=== PATIENT | male | born 1945 | race Caucasian/White ===

== ENCOUNTER 2021-11-30 07:27 | Outpatient (REF) | payer MEDICARE, SELFPAY ==
[2021-11-30 07:55] LABS: MANUAL DIFF FLAG NO
[2021-11-30 08:49] LABS: Basophils Absolute Auto 0.1 X10*3/uL (0.0-0.2); Basophils Percent Auto 0.5 % (0-2); Eosinophils Absolute Auto 0.5 X10*3/uL (0.0-0.4); Eosinophils Percent Auto 4.7 % (0-4); Hematocrit 30.2 % (42.0-52.0); Hemoglobin 9.7 g/dl (14.0-18.0); Imm Gran Abs Auto 0.04 X10*3/uL (0.00-0.03); Imm Gran Pct Auto 0.4 % (0.0-0.4); Lymphocytes Absolute Auto 2.5 X10*3/uL (1.2-4.9); Lymphocytes Percent Auto 25.2 % (20-40); Mean Corpuscular HGB Conc 32.1 g/dl (31.0-36.0); Mean Corpuscular Hemoglobin 25.3 pg (27.0-33.0); Mean Corpuscular Volume 78.9 fL (80.0-98.0); Mean Platelet Volume 8.6 fL (9.4-12.4); Monocytes Percent Auto 10.6 % (2-11); Neutrophils Absolute Auto 5.8 x10*3/uL (2.0-8.3); Neutrophils Percent Auto 58.6 % (45-73); Platelet Count 280 X10*3/uL (160-400); Red Blood Count 3.83 X10*6/uL (4.60-5.80); Red Cell Distribution Width 18.1 % (11.0-16.0); White Blood Count 9.8 X10*3/uL (4.8-10.8)
[2021-11-30 09:24] LABS: Creatinine Urine 132.56 mg/dL; Microalbum/Creatinine Ratio Ur 18.1 ug/mg cr
[2021-11-30 09:35] LABS: Alanine Aminotransferase 25 U/L (0-40); Albumin Level 3.8 g/dL (3.5-5.0); Alkaline Phosphatase 98 U/L (39-117); Anion Gap 14 (12-20); Aspartate Amino Transferase 34 U/L (5-37); Bilirubin Total 0.5 mg/dL (0.0-1.0); Blood Urea Nitrogen 24 mg/dL (9-16); Calcium 9.1 mg/dL (8.4-10.2); Carbon Dioxide 23 mmol/L (22-29); Chloride 104 mmol/L (96-108); Cholesterol 123 mg/dL; Estimated Glomerular Filt Rate 30; Glucose Random 131 mg/dL (60-115); HDL Cholesterol 49 mg/dL; LDL Cholesterol Calculated 57 mg/dl; Potassium 4.2 mmol/L (3.3-5.1); Sodium 137 mmol/L (135-145); Total Protein 7.1 g/dL (6.5-8.0); Triglycerides 89 mg/dL
[2021-11-30 09:47] LABS: TSH reflex Free T4 2.61 uIU/mL (0.32-4.0)
[2021-11-30 10:14] LABS: Vitamin D 25-OH Total 43.8 ng/mL (>30)
[2021-12-02 09:01] LABS: Folate 16.6 ng/mL (> or = 4.0); Vitamin B12 > 2000 pg/mL (200-900)
== END 2021-11-30 07:28 | disposition home or self-care (01) ==
LOC: HO.LAB 07:27
PROVIDERS: PCP Nurse Practitioner Family; Visit Provider Nurse Practitioner Family
DX: Z13.29 Encounter for screening for other suspected endocrine disorder (principal); I10 Essential (primary) hypertension; E78.5 Hyperlipidemia, unspecified; E11.9 Type 2 diabetes mellitus without complications; Z79.4 Long term (current) use of insulin
CPT/HCPCS: 36415; 80053; 80061; 82043; 82306; 82607; 82746; 84443; 85025

== ENCOUNTER 2021-12-18 07:56 | Outpatient (REF) | payer MEDICARE, SELFPAY ==
[2021-12-18 09:35] LABS: Hematocrit 29.9 % (42.0-52.0); Hemoglobin 9.4 g/dl (14.0-18.0); Immature Retic Fraction 29.2 % (2.3-13.4); Mean Corpuscular HGB Conc 31.4 g/dl (31.0-36.0); Mean Corpuscular Hemoglobin 25.1 pg (27.0-33.0); Mean Corpuscular Volume 79.9 fL (80.0-98.0); Mean Platelet Volume 9.1 fL (9.4-12.4); Platelet Count 289 X10*3/uL (160-400); Red Blood Count 3.74 X10*6/uL (4.60-5.80); Red Cell Distribution Width 17.9 % (11.0-16.0); Retic HGB Equivalent 29.1 pg (30.0-35.0); Reticulocyte Percent 1.5 % (0.5-1.8); Reticulocytes Absolute 0.056 X10*6/uL (0.026-0.095); White Blood Count 9.9 X10*3/uL (4.8-10.8)
[2021-12-18 10:11] LABS: Anion Gap 13 (12-20); Blood Urea Nitrogen 26 mg/dL (9-16); Calcium 9.2 mg/dL (8.4-10.2); Carbon Dioxide 25 mmol/L (22-29); Chloride 101 mmol/L (96-108); Estimated Glomerular Filt Rate 29; Glucose Random 155 mg/dL (60-115); Iron 29 mcg/dL (45-160); Percent Iron Saturation 7 % (15-50); Potassium 4.4 mmol/L (3.3-5.1); Sodium 135 mmol/L (135-145); Total Iron Binding Capacity 391 mcg/dL (228-428); Unsaturated Iron Binding 362 ug/dL
[2021-12-18 10:35] LABS: Ferritin 33 ng/mL (20-250)
== END 2021-12-18 07:57 | disposition home or self-care (01) ==
LOC: HO.LAB 07:56
PROVIDERS: PCP Nurse Practitioner Family; Visit Provider Nurse Practitioner Family
DX: N18.30 Chronic kidney disease, stage 3 unspecified (principal); D64.9 Anemia, unspecified
CPT/HCPCS: 36415; 80048; 82728; 83540; 85027; 85045

== ENCOUNTER → 2021-12-30 14:37 | Outpatient (BNVA) | payer MEDICARE, SELFPAY | PROVIDERS: PCP Nurse Practitioner Family; Referring Provider Nurse Practitioner Family; Visit Provider Internal Medicine | DX: I25.10 Atherosclerotic heart disease of native coronary artery without angina pectoris (principal); I48.0 Paroxysmal atrial fibrillation; I10 Essential (primary) hypertension; E11.8 Type 2 diabetes mellitus with unspecified complications; I25.2 Old myocardial infarction; Z79.4 Long term (current) use of insulin; Z79.82 Long term (current) use of aspirin; Z79.899 Other long term (current) drug therapy | CPT/HCPCS: 93005; 99202 ==

== ENCOUNTER 2022-01-05 | Outpatient (REF) | payer MEDICARE, SELFPAY ==
[2022-01-07 12:41] LABS: OBS Int Ctl Valid YES
[2022-01-07 12:42] LABS: OBS1 POSITIVE (NEGATIVE); OBS2 POSITIVE (NEGATIVE); OBS3 POSITIVE (NEGATIVE)
== END 2022-01-05 00:01 | disposition home or self-care (01) ==
LOC: HO.LNP
PROVIDERS: Visit Provider Nurse Practitioner Family
DX: D64.9 Anemia, unspecified (principal); R19.5 Other fecal abnormalities
CPT/HCPCS: 82270

== ENCOUNTER 2022-01-07 13:11 | Outpatient (REF) | payer MEDICARE, SELFPAY ==
[2022-01-07 13:55] LABS: Appearance Urine CLEAR; Color Urine YELLOW; Glucose Urine UA NEG (NEG); Leukocyte Esterase Urine NEG (NEG); Nitrite Urine NEG (NEG); Specific Gravity - Urine 1.025 (1.005-1.025); Urine Blood NEG (NEG); Urine Ketones 5 MG/DL (NEG); Urine Protein TRACE MG/DL (NEG-TRACE)
[2022-01-07 13:56] LABS: Hematocrit 30.4 % (42.0-52.0); Hemoglobin 9.3 g/dl (14.0-18.0); Mean Corpuscular HGB Conc 30.6 g/dl (31.0-36.0); Mean Corpuscular Hemoglobin 25.8 pg (27.0-33.0); Mean Corpuscular Volume 84.2 fL (80.0-98.0); Mean Platelet Volume 8.7 fL (9.4-12.4); Platelet Count 241 X10*3/uL (160-400); Red Blood Count 3.61 X10*6/uL (4.60-5.80); Red Cell Distribution Width 20.4 % (11.0-16.0); White Blood Count 10.8 X10*3/uL (4.8-10.8)
[2022-01-07 15:51] LABS: Anion Gap 12 (12-20); Blood Urea Nitrogen 22 mg/dL (9-16); Calcium 9.1 mg/dL (8.4-10.2); Carbon Dioxide 25 mmol/L (22-29); Chloride 105 mmol/L (96-108); Estimated Glomerular Filt Rate 31; Glucose Random 254 mg/dL (60-115); Potassium 4.3 mmol/L (3.3-5.1); Sodium 138 mmol/L (135-145)
[2022-01-07 16:11] LABS: Creatinine Urine 160.52 mg/dL; Protein/Creatinine Ratio, Ur 0.18 (<0.2); Total Protein Urine Random 29 mg/dL (<12)
== END 2022-01-07 13:12 | disposition home or self-care (01) ==
LOC: HO.LAB 13:11
PROVIDERS: PCP Nurse Practitioner Family; Referring Provider Nurse Practitioner Family; Visit Provider Internal Medicine Hypertension Specialist
DX: D64.9 Anemia, unspecified (principal); R19.5 Other fecal abnormalities; N18.32 Chronic kidney disease, stage 3b; E11.22 Type 2 diabetes mellitus with diabetic chronic kidney disease
CPT/HCPCS: 36415; 80048; 81003; 84156; 85027

== ENCOUNTER → 2022-01-14 09:10 | Outpatient (BNVA) | payer MEDICARE, SELFPAY | PROVIDERS: PCP Nurse Practitioner Family; Visit Provider Internal Medicine Endocrinology, Diabetes & Metabolism | DX: E11.9 Type 2 diabetes mellitus without complications (principal); I10 Essential (primary) hypertension; Z79.4 Long term (current) use of insulin; Z96.41 Presence of insulin pump (external) (internal) | CPT/HCPCS: 82947; 99202 ==

== ENCOUNTER 2022-01-14 10:34 | Outpatient (REF) | payer MEDICARE, SELFPAY ==
[2022-01-16 03:22] LABS: C Peptide 3.18 ng/mL (0.80-3.85)
[2022-01-18 21:37] LABS: Glutamic acid decarboxylase Ab <5 IU/mL (<5)
== END 2022-01-14 10:35 | disposition home or self-care (01) ==
LOC: HO.10HDL 10:34
PROVIDERS: Visit Provider Internal Medicine Endocrinology, Diabetes & Metabolism
DX: E11.9 Type 2 diabetes mellitus without complications (principal); Z79.4 Long term (current) use of insulin
CPT/HCPCS: 36415; 84681; 86341

== ENCOUNTER → 2022-01-21 13:11 | Outpatient (BNVA) | payer MEDICARE, SELFPAY | PROVIDERS: PCP Nurse Practitioner Family; Visit Provider Registered Nurse Diabetes Educator | DX: E11.8 Type 2 diabetes mellitus with unspecified complications (principal); Z96.41 Presence of insulin pump (external) (internal) | CPT/HCPCS: 99211 ==

== ENCOUNTER → 2022-01-23 10:47 | Outpatient (BNVA) | payer MEDICARE, SELFPAY | PROVIDERS: PCP Nurse Practitioner Family; Visit Provider Dietitian, Registered | DX: E11.9 Type 2 diabetes mellitus without complications (principal); Z96.41 Presence of insulin pump (external) (internal); Z71.3 Dietary counseling and surveillance | CPT/HCPCS: 97802 ==

== ENCOUNTER → 2022-01-30 08:50 | Outpatient (BNVA) | payer MEDICARE, SELFPAY | PROVIDERS: PCP Nurse Practitioner Family; Visit Provider Registered Nurse Diabetes Educator | DX: E11.8 Type 2 diabetes mellitus with unspecified complications (principal) | CPT/HCPCS: 99211 ==

== ENCOUNTER → 2022-02-03 13:44 | Outpatient (REF) | payer MEDICARE, SELFPAY ==
--- NOTE | 2022-02-03 | CA_ITS ---
Transthoracic Echocardiogram Patient (Last, First, Middle): Hussain Russell, Gender: Male Date of : 1945 Age: 77 Procedure Date: 02/03/2022 Procedure Type: Transthoracic Echocardiogram Location: OP Height: 182.88 cm Weight: 92.53 kg BSA: 2.15 m2 Heart Rate: 60 bpm BP: 128 / 70 mmHg Finger Buff Sewer: SB Referring MD: Kahlil Jessica MD Manufacturing Engineer Assembly: Miah Snyder MD Symptoms: I25.10 - Atherosclerotic heart disease of [place] coronary artery without... Study Quality: Adequate/Contrast ECG Rhythm: Sinus Conclusions: - 1. Normal LV systolic function with moderate LVH with LVEF of 65-70% with pseudonormal filling pattern. 2. Mildly dilated left atrium 3. Mild mitral regurgitation 4. No gross pericardial effusion Findings Procedure Information Contrast agent, definity, is being given per protocol without apparent complications. Left Ventricle Normal left ventricular size and systolic function. There is moderately increased left ventricular wall thickness. The visually estimated ejection fraction is between 65-70%. Spectral Doppler is indicative of a pseudonormal filling pattern. E/E prime ratio is between 8 and 15 consistent with indeterminate filling pressures. Wall Motion Rest Echo Findings The basal inferior, apical septum, and mid anteroseptal segments are hypokinetic. All other scored wall segments showed normal motion. Right Ventricle Normal right ventricular cavity size and systolic function. Atria The left atrium is mildly dilated. There is lipomatous hypertrophy of the interatrial septum. There is no evidence of interatrial shunt. The right atrium is likely dilated. Aortic Valve There is mild calcification of the aortic valve. There is no aortic valve stenosis. There is no aortic valve regurgitation. Mitral Valve There is mild anterior and posterior mitral leaflet thickening. There is mild mitral valve regurgitation. There is no mitral valve stenosis. Pulmonic Valve The pulmonic valve was not well visualized. Tricuspid Valve Likely normal tricuspid valve structure and function. Tricuspid regurgitation envelope is inadequate for calculation of right ventricular systolic pressure. Normal right atrial pressure. Great Vessels All visible segments of the aorta are normal in size. The pulmonary artery was not well visualized. Venous The inferior vena cava is normal in size and collapses greater than 50% with inspiration. Pericardium/Pleural There is no evidence of pericardial effusion. Prior Study Comparison No prior study available for comparison. Measurements 2D Linear Measurements IVSd: 0.97 0.6-0.9/0.6-1.0 cm LVIDd: 5.16 3.9-5.3/4.2-5.9 cm LVIDd Index: 2.40 2.4-3.2/2.2-3.1 cm/m2 LVIDs: 3.45 2.0-3.6 cm LVPWd: 1.43 0.7-1.1 cm LA Diam: 5.20 2.7-3.8/3.0-4.0 cm LAIDs Index: 2.42 1.5-2.3 cm/m2 LV Mass: 305.59 67-162/88-224 g LV Mass Index: 142.13 43-95/49-115 g/m2 LVOT Diam: 2.60 3.0+(-)1.3 cm 2D Systolic Function EF 4C: 61.50 >55% EF 2C: 75.80 >55% EF BiP: 70.20 >55% Mitral Valve MV Pk E: 0.91 MV PK A: 0.51 MV Decel Time: 163.00 E/A: 1.80 E'Lateral: 11.20 E/E' Lat: 8.10 PHT: 48.00 MVA PHT: 4.58 Decel [place]: 5.58 MR Vol - PW Dopp: 30.72 MR VTI: 1.92 MR ERO: 16.00 MR Alias Jeff: 0.36 MR RAD: 0.60 Aortic Valve AoV Pk Jeff: 1.10 AoV Mn Jeff: 0.77 AoV VTI: 0.23 AoV Pk Grad: 5.00 Aov Mn Grad: 3.00 GABY Cont.VTI: 5.01 LVOT LVOT Pk Jeff: 0.98 LVOT Mn Jeff: 0.72 LVOT VTI: 0.22 LVOT Pk Grad: 4.00 LVOT Mn Grad: 3.00 LVOT Diam: 2.60 LVOT Area: 5.31 Diastolic Function MV Pk E: 0.91 MV Pk A: 0.51 E/A: 1.80 E' Laterial: 11.20 E/E' Lat: 8.10 Right Ventricle TVS' Jeff: 6.40 Tricuspid Valve RA Press: 3.00 Great Vessels Aorta Sinus of Valsalva: 4.00 2.0-3.5 cm Ao Asc: 3.50 2.1-3.4 cm Pulmonary Valve PV Pk Jeff: 0.63 Peak PV Grad: 2.00 Updated in Other Vendor System with Status of Final Miah Snyder MD electronically signed on 02/04/2022 11:38:37 AM with status of Final
== END ==
LOC: HO.CARD 13:44
PROVIDERS: PCP Nurse Practitioner Family; Visit Provider Internal Medicine
DX: I25.10 Atherosclerotic heart disease of native coronary artery without angina pectoris (principal)
CPT/HCPCS: 93306; Q9957

== ENCOUNTER 2022-02-10 09:11 | Emergency (ER) | payer MEDICARE, SELFPAY ==
[2022-02-10] VITALS (9 sets, daily range): BP systolic 93–132; BP diastolic 60–78; PULSE 55–70; RESP 16–18; TEMP 36.8; O2SAT 96–98; BMI 27.8
[2022-02-10 10:44] LABS: MANUAL DIFF FLAG NO
[2022-02-10 10:51] LABS: Basophils Absolute Auto 0.1 X10*3/uL (0.0-0.2); Basophils Percent Auto 0.6 % (0-2); Eosinophils Absolute Auto 0.3 X10*3/uL (0.0-0.4); Eosinophils Percent Auto 3.2 % (0-4); Hematocrit 37.3 % (42.0-52.0); Hemoglobin 11.6 g/dl (14.0-18.0); Imm Gran Abs Auto 0.05 X10*3/uL (0.00-0.03); Imm Gran Pct Auto 0.5 % (0.0-0.4); Lymphocytes Absolute Auto 1.2 X10*3/uL (1.2-4.9); Lymphocytes Percent Auto 12.6 % (20-40); Mean Corpuscular HGB Conc 31.1 g/dl (31.0-36.0); Mean Corpuscular Hemoglobin 27.2 pg (27.0-33.0); Mean Corpuscular Volume 87.6 fL (80.0-98.0); Mean Platelet Volume 8.7 fL (9.4-12.4); Monocytes Absolute Auto 0.8 X10*3/uL (0.1-1.2); Monocytes Percent Auto 8.4 % (2-11); Neutrophils Absolute Auto 7.3 x10*3/uL (2.0-8.3); Neutrophils Percent Auto 74.7 % (45-73); Platelet Count 216 X10*3/uL (160-400); Red Blood Count 4.26 X10*6/uL (4.60-5.80); White Blood Count 9.8 X10*3/uL (4.8-10.8)
[2022-02-10 11:14] LABS: Alanine Aminotransferase 16 U/L (0-40); Alkaline Phosphatase 89 U/L (39-117); Anion Gap 11 (12-20); Aspartate Amino Transferase 21 U/L (5-37); Bilirubin Direct 0.2 mg/dL (0.0-0.5); Bilirubin Total 0.3 mg/dL (0.0-1.0); Blood Urea Nitrogen 23 mg/dL (9-16); Calcium 9.1 mg/dL (8.4-10.2); Carbon Dioxide 25 mmol/L (22-29); Chloride 103 mmol/L (96-108); Creatinine Clr Calc Pharmacy 31.8; Estimated Glomerular Filt Rate 31; Glucose Random 232 mg/dL (60-115); Lipase 73 U/L (8-78); Potassium 4.3 mmol/L (3.3-5.1); Sodium 135 mmol/L (135-145); Total Protein 7.3 g/dL (6.5-8.0)
[2022-02-10 11:18] LABS: Troponin-I High Sensitivity 3.8 ng/L (<3.5-35.0)
--- NOTE | 2022-02-10 11:55 | ED_ITS ---
HPI - General Adult General Chief complaint: General Medical Stated complaint: Low blood pressure/dizziness Time Seen by Provider: 02/10/22 11:53 Source: patient Mode of arrival: ambulatory Limitations: no limitations History of Present Illness HPI narrative: sent by GI clinic because low BP,pt is asyntomatic ,denies chest pain,is scheduled for outpt colonoscopy Onset (ago): hour(s) (3) Location: abdomen Radiation: non-radiation Severity: moderate Pain Consistency: constant Relieving factors: none Exacerbating factors: none Associated symptoms: denies other symptoms Related Data Home Medications Medication Instructions Recorded Confirmed amitriptyline 25 mg tablet 25 mg PO BEDTIME 11/28/21 12/30/21 ascorbic acid (vitamin C) 1,000 mg 1 g PO DAILY 11/28/21 12/30/21 tablet aspirin 81 mg tablet,delayed 162 mg PO DAILY 11/28/21 12/30/21 release blood sugar diagnostic 11/28/21 12/30/21 blood-glucose meter 11/28/21 12/30/21 cholecalciferol (vitamin D3) 25 25 mcg PO DAILY 11/28/21 12/30/21 mcg (1,000 unit) capsule fluticasone propionate 50 2 spray intranasal DAILY 11/28/21 12/30/21 mcg/actuation nasal spray,suspension mecobalamin (vitamin B12) 5,000 2,500 mcg PO DAILY 11/28/21 12/30/21 mcg disintegrating tablet omeprazole 20 mg capsule,delayed 20 mg PO DAILY 11/28/21 12/30/21 release rosuvastatin 40 mg tablet 40 mg PO DAILY 11/28/21 12/30/21 sertraline 100 mg tablet 100 mg PO BID 11/28/21 12/30/21 subcutaneous insulin pump 11/28/21 12/30/21 tamsulosin 0.4 mg capsule 0.4 mg PO DAILY 11/28/21 12/30/21 thiamine HCl (vitamin B1) 100 mg 300 mg PO DAILY 11/28/21 12/30/21 tablet losartan 100 mg tablet 50 mg PO DAILY 01/14/22 Previous Rx's Medication Instructions Recorded zinc oxide 12 % topical cream 1 appl topical QID PRN skin 12/12/21 (Oneyda Protect (zinc oxide)) irritation 10 days #142 grams nystatin 100,000 unit/gram topical 1 appl topical BID PRN rash #15 12/17/21 cream grams glucagon 3 mg/actuation nasal 3 mg intranasal ONCE #2 ea 01/14/22 spray (Baqsimi) donepezil 5 mg tablet 5 mg PO DAILY #30 tabs 01/23/22 ferrous sulfate 325 mg (65 mg 325 mg PO DAILY #60 tabs 01/24/22 iron) tablet,delayed release metoprolol succinate 25 mg 25 mg PO DAILY #90 tabs 01/24/22 tablet,extended release 24 hr insulin lispro 100 unit/mL 23 unit (0.23 mL) subcut TID #10 mL 01/30/22 subcutaneous solution (Humalog U-100 Insulin) Allergies Allergy/AdvReac Type Severity Reaction Status Date / Time codeine Allergy Intermediate upset Verified 02/10/22 08:43 stomach Review of Systems Constitutional: Constitutional: Reports no additional constitutional complaints Eyes: Eyes: Reports no additional eye complaints Respiratory: Respiratory: Reports no additional respiratory complaints Gastrointestinal: Gastrointestinal: Reports no additional gastrointestinal complaints, Denies coffee ground emesis, Denies vomiting and Denies hematemesis [facility] Past Medical History Medical History Essential hypertension Paroxysmal atrial fibrillation Type 2 diabetes mellitus with unspecified complications Surgical History History of cataract surgery History of heart bypass surgery History of hernia surgery History of radiofrequency ablation (RFA) procedure for cardiac arrhythmia Social History [facility] Alcohol intake: current Alcohol intake frequency: a few times a month Alcohol type: wine Patient Tobacco Use Status: Former Tobacco user e-Cigarette/Vaping Use: Never Used Second Hand Smoke Exposure: No Advance Directives: No Advance Directives Information Provided: Yes service: No Current occupational status: retired Cognitive needs: No Hearing needs: No Vision needs: Yes (glasses) Physical Exam ED Vital Signs: Vital Signs - 24 hr 02/10/22 09:20 02/10/22 10:37 02/10/22 12:12 Temperature 98.3 F Pulse Rate 68 57 Respiratory Rate 18 16 Blood Pressure 93/60 104/60 108/64 Pulse Oximetry 96 98 Oxygen Delivery Method Room Air Room Air 02/10/22 13:02 02/10/22 14:15 02/10/22 14:16 Temperature Pulse Rate 59 60 70 Respiratory Rate 18 16 Blood Pressure 118/69 132/78 132/78 Pulse Oximetry 98 98 98 Oxygen Delivery Method Room Air Room Air Room Air 02/10/22 14:26 02/10/22 14:29 02/10/22 14:32 Temperature Pulse Rate 56 55 56 Respiratory Rate Blood Pressure 130/74 131/75 123/64 Pulse Oximetry Oxygen Delivery Method BMI result Body Mass Index 27.8 Const General: cooperative Nutritional Appearance: average body habitus Orientation/consciousness: patient oriented x3 Limitations: no limitations HENMT Head: Yes normal to inspection General nose exam: Normal external nose present Face and sinus: Yes normal facial exam Mouth: Normal oral and palatal mucosa present Neck Neck: Yes normal visual inspection and Yes full ROM Chest Chest palpation & inspection: normal inspection of the chest Resp Effort & Inspection: normal respiratory effort Auscultation: clear to auscultation bilaterally Cardio Jugular venous distension: no JVD Rate: regular rate Rhythm: regular rhythm GI Inspection: Yes normal to inspection Palpation (GI): Soft to palpation Percussion: Yes normal to percussion Auscultation: normal bowel sounds Skin General skin exam: no rashes or lesions noted Lesions: no lesions Rashes: no rashes Neuro General: patient oriented x3 Course Reevaluation(s) Reevaluation #1: Remain asymptomatic and normotensive in the emergency department, his hemoglobin today actually is better, he has a known heme-positive stools, he is scheduled for colonoscopy. At this time I do not think the patient needs inpatient level of care, he feels well, he has been normotensive since his arrival to the ED. Shared decision making with the patient and the sister the very comfortable with the plan we will proceed with discharge Medical Decision Making Lab Data Result diagrams: 02/10/22 12:05 02/10/22 10:37 Labs: Lab Results 02/10/22 02/10/22 02/10/22 Range/Units 10:37 10:37 10:37 WBC 9.8 (4.8-10.8) X10*3/uL RBC 4.26 L (4.60-5.80) X10*6/uL Hgb 11.6 L D (14.0-18.0) g/dl Hct 37.3 L D (42.0-52.0) % MCV 87.6 (80.0-98.0) fL MCH 27.2 (27.0-33.0) pg MCHC 31.1 (31.0-36.0) g/dl RDW 20.0 H (11.0-16.0) % Plt Count 216 (160-400) X10*3/uL MPV 8.7 L (9.4-12.4) fL Immature Gran % (Auto) 0.5 H (0.0-0.4) % Neut % (Auto) 74.7 H (45-73) % Lymph % (Auto) 12.6 L (20-40) % [place] % (Auto) 8.4 (2-11) % Eos % (Auto) 3.2 (0-4) % Baso % (Auto) 0.6 (0-2) % Lymph # (Auto) 1.2 (1.2-4.9) X10*3/uL [place] # (Auto) 0.8 (0.1-1.2) X10*3/uL Eos # (Auto) 0.3 (0.0-0.4) X10*3/uL Baso # (Auto) 0.1 (0.0-0.2) X10*3/uL Abs Immat Gran (auto) 0.05 H (0.00-0.03) X10*3/uL Absolute Neuts (auto) 7.3 (2.0-8.3) x10*3/uL Absolute Nucleated RBC 0.000 (0.0-0.012) X10*3/uL Nucleated RBC % (auto) 0.0 (0.0-0.2) /100WBC Sodium 135 (135-145) mmol/L Potassium 4.3 (3.3-5.1) mmol/L Chloride 103 (96-108) mmol/L Carbon Dioxide 25 (22-29) mmol/L Anion Gap 11 L (12-20) BUN 23 H (9-16) mg/dL Creatinine 2.10 H (0.5-1.4) mg/dL Estim Creat Clear Calc 31.8 Estimated GFR 31 Random Glucose 232 H (60-115) mg/dL Calcium 9.1 (8.4-10.2) mg/dL Total Bilirubin 0.3 (0.0-1.0) mg/dL Direct Bilirubin 0.2 (0.0-0.5) mg/dL AST 21 (5-37) U/L ALT 16 (0-40) U/L Alkaline Phosphatase 89 (39-117) U/L Troponin I High Sens 3.8 (<3.5-35.0) ng/L Total Protein 7.3 (6.5-8.0) g/dL Albumin 4.0 (3.5-5.0) g/dL Lipase 73 (8-78) U/L Stool Occult Blood (NEGATIVE) 02/10/22 02/10/22 02/10/22 Range/Units 12:05 12:05 12:05 WBC 9.7 (4.8-10.8) X10*3/uL RBC 4.20 L (4.60-5.80) X10*6/uL Hgb 11.5 L (14.0-18.0) g/dl Hct 36.8 L (42.0-52.0) % MCV 87.6 (80.0-98.0) fL MCH 27.4 (27.0-33.0) pg MCHC 31.3 (31.0-36.0) g/dl RDW 19.9 H (11.0-16.0) % Plt Count 214 (160-400) X10*3/uL MPV 8.9 L (9.4-12.4) fL Immature Gran % (Auto) 0.4 (0.0-0.4) % Neut % (Auto) 72.5 (45-73) % Lymph % (Auto) 14.3 L (20-40) % [place] % (Auto) 9.5 (2-11) % Eos % (Auto) 2.8 (0-4) % Baso % (Auto) 0.5 (0-2) % Lymph # (Auto) 1.4 (1.2-4.9) X10*3/uL [place] # (Auto) 0.9 (0.1-1.2) X10*3/uL Eos # (Auto) 0.3 (0.0-0.4) X10*3/uL Baso # (Auto) 0.1 (0.0-0.2) X10*3/uL Abs Immat Gran (auto) 0.04 H (0.00-0.03) X10*3/uL Absolute Neuts (auto) 7.0 (2.0-8.3) x10*3/uL Absolute Nucleated RBC 0.000 (0.0-0.012) X10*3/uL Nucleated RBC % (auto) 0.0 (0.0-0.2) /100WBC Sodium (135-145) mmol/L Potassium (3.3-5.1) mmol/L Chloride (96-108) mmol/L Carbon Dioxide (22-29) mmol/L Anion Gap (12-20) BUN (9-16) mg/dL Creatinine (0.5-1.4) mg/dL Estim Creat Clear Calc Estimated GFR Random Glucose (60-115) mg/dL Calcium (8.4-10.2) mg/dL Total Bilirubin (0.0-1.0) mg/dL Direct Bilirubin (0.0-0.5) mg/dL AST (5-37) U/L ALT (0-40) U/L Alkaline Phosphatase (39-117) U/L Troponin I High Sens 3.6 (<3.5-35.0) ng/L Total Protein (6.5-8.0) g/dL Albumin (3.5-5.0) g/dL Lipase (8-78) U/L Stool Occult Blood POSITIVE (NEGATIVE) Discharge Plan Discharge Clinical Impression: Hypotension, Heme positive stool Patient Disposition: Home, Self-Care Instructions: Hypotension (ED) Additional Instructions: You should follow-up with your primary care physician tomorrow, return to the emergency department if you worse. You have been evaluated in the emergency room for low blood pressure your blood pressure was normal several times in the ED, your hemoglobin was better today than before. Follow-up also with your gastroenterology you should have a colonoscopy as scheduled to investigate the blood in the stools Prescriptions: No Action Oneyda Protect (zinc oxide) 12 % cream 1 appl topical QID PRN (Reason: skin irritation) 10 Days Qty: 142 0RF nystatin 100,000 unit/gram cream 1 appl topical BID PRN (Reason: rash) Qty: 15 0RF donepezil 5 mg tablet 5 mg PO DAILY Qty: 30 2RF metoprolol succinate 25 mg tablet extended release 24 hr 25 mg PO DAILY Qty: 90 1RF ferrous sulfate 325 mg (65 mg iron) tablet,delayed release (DR/EC) 325 mg PO DAILY Qty: 60 0RF insulin lispro [Humalog U-100 Insulin] 100 unit/mL solution 23 unit subcut TID Qty: 10 6RF Rx Instructions: pt uses 70 units/day with insulin pump rosuvastatin 40 mg tablet 40 mg PO DAILY tamsulosin 0.4 mg capsule 0.4 mg PO DAILY sertraline 100 mg tablet 100 mg PO BID (DME) subcutaneous insulin pump Misc See Rx Instructions .Route Rx Instructions: 3ml:3ml amitriptyline 25 mg tablet 25 mg PO BEDTIME omeprazole 20 mg capsule,delayed release(DR/EC) 20 mg PO DAILY (DME) blood-glucose meter Kit See Rx Instructions .Route Rx Instructions: test blood sugar 6 times a day as needed aspirin 81 mg tablet,delayed release (DR/EC) 162 mg PO DAILY thiamine HCl (vitamin B1) 100 mg tablet 300 mg PO DAILY fluticasone propionate 50 mcg/actuation spray,suspension 2 spray intranasal DAILY Rx Instructions: administer into each nostril cholecalciferol (vitamin D3) 25 mcg (1,000 unit) capsule 25 mcg PO DAILY mecobalamin (vitamin B12) 5,000 mcg tablet,disintegrating 2,500 mcg PO DAILY ascorbic acid (vitamin C) 1,000 mg tablet 1 g PO DAILY (DME) blood sugar diagnostic Strip See Rx Instructions .Route Rx Instructions: test blood sugar 6 times a day and as needed losartan 100 mg tablet 50 mg PO DAILY Baqsimi 3 mg/actuation spray,non-aerosol 3 mg intranasal ONCE Qty: 2 5RF Referrals: Chen Santamaria FNP [Primary Care Provider] - 1 day Interventions: ED Discharge Assessment Last Done: 02/10/22 14:43 Discharge Date/Time: 02/10/22 14:43
[2022-02-10] MEDS: 0.9 % Sodium Chloride 1,000 ML 999 ML IVCONT (12:10)
[2022-02-10 12:17] LABS: MANUAL DIFF FLAG NO
[2022-02-10 12:21] LABS: Basophils Absolute Auto 0.1 X10*3/uL (0.0-0.2); Basophils Percent Auto 0.5 % (0-2); Eosinophils Absolute Auto 0.3 X10*3/uL (0.0-0.4); Eosinophils Percent Auto 2.8 % (0-4); Hematocrit 36.8 % (42.0-52.0); Hemoglobin 11.5 g/dl (14.0-18.0); Imm Gran Abs Auto 0.04 X10*3/uL (0.00-0.03); Imm Gran Pct Auto 0.4 % (0.0-0.4); Lymphocytes Absolute Auto 1.4 X10*3/uL (1.2-4.9); Lymphocytes Percent Auto 14.3 % (20-40); Mean Corpuscular HGB Conc 31.3 g/dl (31.0-36.0); Mean Corpuscular Hemoglobin 27.4 pg (27.0-33.0); Mean Corpuscular Volume 87.6 fL (80.0-98.0); Mean Platelet Volume 8.9 fL (9.4-12.4); Monocytes Absolute Auto 0.9 X10*3/uL (0.1-1.2); Monocytes Percent Auto 9.5 % (2-11); Neutrophils Percent Auto 72.5 % (45-73); Platelet Count 214 X10*3/uL (160-400); Red Cell Distribution Width 19.9 % (11.0-16.0); White Blood Count 9.7 X10*3/uL (4.8-10.8)
[2022-02-10 12:23] LABS: OBS Int Ctl Valid YES; OBS1 POSITIVE (NEGATIVE)
[2022-02-10 12:43] LABS: Troponin-I High Sensitivity 3.6 ng/L (<3.5-35.0)
== END 2022-02-10 14:43 | disposition home or self-care (01) ==
PROVIDERS: Emergency Provider Emergency Medicine; PCP Nurse Practitioner Family
DX: I95.9 Hypotension, unspecified (principal); K92.1 Melena; R42 Dizziness and giddiness; R07.89 Other chest pain; E11.9 Type 2 diabetes mellitus without complications; Z79.4 Long term (current) use of insulin; Z87.891 Personal history of nicotine dependence; Z79.899 Other long term (current) drug therapy
CPT/HCPCS: 36415; 80048; 80076; 82272; 83690; 84484; 85025; 96360; 99202; 99212; 99284

== ENCOUNTER 2022-02-20 11:52 | Outpatient (REF) | payer MEDICARE, SELFPAY ==
--- NOTE | ~2022-02-20 | US_ITS ---
EXAMINATION: US RETROPERITONEAL LIMITED (RENAL ONLY) CLINICAL INFORMATION: Chronic kidney disease stage III. COMPARISON: None TECHNIQUE: Real-time imaging of the kidneys. FINDINGS: RIGHT KIDNEY: 8.9 x 4.5 x 3.9 cm (SAG x AP x TRV). The kidney is normal in size, contour, and echogenicity. No calculi or mass. There is question of pelvic fullness versus peripelvic cyst. No definite hydronephrosis. LEFT KIDNEY: 11.5 x 5.4 x 5.4 cm (SAG x AP x TRV). The kidney is normal in size, contour, and echogenicity. Renal cortical thickness is normal. No calculi or focal parenchymal lesions. No hydronephrosis. US/US renal BI IMPRESSION: Question right pelvic fullness versus peripelvic cyst. Normal-appearing left kidney.
== END 2022-02-20 11:53 | disposition home or self-care (01) ==
LOC: HO.US 11:52
PROVIDERS: Visit Provider Internal Medicine Hypertension Specialist
DX: N18.30 Chronic kidney disease, stage 3 unspecified (principal)
CPT/HCPCS: 76775

== ENCOUNTER → 2022-02-25 10:35 | Outpatient (BNVA) | payer MEDICARE, SELFPAY | PROVIDERS: PCP Nurse Practitioner Family; Visit Provider Nurse Practitioner Family | DX: K59.01 Slow transit constipation (principal); K21.9 Gastro-esophageal reflux disease without esophagitis; R19.5 Other fecal abnormalities; E11.9 Type 2 diabetes mellitus without complications; Z96.41 Presence of insulin pump (external) (internal) | CPT/HCPCS: 99212 ==

== ENCOUNTER 2022-02-26 13:19 | Outpatient (REF) | payer MEDICARE, SELFPAY ==
--- NOTE | ~2022-02-26 | CT_ITS ---
EXAMINATION: CT HEAD WITHOUT CONTRAST CLINICAL INFORMATION: Unspecified dementia. COMPARISON: None. TECHNIQUE: Contiguous axial imaging was performed from the skull base to vertex without intravenous administration of contrast. This CT examination was performed using dose optimization techniques as appropriate, variously including the following: *Automated exposure control *Adjustment of mA and/or kV according to patient size (this includes techniques or standardized protocols for targeted exams where dose is matched to indication/reason for exam; i.e. extremities or head) *Use of iterative reconstruction technique DLP: 669 mGy-cm. FINDINGS: There is no evidence of acute intracranial hemorrhage or territorial infarction. No abnormal mass effect or midline shift is seen. Barnes to white matter differentiation is well preserved. No extra-axial fluid collections are identified. The lateral ventricles are symmetrical in size but enlarged. The osseous structures and soft tissues are normal. The mastoid air cells and visualized portions of the paranasal sinuses are well aerated. CT/CT head/brain wo con IMPRESSION: No acute intracranial process seen. Age-related cerebral volume loss.
== END 2022-02-26 13:20 | disposition home or self-care (01) ==
LOC: HO.CT 13:19
PROVIDERS: PCP Nurse Practitioner Family; Visit Provider Nurse Practitioner Family
DX: F03.90 Unspecified dementia, unspecified severity, without behavioral disturbance, psychotic disturbance, mood disturbance, and anxiety (principal); R68.89 Other general symptoms and signs
CPT/HCPCS: 70450

== ENCOUNTER → 2022-02-27 10:22 | Outpatient (BNVA) | payer MEDICARE, SELFPAY | PROVIDERS: PCP Nurse Practitioner Family; Visit Provider Registered Nurse Diabetes Educator | DX: E11.8 Type 2 diabetes mellitus with unspecified complications (principal) | CPT/HCPCS: 99211 ==

== ENCOUNTER → 2022-03-04 13:39 | Outpatient (BNVA) | payer MEDICARE, SELFPAY | PROVIDERS: PCP Nurse Practitioner Family; Visit Provider Dietitian, Registered | DX: E11.8 Type 2 diabetes mellitus with unspecified complications (principal) | CPT/HCPCS: 97803 ==

== ENCOUNTER 2022-03-18 10:16 | Outpatient (REF) | payer MEDICARE, SELFPAY ==
[2022-03-18 11:34] LABS: Thyroid Stimulating Hormone 2.38 uIU/mL (0.32-4.0)
[2022-03-18 11:44] LABS: Folate 14.4 ng/mL (> or = 4.0); Vitamin B12 > 2000 pg/mL (200-900)
[2022-03-18 12:04] LABS: T4 Thyroxine 3.9 ug/dL (4.5-12.0)
[2022-03-20 20:41] LABS: Homocysteine 10.6 umol/L (<11.4)
== END 2022-03-18 10:17 | disposition home or self-care (01) ==
LOC: HO.LAB 10:16
PROVIDERS: PCP Nurse Practitioner Family; Visit Provider Psychiatry & Neurology Neurology
DX: G31.84 Mild cognitive impairment of uncertain or unknown etiology (principal)
CPT/HCPCS: 36415; 82607; 82746; 83090; 84436; 84443

== ENCOUNTER → 2022-04-01 08:42 | Outpatient (BNVA) | payer MEDICARE, SELFPAY | PROVIDERS: PCP Nurse Practitioner Family; Visit Provider Registered Nurse Diabetes Educator | DX: Z46.81 Encounter for fitting and adjustment of insulin pump (principal); E11.8 Type 2 diabetes mellitus with unspecified complications | CPT/HCPCS: 99211 ==

== ENCOUNTER 2022-04-12 09:46 | Outpatient (REF) | payer MEDICARE, SELFPAY ==
[2022-04-12 11:04] LABS: Glucose Fasting 126 mg/dL (60-99)
[2022-04-13 19:47] LABS: C Peptide 1.07 ng/mL (0.80-3.85)
== END 2022-04-12 09:47 | disposition home or self-care (01) ==
LOC: HO.LAB 09:46
PROVIDERS: PCP Nurse Practitioner Family; Visit Provider Internal Medicine Endocrinology, Diabetes & Metabolism
DX: E11.9 Type 2 diabetes mellitus without complications (principal); Z79.4 Long term (current) use of insulin
CPT/HCPCS: 36415; 82947; 84681

== ENCOUNTER 2022-04-17 09:00 | Outpatient (RCR) | payer MEDICARE, SELFPAY ==
--- NOTE | 2022-03-12 12:19 | MHC.PT.EP ---
[facility] [place] [facility] [place] [facility] [place] [facility] [address] Kenrick Nelson [address] [phone] F: [phone] F: [phone] F: [phone] F: [phone] Physical Therapy Plan of Care Date of Evaluation: Date of Surgery: n/a Diagnosis: unsteadiness on feet Assessment: Patient is a 77 year old male presenting to PT due to unsteadiness on feet. Pt reports onset of pain began about 7-8 years ago with progressive worsening. He presents today with impairments in balance and hip strength. Pt's current occupation is retired, with baseline physical activities including ADLs, golf, ambulation, stair negotiation. Pt expresses retirement goal of improving balance, and is motivated to work towards this in PT. Clinical presentation today is most consistent with signs and sx associated with unsteadiness on feet and pt will benefit from skilled PT to address the following problems and impairments noted upon evaluation: balance and hip strength. These problems limit the patient with the following functional activities: ADLs, ambulation, stair negotiation, golf. The prescribed treatment plan of care is medically necessary. Co-morbidities of HTN, AFIB, T2DM, neuropathy were identified and taken into considerations of plan of care. Pt was educated on HEP, role of PT, prognosis, POC. 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 Pt will demonstrate improved hip MMT strength by 1/3 grade in 2 weeks for improved lumbopelvic stability. Still Photographer Goals: Pt will demonstrate TUG score <12 seconds in 4 weeks for decreased risk of falls. Pt will demonstrate improved DGI score by 3 points in 4 weeks for decreased risk of falls. Treatment Plan: Modalities to reduce pain, spasms and effusion. Manual therapy to restore motion and function. Therapeutic exercise to improve strength and flexibility. Neuromuscular re-education for posture and balance. Therapeutic activities to return to functional activities of daily living. Electronically signed by: Joseline Concepcion, PT, DPT, ATC Please sign and return to therapist. Thank you for your referral.
--- NOTE | 2022-05-20 09:20 | MHC.PT.DC ---
[facility] [place] Office [place] Office [place] Office [address] Kernick Nelson [address] [phone] F: [phone] F: [phone] F: [phone] F: [phone] Physical Therapy Discharge Report Diagnosis: unsteadiness on feet Date of Surgery: n/a Date of Evaluation: 03/12/22 Date of Discharge: 05/20/22 Treatments to Date: 6 Cancellations to Date: 4 No Shows to Date: 1 Discharge Status: Discharge Summary: Pt no showed his last scheduled appointment and did not call in>30 days to be scheduled. Pt to be d/c at this time. Electronically signed by: Joseline Concepcion PT, DPT, ATC Please sign and return to therapist. Thank you for your referral.
== END 2022-05-20 09:20 | disposition home or self-care (01) ==
LOC: HO.PTCHIC 09:00
PROVIDERS: PCP Nurse Practitioner Family; Visit Provider Nurse Practitioner Family
DX: R26.81 Unsteadiness on feet (principal)
CPT/HCPCS: 97110; 97112; 97162; 97530

== ENCOUNTER → 2022-04-25 12:08 | Outpatient (BNVA) | payer MEDICARE, SELFPAY | PROVIDERS: PCP Nurse Practitioner Family; Visit Provider Internal Medicine Endocrinology, Diabetes & Metabolism | DX: Z46.81 Encounter for fitting and adjustment of insulin pump (principal); E11.9 Type 2 diabetes mellitus without complications; Z79.4 Long term (current) use of insulin | CPT/HCPCS: 82947; 99212 ==

== ENCOUNTER → 2022-05-02 12:08 | Outpatient (BNVA) | payer MEDICARE, SELFPAY | PROVIDERS: PCP Nurse Practitioner Family; Visit Provider Registered Nurse Diabetes Educator | DX: E11.8 Type 2 diabetes mellitus with unspecified complications (principal) | CPT/HCPCS: 99211 ==

== ENCOUNTER → 2022-05-08 13:38 | Outpatient (BNVA) | payer MEDICARE, SELFPAY | PROVIDERS: PCP Nurse Practitioner Family; Visit Provider Registered Nurse Diabetes Educator | DX: E11.8 Type 2 diabetes mellitus with unspecified complications (principal) | CPT/HCPCS: 99211 ==

== ENCOUNTER → 2022-05-28 12:49 | Outpatient (BNVA) | payer MEDICARE, SELFPAY | PROVIDERS: PCP Nurse Practitioner Family; Visit Provider Registered Nurse Diabetes Educator | DX: Z46.81 Encounter for fitting and adjustment of insulin pump (principal); E11.8 Type 2 diabetes mellitus with unspecified complications | CPT/HCPCS: 99211 ==

== ENCOUNTER 2022-05-29 10:19 | Outpatient (REF) | payer MEDICARE, SELFPAY ==
[2022-05-29 10:45] LABS: Hematocrit 42.1 % (42.0-52.0); Hemoglobin 14.6 g/dl (14.0-18.0); Mean Corpuscular HGB Conc 34.7 g/dl (31.0-36.0); Mean Corpuscular Hemoglobin 32.2 pg (27.0-33.0); Mean Corpuscular Volume 92.7 fL (80.0-98.0); Mean Platelet Volume 8.9 fL (9.4-12.4); Platelet Count 199 X10*3/uL (160-400); Red Blood Count 4.54 X10*6/uL (4.60-5.80); Red Cell Distribution Width 13.8 % (11.0-16.0); White Blood Count 9.2 X10*3/uL (4.8-10.8)
[2022-05-29 11:18] LABS: Alanine Aminotransferase 18 U/L (0-40); Alkaline Phosphatase 78 U/L (39-117); Anion Gap 16 (12-20); Aspartate Amino Transferase 21 U/L (5-37); Bilirubin Total 0.6 mg/dL (0.0-1.0); Blood Urea Nitrogen 22 mg/dL (9-16); Calcium 8.7 mg/dL (8.4-10.2); Carbon Dioxide 22 mmol/L (22-29); Chloride 107 mmol/L (96-108); Cholesterol 147 mg/dL; Estimated Glomerular Filt Rate 34; Glucose Random 120 mg/dL (60-115); HDL Cholesterol 47 mg/dL; LDL Cholesterol Calculated 82 mg/dl; Potassium 3.8 mmol/L (3.3-5.1); Sodium 141 mmol/L (135-145); Total Protein 7.2 g/dL (6.5-8.0); Triglycerides 93 mg/dL
[2022-05-29 11:34] LABS: TSH reflex Free T4 2.35 uIU/mL (0.32-4.0)
[2022-05-29 11:44] LABS: Folate 14.9 ng/mL (> or = 4.0); Vitamin B12 1552 pg/mL (200-900)
[2022-05-29 12:51] LABS: Vitamin D 25-OH Total 45.1 ng/mL (>30)
== END 2022-05-29 10:20 | disposition home or self-care (01) ==
LOC: HO.LAB 10:19
PROVIDERS: PCP Nurse Practitioner Family; Visit Provider Nurse Practitioner Family
DX: Z13.29 Encounter for screening for other suspected endocrine disorder (principal); I12.9 Hypertensive chronic kidney disease with stage 1 through stage 4 chronic kidney disease, or unspecified chronic kidney disease; N18.30 Chronic kidney disease, stage 3 unspecified; E78.5 Hyperlipidemia, unspecified; D64.9 Anemia, unspecified
CPT/HCPCS: 36415; 80053; 80061; 82306; 82607; 82746; 84443; 85027

== ENCOUNTER → 2022-06-05 10:45 | Outpatient (BNVA) | payer MEDICARE, SELFPAY | PROVIDERS: PCP Nurse Practitioner Family; Visit Provider Registered Nurse Diabetes Educator | DX: E11.8 Type 2 diabetes mellitus with unspecified complications (principal); Z46.81 Encounter for fitting and adjustment of insulin pump; Z79.4 Long term (current) use of insulin | CPT/HCPCS: 99211 ==

== ENCOUNTER → 2022-06-24 11:16 | Outpatient (BNVA) | payer MEDICARE, SELFPAY | PROVIDERS: PCP Nurse Practitioner Family; Visit Provider Registered Nurse Diabetes Educator | DX: E11.9 Type 2 diabetes mellitus without complications (principal); Z96.41 Presence of insulin pump (external) (internal) | CPT/HCPCS: 99211 ==

== ENCOUNTER → 2022-07-25 12:07 | Outpatient (BNVA) | payer MEDICARE, SELFPAY | PROVIDERS: PCP Nurse Practitioner Family; Visit Provider Internal Medicine Endocrinology, Diabetes & Metabolism | DX: E11.9 Type 2 diabetes mellitus without complications (principal); Z79.4 Long term (current) use of insulin; Z96.41 Presence of insulin pump (external) (internal) | CPT/HCPCS: 82947; 99212 ==

== ENCOUNTER → 2022-08-05 10:48 | Outpatient (BNVA) | payer MEDICARE, SELFPAY | PROVIDERS: PCP Nurse Practitioner Family; Visit Provider Registered Nurse Diabetes Educator | DX: E11.8 Type 2 diabetes mellitus with unspecified complications (principal); I10 Essential (primary) hypertension; I48.0 Paroxysmal atrial fibrillation; Z95.1 Presence of aortocoronary bypass graft; Z98.890 Other specified postprocedural states; Z79.4 Long term (current) use of insulin; Z96.41 Presence of insulin pump (external) (internal) | CPT/HCPCS: 99211 ==

== ENCOUNTER → 2022-08-13 13:38 | Outpatient (BNVA) | payer MEDICARE, SELFPAY | PROVIDERS: PCP Nurse Practitioner Family; Referring Provider Nurse Practitioner Family; Visit Provider Internal Medicine | DX: Z01.810 Encounter for preprocedural cardiovascular examination (principal); I25.10 Atherosclerotic heart disease of native coronary artery without angina pectoris; I48.0 Paroxysmal atrial fibrillation; I10 Essential (primary) hypertension; E11.8 Type 2 diabetes mellitus with unspecified complications | CPT/HCPCS: 93005; 99212 ==

== ENCOUNTER 2022-08-18 09:16 | Emergency (ER) | payer MEDICARE, SELFPAY ==
--- NOTE | ~2022-08-18 | XR_ITS ---
EXAMINATION: XR CHEST CLINICAL INFORMATION: Chest pain. COMPARISON: None TECHNIQUE: Frontal view of the chest was obtained. FINDINGS: The lungs are clear. The heart and mediastinal structures are unremarkable. Multilevel sternotomy wires are intact. An atrial appendage clip is noted in place. XR/XR chest 1V IMPRESSION: No acute cardiopulmonary process.
--- NOTE | 2022-08-18 09:18 | ECG_ITS ---
Test Reason : cp Blood Pressure : / mmHG Vent. Rate : 072 BPM Atrial Rate : 072 BPM P-R Int : 216 ms QRS Dur : 082 ms QT Int : 400 ms P-R-T Axes : 023 -32 017 degrees QTc Int : 438 ms Sinus rhythm with 1st degree A-V block Left axis deviation Minimal voltage criteria for LVH, may be normal variant ( R in aVL ) Anterior infarct , age undetermined Abnormal ECG No previous ECGs available Referred By: Generic ED Physician Electronically Signed By:Suhail Sanz
[2022-08-18 09:24] VITALS: BP 149/91; PULSE 68; RESP 16; TEMP 36.7; O2SAT 96; BMI 31.0
[2022-08-18 10:03] LABS: MANUAL DIFF FLAG NO
[2022-08-18 10:04] LABS: Basophils Absolute Auto 0.1 X10*3/uL (0.0-0.2); Basophils Percent Auto 0.9 % (0-2); Eosinophils Absolute Auto 0.5 X10*3/uL (0.0-0.4); Eosinophils Percent Auto 5.1 % (0-4); Hematocrit 42.8 % (42.0-52.0); Hemoglobin 15.1 g/dl (14.0-18.0); Imm Gran Abs Auto 0.04 X10*3/uL (0.00-0.03); Imm Gran Pct Auto 0.4 % (0.0-0.4); Lymphocytes Absolute Auto 1.2 X10*3/uL (1.2-4.9); Lymphocytes Percent Auto 12.7 % (20-40); Mean Corpuscular HGB Conc 35.3 g/dl (31.0-36.0); Mean Corpuscular Hemoglobin 33.2 pg (27.0-33.0); Mean Corpuscular Volume 94.1 fL (80.0-98.0); Mean Platelet Volume 8.6 fL (9.4-12.4); Monocytes Absolute Auto 0.8 X10*3/uL (0.1-1.2); Monocytes Percent Auto 9.1 % (2-11); Neutrophils Absolute Auto 6.6 x10*3/uL (2.0-8.3); Neutrophils Percent Auto 71.8 % (45-73); Platelet Count 176 X10*3/uL (160-400); Red Blood Count 4.55 X10*6/uL (4.60-5.80); Red Cell Distribution Width 13.1 % (11.0-16.0); White Blood Count 9.2 X10*3/uL (4.8-10.8)
[2022-08-18 10:10] LABS: INTERNATIONAL NORM RATIO 0.9 (0.9-1.1); Prothrombin Time 10.8 SEC (10.0-13.1)
[2022-08-18 10:23] LABS: Alanine Aminotransferase 24 U/L (0-40); Albumin Level 3.9 g/dL (3.5-5.0); Alkaline Phosphatase 82 U/L (39-117); Anion Gap 13 (12-20); Aspartate Amino Transferase 26 U/L (5-37); Bilirubin Total 0.8 mg/dL (0.0-1.0); Blood Urea Nitrogen 19 mg/dL (9-16); Carbon Dioxide 23 mmol/L (22-29); Chloride 107 mmol/L (96-108); Creatinine Clr Calc Pharmacy 38.9; Estimated Glomerular Filt Rate 37; Glucose Random 148 mg/dL (60-115); Potassium 4.4 mmol/L (3.3-5.1); Sodium 139 mmol/L (135-145)
[2022-08-18 10:27] LABS: Troponin-I High Sensitivity 3.8 ng/L (<3.5-35.0)
[2022-08-18 10:50] VITALS: PULSE 68; RESP 16
--- NOTE | 2022-08-18 10:51 | PC.NURSE ---
Alert and oriented, reporting chest pain since this morning. IV established, labs drawn and sent. Covid and flu obtained. at bedside
[2022-08-18] MEDS: Magnesium Hydrox/Alum Hydrox 30 ML ORAL.SUSP PO (10:56)
[2022-08-18] MEDS: Lidocaine HCl Viscous 2 % 15 ML SOLUTION 10 ML MUCOUS MEM (10:56)
[2022-08-18 11:32] LABS: COVID-19 Test Negative (Negative); IDNOW Serial# 9DB6401D; IDNOW Serial# BCCEAD1C; Influenza A Negative (Negative); Influenza B2 Negative (Negative)
[2022-08-18 12:14] LABS: Troponin-I High Sensitivity 3.8 ng/L (<3.5-35.0)
[2022-08-18 12:25] VITALS: BP 126/87; PULSE 68; RESP 18; TEMP 36.6; O2SAT 99
--- NOTE | 2022-08-18 13:36 | ED.CHESTPAIN ---
HPI - Chest Pain General Chief Complaint: Chest Pain Stated Complaint: chest pain Time Seen by Provider: 08/18/22 09:26 Source: patient and family (Sister) Mode of arrival: ambulatory History of Present Illness HPI narrative: 77-year-old male with history of CAD presents with approximately 2 hours of sharp midline chest pain not associated with dizziness/diaphoresis/shortness of breath/nausea and states he does have a history of acid reflux. The sisters at bedside you does voice some concerns regarding intermittent short-term memory difficulties in does help to care for her brother. Related Data Home Medications Medication Instructions Recorded Confirmed amitriptyline 25 mg tablet 25 mg PO BEDTIME 11/28/21 08/13/22 ascorbic acid (vitamin C) 1,000 mg 1 g PO DAILY 11/28/21 08/13/22 tablet blood sugar diagnostic 11/28/21 06/06/22 blood-glucose meter 11/28/21 06/06/22 cholecalciferol (vitamin D3) 25 25 mcg PO DAILY 11/28/21 08/13/22 mcg (1,000 unit) capsule omeprazole 20 mg capsule,delayed 20 mg PO DAILY 11/28/21 08/13/22 release subcutaneous insulin pump 11/28/21 06/06/22 losartan 25 mg tablet 25 mg PO QPM 04/25/22 08/13/22 donepezil 5 mg tablet 10 mg PO DAILY 06/06/22 08/13/22 aspirin 81 mg tablet,delayed 81 mg PO DAILY 07/25/22 08/13/22 release memantine 10 mg tablet 10 mg PO BID 07/25/22 08/13/22 tamsulosin 0.4 mg capsule 0.4 mg PO DAILY 08/13/22 08/13/22 Previous Rx's Medication Instructions Recorded rosuvastatin 40 mg tablet 40 mg PO DAILY #90 tabs 02/19/22 docusate sodium 100 mg capsule 100 mg PO DAILY PRN constipation 03/11/22 (Colace) #30 caps ferrous sulfate 325 mg (65 mg 325 mg PO DAILY #60 tabs 05/06/22 iron) tablet,delayed release insulin aspart U-100 100 unit/mL See Rx Instructions continuous 07/25/22 subcutaneous solution (Novolog subcutaneous infusion USEASDIRECTD U-100 Insulin aspart) 30 days #10 mL metoprolol succinate 25 mg 25 mg PO DAILY #90 tabs 07/28/22 tablet,extended release 24 hr sertraline 100 mg tablet 100 mg PO BID #180 tabs 08/14/22 omeprazole 40 mg capsule,delayed 40 mg PO BID #30 caps 08/18/22 release Allergies Allergy/AdvReac Type Severity Reaction Status Date / Time codeine Allergy Intermediate upset Verified 06/06/22 11:06 stomach Review of Systems Review of Systems: Pertinent positives and negatives as stated in HPI [facility] Past Medical History Source: nursing notes reviewed Medical History Essential hypertension Paroxysmal atrial fibrillation Rash Screening for hypothyroidism Type 2 diabetes mellitus with unspecified complications Surgical History History of cataract surgery History of heart bypass surgery History of hernia surgery History of radiofrequency ablation (RFA) procedure for cardiac arrhythmia Hx of colonoscopy Social History Social History Household Members: None Housing: [facility] Are you a primary morning caregiver to a significant other at home: No Do you presently have visiting nurse or other home services: No Alcohol intake: current Alcohol intake frequency: a few times a week Alcohol type: wine Patient Tobacco Use Status: Former Tobacco user Quit Date: 1975 Tobacco use type: Cigarette e-Cigarette/Vaping Use: Never Used Second Hand Smoke Exposure: No Advance Directives: Yes Advance Directives on File: No service: No Current occupational status: retired Cognitive needs: No Hearing needs: No Vision needs: Yes (glasses) Physical Exam Vital Signs: Vital Signs: Last Vital Signs Temp 97.8 F 08/18/22 12:25 Pulse 68 08/18/22 12:25 Resp 18 08/18/22 12:25 BP 126/87 08/18/22 12:25 Pulse Ox 99 08/18/22 12:25 O2 Del Method 08/18/22 12:25 BMI result Body Mass Index 31.0 VITAL SIGNS: Reviewed. GENERAL: Well developed, well nourished, in no acute distress. HEAD: Normocephalic/atraumatic EYES: PERRLA, EOMI EARS: Ext canals without abnormality OROPHARYNX: no oral lesions noted, posterior pharynx clear LUNGS: Normal breath sounds. No adventitious sounds or accessory muscle use. SpO2<99> CARDIOVASCULAR: Regular rate and rhythm without noted murmurs, no JVD or lower extremity edema. ABDOMEN: Soft, non-tender, non-distended with bowel sounds. MUSCULOSKELETAL: No tenderness, deformities, or effusions noted on gross inspection. EXTREMITIES: No cyanosis, clubbing or edema. SKIN: Inspection of the skin reveals no rashes NEUROLOGIC: Alert and oriented x 3. Strength and sensation to light touch were grossly intact x 4. Medications Administered Discontinued Medications Generic Name Dose Route Start Last Admin Trade Name Freaddie PRN Reason Stop Dose Admin Al Hydroxide/Mg Hydroxide 30 ml 08/18/22 10:42 08/18/22 10:56 Magnesium Hydrox/Alum Hydrox 30 Ml Oral.Susp PO 08/18/22 10:43 30 ml ONCE ONE Administration Lidocaine HCl 10 ml 08/18/22 10:42 08/18/22 10:56 Lidocaine Hcl Viscous 2 % 15 Ml Solution MUCOUS MEM 08/18/22 10:43 10 ml ONCE ONE Administration Medical Decision Making Medical Decision Making MDM Narrative: 77-year-old male with history of CAD although the presentation of chest pain is uncharacteristic of cardiac in nature in serial troponins are undetectable without concerning changes on EKG, no associated symptoms, patient is currently asymptomatic after receiving GI cocktail. I reviewed entire workup and my interpretation is there is no evidence of acute infection or anemia, renal function is chronically stable. Chest x-ray does not show any acute findings and no evidence on clinical exam or history suggestive of congestive heart failure. All results and findings were discussed with the patient and his sister at bedside and he is otherwise discharged home in stable condition with instructions to follow-up with his primary care provider and keep his current appointment with Gastroenterology. Lab Data 08/18/22 09:56 08/18/22 09:56 Labs: Lab Results 08/18/22 08/18/22 08/18/22 Range/Units 09:56 09:56 09:56 WBC 9.2 (4.8-10.8) X10*3/uL RBC 4.55 L (4.60-5.80) X10*6/uL Hgb 15.1 (14.0-18.0) g/dl Hct 42.8 (42.0-52.0) % MCV 94.1 (80.0-98.0) fL MCH 33.2 H (27.0-33.0) pg MCHC 35.3 (31.0-36.0) g/dl RDW 13.1 (11.0-16.0) % Plt Count 176 (160-400) X10*3/uL MPV 8.6 L (9.4-12.4) fL Immature Gran % (Auto) 0.4 (0.0-0.4) % Neut % (Auto) 71.8 (45-73) % Lymph % (Auto) 12.7 L (20-40) % [place] % (Auto) 9.1 (2-11) % Eos % (Auto) 5.1 H (0-4) % Baso % (Auto) 0.9 (0-2) % Lymph # (Auto) 1.2 (1.2-4.9) X10*3/uL [place] # (Auto) 0.8 (0.1-1.2) X10*3/uL Eos # (Auto) 0.5 H (0.0-0.4) X10*3/uL Baso # (Auto) 0.1 (0.0-0.2) X10*3/uL Abs Immat Gran (auto) 0.04 H (0.00-0.03) X10*3/uL Absolute Neuts (auto) 6.6 (2.0-8.3) x10*3/uL Absolute Nucleated RBC 0.000 (0.0-0.012) X10*3/uL Nucleated RBC % (auto) 0.0 (0.0-0.2) /100WBC PT 10.8 (10.0-13.1) SEC INR 0.9 (0.9-1.1) Sodium 139 (135-145) mmol/L Potassium 4.4 (3.3-5.1) mmol/L Chloride 107 (96-108) mmol/L Carbon Dioxide 23 (22-29) mmol/L Anion Gap 13 (12-20) BUN 19 H (9-16) mg/dL Creatinine 1.78 H (0.5-1.4) mg/dL Estim Creat Clear Calc 38.9 Estimated GFR 37 Random Glucose 148 H (60-115) mg/dL Calcium 9.0 (8.4-10.2) mg/dL Total Bilirubin 0.8 (0.0-1.0) mg/dL AST 26 (5-37) U/L ALT 24 (0-40) U/L Alkaline Phosphatase 82 (39-117) U/L Troponin I High Sens (<3.5-35.0) ng/L Total Protein 7.0 (6.5-8.0) g/dL Albumin 3.9 (3.5-5.0) g/dL COVID-19 ([facility]) (Negative) COVID-19 Clin Com Influenza Type A ([facility]) (Negative) Influenza Type B ([facility]) (Negative) Influenza A & B Note 08/18/22 08/18/22 08/18/22 Range/Units 09:56 10:47 10:47 WBC (4.8-10.8) X10*3/uL RBC (4.60-5.80) X10*6/uL Hgb (14.0-18.0) g/dl Hct (42.0-52.0) % MCV (80.0-98.0) fL MCH (27.0-33.0) pg MCHC (31.0-36.0) g/dl RDW (11.0-16.0) % Plt Count (160-400) X10*3/uL MPV (9.4-12.4) fL Immature Gran % (Auto) (0.0-0.4) % Neut % (Auto) (45-73) % Lymph % (Auto) (20-40) % [place] % (Auto) (2-11) % Eos % (Auto) (0-4) % Baso % (Auto) (0-2) % Lymph # (Auto) (1.2-4.9) X10*3/uL [place] # (Auto) (0.1-1.2) X10*3/uL Eos # (Auto) (0.0-0.4) X10*3/uL Baso # (Auto) (0.0-0.2) X10*3/uL Abs Immat Gran (auto) (0.00-0.03) X10*3/uL Absolute Neuts (auto) (2.0-8.3) x10*3/uL Absolute Nucleated RBC (0.0-0.012) X10*3/uL Nucleated RBC % (auto) (0.0-0.2) /100WBC PT (10.0-13.1) SEC INR (0.9-1.1) Sodium (135-145) mmol/L Potassium (3.3-5.1) mmol/L Chloride (96-108) mmol/L Carbon Dioxide (22-29) mmol/L Anion Gap (12-20) BUN (9-16) mg/dL Creatinine (0.5-1.4) mg/dL Estim Creat Clear Calc Estimated GFR Random Glucose (60-115) mg/dL Calcium (8.4-10.2) mg/dL Total Bilirubin (0.0-1.0) mg/dL AST (5-37) U/L ALT (0-40) U/L Alkaline Phosphatase (39-117) U/L Troponin I High Sens 3.8 (<3.5-35.0) ng/L Total Protein (6.5-8.0) g/dL Albumin (3.5-5.0) g/dL COVID-19 ([facility]) Negative (Negative) COVID-19 Clin Com See Note Influenza Type A ([facility]) Negative (Negative) Influenza Type B ([facility]) Negative (Negative) Influenza A & B Note See Note 08/18/22 Range/Units 11:32 WBC (4.8-10.8) X10*3/uL RBC (4.60-5.80) X10*6/uL Hgb (14.0-18.0) g/dl Hct (42.0-52.0) % MCV (80.0-98.0) fL MCH (27.0-33.0) pg MCHC (31.0-36.0) g/dl RDW (11.0-16.0) % Plt Count (160-400) X10*3/uL MPV (9.4-12.4) fL Immature Gran % (Auto) (0.0-0.4) % Neut % (Auto) (45-73) % Lymph % (Auto) (20-40) % [place] % (Auto) (2-11) % Eos % (Auto) (0-4) % Baso % (Auto) (0-2) % Lymph # (Auto) (1.2-4.9) X10*3/uL [place] # (Auto) (0.1-1.2) X10*3/uL Eos # (Auto) (0.0-0.4) X10*3/uL Baso # (Auto) (0.0-0.2) X10*3/uL Abs Immat Gran (auto) (0.00-0.03) X10*3/uL Absolute Neuts (auto) (2.0-8.3) x10*3/uL Absolute Nucleated RBC (0.0-0.012) X10*3/uL Nucleated RBC % (auto) (0.0-0.2) /100WBC PT (10.0-13.1) SEC INR (0.9-1.1) Sodium (135-145) mmol/L Potassium (3.3-5.1) mmol/L Chloride (96-108) mmol/L Carbon Dioxide (22-29) mmol/L Anion Gap (12-20) BUN (9-16) mg/dL Creatinine (0.5-1.4) mg/dL Estim Creat Clear Calc Estimated GFR Random Glucose (60-115) mg/dL Calcium (8.4-10.2) mg/dL Total Bilirubin (0.0-1.0) mg/dL AST (5-37) U/L ALT (0-40) U/L Alkaline Phosphatase (39-117) U/L Troponin I High Sens 3.8 (<3.5-35.0) ng/L Total Protein (6.5-8.0) g/dL Albumin (3.5-5.0) g/dL COVID-19 ([facility]) (Negative) COVID-19 Clin Com Influenza Type A ([facility]) (Negative) Influenza Type B ([facility]) (Negative) Influenza A & B Note Discharge Plan Discharge Clinical Impression: Atypical chest pain, GERD (gastroesophageal reflux disease), CKD (chronic kidney disease) Patient Disposition: Home, Self-Care Instructions: Chest Pain (ED), Chronic Kidney Disease (ED), Diet for Stomach Ulcers and Gastritis (ED), Gastroesophageal Reflux Disease (ED) Additional Instructions: 1. Resume all home medications as prescribed. 2. I recommend that you follow the current recommendations for dietary changes and acid reflux. At this time I will change your omeprazole dose from 20 mg to 40 mg daily. 3. We will be very important for you to follow-up with your primary care provider and engage in further discussions regarding additional help at home. Please keep your gastroenterology appointment for your colonoscopy. Return to the ER for any worsening symptoms. Prescriptions: New omeprazole 40 mg capsule,delayed release(DR/EC) 40 mg PO BID Qty: 30 0RF No Action docusate sodium [Colace] 100 mg capsule 100 mg PO DAILY PRN (Reason: constipation) Qty: 30 0RF ferrous sulfate 325 mg (65 mg iron) tablet,delayed release (DR/EC) 325 mg PO DAILY Qty: 60 0RF metoprolol succinate 25 mg tablet extended release 24 hr 25 mg PO DAILY Qty: 90 1RF sertraline 100 mg tablet 100 mg PO BID Qty: 180 1RF (DME) subcutaneous insulin pump Misc See Rx Instructions .Route Rx Instructions: 3ml:3ml amitriptyline 25 mg tablet 25 mg PO BEDTIME omeprazole 20 mg capsule,delayed release(DR/EC) 20 mg PO DAILY (DME) blood-glucose meter Kit See Rx Instructions .Route Rx Instructions: test blood sugar 6 times a day as needed cholecalciferol (vitamin D3) 25 mcg (1,000 unit) capsule 25 mcg PO DAILY ascorbic acid (vitamin C) 1,000 mg tablet 1 g PO DAILY (DME) blood sugar diagnostic Strip See Rx Instructions .Route Rx Instructions: test blood sugar 6 times a day and as needed aspirin 81 mg tablet,delayed release (DR/EC) 81 mg PO DAILY rosuvastatin 40 mg tablet 40 mg PO DAILY Qty: 90 1RF donepezil 5 mg tablet 10 mg PO DAILY memantine 10 mg tablet 10 mg PO BID insulin aspart U-100 [Novolog U-100 Insulin aspart] 100 unit/mL solution See Rx Instructions continuous subcutaneous infusion USEASDIRECTD 30 Days Qty: 10 6RF Rx Instructions: 70 units via insulin pump daily via continuous subcutaneous infusion use as directed; tamsulosin 0.4 mg capsule 0.4 mg PO DAILY losartan 25 mg tablet 25 mg PO QPM Referrals: Chen Santamaria FNP [Primary Care Provider] -
== END 2022-08-18 14:42 | disposition home or self-care (01) ==
PROVIDERS: Emergency Provider Student in an Organized Health Care Education/Training Program; PCP Nurse Practitioner Family
DX: R07.89 Other chest pain (principal); K21.9 Gastro-esophageal reflux disease without esophagitis; I25.10 Atherosclerotic heart disease of native coronary artery without angina pectoris; Z20.822 Contact with and (suspected) exposure to COVID-19; Z20.828 Contact with and (suspected) exposure to other viral communicable diseases; Z79.899 Other long term (current) drug therapy
CPT/HCPCS: 36415; 71045; 80053; 84484; 85025; 85610; 87502; 87635; 93005; 99283; 99285

== ENCOUNTER 2022-08-27 10:35 | Day surgery (SDC) | payer MEDICARE, SELFPAY ==
[2022-06-23 12:52] VITALS: BMI 27.9
--- NOTE | 2022-08-27 10:09 | HO.ANESPROP2 ---
[facility] Active Problems Active Problems: All Active Problems (Updated 08/19/22 @ 00:00 by Divya Gates) Preoperative cardiovascular examination (Acute) Diabetes mellitus, with long-term current use of insulin (Acute) Hypertension (Acute) Hyperlipidemia (Acute) Neuropathy (Acute) Anxiety (Acute) GERD (gastroesophageal reflux disease) (Acute) Seasonal allergies (Acute) Mild dementia (Acute) CKD (chronic kidney disease) stage 3, GFR 30-59 ml/min (Acute) Anemia (Acute) Atherosclerotic cardiovascular disease (Acute) Occult blood positive stool (Acute) Constipation (Acute) Unsteady gait when walking (Acute) Forgetfulness (Acute) Adult general medical exam (Acute) Benign prostate hyperplasia (Acute) Type 2 diabetes mellitus with unspecified complications (Acute) Essential hypertension (Acute) Paroxysmal atrial fibrillation (Acute) Past Medical History Medical History Essential hypertension Paroxysmal atrial fibrillation Rash Screening for hypothyroidism Type 2 diabetes mellitus with unspecified complications Family History Family history of problems with anesthesia: No Surgical History Surgical History History of cataract surgery History of heart bypass surgery History of hernia surgery History of radiofrequency ablation (RFA) procedure for cardiac arrhythmia Hx of colonoscopy History of Problems with Anesthesia: No Social History Social History Household Members: None [facility]: [facility] Are you a primary child care attendant to a significant other at home: No Do you presently have visiting nurse or other home services: No Alcohol intake: current Alcohol intake frequency: a few times a week Alcohol type: wine Patient Tobacco Use Status: Former Tobacco user Quit Date: 1975 Tobacco use type: Cigarette e-Cigarette/Vaping Use: Never Used Second Hand Smoke Exposure: No Use of substances other than those prescribed or required for medical reasons: No Have you been hit, kicked, punched, or otherwise hurt by someone within the past year? If so, by whom?: No Are you DNR?: No Advance Directives: No Advance Directives Information Provided: Yes Advance Directives on File: No Recently lost weight without trying: No Nutrition Risks: Surgical patient >75years Poor oral hygiene: No (lower permanent bridge, upper 5 caps ) service: No Current occupational status: retired Cognitive needs: No Hearing needs: No Vision needs: Yes (glasses) Meds Allergies Allergy/AdvReac Type Severity Reaction Status Date / Time codeine Allergy Intermediate upset Verified 06/06/22 11:06 stomach Active Medications: Current Medications Lactated Ringer's (Lr) 1,000 mls @ 50 mls/hr IVCONT .Q20H TEO Home Medications Medication Instructions Recorded Confirmed Last Taken Type amitriptyline 25 mg tablet 25 mg PO BEDTIME 11/28/21 08/13/22 Unknown History ascorbic acid (vitamin C) 1,000 mg 1 g PO DAILY 11/28/21 08/13/22 Unknown History tablet blood sugar diagnostic 11/28/21 06/06/22 Unknown History blood-glucose meter 11/28/21 06/06/22 Unknown History cholecalciferol (vitamin D3) 25 25 mcg PO DAILY 11/28/21 08/13/22 Unknown History mcg (1,000 unit) capsule omeprazole 20 mg capsule,delayed 20 mg PO DAILY 11/28/21 08/13/22 Unknown History release subcutaneous insulin pump 11/28/21 06/06/22 Unknown History losartan 25 mg tablet 25 mg PO QPM 04/25/22 08/13/22 Unknown History donepezil 5 mg tablet 10 mg PO DAILY 06/06/22 08/13/22 Unknown History aspirin 81 mg tablet,delayed 81 mg PO DAILY 07/25/22 08/13/22 Unknown History release memantine 10 mg tablet 10 mg PO BID 07/25/22 08/13/22 Unknown History tamsulosin 0.4 mg capsule 0.4 mg PO DAILY 08/13/22 08/13/22 Unknown History Exam Exam Date and Time: August 27, 2022 1009 Height,Weight and Vital Signs: Height 5 ft 11.5 in Weight 92.079 kg Airway Mallampati Class: II (Mutiple cap,implants, perm bridge) TM Dist: >3cm Neck ROM: Full Heart: rrr Lungs: cta Assessment and Plan Assessment Anesthesia Assessment: Anesthesia Plan Discussed and Chart Reviewed Final Anesthetic Review Family History of Problems with Anesthesia: No History of Problems with Anesthesia: No NPO: Yes ASA Class: III Final Preanesthetic Review: No Changes in Pt Med Stat, Meds/Allgs Chart Reviewed and Consent Obtained/Reviewed Patient Risk: Intermediate Procedure Risk: Intermediate Anesthetic Plan Anesthetic Plan: MAC: Disposition: Standard PACU
[2022-08-27 10:55] VITALS: BMI 28.4
[2022-08-27 10:56] VITALS: BP 112/78; PULSE 79; RESP 18; TEMP 36.1; O2SAT 98
[2022-08-27 11:08] LABS: Glucose, Whole Blood 128 mg/dL (60-115)
--- NOTE | 2022-08-27 11:12 | MHC.SHP ---
Pre-Procedural Eval Section A Date of Service: 08/27/22 Section B Chief Complaint: anemia Relevant Family History (Specify if Yes): No Relevant Social History: None Present Medications: see Short Stay Collaborative assessment Medical History: Significant History (Essential hypertension Paroxysmal atrial fibrillation Rash Screening for hypothyroidism Type 2 diabetes mellitus with unspecified complications) History of Previous Operations: Relevant previous surgery/procedure and date(s) (History of cataract surgery History of heart bypass surgery History of hernia surgery History of radiofrequency ablation (RFA) procedure for cardiac arrhythmia) Allergies: Allergies Allergy/AdvReac Type Severity Reaction Status Date / Time codeine Allergy Intermediate upset Verified 06/06/22 11:06 stomach Review of Systems Sugical H&P ROS: Negative: Constitution, Cardiovascular, Respiratory, Neurological, Psychiatric, Hem-Onc, Allergic/Immunologic, Gastrointestinal, Genitourinary, Musculoskeletal, Integumentary, Endocrine and Eyes/Ears/Nose/Throat Exam Surgical H&P Exam: Normal: HEENT, Normal: Heart, Normal: Lungs, Normal: Extremities, Normal: Abdomen, Normal: Skin and Normal: Neurological Plan Diagnosis/Plan: Unchanged I have reviewed the history and physical and performed a pertinent physical examination on my patient. No changes have occurred unless specified. Time Spent With Patient Time: Total time managing care of this patient today ____ minutes.
--- NOTE | 2022-08-27 11:14 | P.OP_ITS ---
Operative Note Operative Note Date of Service: 08/27/22 Narrative: Operative Information Procedure Description: EGD, Colonoscopy Indication: hx of anemia Anesthesia: MAC FLEXIBLE TRANSORAL UPPER GASTROINTESTINAL ENDOSCOPY AND COLONOSCOPY PROCEDURE NOTE UPPER ENDOSCOPY Consent: Indications for the procedure and potential complications of bleeding, perforation, reaction to medications and missed diagnosis were discussed with the patient and informed consent was obtained. Instrument: Olympus GIF H 190 J mid size upper endoscope Monitoring: Vital signs and clinical assessment, continuous EKG monitoring, Pulse oximetry, Carbon Dioxide monitoring and blood pressure monitoring were done throughout the procedure. Procedure: The patient was placed in the left lateral decubitis position and pre-procedure medications were administered and a bite block was placed. The endoscope was inserted into the mouth and advanced under direct vision to the third part of duodenum. A careful inspection was made as the upper endoscope was withdrawn including a retroflexed examination of the proximal stomach; Findings and interventions are described below. Findings: Larynx:normal Esophagus: GE junction at 40 cm, diaphragm hiatus at 40 cm, normal mucosa Stomach: Linear streaks in antrum, watermelon stomach but no bleeding, areas of atrophy noted. Biopsies were obtained. Grade 2 flap valve on retroflexed e xamination of the cardia. Few fundic gland polyps noted, one of these was biopsied. Duodenum: Normal bulb and descending duodenum, bx taken Intervention: Biopsies as noted above COLONOSCOPY Instrument: Olympus variable stiffness pediatric scope 190L Colonoscopy Monitoring: Vital signs and clinical assessment, continuous EKG monitoring, Pulse oximetry, Carbon Dioxide monitoring and blood pressure monitoring were done throughout the procedure. Colon withdrawal time was 20 minutes. Procedure: The patient was placed in the left lateral decubitis position and pre-procedure medications were administered. After a digital rectal examination of the ano-rectum, the video colonoscope was inserted into the rectum and advanced through the colon to the cecum/TI. The colonoscope was slowly withdrawn in a retrograde panoramic fashion and the colon mucosa was carefully examined including a retroflexed view of the rectum. Findings and interventions are described below. Procedure Difficulty:moderate due to redundant colon Findings: Terminal Ileum-not intubated Cecum:normal Ascending Colon: 15-18 mm sessile polyp lifted with eleview and then removed using hot snare and retrieved with net Transverse Colon -normal Descending Colon:normal Sigmoid Colon: severe diverticulosis Rectum: Retroflexion with small internal hemorrhoids, grade I Anorectum - normal Colon preparation: [place] Bowel Preparation Scale Right colon; 1-2 Transverse colon: 2 Left colon; 1-2 (0 = Unprepared colon segment with mucosa not seen due to solid stool that cannot be cleared. 1 = Portion of mucosa of the colon segment seen, but other areas of the colon segment not well seen due to staining, residual stool and/or opaque liquid. 2 = Minor amount of residual staining, small fragments of stool and/or opaque liquid, but mucosa of colon segment seen well. 3 = Entire mucosa of colon segment seen well with no residual staining, small fragments of stool or opaque liquid) Impression and Post Procedure Diagnosis: Endoscopy Findings: gastritis fundic gland polyps Colonoscopy Findings: Plan: Await Pathology results Repeat Colonoscopy in 6-12 months due to large polyp and fair prep in some areas or earlier if clinically indicated High fiber diet leaflet avoid straining at stool, epsom salts and sitz bath, anusol supps or cream Above findings were reviewed with the patient and relevant handouts were provided if indicated.
[2022-08-27] MEDS: Lactated Ringers 1,000 ML 50 ML IVCONT (11:24)
[2022-08-27 12:35] VITALS: BP 123/80; PULSE 78; RESP 16; TEMP 36.5; O2SAT 97
[2022-08-27 12:50] VITALS: BP 135/81; PULSE 64; RESP 16; TEMP 36.6; O2SAT 97
--- NOTE | 2022-08-27 12:53 | PC.NURSE ---
see order for poc as per md. Castaneda see poc 107 and no basal rate on patients pump as per observation of patients insulin pump.
== END 2022-08-27 13:46 | disposition home or self-care (01) ==
PROVIDERS: PCP Nurse Practitioner Family; Visit Provider Internal Medicine Gastroenterology
PROC: (CPT 45385; principal; 2022-08-27 11:40)
DX: D64.9 Anemia, unspecified (principal); D12.2 Benign neoplasm of ascending colon; K57.30 Diverticulosis of large intestine without perforation or abscess without bleeding; K64.0 First degree hemorrhoids; K31.7 Polyp of stomach and duodenum; K29.50 Unspecified chronic gastritis without bleeding; K21.9 Gastro-esophageal reflux disease without esophagitis; K44.9 Diaphragmatic hernia without obstruction or gangrene; I10 Essential (primary) hypertension; I48.0 Paroxysmal atrial fibrillation; E11.9 Type 2 diabetes mellitus without complications; R21 Rash and other nonspecific skin eruption; Z79.4 Long term (current) use of insulin; Z79.899 Other long term (current) drug therapy; Z88.8 Allergy status to other drugs, medicaments and biological substances; Z87.891 Personal history of nicotine dependence
CPT/HCPCS: 45385; 45381; 43239; 82947; 88305; 88342

== ENCOUNTER → 2022-09-10 10:25 | Outpatient (BNVA) | payer MEDICARE, SELFPAY | PROVIDERS: PCP Nurse Practitioner Family; Visit Provider Nurse Practitioner Family | DX: K21.9 Gastro-esophageal reflux disease without esophagitis (principal); D12.6 Benign neoplasm of colon, unspecified | CPT/HCPCS: 99212 ==

== ENCOUNTER → 2022-10-28 12:15 | Outpatient (BNVA) | payer MEDICARE, SELFPAY | PROVIDERS: PCP Nurse Practitioner Family; Visit Provider Internal Medicine Endocrinology, Diabetes & Metabolism | DX: E11.9 Type 2 diabetes mellitus without complications (principal); Z79.4 Long term (current) use of insulin | CPT/HCPCS: 82947; 83036; 99212 ==

== ENCOUNTER → 2022-12-03 10:42 | Outpatient (BNVA) | payer MEDICARE, SELFPAY | PROVIDERS: PCP Nurse Practitioner Family; Visit Provider Registered Nurse Diabetes Educator | DX: Z46.81 Encounter for fitting and adjustment of insulin pump (principal); E11.9 Type 2 diabetes mellitus without complications; Z79.4 Long term (current) use of insulin | CPT/HCPCS: 99211 ==

== ENCOUNTER 2023-01-27 12:57 | Outpatient (AMB) | payer MEDICARE, SELFPAY ==
[2023-01-27 13:03] VITALS: BP 110/68; PULSE 78; O2SAT 96; BMI 31.0
--- NOTE | 2023-01-27 13:03 | MHC.OFFVIS ---
Intake Vital Signs 01/27/23 13:03 Height 5 ft 11 in Weight 222 lb 3.615 oz BMI 31.0 BP 110/68 Blood Pressure Location Lt brachial Position Sitting Pulse 78 Pulse Source Pulse Oximeter Pulse Oximetry (%) 96 Oxygen Delivery Method Room Air Intake Visit Reasons: DM Intake Note: Patient present today to follow up on Type 2 Diabetes Mellitus. Patient receives DME supplies through:[employer] Last Diabetic Eye exam: November 2022 Last Podiatry Visit: January 2023 Random Glucose: 103 mg/dl HgA1C: 7.6 Allergies codeine Allergy (Intermediate, Verified 01/27/23 13:09) upset stomach Medication List - Last Reconciled 01/27/23 by Lino Brown MD amitriptyline 25 mg PO BEDTIME ascorbic acid (vitamin C) 1 g PO DAILY aspirin 81 mg PO DAILY blood sugar diagnostic test blood sugar 6 times a day and as needed blood-glucose meter test blood sugar 6 times a day as needed cholecalciferol (vitamin D3) 25 mcg PO DAILY docusate sodium (Colace) 100 mg PO DAILY PRN donepezil 10 mg PO DAILY insulin aspart U-100 (Novolog U-100 Insulin aspart) 180 - 200 sliding scale doses subcut DAILY insulin aspart U-100 (Novolog U-100 Insulin aspart) use up to 100 units per day via insulin pump subcutaneously use as directed; losartan 25 mg PO QPM memantine 10 mg PO BID metoprolol succinate ER 25 mg PO DAILY omeprazole 20 mg PO DAILY rosuvastatin 40 mg PO DAILY sertraline 100 mg PO BID subcutaneous insulin pump 3ml:3ml tamsulosin 0.4 mg PO DAILY HPI HPI Comments History of Present Illness Details 78 YO M with is seen in consultation for T2DM at the request of PCP. Initially diagnosed with T2DM in when presented with 1998. Was initially started on treatment with metformin. If On Pump/Sensor: Tandem T-Slim X2 with control IQ Basal rate(s) (units/hour) : 12 AM? to 730 AM? 0.7 units / hr 730 AM to 1630 PM}? 1.5 u/hr units / hr 1630/PM}? to 2030/PM}? 1.4 units / hr 2030 P to 12 MN 0.7 Bolus setting Insulin Carbohydrate Ratio (s) 1:10 Correction Factor / Sensitivity Factor 33 Active Insulin Time:? hours Target(s): 100 to 130 ???* total daily dose of insulin is 51.3 . 67% basal and 33% bolus. 5% correction bolus and 15% control IQ bolus ??? Patient is starting to understand the basic concepts of pump therapy, how to give insulin for meals and snacks, how to troubleshoot for hyper and hypoglycemia after meeting with CDE and choral director . Checks sugars times per day. Per the CGM Dexcom CGMS is active 95 % of time . data the patient's predicted A1C is 7.7% Avg glucose is 185 . Variability of 31.7. . Pattern shows post-breakfast and post-dinner rises Reportsno low sugars . Treats lows with glucose tablets . Checks sugar after to ensure it is rising. Checks 45 min after Has eyes checked yearly, last eye exam, no retinopathy. Has neuropathy, last foot exam , sees podiatry in [place] .Needs to see 1 here Has nephropathy, on VERONIKA/ARB. Has HLD, on statin. Has history of CAD. Hx of CABG Had diabetes education. Diet/Carb counting: No Denies prior episodes of DKA. Denies prior severe episodes of hypoglycemia requiring help or hospitalization. Labs: anti -JAYASHREE 65 antibodies are negative and C-peptide is sufficient PFSH Medical History Essential hypertension Hordeolum externum (stye) Paroxysmal atrial fibrillation Rash Screening for hypothyroidism Type 2 diabetes mellitus with unspecified complications Surgical History History of cataract surgery History of esophagogastroduodenoscopy (EGD) History of heart bypass surgery History of hernia surgery History of radiofrequency ablation (RFA) procedure for cardiac arrhythmia Hx of colonoscopy Social History Household Members: None Housing: Condominium Are you a primary home care assistant to a significant other at home: No Do you presently have visiting nurse or other home services: No 75 years or older and lives alone: Yes Alcohol intake: current Alcohol intake frequency: a few times a week Alcohol type: wine Patient Tobacco Use Status: Former Tobacco user Quit Date: 1975 Tobacco use type: Cigarette e-Cigarette/Vaping Use: Never Used Second Hand Smoke Exposure: No service: No Current occupational status: retired Cognitive needs: No Hearing needs: No Vision needs: Yes (glasses) Physical Exam Vital Signs: Last Vital Signs Pulse 78 01/27/23 13:03 BP 110/68 01/27/23 13:03 Pulse Ox 96 01/27/23 13:03 Oxygen Delivery Method Room Air 01/27/23 13:03 BMI result Body Mass Index 31.0 Absence of Cushingoid features. Absence of acromegalic features. Neck exam reveals nl size thyroid about 15 gms. No thyroid nodules palpable. No carotid bruits present. Lungs CTA. Heart S1 S2, Reg R/R. No M/R/ G. Skin exam reveals absence of vitiligo or acanthosis nigricans. Abdominal exam reveals Soft NT/ND with NA BS. No organomegaly present. Neck Other: . Extrem Other: Visual exam of foot performed. No ulcerations or open lesions. No onchomycosis, no callouses.Pulses 2 + distally Sensation decreased to monofilament exam. Vibratory sensation sensed is decreased with 128 Hz tuning fork Results AMB Hemoglobin A1c AMB Hemoglobin A1c 7.6 % Last Edit by Adele Crabtree MA on 01/27/23 13:23 Results Reviewed Results Reviewed: 01/27/23 13:12 Glucose, Whole Blood Routine Laboratory Last Values Glucose (Clinic) 103 mg/dL (60-115) 01/27/23 13:12 Hgb A1c (Clinic) 7.6 % (4.0-6.0) H 01/27/23 13:21 Assessment & Plan Assessment & Plan (1) Diabetes mellitus, with long-term current use of insulin: Code(s): E11.9 - Type 2 diabetes mellitus without complications; Z79.4 - superintendent container terminal (current) use of insulin Plan: This is a 78-year-old white male with a history of ?type 2 diabetes in the setting of CKD stage IIIB being managed with insulin pump with Improving good glycemic control and glycemic variability. Glycemic control may be optimal considering patient's psychosocial issues Plan is have the patient f/u with CDE . Patient is having difficulty bolusing before dinner putting carbohydrates into the pump and may require assistance from outside sources. Will not make any adjustments the insulin pump at this time Orders: Orders AMB Hemoglobin A1c Today Z13.9 - Encounter for screening, unspecified Coding Level of Care Code Est Pt Level 4 (07239) Diagnoses Diabetes mellitus, with long-term current use of insulin E11.9; Z79.4
[2023-01-27 13:15] LABS: Glucose, Whole Blood 103 mg/dL (60-115)
== END 2023-01-27 13:30 | disposition home or self-care (01) ==
PROVIDERS: PCP Nurse Practitioner Family; Visit Provider Internal Medicine Endocrinology, Diabetes & Metabolism
DX: E11.9 Type 2 diabetes mellitus without complications (principal); Z79.4 Long term (current) use of insulin; Z13.9 Encounter for screening, unspecified
CPT/HCPCS: 99214

== ENCOUNTER → 2023-01-27 12:57 | Outpatient (BNVA) | payer MEDICARE, SELFPAY | PROVIDERS: Visit Provider Internal Medicine Endocrinology, Diabetes & Metabolism | DX: E11.22 Type 2 diabetes mellitus with diabetic chronic kidney disease (principal); N18.32 Chronic kidney disease, stage 3b; Z79.4 Long term (current) use of insulin | CPT/HCPCS: 82947; 83036; 99212 ==

== ENCOUNTER 2023-02-13 08:34 | Outpatient (REF) | payer MEDICARE, SELFPAY ==
[2023-02-13 08:44] LABS: MANUAL DIFF FLAG NO
[2023-02-13 09:00] LABS: Basophils Absolute Auto 0.1 X10*3/uL (0.0-0.2); Basophils Percent Auto 0.8 % (0-2); Eosinophils Absolute Auto 0.5 X10*3/uL (0.0-0.4); Eosinophils Percent Auto 5.3 % (0-4); Hematocrit 42.1 % (42.0-52.0); Hemoglobin 14.6 g/dl (14.0-18.0); Imm Gran Abs Auto 0.04 X10*3/uL (0.00-0.03); Imm Gran Pct Auto 0.4 % (0.0-0.4); Lymphocytes Percent Auto 21.6 % (20-40); Mean Corpuscular HGB Conc 34.7 g/dl (31.0-36.0); Mean Corpuscular Hemoglobin 32.8 pg (27.0-33.0); Mean Corpuscular Volume 94.6 fL (80.0-98.0); Mean Platelet Volume 8.6 fL (9.4-12.4); Monocytes Absolute Auto 0.9 X10*3/uL (0.1-1.2); Neutrophils Absolute Auto 5.9 x10*3/uL (2.0-8.3); Neutrophils Percent Auto 62.9 % (45-73); Platelet Count 205 X10*3/uL (160-400); Red Blood Count 4.45 X10*6/uL (4.60-5.80); Red Cell Distribution Width 12.5 % (11.0-16.0); White Blood Count 9.4 X10*3/uL (4.8-10.8)
[2023-02-13 09:36] LABS: Alanine Aminotransferase 22 U/L (0-40); Albumin Level 3.8 g/dL (3.5-5.0); Alkaline Phosphatase 91 U/L (39-117); Anion Gap 16 (12-20); Aspartate Amino Transferase 27 U/L (5-37); Bilirubin Total 0.6 mg/dL (0.0-1.0); Blood Urea Nitrogen 16 mg/dL (9-16); Calcium 9.3 mg/dL (8.4-10.2); Carbon Dioxide 20 mmol/L (22-29); Chloride 106 mmol/L (96-108); Cholesterol 138 mg/dL; Estimated Glomerular Filt Rate 37; Glucose Fasting 142 mg/dL (60-99); HDL Cholesterol 51 mg/dL; LDL Cholesterol Calculated 62 mg/dl; Sodium 138 mmol/L (135-145); Total Protein 7.5 g/dL (6.5-8.0); Triglycerides 128 mg/dL
[2023-02-13 09:57] LABS: TSH reflex Free T4 2.94 uIU/mL (0.32-4.0); Vitamin D 25-OH Total 37.4 ng/mL (>30)
[2023-02-13 10:02] LABS: Folate 9.2 ng/mL (> or = 4.0); Vitamin B12 856 pg/mL (200-900)
[2023-02-13 11:01] LABS: Creatinine Urine 115.51 mg/dL; Microalbum/Creatinine Ratio Ur 17.3 ug/mg cr
== END 2023-02-13 08:35 | disposition home or self-care (01) ==
LOC: HO.LAB 08:34
PROVIDERS: PCP Nurse Practitioner Family; Visit Provider Nurse Practitioner Family
DX: I12.9 Hypertensive chronic kidney disease with stage 1 through stage 4 chronic kidney disease, or unspecified chronic kidney disease (principal); E11.22 Type 2 diabetes mellitus with diabetic chronic kidney disease; N18.9 Chronic kidney disease, unspecified; G62.9 Polyneuropathy, unspecified; R41.82 Altered mental status, unspecified
CPT/HCPCS: 36415; 80053; 80061; 82043; 82306; 82607; 82746; 84443; 85025

== ENCOUNTER 2023-02-24 13:18 | Outpatient (AMB) | payer MEDICARE, SELFPAY ==
[2023-02-24 13:18] VITALS: BP 130/80; PULSE 93; O2SAT 95; BMI 30.1
--- NOTE | 2023-02-24 13:18 | MHC.PC.OV ---
Vital Signs 02/24/23 13:18 Height 5 ft 11.5 in Weight 219 lb BMI 30.1 BP 130/80 Blood Pressure Location Lt brachial Position Sitting Pulse 93 Pulse Source Pulse Oximeter Temp Source Skin Pulse Oximetry (%) 95 Oxygen Delivery Method Room Air Intake Visit Reasons: PE Intake Note: Patient is here today for a physical. Applied Anthropologist Required: No Allergies codeine Allergy (Intermediate, Verified 02/24/23 13:29) upset stomach Medication List - Last Reconciled 02/24/23 by CK Garcia amitriptyline 25 mg PO BEDTIME ascorbic acid (vitamin C) 1 g PO DAILY aspirin 81 mg PO DAILY blood sugar diagnostic test blood sugar 6 times a day and as needed blood-glucose meter test blood sugar 6 times a day as needed cholecalciferol (vitamin D3) 25 mcg PO DAILY docusate sodium (Colace) 100 mg PO DAILY PRN donepezil 10 mg PO DAILY insulin aspart U-100 (Novolog U-100 Insulin aspart) 180 - 200 sliding scale doses subcut DAILY insulin aspart U-100 (Novolog U-100 Insulin aspart) use up to 100 units per day via insulin pump subcutaneously use as directed; losartan 25 mg PO QPM memantine 10 mg PO BID metoprolol succinate ER 25 mg PO DAILY omeprazole 20 mg PO DAILY rosuvastatin 40 mg PO DAILY sertraline 100 mg PO BID subcutaneous insulin pump 3ml:3ml tamsulosin 0.4 mg PO DAILY Tobacco use date assessed: 02/24/23 Fall risk assessment: No Falls in past year Last assessed Fall Risk: 02/24/23 Dental Screening Dental Screen Date: 02/24/23 Did you have a dental visit in the last 12 months?: Yes Did you have a dental problem in the last 6 months where you did not have access to dental care?: No Was dental information given to patient?: Patient has dentist HPI PE HPI Details Patient is a 78-year-old male who presents today for a physical exam.? Medical history significant for history of occult blood positive stool-followed by Gastroenterology - colonoscopy 08/2022 which showed tubular adenoma and was done by Dr. Lane, diabetes type 2 insulin dependent - followed by [facility], hypertension, CKD stage 3 - followed by nephrology Dr. Pearce, mild dementia - followed by [facility], seasonal allergies, GERD, anxiety, neuropathy, hyperlipidemia among others. Patient denies shortness of breath or chest pain. Patient is accompanied by his sister today who reports that patient has difficulty monitoring his insulin pump due to dementia, patient lives by himself and his sister visit him. They wondering about assisted living facility, family will call around in regards to this to different facilities for a possible placement.? They reports normal diabetic eye exam 11/2022.? In addition, patient reports cough for the past 3 days, he was sick for the past 1 week now, reports intermittent yellow sputum, patient did have fever 100.4, COVID test was negative. Patient did use [id number] cold medicine with no much improvement. Reports right abdominal bruise after diabetes sensor placement. Recent blood work results reviewed with the patient and his sister. ? [facility] Medical History (Updated 02/24/23 @ 13:51 by CK Garcia) Essential hypertension Hordeolum externum (stye) Paroxysmal atrial fibrillation Rash Screening for hypothyroidism Type 2 diabetes mellitus with unspecified complications Surgical History (Updated 02/24/23 @ 14:55 by CK Garcia) History of cataract surgery History of esophagogastroduodenoscopy (EGD) History of heart bypass surgery History of hernia surgery History of radiofrequency ablation (RFA) procedure for cardiac arrhythmia Hx of colonoscopy Social History Household Members: None [facility] Are you a primary primary care nurse practitioner to a significant other at home: No Do you presently have visiting nurse or other home services: No 75 years or older and lives alone: Yes Alcohol intake: current Alcohol intake frequency: a few times a week Alcohol type: wine Patient Tobacco Use Status: Former Tobacco user Quit Date: 1975 Tobacco use type: Cigarette e-Cigarette/Vaping Use: Never Used Second Hand Smoke Exposure: No service: No Current occupational status: retired Cognitive needs: No Hearing needs: No Vision needs: Yes (glasses) Questionnaire PHQ-9 Over the last 2 weeks, how often have you been bothered by any of the following problems? 1. Little interest or pleasure in doing things: not at all 2. Feeling down, depressed, or hopeless: not at all 3. Trouble falling or staying asleep, or sleeping too much: not at all 4. Feeling tired or having little energy: not at all 5. Poor appetite or overeating: not at all 6. Feeling bad about yourself - or that you are a failure or have let yourself or your family down: not at all 7. Trouble concentrating on things, such as reading the newspaper or watching television: not at all 8. Moving or speaking so slowly that other people could have noticed. Or the opposite - being so fidgety or restless that you have been moving around a lot more than usual: not at all 9. Thoughts that you would be better off or of hurting yourself in some way: not at all Total score: 0 Depression Screening Interpretation: Negative 20780 - PHQ-9 Billing: Yes Source: Developed by Drs. Lino Keene, Tin Garcia and colleagues, with an educational kalee from [employer]. Thrive Questionnaire Date Thrive assessed: 09/25/22 AUDIT C Alcohol Use Questionnaire (AUDIT-C) 1. How often do you have a drink containing alcohol?: 2-4 times a month 2. How many drinks containing alcohol do you have on a typical day when you are drinking?: 1 or 2 3. How often do you have six or more drinks on one occasion?: Never Total Score: 2 Score Reviewed/Action Taken: No JAYASHREE-7 AMB Questionnaire JAYASHREE-7 Date JAYASHREE - 7 assessed: 02/24/23 Feeling nervous, anxious, or on edge: 3 = Nearly every day Not being able to stop or control worryin = Nearly every day Worrying too much about different things: 0 = Not at all Trouble relaxin = Not at all Being so restless that it is hard to sit still: 0 = Not at all Becoming easily annoyed or irritable: 0 = Not at all Feeling afraid as if something awful might happen: 0 = Not at all Total JAYASHREE-7 score (0-4 normal; 5-9 mild; 10-14 moderate; 15-21 severe): 6 Source: Developed by Drs. Lino Keene, Tin Garcia and colleagues, with an educational kalee from [employer]. JAYASHREE-7 Assessment Billing JAYASHREE-7 Assessment Tool: JAYASHREE-7 Assessment 72938 Review of Systems Const Denies body aches, Denies chills, Denies fever(s) and Denies headache(s) Eyes Denies change in vision ENT Denies dizziness, Denies otalgia, Denies headache(s), Denies nasal discharge, Denies sinus pain and Denies sore throat Card Denies chest pain, Denies edema, Denies lightheadedness and Denies dyspnea Resp Denies chest congestion, Reports cough and Denies dyspnea GI Reports constipation (Intermittent), Denies diarrhea, Denies nausea and Denies vomiting Denies hematuria, Denies difficulty urinating, Denies dysuria and Denies flank pain Musc Details: Neuropathy in feet Denies myalgias and Denies arthralgias Skin/Breast Denies lesions and Denies rash Neuro Denies dizziness and Denies headache(s) Physical exam (Primary Care) Vital Signs: Last Vital Signs Pulse 93 02/24/23 13:18 BP 130/80 02/24/23 13:18 Pulse Ox 95 02/24/23 13:18 Oxygen Delivery Method Room Air 02/24/23 13:18 BMI result Body Mass Index 30.1 Tobacco/Smoking Status: Tobacco use Status Tobacco use date assessed 02/24/23 02/24/23 13:23 Patient Tobacco Use Status Former Tobacco user 02/24/23 13:23 Tobacco use type Cigarette 02/24/23 13:23 e-Cigarette/Vaping Use Never Used 02/24/23 13:23 PHQ-9: PHQ-9 Score PHQ-9: Total score 0 02/24/23 13:35 Depression Screening Interpretation: Negative Thrive Assessment: Date of Thrive Assessment Date Thrive assessed 09/25/22 02/24/23 13:23 Const General: cooperative and no acute distress Orientation/consciousness: patient oriented x3 HENMT Head: Yes normocephalic and Yes atraumatic Ears: TM's normal bilaterally Face and sinus: Yes sinuses nontender Mouth: oropharynx normal and moist mucous membranes Throat: Yes posterior oropharynx normal Eyes General: appearance normal, both eyes and all related structures Pupils: Equal, round and reactive pupils present EOM: EOMs intact bilaterally Neck Neck: Yes normal visual inspection, Yes full ROM and Yes no lymphadenopathy Thyroid: Thyroid normal Resp Effort & Inspection: normal respiratory effort, able to speak in complete sentences and Actively coughing Quality: wet Auscultation: clear to auscultation bilaterally, no crackles, no rales, no rhonchi and no wheezes Cardio Rate: regular rate Rhythm: regular rhythm Heart sounds: S1 normal heart sound present, S2 normal heart sound present and no murmurs GI Palpation (GI): Soft to palpation, not firm, nontender, no guarding, not rigid and no hepatosplenomegaly Auscultation: normal bowel sounds General: Yes no CVA tenderness Back/Spine/Pelvis Back: no CVA tenderness Skin Other: Fading ecchymosis noted to right abdomen, soft to palpation Neuro General: patient oriented x3 Cranial nerves: Yes Equal, round and reactive pupils present Gait exam (Neuro): Normal gait present Extrem General: Yes full ROM Assessment and Plan Assessment & Plan (1) Paroxysmal atrial fibrillation: Code(s): I48.0 - Paroxysmal atrial fibrillation Plan: Per Dr. Jessica History of remote ablation in 2001.? He also had Atriclip device.? It seems he was on amiodarone for postoperative atrial fibrillation but now stop.? Not on any anticoagulation. Continue to follow-up with cardiology (2) Atherosclerotic cardiovascular disease: Code(s): I25.10 - Atherosclerotic heart disease of [place] coronary artery without angina pectoris Plan: Continue to follow-up with cardiology Rosuvastatin 40 mg daily Metoprolol 25 mg daily Aspirin 81 mg daily (3) Anemia: Code(s): D64.9 - Anemia, unspecified Plan: Hemoglobin 14.6 01/2023 Continue to monitor Continue to follow-up with gastroenterology, colonoscopy 08/2022 which showed tubular adenoma which was done by Dr. Lane. (4) CKD (chronic kidney disease) stage 3, GFR 30-59 ml/min: Code(s): N18.30 - Chronic kidney disease, stage 3 unspecified Plan: Creatinine 1.80, GFR 37 01/2023 Avoid nephrotoxic medications Continue to follow-up with nephrology Dr. Pearce (5) Mild dementia: Code(s): F03.90 - Unspecified dementia, unspecified severity, without behavioral disturbance, psychotic disturbance, mood disturbance, and anxiety Plan: Donepezil 10 mg daily and memantine b.i.d. - prescribed by [place] neurology (6) GERD (gastroesophageal reflux disease): Comment: Omeprazole 40 mg b.i.d. prescribed at ED-very good coverage Give trial to omeprazole 40 mg daily Reviewed reflux precautions Code(s): K21.9 - Gastro-esophageal reflux disease without esophagitis Qualifiers: Esophagitis presence: esophagitis presence not specified Qualified Code(s): K21.9 - Gastro-esophageal reflux disease without esophagitis Plan: Continue omeprazole 20 mg daily Encouraged to avoid GERD trigger foods Do not lay down 2-3 hours after evening meal (7) Anxiety: Code(s): F41.9 - Anxiety disorder, unspecified Plan: Sertraline 100 mg b.i.d. (8) Hyperlipidemia: Code(s): E78.5 - Hyperlipidemia, unspecified Plan: Rosuvastatin 40 mg daily Low-cholesterol diet (9) Diabetes mellitus, with long-term current use of insulin: Code(s): E11.9 - Type 2 diabetes mellitus without complications; Z79.4 - termite treater helper (current) use of insulin Plan: A1c 7.6 01/2023 Patient is on insulin pump 4 times a day Continue to follow-up with endocrinology Dr. Brown as scheduled Reinforced low-carbohydrate diet Patient reports normal diabetic eye exam 11/2022 (10) Hypertension: Code(s): I10 - Essential (primary) hypertension Plan: Goal BP equal or less than 140/90 Losartan 25 mg daily Metoprolol 25 mg daily Low-sodium diet (11) Cough: Code(s): R05.9 - Cough, unspecified Plan: Patient reports cough for the past 3 days and he has been sick for the past 1 week, reports negative COVID test. In the office patient does have wet cough. Lungs are clear to auscultation. Will treat with Z-Russell, Mucinex, benzonatate. Increase fluid consumption. Follow-up if no improvement after finishing treatment. Patient agreed with the plan. (12) Adult general medical exam: Comment: Vaccines: PNA about 2007, Moderna x 4 Code(s): Z00.00 - Encounter for general adult medical examination without abnormal findings Plan Follow-up in 3 months or sooner as needed Orders: Orders Comprehensive [place]. Panel Fast 3 Months E11.8 - Type 2 diabetes mellitus with unspecified complications, I10 - Essential (primary) hypertension Lipid Panel 3 Months E11.8 - Type 2 diabetes mellitus with unspecified complications Medications: New azithromycin take 500 mg today (day 1), then 250 mg for 4 days (days 2-5) PO blackwell 6 tabs 0RF R05.9 - Cough, unspecified guaifenesin ER (Mucinex) blackwell 600 mg PO DAILY 10 tabs 0RF R05.9 - Cough, unspecified benzonatate 100 mg PO BID PRN 20 caps 0RF cough R05.9 - Cough, unspecified benzonatate blackwell 100 mg PO BID PRN 20 caps 0RF cough R05.9 - Cough, unspecified Coding Level of Care Code Est Pt Prev Care >65y(95281) Diagnoses Paroxysmal atrial fibrillation I48.0 Atherosclerotic cardiovascular disease I25.10 Anemia D64.9 CKD (chronic kidney disease) stage 3, GFR 30-59 ml/min N18.30 Mild dementia F03.90 GERD (gastroesophageal reflux disease) K21.9 Esophagitis presence: esophagitis presence not specified Anxiety F41.9 Hyperlipidemia E78.5 Diabetes mellitus, with long-term current use of insulin E11.9; Z79.4 Hypertension I10 Cough R05.9 Adult general medical exam Z00.00 Additional Codes JAYASHREE-7 Assessment Billing - JAYASHREE-7 Assessment Tool: JAYASHREE-7 Assessment [id number] ([id number])
== END 2023-02-24 14:03 | disposition home or self-care (01) ==
PROVIDERS: PCP Nurse Practitioner Family; Visit Provider Nurse Practitioner Family
DX: I12.9 Hypertensive chronic kidney disease with stage 1 through stage 4 chronic kidney disease, or unspecified chronic kidney disease (principal); E11.22 Type 2 diabetes mellitus with diabetic chronic kidney disease; N18.30 Chronic kidney disease, stage 3 unspecified; I48.0 Paroxysmal atrial fibrillation; K21.9 Gastro-esophageal reflux disease without esophagitis; F03.90 Unspecified dementia, unspecified severity, without behavioral disturbance, psychotic disturbance, mood disturbance, and anxiety; R05.9 Cough, unspecified; D64.9 Anemia, unspecified; I25.10 Atherosclerotic heart disease of native coronary artery without angina pectoris; F41.9 Anxiety disorder, unspecified; Z79.4 Long term (current) use of insulin
CPT/HCPCS: 99214

== ENCOUNTER 2023-03-03 14:35 | Outpatient (AMB) | payer MEDICARE, SELFPAY ==
[2023-03-03 14:40] VITALS: BP 110/74; PULSE 69; O2SAT 95
--- NOTE | 2023-03-03 14:40 | MHC.PC.OV ---
Vital Signs 03/03/23 14:40 Height 5 ft 11.5 in Weight 218 lb 2 oz BMI 30.0 BP 110/74 Blood Pressure Location Lt brachial Position Sitting Pulse 69 Pulse Source Pulse Oximeter Pulse Oximetry (%) 95 Oxygen Delivery Method Room Air Intake Visit Reasons: [place] eye & Cold Allergies codeine Allergy (Intermediate, Verified 03/03/23 14:44) upset stomach Tobacco use date assessed: 02/24/23 Dental Screening Dental Screen Date: 03/03/23 Did you have a dental visit in the last 12 months?: Yes Did you have a dental problem in the last 6 months where you did not have access to dental care?: No Was dental information given to patient?: Patient has dentist HPI HPI Comments History of Present Illness Details 78-year-old male past medical history significant for paroxysmal AFib, hypertension, type 2 diabetes mellitus, BPH,ASCVD and GERD. Patient reports today for same-day visit for follow-up for upper respiratory infection. Patient reports last Thursday had a fever 100.4, weakness and fatigue. Patient was seen by Chen Santamaria last week and was treated with azithromycin and benzonatate for cough. Patient was swabbed last Thursday for COVID which was negative. Patient presents today continued to be feeling fatigued, states cough is improving. Denies any fevers, chills and shortness of breath. Patient does however report does wake up with yellow crust in his eyes, denies any itching. On exam no conjunctival injection noted. Likely related to viral infection. [facility] Medical History Essential hypertension Hordeolum externum (stye) Paroxysmal atrial fibrillation Rash Screening for hypothyroidism Type 2 diabetes mellitus with unspecified complications Surgical History History of cataract surgery History of esophagogastroduodenoscopy (EGD) History of heart bypass surgery History of hernia surgery History of radiofrequency ablation (RFA) procedure for cardiac arrhythmia Hx of colonoscopy Social History Household Members: None Housing: Condominium Are you a primary patient care assistant to a significant other at home: No Do you presently have visiting nurse or other home services: No Alcohol intake: current Alcohol intake frequency: a few times a week Alcohol type: wine Patient Tobacco Use Status: Former Tobacco user Quit Date: 1975 Tobacco use type: Cigarette e-Cigarette/Vaping Use: Never Used Second Hand Smoke Exposure: No service: No Current occupational status: retired Cognitive needs: No Hearing needs: No Vision needs: Yes (glasses) Questionnaire PHQ-9 Over the last 2 weeks, how often have you been bothered by any of the following problems? 1. Little interest or pleasure in doing things: not at all 2. Feeling down, depressed, or hopeless: not at all 3. Trouble falling or staying asleep, or sleeping too much: not at all 4. Feeling tired or having little energy: not at all 5. Poor appetite or overeating: not at all 6. Feeling bad about yourself - or that you are a failure or have let yourself or your family down: not at all 7. Trouble concentrating on things, such as reading the newspaper or watching television: not at all 8. Moving or speaking so slowly that other people could have noticed. Or the opposite - being so fidgety or restless that you have been moving around a lot more than usual: not at all 9. Thoughts that you would be better off or of hurting yourself in some way: not at all Total score: 0 Depression Screening Interpretation: Negative 92000 - PHQ-9 Billing: Yes Source: Developed by Drs. Lino Keene, Alee Hanley, Tin Marin and colleagues, with an educational kalee from [employer]. Thrive Questionnaire Date Thrive assessed: 03/03/23 I am a: Patient What is your living situation today?: I have a steady place to live Within the past 12 months, did the food you bought not last and you didn't have the money to get more?: Never true Within the past 12 months, did you worry whether your food would run out before you got money to buy more?: Never true Currently or been in a relationship where the following occur: no concerns reported AUDIT C Alcohol Use Questionnaire (AUDIT-C) 1. How often do you have a drink containing alcohol?: 2-4 times a month 2. How many drinks containing alcohol do you have on a typical day when you are drinking?: 1 or 2 3. How often do you have six or more drinks on one occasion?: Never Total Score: 2 Score Reviewed/Action Taken: No JAYASHREE-7 AMB Questionnaire JAYASHREE-7 Date JAYASHREE - 7 assessed: 02/24/23 Feeling nervous, anxious, or on edge: 3 = Nearly every day Not being able to stop or control worryin = Nearly every day Worrying too much about different things: 0 = Not at all Trouble relaxin = Not at all Being so restless that it is hard to sit still: 0 = Not at all Becoming easily annoyed or irritable: 0 = Not at all Feeling afraid as if something awful might happen: 0 = Not at all Total JAYASHREE-7 score (0-4 normal; 5-9 mild; 10-14 moderate; 15-21 severe): 6 Source: Developed by Drs. Lino Keene, Alee Hanley, Tin Marin and colleagues, with an educational kalee from [employer]. JAYASHREE-7 Assessment Billing JAYASHREE-7 Assessment Tool: JAYASHREE-7 Assessment 91271 Review of Systems Const Denies chills, Reports fatigue, Denies fever(s) and Denies poor appetite Eyes Denies no additional complaints ENT Reports Normal hearing present Card Denies chest pain, Denies syncope, Denies rapid heart rate and Denies dyspnea Resp Denies chest congestion, Reports cough, Denies dyspnea and Denies wheezing GI Denies change in stool character, Denies constipation, Reports diarrhea (x 1 episode ), Denies nausea and Denies vomiting Denies dysuria, Denies urinary frequency and Denies urinary urgency Neuro Reports Normal hearing present, Denies confusion and Denies syncope Psych Denies confusion Endo Reports fatigue Aller/Immun Denies wheezing Physical exam (Primary Care) Vital Signs: Last Vital Signs Pulse 69 03/03/23 14:40 BP 110/74 03/03/23 14:40 Pulse Ox 95 03/03/23 14:40 Oxygen Delivery Method Room Air 03/03/23 14:40 BMI result Body Mass Index 30.0 Tobacco/Smoking Status: Tobacco use Status Tobacco use date assessed 02/24/23 03/03/23 14:47 Patient Tobacco Use Status Former Tobacco user 03/03/23 14:47 Tobacco use type Cigarette 03/03/23 14:47 e-Cigarette/Vaping Use Never Used 03/03/23 14:47 PHQ-9: PHQ-9 Score PHQ-9: Total score 0 03/03/23 15:21 Depression Screening Interpretation: Negative Thrive Assessment: Date of Thrive Assessment Date Thrive assessed 03/03/23 03/03/23 14:47 Currently or been in a relationship where the following occur: no concerns reported Const General: No confusion Orientation/consciousness: No confusion HENMT Head: Yes normocephalic and Yes atraumatic General nose exam: Normal external nose present and no nasal discharge noted Eyes General: appearance normal, both eyes and all related structures Conjunctivae: conjunctivae normal Chest Chest palpation & inspection: normal inspection of the chest Resp Effort & Inspection: normal respiratory effort Auscultation: clear to auscultation bilaterally, no crackles, no rhonchi and no wheezes Cardio Rate: regular rate Rhythm: regular rhythm Heart sounds: S1 normal heart sound present and S2 normal heart sound present GI Inspection: Yes normal to inspection Neuro General: No confusion Cranial nerves: Yes Normal hearing present Extrem General: No edema Assessment and Plan Assessment & Plan (1) Fatigue: Code(s): R53.83 - Other fatigue Plan: Will obtain CBC and CMP to further evaluate fatigue, likely related to recent viral infection. (2) Cough: Code(s): R05.9 - Cough, unspecified Plan: Patient reports cough is improving however it has been ongoing x 1o days continues to feel fatigued. CXR ordered. (3) Viral conjunctivitis of both eyes: Code(s): B30.9 - Viral conjunctivitis, unspecified Plan: Patient advised to apply warm compresses to eyes for relief if not improvement or devleopes increased redness/ purulent drainage follow up. Plan Keep scheduled follow up with pcp or follow up sooner if needed. Orders: Orders Comprehensive Met. Panel 03/03/23 R53.83 - Other fatigue Complete Blood Count no Diff 03/03/23 R53.83 - Other fatigue XR chest 2V 03/03/23 R05.9 - Cough, unspecified Coding Level of Care Code Est Pt Level 3 (92443) Diagnoses Fatigue . Cough R05.9 Viral conjunctivitis of both eyes B30.9 Additional Codes JAYASHREE-7 Assessment Billing - JAYASHREE-7 Assessment Tool: JAYASHREE-7 Assessment 76544 ([id number])
== END 2023-03-03 15:25 | disposition home or self-care (01) ==
PROVIDERS: PCP Nurse Practitioner Family; Visit Provider Nurse Practitioner Family
DX: R53.83 Other fatigue (principal); R05.9 Cough, unspecified; B30.9 Viral conjunctivitis, unspecified
CPT/HCPCS: 99213

== ENCOUNTER 2023-03-03 15:25 | Outpatient (REF) | payer MEDICARE, SELFPAY ==
--- NOTE | ~2023-03-03 | XR_ITS ---
EXAMINATION: XR CHEST CLINICAL INFORMATION: Cough COMPARISON: 08/18/2022 TECHNIQUE: 2 views of the chest were obtained. FINDINGS: Median sternotomy wires and atrial appendage clip are unchanged. Heart and mediastinum within normal limits. No vascular congestion. Increased markings identified retrocardiac region. No definite consolidations. No effusions. Bony structures are intact. XR/XR chest 2V IMPRESSION: Retrocardiac increased markings, pneumonia not excluded.
[2023-03-03 15:41] LABS: MANUAL DIFF FLAG NO
[2023-03-03 17:16] LABS: Basophils Absolute Auto 0.1 X10*3/uL (0.0-0.2); Basophils Percent Auto 0.7 % (0-2); Eosinophils Absolute Auto 0.7 X10*3/uL (0.0-0.4); Eosinophils Percent Auto 6.9 % (0-4); Hematocrit 39.8 % (42.0-52.0); Hemoglobin 13.4 g/dl (14.0-18.0); Imm Gran Abs Auto 0.08 X10*3/uL (0.00-0.03); Imm Gran Pct Auto 0.8 % (0.0-0.4); Lymphocytes Absolute Auto 1.6 X10*3/uL (1.2-4.9); Lymphocytes Percent Auto 16.7 % (20-40); Mean Corpuscular HGB Conc 33.7 g/dl (31.0-36.0); Mean Corpuscular Hemoglobin 31.9 pg (27.0-33.0); Mean Corpuscular Volume 94.8 fL (80.0-98.0); Mean Platelet Volume 8.8 fL (9.4-12.4); Monocytes Absolute Auto 0.9 X10*3/uL (0.1-1.2); Monocytes Percent Auto 8.9 % (2-11); Neutrophils Absolute Auto 6.4 x10*3/uL (2.0-8.3); Platelet Count 312 X10*3/uL (160-400); Red Cell Distribution Width 12.6 % (11.0-16.0); White Blood Count 9.7 X10*3/uL (4.8-10.8)
[2023-03-03 17:49] LABS: Alanine Aminotransferase 61 U/L (0-40); Albumin Level 3.6 g/dL (3.5-5.0); Alkaline Phosphatase 96 U/L (39-117); Anion Gap 13 (12-20); Aspartate Amino Transferase 39 U/L (5-37); Bilirubin Total 0.4 mg/dL (0.0-1.0); Blood Urea Nitrogen 26 mg/dL (9-16); Calcium 9.3 mg/dL (8.4-10.2); Carbon Dioxide 22 mmol/L (22-29); Chloride 105 mmol/L (96-108); Estimated Glomerular Filt Rate 30; Glucose Random 220 mg/dL (60-115); Potassium 4.3 mmol/L (3.3-5.1); Sodium 136 mmol/L (135-145); Total Protein 7.8 g/dL (6.5-8.0)
== END 2023-03-03 15:26 | disposition home or self-care (01) ==
LOC: HO.LAB 15:25
PROVIDERS: PCP Nurse Practitioner Family; Visit Provider Nurse Practitioner Family
DX: R53.83 Other fatigue (principal); R05.9 Cough, unspecified; I10 Essential (primary) hypertension
CPT/HCPCS: 36415; 71046; 80053; 85025; 85027

== ENCOUNTER 2023-03-26 14:42 | Outpatient (AMB) | payer MEDICARE, SELFPAY ==
--- NOTE | 2023-03-26 15:41 | A.OFFVIS_ITS ---
Intake Intake Visit Reasons: Discussion of other pumps Allergies codeine Allergy (Intermediate, Verified 03/03/23 14:44) upset stomach HPI Comprehensive Diabetes Asmnt Most Recent Diabetes Results: Microalb/Creat Ratio 17.3 ug/mg cr 02/13/23 Cholesterol 138 mg/dL 02/13/23 HDL Cholesterol 51 mg/dL 02/13/23 Triglycerides 128 mg/dL 02/13/23 Creatinine 2.12 mg/dL (0.5-1.4) H 03/03/23 Blood Urea Nitrogen 26 mg/dL (9-16) H 03/03/23 Sodium 136 mmol/L (135-145) 03/03/23 Potassium 4.3 mmol/L (3.3-5.1) 03/03/23 Chloride 105 mmol/L (96-108) 03/03/23 Carbon Dioxide 22 mmol/L (22-29) 03/03/23 Calcium 9.3 mg/dL (8.4-10.2) 03/03/23 AST 39 U/L (5-37) H 03/03/23 ALT 61 U/L (0-40) H 03/03/23 Total Protein 7.8 g/dL (6.5-8.0) 03/03/23 Albumin 3.6 g/dL (3.5-5.0) 03/03/23 [facility] Medical History Essential hypertension Hordeolum externum (stye) Paroxysmal atrial fibrillation Rash Screening for hypothyroidism Type 2 diabetes mellitus with unspecified complications Surgical History History of cataract surgery History of esophagogastroduodenoscopy (EGD) History of heart bypass surgery History of hernia surgery History of radiofrequency ablation (RFA) procedure for cardiac arrhythmia Hx of colonoscopy Social History Household Members: None Housing: Condominium Are you a primary point of care technician to a significant other at home: No Do you presently have visiting nurse or other home services: No 75 years or older and lives alone: Yes Alcohol intake: current Alcohol intake frequency: a few times a week Alcohol type: wine Patient Tobacco Use Status: Former Tobacco user Quit Date: 1975 Tobacco use type: Cigarette e-Cigarette/Vaping Use: Never Used Second Hand Smoke Exposure: No service: No Current occupational status: retired Cognitive needs: No Hearing needs: No Vision needs: Yes (glasses) Assessment & Plan Assessment & Plan (1) Type 2 diabetes mellitus with unspecified complications: Code(s): E11.8 - Type 2 diabetes mellitus with unspecified complications Plan: Patient presents for pump training for? T slim with control IQ and Dexcom G6 s ?The following topics were reviewed today: - When to change set or Pod - How to interpret data - Linking Meter and CGM to pump - Inserting infusion set or Pod site rotation - Rules about when to test for ketones - Sensor setting (if applicable) ??? High Alert: 250 mg/dl Changed to 300 mg/dL ??? Low Alert:? 90 mg/dl Patient above target 39% Patient at target 61% Patient below target 0% For the last 14 days patient's average glucose has been 171 mg/dL Patient has stopped putting carbohydrates into pump, he is still using bolus calculator for correction boluses. Reviewed with patient the importance of entering carbohydrates into insulin pump to control hyperglycemia. Patient spoke with [facility] [employer] and is interested in switching to Medtronic 780 G. Explained to patient is on likely this insurance will cover an insulin since he received the tandem insulin pump less than a year ago. Also discussed with patient whether he is using the T slim or the Medtronic he will need to enter carbohydrates it is into pump in order to get optimal glucose control Suggested to patient he should consider stopping insulin pump therapy in transitioning either to MDI or to basal insulin and GLP-1 Patient's last A1c was 7.6% on 01/27/2023 In the past patient's insurance has not covered GLP 1, the patient has new insurance which may have better coverage. Instructed patient is sister to talk to insurance company regarding GLP [address] and discussed with Dr. Brown at next visit in April, At this visit we turned off alerts on patient's cellphone for his Dexcom. Patient will still receive alerts on insulin pump. However patient's sister remarked that patient gets extremely anxious with multiple alerts. Setting verified by CDCES,? no changes made to pump setting at today's visit. Basal rate(s) (units/hour) : 12 AM? to 7:30 AM 0.7 units / hr 7:30 AM? to 16:30 PM 1.5 units? / hr 16:30 PM? to 10:30 PM? 1.4 units / hr 10:30 PM to 12 AM 0.7 units / hr Bolus setting Insulin Carbohydrate Ratio (s) 12 AM? to 12 AM? 1:10 Correction Factor / Sensitivity Factor 12 AM? to 12 AM? 1:33 Active Insulin Time:? 5 hours Target(s): 12 AM? to 12 AM? 110 mg/dL Coding Level of Care Code Est Pt Level 1 (17645) Diagnoses Type 2 diabetes mellitus with unspecified complications E11.8
== END 2023-03-26 15:42 | disposition home or self-care (01) ==
PROVIDERS: PCP Nurse Practitioner Family; Visit Provider Registered Nurse Diabetes Educator
DX: E11.8 Type 2 diabetes mellitus with unspecified complications (principal)

== ENCOUNTER → 2023-03-26 14:42 | Outpatient (BNVA) | payer MEDICARE, SELFPAY | PROVIDERS: PCP Nurse Practitioner Family; Visit Provider Registered Nurse Diabetes Educator | DX: Z46.81 Encounter for fitting and adjustment of insulin pump (principal); E11.8 Type 2 diabetes mellitus with unspecified complications; Z79.4 Long term (current) use of insulin | CPT/HCPCS: 99211 ==

== ENCOUNTER 2023-04-29 12:44 | Outpatient (AMB) | payer MEDICARE, SELFPAY ==
--- NOTE | 2023-04-29 12:50 | MHC.OFFVIS ---
Intake Vital Signs 04/29/23 12:51 Height 5 ft 11.5 in Weight 223 lb 8.78 oz BMI 30.7 BP 120/74 Blood Pressure Location Lt brachial Position Sitting Pulse 63 Pulse Source Pulse Oximeter Intake Visit Reasons: f/u Type 2 DM Intake Note: Patient present today to follow up on [id number] Mellitus. Patient receives DME supplies through: [employer] Last Diabetic Eye exam: d Last Podiatry Visit: 04/2023 Random Glucose: 254 mg/dl HgA1C: 7.6% Quantitative Analyst Developer Required: No Accompanied by: Spouse Allergies codeine Allergy (Intermediate, Verified 04/29/23 13:02) upset stomach HPI HPI Comments History of Present Illness Details 78 YO M with is seen in consultation for T2DM at the request of PCP. Initially diagnosed with T2DM in when presented with 1998. Was initially started on treatment with metformin. If On Pump/Sensor: Tandem T-Slim X2 with control IQ Basal rate(s) (units/hour) : 12 AM? to 7:30 AM 0.7 units / hr 7:30 AM? to 16:30 PM 1.5 units? / hr 16:30 PM? to 10:30 PM? 1.4 units / hr 10:30 PM to 12 AM 0.7 units / hr Bolus setting Insulin Carbohydrate Ratio (s) 12 AM? to 12 AM? 1:10 Correction Factor / Sensitivity Factor 12 AM? to 12 AM? 1:33 Active Insulin Time:? 5 hours Target(s): 12 AM? to 12 AM? 110 mg/d ???* total daily dose of insulin is 35. Basal 69%, boluses 2% and correction bolus 6% with control IQ bolus 23%. ??? Patient is starting to understand the basic concepts of pump therapy, how to give insulin for meals and snacks, how to troubleshoot for hyper and hypoglycemia after meeting with CDE and seed laboratory assistant . Checks sugars times per day. Per the CGM Dexcom CGMS is active 95 % of time . data the patient's predicted A1C is 7.7% Avg glucose is 187 . Variability of 58. . Pattern shows post-breakfast and post-dinner rises Reports no low sugars . Treats lows with glucose tablets . Checks sugar after to ensure it is rising. Checks 45 min after Has eyes checked yearly, last eye exam 11/2022 , no retinopathy. Has neuropathy, last foot exam , sees podiatry in [place] .Needs to see 1 here Has nephropathy, on VERONIKA/ARB. Has HLD, on statin. Has history of CAD. Hx of CABG Had diabetes education. Diet/Carb counting: No Denies prior episodes of DKA. Denies prior severe episodes of hypoglycemia requiring help or hospitalization. Labs: anti -JAYASHREE 65 antibodies are negative and C-peptide is sufficient [facility] Medical History Essential hypertension Hordeolum externum (stye) Paroxysmal atrial fibrillation Rash Screening for hypothyroidism Type 2 diabetes mellitus with unspecified complications Surgical History History of cataract surgery History of esophagogastroduodenoscopy (EGD) History of heart bypass surgery History of hernia surgery History of radiofrequency ablation (RFA) procedure for cardiac arrhythmia Hx of colonoscopy Social History Household Members: None [facility] Are you a primary family member caretaker to a significant other at home: No Do you presently have visiting nurse or other home services: No 75 years or older and lives alone: Yes Alcohol intake: current Alcohol intake frequency: a few times a week Alcohol type: wine Patient Tobacco Use Status: Former Tobacco user Quit Date: 1975 Tobacco use type: Cigarette e-Cigarette/Vaping Use: Never Used Second Hand Smoke Exposure: No service: No Current occupational status: retired Cognitive needs: No Hearing needs: No Vision needs: Yes (glasses) Physical Exam Vital Signs: Last Vital Signs Pulse 63 04/29/23 12:51 BP 120/74 04/29/23 12:51 BMI result Body Mass Index 30.7 Absence of Cushingoid features. Absence of acromegalic features. Neck exam reveals nl size thyroid about 15 gms. No thyroid nodules palpable. No carotid bruits present. Lungs CTA. Heart S1 S2, Reg R/R. No M/R/ G. Skin exam reveals absence of vitiligo or acanthosis nigricans. Abdominal exam reveals Soft NT/ND with NA BS. No organomegaly present. Neck Other: . Extrem Other: Visual exam of foot performed. No ulcerations or open lesions. No onchomycosis, no callouses.Pulses 2 + distally Sensation decreased to monofilament exam. Vibratory sensation sensed is decreased with 128 Hz tuning fork Results AMB Hemoglobin A1c AMB Hemoglobin A1c 7.6 % Last Edit by Gladys Loza on 04/29/23 13:10 Assessment & Plan Assessment & Plan (1) Diabetes mellitus, with long-term current use of insulin: Code(s): E11.9 - Type 2 diabetes mellitus without complications; Z79.4 - manager long term care (current) use of insulin Plan: This is a 78-year-old white male with a history of ?type 2 diabetes in the setting of CKD stage IIIB being managed with insulin pump with I good glycemic control and glycemic variability. Glycemic control may be optimal considering patient's psychosocial issues Plan is have the patient f/u with CDE . Patient is having difficulty bolusing before dinner putting carbohydrates into the pump and may require assistance from outside sources. Will not make any adjustments the insulin pump at this time Orders: Orders AMB Hemoglobin A1c Today E11.9 - Type 2 diabetes mellitus without complications, Z79.4 - manager long term care (current) use of insulin Coding Level of Care Code Est Pt Level 4 (99850) Diagnoses Diabetes mellitus, with long-term current use of insulin E11.9; Z79.4
[2023-04-29 12:51] VITALS: BP 120/74; PULSE 63; BMI 30.7
== END 2023-04-29 13:34 | disposition home or self-care (01) ==
PROVIDERS: PCP Nurse Practitioner Family; Visit Provider Internal Medicine Endocrinology, Diabetes & Metabolism
DX: E11.9 Type 2 diabetes mellitus without complications (principal); Z79.4 Long term (current) use of insulin
CPT/HCPCS: 99214

== ENCOUNTER → 2023-04-29 12:44 | Outpatient (BNVA) | payer MEDICARE, SELFPAY | PROVIDERS: PCP Nurse Practitioner Family; Visit Provider Internal Medicine Endocrinology, Diabetes & Metabolism | DX: E11.8 Type 2 diabetes mellitus with unspecified complications (principal); I25.10 Atherosclerotic heart disease of native coronary artery without angina pectoris; I10 Essential (primary) hypertension; E78.5 Hyperlipidemia, unspecified; Z95.1 Presence of aortocoronary bypass graft; Z79.4 Long term (current) use of insulin; Z79.899 Other long term (current) drug therapy | CPT/HCPCS: 82947; 83036; 99212 ==

== ENCOUNTER 2023-05-26 10:14 | Outpatient (AMB) | payer MEDICARE, SELFPAY ==
--- NOTE | 2023-05-26 10:58 | A.OFFVIS_ITS ---
Intake Intake Visit Reasons: DM Charge Histotechnologist Required: No Accompanied by: Sister Allergies codeine Allergy (Intermediate, Verified 04/29/23 13:02) upset stomach HPI Comprehensive Diabetes Asmnt Most Recent Diabetes Results: Microalb/Creat Ratio 17.3 ug/mg cr 02/13/23 Cholesterol 138 mg/dL 02/13/23 HDL Cholesterol 51 mg/dL 02/13/23 Triglycerides 128 mg/dL 02/13/23 Creatinine 2.12 mg/dL (0.5-1.4) H 03/03/23 Blood Urea Nitrogen 26 mg/dL (9-16) H 03/03/23 Sodium 136 mmol/L (135-145) 03/03/23 Potassium 4.3 mmol/L (3.3-5.1) 03/03/23 Chloride 105 mmol/L (96-108) 03/03/23 Carbon Dioxide 22 mmol/L (22-29) 03/03/23 Calcium 9.3 mg/dL (8.4-10.2) 03/03/23 AST 39 U/L (5-37) H 03/03/23 ALT 61 U/L (0-40) H 03/03/23 Total Protein 7.8 g/dL (6.5-8.0) 03/03/23 Albumin 3.6 g/dL (3.5-5.0) 03/03/23 [facility] Medical History Essential hypertension Hordeolum externum (stye) Paroxysmal atrial fibrillation Rash Screening for hypothyroidism Type 2 diabetes mellitus with unspecified complications Surgical History History of esophagogastroduodenoscopy (EGD) Hx of colonoscopy History of hernia surgery History of cataract surgery History of radiofrequency ablation (RFA) procedure for cardiac arrhythmia History of heart bypass surgery Social History Household Members: None Housing: Condominium Are you a primary respiratory care technician to a significant other at home: No Do you presently have visiting nurse or other home services: No 75 years or older and lives alone: Yes Alcohol intake: current Alcohol intake frequency: a few times a week Alcohol type: wine Patient Tobacco Use Status: Former Tobacco user Quit Date: 1975 Tobacco use type: Cigarette e-Cigarette/Vaping Use: Never Used Second Hand Smoke Exposure: No service: No Current occupational status: retired Cognitive needs: No Hearing needs: No Vision needs: Yes (glasses) Assessment & Plan Assessment & Plan (1) Type 2 diabetes mellitus with unspecified complications: Code(s): E11.8 - Type 2 diabetes mellitus with unspecified complications Plan: Patient presents for pump training for? T slim with control IQ and Dexcom G6 s ?The following topics were reviewed today: - How to change set - bolusing for hyperglycemia through insulin pump - Sensor setting (if applicable) ??? High Alert: 250 mg/dl Changed to 300 mg/dL ??? Low Alert:? 90 mg/dl Patient above target 54% Patient at target 46% Patient below target 0% For the last 14 days patient's average glucose has been 197 mg/dL Patient has stopped putting carbohydrates into pump and now he has stopped taking corrections through insulin pump, he is only corrections from control IQ Reviewed with patient the importance of entering carbohydrates into insulin pump to control hyperglycemia. Reviewed with patient the importance of giving himself correction doses through bolus calculator instead of relying on control IQ patient and his sister reports last visit with Dr. Kevin Brown decided not to use GLP ones with patient. Patient's last A1c was 7.6% on 01/27/2023 Setting verified by CDCES,? no changes made to pump setting at today's visit. Basal rate(s) (units/hour) : 12 AM? to 7:30 AM 0.7 units / hr 7:30 AM? to 16:30 PM 1.5 units? / hr 16:30 PM? to 10:30 PM? 1.4 units / hr 10:30 PM to 12 AM 0.7 units / hr Bolus setting Insulin Carbohydrate Ratio (s) 12 AM? to 12 AM? 1:10 Correction Factor / Sensitivity Factor 12 AM? to 12 AM? 1:33 Active Insulin Time:? 5 hours Target(s): 12 AM? to 12 AM? 110 mg/dL Coding Level of Care Code Est Pt Level 1 (15985) Diagnoses Type 2 diabetes mellitus with unspecified complications E11.8
== END 2023-05-26 11:01 | disposition home or self-care (01) ==
PROVIDERS: PCP Nurse Practitioner Family; Visit Provider Registered Nurse Diabetes Educator
DX: E11.8 Type 2 diabetes mellitus with unspecified complications (principal)

== ENCOUNTER → 2023-05-26 10:14 | Outpatient (BNVA) | payer MEDICARE, SELFPAY | PROVIDERS: PCP Nurse Practitioner Family; Visit Provider Registered Nurse Diabetes Educator | DX: E11.8 Type 2 diabetes mellitus with unspecified complications (principal); Z96.41 Presence of insulin pump (external) (internal); Z46.81 Encounter for fitting and adjustment of insulin pump | CPT/HCPCS: 99211 ==

== ENCOUNTER 2023-06-01 11:55 | Outpatient (AMB) | payer MEDICARE, SELFPAY ==
--- NOTE | 2023-06-01 11:56 | HO.NEPHOV ---
HPI HPI Comments History of Present Illness Details Hussain is a 78-year-old man with history of coronary disease status post CABG drained 21. History of diabetes mellitus since 1997 and he is on insulin pump since 2007 He moved from [place] about a year ago. His baseline creatinine was 2.1 as of November 2021. He was accompanied by sister. Recently there has been some changes in his medications. Namenda has been discontinued mirtazapine has been added. According to his sister he is more sleepy. She feels that the dementia monitor progress to further. He is being monitored by Dr. Brown from endocrinology. During his last visit blood pressure was rather low therefore losartan was decreased from 100 mg to 20 mg. [facility] Medical History Essential hypertension Hordeolum externum (stye) Paroxysmal atrial fibrillation Rash Screening for hypothyroidism Type 2 diabetes mellitus with unspecified complications Surgical History History of esophagogastroduodenoscopy (EGD) Hx of colonoscopy History of hernia surgery History of cataract surgery History of radiofrequency ablation (RFA) procedure for cardiac arrhythmia History of heart bypass surgery Social History Household Members: None Housing: [facility] Are you a primary home care attendant to a significant other at home: No Do you presently have visiting nurse or other home services: No 75 years or older and lives alone: Yes Alcohol intake: current Alcohol intake frequency: a few times a week Alcohol type: wine Patient Tobacco Use Status: Former Tobacco user Quit Date: 1975 Tobacco use type: Cigarette e-Cigarette/Vaping Use: Never Used Second Hand Smoke Exposure: No service: No Current occupational status: retired Cognitive needs: No Hearing needs: No Vision needs: Yes (glasses) Vital Signs 06/01/23 11:57 Height 5 ft 11.5 in Weight 223 lb 8 oz BMI 30.7 BP 98/60 Blood Pressure Location Lt brachial Position Sitting Pulse 67 Pulse Source Pulse Oximeter Pulse Oximetry (%) 97 Oxygen Delivery Method Room Air Physical Exam Vital Signs: Last Vital Signs Pulse 67 06/01/23 11:57 BP 98/60 06/01/23 11:57 Pulse Ox 97 06/01/23 11:57 Oxygen Delivery Method Room Air 06/01/23 11:57 BMI result Body Mass Index 30.7 Const General: comfortable Nutritional Appearance: well nourished HEENT Head: No normal to inspection Mouth: moist mucous membranes Neck Neck: Yes supple and Yes no JVD Resp Auscultation: clear to auscultation bilaterally, no rales and rub present Cardio Jugular venous distension: no JVD Palpation: no palpable S3 and no palpable S4 Heart sounds: no rubs GI Palpation (GI): Soft to palpation and nontender Percussion: No Fluid wave present General: Yes no CVA tenderness Back/Spine/Pelvis Back: no CVA tenderness Skin General skin exam: no rashes or lesions noted Extrem General: Yes no pedal edema and No clubbing Results Reviewed Results Reviewed: Labs from February 2023 was reviewed. Serum creatinine 2.2. Assessment & Plan Assessment & Plan (1) CKD (chronic kidney disease) stage 3, GFR 30-59 ml/min: Code(s): N18.30 - Chronic kidney disease, stage 3 unspecified Plan: Aaron has stage IV CKD. Serum creatinine is 2.2. Patient creatinine is between 1.8 and 2.2 mg/dL. He could have a component of Ellie due to hypoperfusion secondary to low blood pressure. Goal is to slow the progression of renal disease. Avoid hypotension Avoid nephrotoxic agents. Possible UTI. Will check urine culture sensitivity. (2) Hypertension: Code(s): I10 - Essential (primary) hypertension Plan: Blood pressure is at the low. Stop losartan 20 mg q.d.. (3) Diabetes mellitus, with long-term current use of insulin: Code(s): E11.9 - Type 2 diabetes mellitus without complications; Z79.4 - nursing home (current) use of insulin Plan: Goal A1c is less than 7%. Encouraged to follow-up with Dr. Brown Orders: Orders Blood Urea Nitrogen Today E11.9 - Type 2 diabetes mellitus without complications, I10 - Essential (primary) hypertension, N18.30 - Chronic kidney disease, stage 3 unspecified, N39.0 - Urinary tract infection, site not specified, Z79.4 - nursing home (current) use of insulin Electrolytes 1 Month N18.30 - Chronic kidney disease, stage 3 unspecified Blood Urea Nitrogen 1 Month N18.30 - Chronic kidney disease, stage 3 unspecified Electrolytes Today E11.9 - Type 2 diabetes mellitus without complications, I10 - Essential (primary) hypertension, N18.30 - Chronic kidney disease, stage 3 unspecified, N39.0 - Urinary tract infection, site not specified, 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 Creatinine Today E11.9 - Type 2 diabetes mellitus without complications, I10 - Essential (primary) hypertension, N18.30 - Chronic kidney disease, stage 3 unspecified, N39.0 - Urinary tract infection, site not specified, Z79.4 - nursing home (current) use of insulin Calcium Today E11.9 - Type 2 diabetes mellitus without complications, I10 - Essential (primary) hypertension, N18.30 - Chronic kidney disease, stage 3 unspecified, N39.0 - Urinary tract infection, site not specified, Z79.4 - nursing home (current) use of insulin Complete Blood Count no Diff Today E11.9 - Type 2 diabetes mellitus without complications, I10 - Essential (primary) hypertension, N18.30 - Chronic kidney disease, stage 3 unspecified, N39.0 - Urinary tract infection, site not specified, Z79.4 - nursing home (current) use of insulin Urine Culture Today E11.9 - Type 2 diabetes mellitus without complications, I10 - Essential (primary) hypertension, N18.30 - Chronic kidney disease, stage 3 unspecified, N39.0 - Urinary tract infection, site not specified, 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
[2023-06-01 11:57] VITALS: BP 98/60; PULSE 67; O2SAT 97; BMI 30.7
== END 2023-06-01 12:22 | disposition home or self-care (01) ==
PROVIDERS: PCP Nurse Practitioner Family; Visit Provider Internal Medicine Hypertension Specialist
DX: I12.9 Hypertensive chronic kidney disease with stage 1 through stage 4 chronic kidney disease, or unspecified chronic kidney disease (principal); E11.22 Type 2 diabetes mellitus with diabetic chronic kidney disease; N18.4 Chronic kidney disease, stage 4 (severe); Z96.41 Presence of insulin pump (external) (internal)
CPT/HCPCS: 99214

== ENCOUNTER → 2023-06-01 11:55 | Outpatient (BNVA) | payer MEDICARE, SELFPAY | PROVIDERS: PCP Nurse Practitioner Family; Visit Provider Internal Medicine Hypertension Specialist | DX: E11.22 Type 2 diabetes mellitus with diabetic chronic kidney disease (principal); I12.9 Hypertensive chronic kidney disease with stage 1 through stage 4 chronic kidney disease, or unspecified chronic kidney disease; N18.30 Chronic kidney disease, stage 3 unspecified; N39.0 Urinary tract infection, site not specified; Z79.4 Long term (current) use of insulin | CPT/HCPCS: 36415; 80051; 82310; 82565; 84520; 85027; 87086; 99212 ==

== ENCOUNTER 2023-06-01 12:26 | Outpatient (REF) | payer MEDICARE, SELFPAY ==
[2023-06-01 13:17] LABS: Hemoglobin 14.1 g/dl (14.0-18.0); Mean Corpuscular HGB Conc 33.6 g/dl (31.0-36.0); Mean Corpuscular Hemoglobin 32.6 pg (27.0-33.0); Mean Corpuscular Volume 97.2 fL (80.0-98.0); Mean Platelet Volume 8.9 fL (9.4-12.4); Platelet Count 183 X10*3/uL (160-400); Red Blood Count 4.32 X10*6/uL (4.60-5.80); Red Cell Distribution Width 13.5 % (11.0-16.0); White Blood Count 11.1 X10*3/uL (4.8-10.8)
[2023-06-01 13:27] LABS: Anion Gap 12 (12-20); Blood Urea Nitrogen 17 mg/dL (9-16); Calcium 9.1 mg/dL (8.4-10.2); Carbon Dioxide 26 mmol/L (22-29); Chloride 103 mmol/L (96-108); Estimated Glomerular Filt Rate 33; Sodium 137 mmol/L (135-145)
== END 2023-06-01 12:27 | disposition home or self-care (01) ==
LOC: HO.10HDL 12:26
PROVIDERS: Visit Provider Internal Medicine Hypertension Specialist
DX: Z13.89 Encounter for screening for other disorder (principal)
CPT/HCPCS: 36415; 80051; 82310; 82565; 84520; 85027; 87086

== ENCOUNTER 2023-06-09 13:10 | Outpatient (AMB) | payer MEDICARE, SELFPAY ==
[2023-06-09 13:11] VITALS: BP 122/78; PULSE 76; O2SAT 96; BMI 30.5
--- NOTE | 2023-06-09 13:11 | MHC.PC.OV ---
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 Allergies codeine Allergy (Intermediate, Verified 06/09/23 13:26) upset stomach Medication List - Last Reconciled 06/09/23 by CK Garcia amitriptyline 25 mg PO BEDTIME ascorbic acid (vitamin C) 1 g PO DAILY aspirin 81 mg PO DAILY blood sugar diagnostic test blood sugar 6 times a day and as needed blood-glucose meter test blood sugar 6 times a day as needed cholecalciferol (vitamin D3) 25 mcg PO DAILY docusate sodium (Colace) 100 mg PO DAILY PRN glucagon 3 mg/actuation (Baqsimi) 3 mg intranasal ONCE insulin aspart U-100 (Novolog U-100 Insulin aspart) 180 - 200 sliding scale doses subcut DAILY insulin aspart U-100 (Novolog U-100 Insulin aspart) use up to 100 units per day via insulin pump subcutaneously use as directed; metoprolol succinate ER 25 mg PO DAILY omeprazole 20 mg PO DAILY rosuvastatin 40 mg PO DAILY sertraline 100 mg PO BID subcutaneous insulin pump 3ml:3ml tamsulosin 0.4 mg PO DAILY Tobacco use date assessed: 06/09/23 Fall risk assessment: No Falls in past year Last assessed Fall Risk: 06/09/23 HPI 3 month f/u HPI Details Patient is a 78-year-old male who presents today for a routine follow-up.? Medical history significant for history of occult blood positive stool-followed by Gastroenterology - colonoscopy 08/2022 which showed tubular adenoma and was done by Dr. Lane, diabetes type 2 insulin dependent - followed by [facility], hypertension, CKD stage 3 - followed by nephrology Dr. Pearce, dementia - followed by [facility] neurology, seasonal allergies, GERD, anxiety, neuropathy, hyperlipidemia among others. Patient denies shortness of breath or chest pain. Patient is accompanied by his sister today who reports that patient has difficulty monitoring his insulin pump due to dementia, patient lives by himself and his sister visit him. Sister reports that they are looking for assisted living facility in [place] now. Patient also was seen by geriatric nurse practitioner and his mental health medications were recently changed. Recent blood work results reviewed with the patient and his sister. Sister also reports that patient has been dropping things from his hands-not interested in OT referral at this time. [facility] Medical History Hordeolum externum (stye) Type 2 diabetes mellitus with unspecified complications Essential hypertension Paroxysmal atrial fibrillation Rash Screening for hypothyroidism Surgical History History of esophagogastroduodenoscopy (EGD) Hx of colonoscopy History of hernia surgery History of cataract surgery History of radiofrequency ablation (RFA) procedure for cardiac arrhythmia History of heart bypass surgery Household Members: None [facility] Are you a primary home care specialist to a significant other at home: No Do you presently have visiting nurse or other home services: No 75 years or older and lives alone: Yes Alcohol intake: current Alcohol intake frequency: a few times a week Alcohol type: wine Patient Tobacco Use Status: Former Tobacco user Quit Date: 1975 Tobacco use type: Cigarette e-Cigarette/Vaping Use: Never Used Second Hand Smoke Exposure: No service: No Current occupational status: retired Cognitive needs: No Hearing needs: No Vision needs: Yes (glasses) Questionnaire Thrive Questionnaire Date Thrive assessed: 03/03/23 AUDIT C Alcohol Use Questionnaire (AUDIT-C) 1. How often do you have a drink containing alcohol?: 2-4 times a month 2. How many drinks containing alcohol do you have on a typical day when you are drinking?: 1 or 2 3. How often do you have six or more drinks on one occasion?: Never Total Score: 2 Score Reviewed/Action Taken: No JAYASHREE-7 AMB Questionnaire JAYASHREE-7 Date JAYASHREE - 7 assessed: 02/24/23 Source: Developed by Drs. Lino Keene, Alee Hanley, Tin Marin and colleagues, with an educational kalee from [employer]. Review of Systems Const Denies body aches, Denies chills, Denies fever(s) and Denies headache(s) ENT Denies dizziness, Denies otalgia, Denies headache(s), Denies nasal discharge, Denies sinus pain and Denies sore throat Card Denies chest pain, Denies edema, Denies lightheadedness and Denies dyspnea Resp Denies chest congestion, Denies dyspnea and Denies wheezing GI Reports constipation (Intermittent), Denies diarrhea, Denies nausea and Denies vomiting Denies dysuria Musc Details: Neuropathy in feet Reports as per HPI, Denies myalgias and Denies arthralgias Skin/Breast Denies lesions and Denies rash Neuro Denies dizziness and Denies headache(s) Aller/Immun Denies wheezing Physical exam (Primary Care) Vital Signs: Last Vital Signs Pulse 76 06/09/23 13:11 BP 122/78 06/09/23 13:11 Pulse Ox 96 06/09/23 13:11 Oxygen Delivery Method Room Air 06/09/23 13:11 BMI result Body Mass Index 30.5 Tobacco/Smoking Status: Tobacco use Status Tobacco use date assessed 06/09/23 06/09/23 13:12 Patient Tobacco Use Status Former Tobacco user 06/09/23 13:12 Tobacco use type Cigarette 06/09/23 13:12 e-Cigarette/Vaping Use Never Used 06/09/23 13:12 Thrive Assessment: Date of Thrive Assessment Date Thrive assessed 03/03/23 06/09/23 13:12 Const General: cooperative and no acute distress Orientation/consciousness: oriented to person and oriented to place HENW[place] Head: Yes normocephalic and Yes atraumatic Face and sinus: Yes sinuses nontender Mouth: oropharynx normal and moist mucous membranes Throat: Yes posterior oropharynx normal Eyes General: appearance normal, both eyes and all related structures Neck Neck: Yes normal visual inspection, Yes full ROM and Yes no lymphadenopathy Resp Effort & Inspection: normal respiratory effort, able to speak in complete sentences and Actively coughing Quality: wet Auscultation: clear to auscultation bilaterally, no crackles, no rales, no rhonchi and no wheezes Cardio Rate: regular rate Rhythm: regular rhythm Heart sounds: S1 normal heart sound present, S2 normal heart sound present and no murmurs Peripheral pulses: radial pulses present bilateral GI Auscultation: normal bowel sounds Skin General skin exam: no rashes or lesions noted Neuro General: oriented to person and oriented to place Gait exam (Neuro): Normal gait present Motor exam (neuro): 5/5 motor strength present throughout Extrem General: Yes full ROM Assessment and Plan Assessment & Plan (1) Paroxysmal atrial fibrillation: Code(s): I48.0 - Paroxysmal atrial fibrillation Plan: Per Dr. Jessica History of remote ablation in 2001.? He also had Atriclip device.? It seems he was on amiodarone for postoperative atrial fibrillation but now stop.? Not on any anticoagulation. Continue to follow-up with cardiology (2) Atherosclerotic cardiovascular disease: Code(s): I25.10 - Atherosclerotic heart disease of [place] coronary artery without angina pectoris Plan: Continue to follow-up with cardiology Rosuvastatin 40 mg daily Metoprolol 25 mg daily Aspirin 81 mg daily (3) CKD (chronic kidney disease) stage 3, GFR 30-59 ml/min: Code(s): N18.30 - Chronic kidney disease, stage 3 unspecified Plan: Creatinine 1.95, GFR 33 05/2023 Avoid nephrotoxic medications Continue to follow-up with nephrology Dr. Pearce (4) Mild dementia: Code(s): F03.90 - Unspecified dementia, unspecified severity, without behavioral disturbance, psychotic disturbance, mood disturbance, and anxiety Plan: Continue to follow-up with [place] neurology Patient also was seen by geriatric GRAPHICS SPECIALIST and memantine was stopped (5) GERD (gastroesophageal reflux disease): Comment: Omeprazole 40 mg b.i.d. prescribed at ED-very good coverage Give trial to omeprazole 40 mg daily Reviewed reflux precautions Code(s): K21.9 - Gastro-esophageal reflux disease without esophagitis Qualifiers: Esophagitis presence: esophagitis presence not specified Qualified Code(s): K21.9 - Gastro-esophageal reflux disease without esophagitis Plan: Continue omeprazole 20 mg daily Encouraged to avoid GERD trigger foods Do not lay down 2-3 hours after evening meal (6) Anxiety: Code(s): F41.9 - Anxiety disorder, unspecified Plan: Sertraline 100 mg b.i.d. 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 Brown as scheduled Reinforced low-carbohydrate diet Patient reports normal diabetic eye exam 11/2022 (9) Hypertension: Code(s): I10 - Essential (primary) hypertension Plan: Goal BP equal or less than 140/90 Metoprolol 25 mg daily Low-sodium diet Plan Follow-up in 3 months or sooner as needed Patient is to complete blood work Coding Level of Care Code Est Pt Level 4 (63153) Diagnoses Paroxysmal atrial fibrillation I48.0 Atherosclerotic cardiovascular disease I25.10 CKD (chronic kidney disease) stage 3, GFR 30-59 ml/min N18.30 Mild dementia F03.90 Gastroesophageal reflux disease, unspecified whether esophagitis present K21.9 Esophagitis presence: esophagitis presence not specified Anxiety F41.9 Hyperlipidemia E78.5 Diabetes mellitus, with long-term current use of insulin E11.9; Z79.4 Hypertension I10
== END 2023-06-09 13:44 | disposition home or self-care (01) ==
PROVIDERS: PCP Nurse Practitioner Family; Visit Provider Nurse Practitioner Family
DX: I12.9 Hypertensive chronic kidney disease with stage 1 through stage 4 chronic kidney disease, or unspecified chronic kidney disease (principal); E11.22 Type 2 diabetes mellitus with diabetic chronic kidney disease; I48.0 Paroxysmal atrial fibrillation; N18.30 Chronic kidney disease, stage 3 unspecified; Z79.4 Long term (current) use of insulin; F03.90 Unspecified dementia, unspecified severity, without behavioral disturbance, psychotic disturbance, mood disturbance, and anxiety; I25.10 Atherosclerotic heart disease of native coronary artery without angina pectoris; K21.9 Gastro-esophageal reflux disease without esophagitis; F41.9 Anxiety disorder, unspecified; E78.5 Hyperlipidemia, unspecified
CPT/HCPCS: 99214

== ENCOUNTER 2023-07-03 08:23 | Outpatient (REF) | payer MEDICARE, SELFPAY ==
[2023-07-03 09:30] LABS: Anion Gap 16 (12-20); Blood Urea Nitrogen 18 mg/dL (9-16); Carbon Dioxide 24 mmol/L (22-29); Chloride 104 mmol/L (96-108); Estimated Glomerular Filt Rate 38; Potassium 4.1 mmol/L (3.3-5.1); Sodium 140 mmol/L (135-145)
== END 2023-07-03 08:24 | disposition home or self-care (01) ==
LOC: HO.LAB 08:23
PROVIDERS: PCP Nurse Practitioner Family; Visit Provider Internal Medicine Hypertension Specialist
DX: E11.22 Type 2 diabetes mellitus with diabetic chronic kidney disease (principal); I12.9 Hypertensive chronic kidney disease with stage 1 through stage 4 chronic kidney disease, or unspecified chronic kidney disease; N39.0 Urinary tract infection, site not specified; N18.30 Chronic kidney disease, stage 3 unspecified; Z79.4 Long term (current) use of insulin
CPT/HCPCS: 36415; 80051; 82565; 84520

== ENCOUNTER 2023-07-09 12:02 | Outpatient (AMB) | payer MEDICARE, SELFPAY ==
[2023-07-09 12:23] VITALS: BP 98/70; PULSE 77; O2SAT 96; BMI 30.4
--- NOTE | 2023-07-09 12:23 | HO.NEPHOV ---
HPI HPI Comments History of Present Illness Details Hussain is a 78-year-old man with history of coronary disease status post CABG drained 21. History of diabetes mellitus since 1997 and he is on insulin pump since 2007 He moved from [place] about a year ago. His baseline creatinine was 2.1 as of November 2021. He was accompanied by sister. Recently there has been some changes in his medications. Namenda has been discontinued mirtazapine has been added. According to his sister he is more sleepy. She feels that the dementia monitor progress to further. He is being monitored by Dr. Brown from endocrinology. During his last visit blood pressure was rather low therefore losartan was decreased from 100 mg to 20 mg. [facility] Medical History Hordeolum externum (stye) Type 2 diabetes mellitus with unspecified complications Essential hypertension Paroxysmal atrial fibrillation Rash Screening for hypothyroidism Surgical History History of esophagogastroduodenoscopy (EGD) Hx of colonoscopy History of hernia surgery History of cataract surgery History of radiofrequency ablation (RFA) procedure for cardiac arrhythmia History of heart bypass surgery Social History Household Members: None Housing: Condominium Are you a primary customer care assistant to a significant other at home: No Do you presently have visiting nurse or other home services: No 75 years or older and lives alone: Yes Alcohol intake: current Alcohol intake frequency: a few times a week Alcohol type: wine Patient Tobacco Use Status: Former Tobacco user Quit Date: 1975 Tobacco use type: Cigarette e-Cigarette/Vaping Use: Never Used Second Hand Smoke Exposure: No service: No Current occupational status: retired Cognitive needs: No Hearing needs: No Vision needs: Yes (glasses) Vital Signs 07/09/23 12:23 Height 5 ft 11.5 in Weight 221 lb 4 oz BMI 30.4 BP 98/70 Blood Pressure Location Lt brachial Position Sitting Pulse 77 Pulse Source Pulse Oximeter Pulse Oximetry (%) 96 Oxygen Delivery Method Room Air Physical Exam Vital Signs: Last Vital Signs Pulse 77 07/09/23 12:23 BP 98/70 07/09/23 12:23 Pulse Ox 96 07/09/23 12:23 Oxygen Delivery Method Room Air 07/09/23 12:23 BMI result Body Mass Index 30.4 Const General: comfortable Nutritional Appearance: well nourished Orientation/consciousness: patient oriented x3 HEENT Head: No normal to inspection Mouth: moist mucous membranes Neck Neck: Yes supple and Yes no JVD Resp Auscultation: clear to auscultation bilaterally, no rales and rub present Cardio Jugular venous distension: no JVD Palpation: no palpable S3 and no palpable S4 Heart sounds: no rubs GI Palpation (GI): Soft to palpation and nontender Percussion: No Fluid wave present General: Yes no CVA tenderness Back/Spine/Pelvis Back: no CVA tenderness Skin General skin exam: no rashes or lesions noted Neuro General: patient oriented x3 Extrem General: Yes no pedal edema and No clubbing Assessment & Plan Assessment & Plan (1) CKD (chronic kidney disease) stage 3, GFR 30-59 ml/min: Code(s): N18.30 - Chronic kidney disease, stage 3 unspecified Plan: Kiki has stage IV CKD. Serum creatinine is 2.2. Patient creatinine is between 1.8 and 2.2 mg/dL. He could have a component of Ellie due to hypoperfusion secondary to low blood pressure. Goal is to slow the progression of renal disease. Avoid hypotension Avoid nephrotoxic agents. (2) Hypertension: Code(s): I10 - Essential (primary) hypertension Plan: Blood pressure was low. 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 Will benefit from SGLT-2 inhibitor Encouraged to follow-up with Dr. Brown Orders: Orders Creatinine 3 Months N18.30 - Chronic kidney disease, stage 3 unspecified Electrolytes 3 Months N18.30 - Chronic kidney disease, stage 3 unspecified Blood Urea Nitrogen 3 Months N18.30 - Chronic kidney disease, stage 3 unspecified Calcium 3 Months N18.30 - Chronic kidney disease, stage 3 unspecified Coding Level of Care Code Est Pt Level 4 (71484) Diagnoses CKD (chronic kidney disease) stage 3, GFR 30-59 ml/min N18.30 Hypertension I10 Diabetes mellitus, with long-term current use of insulin E11.9; Z79.4 Results Reviewed Nephrology Results: Hgb 14.1 g/dl (14.0-18.0) 06/01/23 WBC 11.1 X10*3/uL (4.8-10.8) H 06/01/23 Plt Count 183 X10*3/uL (160-400) 06/01/23 Sodium 140 mmol/L (135-145) 07/03/23 Potassium 4.1 mmol/L (3.3-5.1) 07/03/23 Chloride 104 mmol/L (96-108) 07/03/23 Carbon Dioxide 24 mmol/L (22-29) 07/03/23 BUN 18 mg/dL (9-16) H 07/03/23 Creatinine 1.75 mg/dL (0.5-1.4) H 07/03/23 Calcium 9.1 mg/dL (8.4-10.2) 06/01/23
== END 2023-07-09 12:38 | disposition home or self-care (01) ==
PROVIDERS: PCP Nurse Practitioner Family; Visit Provider Internal Medicine Hypertension Specialist
DX: N18.30 Chronic kidney disease, stage 3 unspecified (principal); I10 Essential (primary) hypertension; E11.9 Type 2 diabetes mellitus without complications; Z79.4 Long term (current) use of insulin
CPT/HCPCS: 99214

== ENCOUNTER → 2023-07-09 12:02 | Outpatient (BNVA) | payer MEDICARE, SELFPAY | PROVIDERS: PCP Nurse Practitioner Family; Visit Provider Internal Medicine Hypertension Specialist | DX: E11.22 Type 2 diabetes mellitus with diabetic chronic kidney disease (principal); I12.9 Hypertensive chronic kidney disease with stage 1 through stage 4 chronic kidney disease, or unspecified chronic kidney disease; N18.30 Chronic kidney disease, stage 3 unspecified; Z79.4 Long term (current) use of insulin | CPT/HCPCS: 99212 ==

== ENCOUNTER 2023-07-30 10:29 | Outpatient (AMB) | payer MEDICARE, SELFPAY ==
[2023-07-30 10:36] VITALS: BP 112/68; PULSE 65; BMI 30.1
--- NOTE | 2023-07-30 10:36 | MHC.OFFVIS ---
Intake Vital Signs 07/30/23 10:36 Height 5 ft 11.5 in Weight 218 lb 11.177 oz BMI 30.1 BP 112/68 Blood Pressure Location Rt brachial Position Sitting Pulse 65 Pulse Source Pulse Oximeter Intake Visit Reasons: f/u Type 2 DM/LVM Intake Note: Patient present today to follow up on Type 2 Diabetes Mellitus. Patient receives DME supplies through: [facility]. Last Diabetic Eye exam: November 2022 Last Podiatry Visit: 07/08/2023 [facility]. Random Glucose: 91 mg/dl HgA1C: 8.2% Rivet Machine Operator Required: No Accompanied by: Spouse Allergies codeine Allergy (Intermediate, Verified 07/30/23 10:42) upset stomach HPI HPI Comments History of Present Illness Details 78 YO M with is seen in consultation for T2DM at the request of PCP. Initially diagnosed with T2DM in when presented with 1998. Was initially started on treatment with metformin. If On Pump/Sensor: Tandem T-Slim X2 with control IQ Basal rate(s) (units/hour) : 12 AM? to 7:30 AM 0.7 units / hr 7:30 AM? to 16:30 PM 1.5 units? / hr 16:30 PM? to 10:30 PM? 1.4 units / hr 10:30 PM to 12 AM 0.7 units / hr Bolus setting Insulin Carbohydrate Ratio (s) 12 AM? to 12 AM? 1:10 Correction Factor / Sensitivity Factor 12 AM? to 12 AM? 1:33 Active Insulin Time:? 5 hours Target(s): 12 AM? to 12 AM? 110 mg/d ???* total daily dose of insulin is 28.2. Basal 77%, boluses 23% and correction bolus 6% with control IQ bolus 23%. ??? Patient is starting to understand the basic concepts of pump therapy, how to give insulin for meals and snacks, how to troubleshoot for hyper and hypoglycemia after meeting with CDE and fuel cell builder . Checks sugars times per day. Per the CGM Dexcom CGMS is active 95 % of time . data the patient's predicted A1C is 7.1% Avg glucose is 158 . Variability of 35. . Pattern shows post-dinner rises Reports no low sugars . Treats lows with glucose tablets . Checks sugar after to ensure it is rising. Checks 45 min after Has eyes checked yearly, last eye exam 11/2022 , no retinopathy. Has neuropathy, last foot exam , sees podiatry in [place] .Needs to see 1 here Has nephropathy, on VERONIKA/ARB. Has HLD, on statin. Has history of CAD. Hx of CABG Had diabetes education. Diet/Carb counting: No Denies prior episodes of DKA. Denies prior severe episodes of hypoglycemia requiring help or hospitalization. Labs: anti -JAYASHREE 65 antibodies are negative and C-peptide is sufficient [facility] Medical History Hordeolum externum (stye) Type 2 diabetes mellitus with unspecified complications Essential hypertension Paroxysmal atrial fibrillation Rash Screening for hypothyroidism Surgical History History of esophagogastroduodenoscopy (EGD) Hx of colonoscopy History of hernia surgery History of cataract surgery History of radiofrequency ablation (RFA) procedure for cardiac arrhythmia History of heart bypass surgery Social History Household Members: None [facility] Are you a primary healthcare economics manager to a significant other at home: No Do you presently have visiting nurse or other home services: No 75 years or older and lives alone: Yes Alcohol intake: current Alcohol intake frequency: a few times a week Alcohol type: wine Patient Tobacco Use Status: Former Tobacco user Quit Date: 1975 Tobacco use type: Cigarette e-Cigarette/Vaping Use: Never Used Second Hand Smoke Exposure: No service: No Current occupational status: retired Cognitive needs: No Hearing needs: No Vision needs: Yes (glasses) Physical Exam Vital Signs: Last Vital Signs Pulse 65 07/30/23 10:36 BP 112/68 07/30/23 10:36 BMI result Body Mass Index 30.1 Absence of Cushingoid features. Absence of acromegalic features. Neck exam reveals nl size thyroid about 15 gms. No thyroid nodules palpable. No carotid bruits present. Lungs CTA. Heart S1 S2, Reg R/R. No M/R/ G. Skin exam reveals absence of vitiligo or acanthosis nigricans. Abdominal exam reveals Soft NT/ND with NA BS. No organomegaly present. Neck Other: . Extrem Other: Visual exam of foot performed. No ulcerations or open lesions. No onchomycosis, no callouses.Pulses 2 + distally Sensation decreased to monofilament exam. Vibratory sensation sensed is decreased with 128 Hz tuning fork Results AMB Hemoglobin A1c AMB Hemoglobin A1c 8.2 % Last Edit by WILLIS Blevins on 07/30/23 11:03 Results Reviewed Results Reviewed: Laboratory Last Values Glucose (Clinic) 91 mg/dL (60-115) 07/30/23 10:48 Assessment & Plan Assessment & Plan (1) Diabetes mellitus, with long-term current use of insulin: Code(s): E11.9 - Type 2 diabetes mellitus without complications; Z79.4 - termite inspector (current) use of insulin Plan: This is a 78-year-old white male with a history of ?type 2 diabetes in the setting of CKD stage IIIB being managed with insulin pump with I good glycemic control and glycemic variability. Glycemic control may be optimal considering patient's psychosocial issues Plan is not make any adjustments the insulin pump at this time. Orders: Orders AMB Hemoglobin A1c Today E11.9 - Type 2 diabetes mellitus without complications, Z79.4 - termite inspector (current) use of insulin Coding Level of Care Code Est Pt Level 4 (31752) Diagnoses Diabetes mellitus, with long-term current use of insulin E11.9; Z79.4
[2023-07-30 10:58] LABS: Glucose, Whole Blood 91 mg/dL (60-115)
== END 2023-07-30 11:52 | disposition home or self-care (01) ==
PROVIDERS: PCP Nurse Practitioner Family; Visit Provider Internal Medicine Endocrinology, Diabetes & Metabolism
DX: E11.9 Type 2 diabetes mellitus without complications (principal); Z79.4 Long term (current) use of insulin
CPT/HCPCS: 99214

== ENCOUNTER → 2023-07-30 10:29 | Outpatient (BNVA) | payer MEDICARE, SELFPAY | PROVIDERS: PCP Nurse Practitioner Family; Visit Provider Internal Medicine Endocrinology, Diabetes & Metabolism | DX: Z46.81 Encounter for fitting and adjustment of insulin pump (principal); E11.9 Type 2 diabetes mellitus without complications; Z79.4 Long term (current) use of insulin | CPT/HCPCS: 82947; 83036; 99212 ==

== ENCOUNTER 2023-08-03 13:18 | Outpatient (AMB) | payer MEDICARE, SELFPAY ==
--- NOTE | 2023-08-03 13:37 | MHC.PC.OV ---
Vital Signs 08/03/23 13:39 Height 5 ft 11.5 in Weight 217 lb 4 oz BMI 29.9 BP 120/72 Blood Pressure Location Lt brachial Position Sitting Pulse 77 Pulse Source Pulse Oximeter Pulse Oximetry (%) 97 Oxygen Delivery Method Room Air Intake Visit Reasons: est care/ follow-up (Rosalio patient) Intake Note: Patient is here today for transfer of care. Patient is here to follow up on DM, PAF, HTN. Long Chain Beamer Required: No Individual Pension Adviser: Present Accompanied by: Sister Allergies codeine Allergy (Intermediate, Verified 08/03/23 13:39) upset stomach Tobacco use date assessed: 08/03/23 Fall risk assessment: No Falls in past year Last assessed Fall Risk: 08/03/23 Dental Screening Dental Screen Date: 08/03/23 Did you have a dental visit in the last 12 months?: Yes Did you have a dental problem in the last 6 months where you did not have access to dental care?: No Was dental information given to patient?: Patient has dentist HPI est care/ follow-up ([facility]io patient) HPI Details 78-year-old male presents to the office to discuss his medical issues. He is accompanied by his sister. I will be assuming his care today as his primary care provider has left the practice. Patient has history of diabetes, on an insulin pump, chronic kidney disease, obsessive compulsive disorder and dementia. Patient is been seeing an staple fiber washer, chrome tanner and a neurologist. He sees a mid-level provider for the OCD and is taking Zoloft 125 mg twice a day. According to the sister, symptoms are not well controlled and he continues to scratch his face on a constant basis. He has lost the cognitive ability to drive. 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 [facility] Medical History (Updated 08/03/23 @ 14:50 by Lan Taveras MD) Obsessive compulsive disorder Hordeolum externum (stye) Type 2 diabetes mellitus with unspecified complications Essential hypertension Paroxysmal atrial fibrillation Rash Screening for hypothyroidism Surgical History History of esophagogastroduodenoscopy (EGD) Hx of colonoscopy History of hernia surgery History of cataract surgery History of radiofrequency ablation (RFA) procedure for cardiac arrhythmia History of heart bypass surgery Social History Household Members: None Housing: Condominium Are you a primary resident care aide to a significant other at home: No Do you presently have visiting nurse or other home services: No Alcohol intake: current Alcohol intake frequency: a few times a week Alcohol type: wine Patient Tobacco Use Status: Former Tobacco user Quit Date: 1975 Tobacco use type: Cigarette e-Cigarette/Vaping Use: Never Used Second Hand Smoke Exposure: No service: No Current occupational status: retired Cognitive needs: No Hearing needs: No Vision needs: Yes (glasses) Questionnaire PHQ-9 Over the last 2 weeks, how often have you been bothered by any of the following problems? 1. Little interest or pleasure in doing things: not at all 2. Feeling down, depressed, or hopeless: not at all 3. Trouble falling or staying asleep, or sleeping too much: not at all 4. Feeling tired or having little energy: not at all 5. Poor appetite or overeating: not at all 6. Feeling bad about yourself - or that you are a failure or have let yourself or your family down: not at all 7. Trouble concentrating on things, such as reading the newspaper or watching television: not at all 8. Moving or speaking so slowly that other people could have noticed. Or the opposite - being so fidgety or restless that you have been moving around a lot more than usual: not at all 9. Thoughts that you would be better off or of hurting yourself in some way: not at all Total score: 0 Depression Screening Interpretation: Negative Depression Screening Done: Yes Source: Developed by Drs. Lino Keene, Alee Hanley, Tin Marin and colleagues, with an educational kalee from [employer]. Thrive Questionnaire Date Thrive assessed: 08/03/23 I am a: Patient What is your living situation today?: I have a steady place to live Within the past 12 months, did the food you bought not last and you didn't have the money to get more?: Never true Within the past 12 months, did you worry whether your food would run out before you got money to buy more?: Never true Do you have trouble paying for medicines?: No Do you have trouble getting transportation to medical appointments?: No Do you have trouble paying your heating and electricity bill?: No Do you have trouble taking care of your child, family member or friend?: No Do you have trouble with day-to-day activities such as bathing, preparing meals, shopping, managing finances, etc.?: No Are you currently unemployed and looking for a job?: No Are you interested in more education?: No Currently or been in a relationship where the following occur: no concerns reported JAYASHREE-7 AMB Questionnaire JAYASHREE-7 Date JAYASHREE - 7 assessed: 08/03/23 Feeling nervous, anxious, or on edge: 0 = Not at all Not being able to stop or control worryin = Not at all Worrying too much about different things: 0 = Not at all Trouble relaxin = Not at all Being so restless that it is hard to sit still: 0 = Not at all Becoming easily annoyed or irritable: 0 = Not at all Feeling afraid as if something awful might happen: 0 = Not at all Total JAYASHREE-7 score (0-4 normal; 5-9 mild; 10-14 moderate; 15-21 severe): 0 Source: Developed by Drs. Lino Keene, Alee Hanley, Tin Marin and colleagues, with an educational kalee from [employer]. Physical exam (Primary Care) Vital Signs: Last Vital Signs Pulse 77 08/03/23 13:39 BP 120/72 08/03/23 13:39 Pulse Ox 97 08/03/23 13:39 Oxygen Delivery Method Room Air 08/03/23 13:39 Care Plan Goal for BP management: Blood pressure is in range. BMI result Body Mass Index 29.9 Tobacco/Smoking Status: Tobacco use Status Tobacco use date assessed 08/03/23 08/03/23 13:47 Patient Tobacco Use Status Former Tobacco user 08/03/23 13:38 Tobacco use type Cigarette 08/03/23 13:38 e-Cigarette/Vaping Use Never Used 08/03/23 13:38 PHQ-9: PHQ-9 Score PHQ-9: Total score 0 08/03/23 13:48 Depression Screening Interpretation: Negative Thrive Assessment: Date of Thrive Assessment Date Thrive assessed 08/03/23 08/03/23 13:38 Currently or been in a relationship where the following occur: no concerns reported Const General: cooperative and healthy appearing Nutritional Appearance: well nourished Orientation/consciousness: patient oriented x3 Limitations: no limitations HENMT Head: Yes normal to inspection Eyes General: appearance normal, both eyes and all related structures Neck Neck: Yes normal visual inspection Chest Chest palpation & inspection: normal palpation of entire chest wall Resp Effort & Inspection: normal respiratory effort Skin Other: Face: Erythematous rash on his cheeks, several scratch infante present. Neuro General: patient oriented x3 Assessment and Plan Assessment & Plan (1) CKD (chronic kidney disease) stage 3, GFR 30-59 ml/min: Code(s): N18.30 - Chronic kidney disease, stage 3 unspecified Plan: Losartan has been discontinued. Blood pressure is still in range. Will continue to follow. (2) Mild dementia: Code(s): F03.90 - Unspecified dementia, unspecified severity, without behavioral disturbance, psychotic disturbance, mood disturbance, and anxiety Plan: Patient does see a neurologist. (3) Essential hypertension: Code(s): I10 - Essential (primary) hypertension Plan: Blood pressure is in range. (4) Diabetes mellitus, with long-term current use of insulin: Code(s): E11.9 - Type 2 diabetes mellitus without complications; Z79.4 - half-way (current) use of insulin Plan: A1c is 8.2. Patient is on an insulin pump. (5) Obsessive compulsive disorder: Code(s): F42.9 - Obsessive-compulsive disorder, unspecified Plan: Zoloft is not controlling all his symptoms. A psych evaluation has been requested. Orders: Orders Lipid Panel Today E11.9 - Type 2 diabetes mellitus without complications, N18.30 - Chronic kidney disease, stage 3 unspecified, Z79.4 - half-way (current) use of insulin Liver Panel Today E11.9 - Type 2 diabetes mellitus without complications, N18.30 - Chronic kidney disease, stage 3 unspecified, Z79.4 - half-way (current) use of insulin Coding Level of Care Code Est Pt Level 4 (08999) Diagnoses CKD (chronic kidney disease) stage 3, GFR 30-59 ml/min N18.30 Mild dementia F03.90 Essential hypertension I10 Diabetes mellitus, with long-term current use of insulin E11.9; Z79.4 Obsessive compulsive disorder F42.9
[2023-08-03 13:39] VITALS: BP 120/72; PULSE 77; O2SAT 97; BMI 29.9
== END 2023-08-03 14:38 | disposition home or self-care (01) ==
PROVIDERS: PCP Nurse Practitioner Family; Visit Provider Internal Medicine
DX: I12.9 Hypertensive chronic kidney disease with stage 1 through stage 4 chronic kidney disease, or unspecified chronic kidney disease (principal); E11.22 Type 2 diabetes mellitus with diabetic chronic kidney disease; N18.30 Chronic kidney disease, stage 3 unspecified; F03.90 Unspecified dementia, unspecified severity, without behavioral disturbance, psychotic disturbance, mood disturbance, and anxiety
CPT/HCPCS: 99214

== ENCOUNTER 2023-08-03 14:49 | Outpatient (REF) | payer MEDICARE, SELFPAY ==
[2023-08-03 15:52] LABS: Alanine Aminotransferase 17 U/L (0-40); Alkaline Phosphatase 75 U/L (39-117); Aspartate Amino Transferase 31 U/L (5-37); Bilirubin Direct 0.2 mg/dL (0.0-0.5); Bilirubin Total 0.5 mg/dL (0.0-1.0); Cholesterol 116 mg/dL (<200); HDL Cholesterol 42 mg/dL (>40); LDL Cholesterol Calculated 44 mg/dL (<100); Total Protein 7.7 g/dL (6.5-8.0); Triglycerides 150 mg/dL (<150)
== END 2023-08-03 14:50 | disposition home or self-care (01) ==
LOC: HO.LAB 14:49
PROVIDERS: PCP Internal Medicine; Visit Provider Internal Medicine
DX: E11.9 Type 2 diabetes mellitus without complications (principal); N18.30 Chronic kidney disease, stage 3 unspecified; Z79.4 Long term (current) use of insulin
CPT/HCPCS: 36415; 80061; 80076

== ENCOUNTER 2023-08-17 10:14 | Outpatient (AMB) | payer MEDICARE, SELFPAY ==
[2023-08-17 10:33] VITALS: BP 118/80; PULSE 65; BMI 31.0
--- NOTE | 2023-08-17 10:33 | A.OFFVIS_ITS ---
Intake Vital Signs 08/17/23 10:33 Height 5 ft 11 in Weight 222 lb 3.615 oz BMI 31.0 BP 118/80 Blood Pressure Location Lt brachial Position Sitting Pulse 65 Intake Visit Reasons: 1 yr f/u Intake Note: 1 year follow up w/ EKG Quality Lab Technician Required: No Accompanied by: Spouse Allergies codeine Allergy (Intermediate, Verified 08/17/23 10:33) upset stomach Medication List - Last Reconciled 08/17/23 by Kahlil Jessica MD amitriptyline 50 mg PO BEDTIME ascorbic acid (vitamin C) 1 g PO DAILY aspirin 81 mg PO DAILY blood sugar diagnostic test blood sugar 6 times a day and as needed blood-glucose meter test blood sugar 6 times a day as needed cholecalciferol (vitamin D3) 25 mcg PO DAILY docusate sodium (Colace) 100 mg PO DAILY PRN insulin aspart U-100 (Novolog U-100 Insulin aspart) Up to 100 units via insulin pump subcutaneously daily; metoprolol succinate ER 25 mg PO DAILY omeprazole 20 mg PO DAILY rosuvastatin 40 mg PO DAILY sertraline 100 mg PO BID sertraline 25 mg PO BID subcutaneous insulin pump 3ml:3ml tamsulosin 0.4 mg PO DAILY HPI HPI Comments History of Present Illness Details Hussain returns for follow up. To recall, he has moved from [facility]. In 2020, he underwent coronary artery bypass surgery following NSTEMI. He also has a remote history of atrial fibrillation ablation in 2001. Multiple other cardiovascular risk factors including type 2 diabetes, hypertension, dyslipidemia, chronic kidney disease. Overall, he is feeling fine. No cardiac complaints. Sister is with him for the appointment. She states that his dementia is getting worse. [facility] Medical History (Updated 08/17/23 @ 10:47 by Kahlil Jessica MD) Dementia Obsessive compulsive disorder Hordeolum externum (stye) Type 2 diabetes mellitus with unspecified complications Essential hypertension Paroxysmal atrial fibrillation Rash Screening for hypothyroidism Surgical History History of esophagogastroduodenoscopy (EGD) Hx of colonoscopy History of hernia surgery History of cataract surgery History of radiofrequency ablation (RFA) procedure for cardiac arrhythmia History of heart bypass surgery Social History Household Members: None Housing: Condominium Are you a primary disabilities caregiver to a significant other at home: No Do you presently have visiting nurse or other home services: No 75 years or older and lives alone: Yes Alcohol intake: current Alcohol intake frequency: a few times a week Alcohol type: wine Patient Tobacco Use Status: Former Tobacco user Quit Date: 1975 Tobacco use type: Cigarette e-Cigarette/Vaping Use: Never Used Second Hand Smoke Exposure: No service: No Current occupational status: retired Cognitive needs: No Hearing needs: No Vision needs: Yes (glasses) Review of Systems Const Denies weakness ENT Denies dizziness Card Denies chest pain, Denies chest pain with activity, Denies syncope, Denies rapid heart rate, Denies pedal edema, Denies edema, Denies leg edema, Denies lightheadedness, Denies palpitations, Denies dyspnea, Denies dyspnea on exertion and Denies orthopnea Resp Denies cough, Denies dyspnea and Denies dyspnea on exertion GI Denies hematochezia and Denies change in stool character Musc Denies abnormal gait, Denies muscle cramps, Denies muscle weakness, Denies numbness, Denies radiating pain into limb and Denies tingling Neuro Denies abnormal gait, Denies dizziness, Denies syncope, Denies numbness, Denies tingling and Denies weakness Endo Denies palpitations Physical Exam Vital Signs: Last Vital Signs Pulse 65 08/17/23 10:33 BP 118/80 08/17/23 10:33 BMI result Body Mass Index 31.0 Const General: comfortable and no acute distress Orientation/consciousness: patient oriented x3 HEENT Other: Unremarkable Head: Yes normal to inspection Neck Neck: Yes normal visual inspection Chest Chest palpation & inspection: normal inspection of the chest Resp Auscultation: clear to auscultation bilaterally Cardio Palpation: normal PMI Heart sounds: S1 normal heart sound present, S2 normal heart sound present, no gallops, no murmurs and no rubs GI Palpation (GI): Soft to palpation Back/Spine/Pelvis Other: unremarkable Skin General skin exam: no rashes or lesions noted Neuro General: patient oriented x3 Extrem General: Yes normal to inspection Psych Mental Status: mental status grossly normal Office Procedures EKG Details: EKG with sinus rhythm at 65/Min; minimal voltage criteria for LVH; MD prolongation to 262 millisecond; can not exclude old anterior infarct; [place]. [id number], Complete Assessment & Plan Assessment & Plan (1) Atherosclerotic cardiovascular disease: Code(s): I25.10 - Atherosclerotic heart disease of [place] coronary artery without angina pectoris Plan: Per available records, underwent coronary artery bypass surgery in May 2021. Santos to LAD and SVG to PDA. He can continue aspirin, and statins. Last LDL 44 mg/dL.. Clinically, no angina. Echocardiogram with preserved LVEF, 65-70%; wall motion abnormalities noted on the echocardiogram likely from his underlying coronary disease. In the absence of symptoms, no specific workup needed. (2) Paroxysmal atrial fibrillation: Code(s): I48.0 - Paroxysmal atrial fibrillation Plan: History of remote ablation in 2001. He also had Atriclip device. It seems he was on amiodarone for postoperative atrial fibrillation but now stop. Not on any anticoagulation. (3) Essential hypertension: Code(s): I10 - Essential (primary) hypertension Plan: Seems stable. No changes. (4) Type 2 diabetes mellitus with unspecified complications: Code(s): E11.8 - Type 2 diabetes mellitus with unspecified complications Plan: On insulin. Most recent hemoglobin A1c is 8.2 %. (5) Dementia: Code(s): F03.90 - Unspecified dementia, unspecified severity, without behavioral disturbance, psychotic disturbance, mood disturbance, and anxiety Plan: Per sister, has dementia and might be getting worse. Cardiac plans in the future possibly conservative. Coding Level of Care Code Est Pt Level 4 (20215) Diagnoses Atherosclerotic cardiovascular disease I25.10 Paroxysmal atrial fibrillation I48.0 Essential hypertension I10 Type 2 diabetes mellitus with unspecified complications E11.8 Dementia F03.90 CPT Codes EKG - CPT: 87899-[id number], Complete ([id number])
== END 2023-08-17 10:49 | disposition home or self-care (01) ==
PROVIDERS: Visit Provider Internal Medicine
DX: I25.10 Atherosclerotic heart disease of native coronary artery without angina pectoris (principal); I48.0 Paroxysmal atrial fibrillation; I10 Essential (primary) hypertension; E11.8 Type 2 diabetes mellitus with unspecified complications; F03.90 Unspecified dementia, unspecified severity, without behavioral disturbance, psychotic disturbance, mood disturbance, and anxiety
CPT/HCPCS: 93010; 99214

== ENCOUNTER → 2023-08-17 10:14 | Outpatient (BNVA) | payer MEDICARE, SELFPAY | PROVIDERS: Visit Provider Internal Medicine | DX: I25.10 Atherosclerotic heart disease of native coronary artery without angina pectoris (principal); I48.0 Paroxysmal atrial fibrillation; I10 Essential (primary) hypertension; E11.8 Type 2 diabetes mellitus with unspecified complications; F03.90 Unspecified dementia, unspecified severity, without behavioral disturbance, psychotic disturbance, mood disturbance, and anxiety | CPT/HCPCS: 93005; 99212 ==

== ENCOUNTER 2023-08-26 13:13 | Outpatient (AMB) | payer MEDICARE, SELFPAY ==
--- NOTE | 2023-08-26 13:54 | A.OFFVIS_ITS ---
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 Required: No Accompanied by: Sister Allergies codeine Allergy (Intermediate, Verified 08/17/23 10:33) upset stomach HPI Comprehensive Diabetes Asmnt Most Recent Diabetes Results: Microalb/Creat Ratio 17.3 ug/mg cr 02/13/23 Cholesterol 116 mg/dL (<200) 08/03/23 HDL Cholesterol 42 mg/dL (>40) 08/03/23 Triglycerides 150 mg/dL (<150) H 08/03/23 Creatinine 1.75 mg/dL (0.5-1.4) H 07/03/23 Blood Urea Nitrogen 18 mg/dL (9-16) H 07/03/23 Sodium 140 mmol/L (135-145) 07/03/23 Potassium 4.1 mmol/L (3.3-5.1) 07/03/23 Chloride 104 mmol/L (96-108) 07/03/23 Carbon Dioxide 24 mmol/L (22-29) 07/03/23 Calcium 9.1 mg/dL (8.4-10.2) 06/01/23 AST 31 U/L (5-37) 08/03/23 ALT 17 U/L (0-40) 08/03/23 Total Protein 7.7 g/dL (6.5-8.0) 08/03/23 Albumin 4.0 g/dL (3.5-5.0) 08/03/23 [facility] Medical History (Updated 08/17/23 @ 10:47 by Kahlil Jessica MD) Dementia Obsessive compulsive disorder Hordeolum externum (stye) Type 2 diabetes mellitus with unspecified complications Essential hypertension Paroxysmal atrial fibrillation Rash Screening for hypothyroidism Surgical History History of esophagogastroduodenoscopy (EGD) Hx of colonoscopy History of hernia surgery History of cataract surgery History of radiofrequency ablation (RFA) procedure for cardiac arrhythmia History of heart bypass surgery Social History Household Members: None Housing: Condominium Are you a primary healthcare translator to a significant other at home: No Do you presently have visiting nurse or other home services: No 75 years or older and lives alone: Yes Alcohol intake: current Alcohol intake frequency: a few times a week Alcohol type: wine Patient Tobacco Use Status: Former Tobacco user Quit Date: 1975 Tobacco use type: Cigarette e-Cigarette/Vaping Use: Never Used Second Hand Smoke Exposure: No service: No Current occupational status: retired Cognitive needs: No Hearing needs: No Vision needs: Yes (glasses) Assessment & Plan Assessment & Plan (1) Diabetes mellitus, with long-term current use of insulin: Code(s): E11.9 - Type 2 diabetes mellitus without complications; 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 T slim with control IQ and Dexcom G6 s ?The following topics were reviewed today: - How to change set - bolusing for hyperglycemia through insulin pump - Sensor setting (if applicable) ??? High Alert: 250 mg/dl Changed to 300 mg/dL ??? Low Alert:? 90 mg/dl Patient above target 35% Patient at target 65% Patient below target 0% For the last 14 days patient's average glucose has been 161 mg/dL Patient glucose control remains stable. Patient has no episodes of hypoglycemia in the past 14 days Patient now has live in [place], who help him manage glucose levels Last A1c 8.1% July 2023 Patient and his sister instructed to contact primary special educator with questions or concerns regarding insulin pump Setting verified by [facility],? no changes made to pump setting at today's visit. Basal rate(s) (units/hour) : 12 AM? to 7:30 AM 0.7 units / hr 7:30 AM? to 16:30 PM 1.5 units? / hr 16:30 PM? to 10:30 PM? 1.4 units / hr 10:30 PM to 12 AM 0.7 units / hr Bolus setting Insulin Carbohydrate Ratio (s) 12 AM? to 12 AM? 1:10 Correction Factor / Sensitivity Factor 12 AM? to 12 AM? 1:33 Active Insulin Time:? 5 hours Target(s): 12 AM? to 12 AM? 110 mg/dL Patient Instructions: Patient will follow-up as needed Coding Level of Care Code Est Pt Level 1 (94020) Diagnoses Diabetes mellitus, with long-term current use of insulin E11.9; Z79.4
== END 2023-08-26 14:06 | disposition home or self-care (01) ==
PROVIDERS: PCP Nurse Practitioner Family; Visit Provider Registered Nurse Diabetes Educator
DX: E11.9 Type 2 diabetes mellitus without complications (principal); Z79.4 Long term (current) use of insulin

== ENCOUNTER → 2023-08-26 13:13 | Outpatient (BNVA) | payer MEDICARE, SELFPAY | PROVIDERS: PCP Nurse Practitioner Family; Visit Provider Registered Nurse Diabetes Educator | DX: Z46.81 Encounter for fitting and adjustment of insulin pump (principal); E11.9 Type 2 diabetes mellitus without complications; Z79.4 Long term (current) use of insulin | CPT/HCPCS: 99211 ==

== ENCOUNTER 2023-10-09 11:32 | Outpatient (REF) | payer MEDICARE, SELFPAY ==
[2023-10-09 13:39] LABS: Anion Gap 13 (12-20); Blood Urea Nitrogen 18 mg/dL (9-16); Carbon Dioxide 24 mmol/L (22-29); Chloride 105 mmol/L (96-108); Estimated Glomerular Filt Rate 33; Potassium 3.8 mmol/L (3.3-5.1); Sodium 138 mmol/L (135-145)
== END 2023-10-09 11:33 | disposition home or self-care (01) ==
LOC: HO.LAB 11:32
PROVIDERS: PCP Internal Medicine; Visit Provider Internal Medicine Hypertension Specialist
DX: N18.30 Chronic kidney disease, stage 3 unspecified (principal)
CPT/HCPCS: 36415; 80051; 82310; 82565; 84520

== ENCOUNTER 2023-10-15 12:09 | Outpatient (AMB) | payer MEDICARE, SELFPAY ==
--- NOTE | 2023-10-15 12:14 | HO.NEPHOV ---
HPI HPI Comments History of Present Illness Details Hussain is a 78-year-old man with history of coronary disease status post CABG drained 21. History of diabetes mellitus since 1997 and he is on insulin pump since 2007 He moved from [place] about a year ago. His baseline creatinine was 2.1 as of November 2021. He was accompanied by sister. Recently there has been some changes in his medications. Namenda has been discontinued mirtazapine has been added. According to his sister he is more sleepy. She feels that the dementia monitor progress to further. He is being monitored by Dr. Brown from endocrinology. During his last visit blood pressure was rather low therefore losartan was decreased from 100 mg to 25mg. 10/15/23- Overall doing well. No new renal issues [facility] Medical History (Updated 08/17/23 @ 10:47 by Kahlil Jessica MD) Dementia Obsessive compulsive disorder Hordeolum externum (stye) Type 2 diabetes mellitus with unspecified complications Essential hypertension Paroxysmal atrial fibrillation Rash Screening for hypothyroidism Surgical History History of esophagogastroduodenoscopy (EGD) Hx of colonoscopy History of hernia surgery History of cataract surgery History of radiofrequency ablation (RFA) procedure for cardiac arrhythmia History of heart bypass surgery Social History Household Members: None [facility] Are you a primary veterinarian laboratory animal care to a significant other at home: No Do you presently have visiting nurse or other home services: No 75 years or older and lives alone: Yes Alcohol intake: current Alcohol intake frequency: a few times a week Alcohol type: wine Patient Tobacco Use Status: Former Tobacco user Quit Date: 1975 Tobacco use type: Cigarette e-Cigarette/Vaping Use: Never Used Second Hand Smoke Exposure: No service: No Current occupational status: retired Cognitive needs: No Hearing needs: No Vision needs: Yes (glasses) Vital Signs 10/15/23 12:15 Height 5 ft 11 in Weight 219 lb BMI 30.5 BP 124/78 Blood Pressure Location Lt brachial Position Sitting Pulse 82 Pulse Source Pulse Oximeter Pulse Oximetry (%) 96 Oxygen Delivery Method Room Air Physical Exam Vital Signs: Last Vital Signs Pulse 82 10/15/23 12:15 BP 124/78 03/28/24 12:15 Pulse Ox 96 10/15/23 12:15 Oxygen Delivery Method Room Air 10/15/23 12:15 BMI result Body Mass Index 30.5 Const General: comfortable Nutritional Appearance: well nourished Orientation/consciousness: patient oriented x3 HEENT Head: No normal to inspection Mouth: moist mucous membranes Neck Neck: Yes supple and Yes no JVD Resp Auscultation: clear to auscultation bilaterally, no rales and rub present Cardio Jugular venous distension: no JVD Palpation: no palpable S3 and no palpable S4 Heart sounds: no rubs GI Palpation (GI): Soft to palpation and nontender Percussion: No Fluid wave present General: Yes no CVA tenderness Back/Spine/Pelvis Back: no CVA tenderness Skin General skin exam: no rashes or lesions noted Neuro General: patient oriented x3 Extrem General: Yes no pedal edema and No clubbing Assessment & Plan Assessment & Plan (1) CKD (chronic kidney disease) stage 3, GFR 30-59 ml/min: Code(s): N18.30 - Chronic kidney disease, stage 3 unspecified Plan: Kiki has stage IV CKD. Serum creatinine is 2.2. Patient creatinine is between 1.8 and 2.2 mg/dL. He could have a component of Ellie due to hypoperfusion secondary to low blood pressure. Goal is to slow the progression of renal disease. Avoid hypotension Avoid nephrotoxic agents. (2) Hypertension: Code(s): I10 - Essential (primary) hypertension Plan: BP is acceptable No change in meds (3) Diabetes mellitus, with long-term current use of insulin: Code(s): E11.9 - Type 2 diabetes mellitus without complications; Z79.4 - long term acute care registered nurse (current) use of insulin Plan: Goal A1c is less than 7%. Will benefit from SGLT-2 inhibitor Encouraged to follow-up with Dr. Brown Orders: Orders Basic Metabolic Panel 4 Months N18.30 - Chronic kidney disease, stage 3 unspecified Coding Level of Care Code Est Pt Level 4 (04956) Diagnoses CKD (chronic kidney disease) stage 3, GFR 30-59 ml/min N18.30 Hypertension I10 Diabetes mellitus, with long-term current use of insulin E11.9; Z79.4 Results Reviewed Nephrology Results: Sodium 138 mmol/L (135-145) 10/09/23 Potassium 3.8 mmol/L (3.3-5.1) 10/09/23 Chloride 105 mmol/L (96-108) 10/09/23 Carbon Dioxide 24 mmol/L (22-29) 10/09/23 BUN 18 mg/dL (9-16) H 10/09/23 Creatinine 1.97 mg/dL (0.5-1.4) H 10/09/23 Calcium 9.0 mg/dL (8.4-10.2) 10/09/23
[2023-10-15 12:15] VITALS: BP 124/78; PULSE 82; O2SAT 96; BMI 30.5
== END 2023-10-15 12:34 | disposition home or self-care (01) ==
PROVIDERS: PCP Nurse Practitioner Family; Visit Provider Internal Medicine Hypertension Specialist
DX: N18.30 Chronic kidney disease, stage 3 unspecified (principal); I10 Essential (primary) hypertension; E11.9 Type 2 diabetes mellitus without complications; Z79.4 Long term (current) use of insulin
CPT/HCPCS: 99214

== ENCOUNTER → 2023-10-15 12:09 | Outpatient (BNVA) | payer MEDICARE, SELFPAY | PROVIDERS: PCP Nurse Practitioner Family; Visit Provider Internal Medicine Hypertension Specialist | DX: I12.9 Hypertensive chronic kidney disease with stage 1 through stage 4 chronic kidney disease, or unspecified chronic kidney disease (principal); E11.22 Type 2 diabetes mellitus with diabetic chronic kidney disease; N18.30 Chronic kidney disease, stage 3 unspecified; Z79.4 Long term (current) use of insulin | CPT/HCPCS: 99212 ==

== ENCOUNTER 2023-11-03 13:14 | Outpatient (AMB) | payer MEDICARE, SELFPAY ==
[2023-11-03 13:18] VITALS: BP 128/76; PULSE 76; BMI 31.4
--- NOTE | 2023-11-03 13:18 | MHC.OFFVIS ---
Intake Vital Signs 11/03/23 13:18 Height 5 ft 11 in Weight 224 lb 13.944 oz BMI 31.4 BP 128/76 Blood Pressure Location Lt brachial Position Sitting Pulse 76 Pulse Source Pulse Oximeter Intake Visit Reasons: DM1-lvm Intake Note: Patient presents today to follow up on D2MT. Last Diabetic Eye exam:11/2022 Last Podiatry Visit:10/2023 Random Glucose: 179 mg/dl HgA1c: 7.4% Home Economics Teacher Required: No Accompanied by: Sister Allergies codeine Allergy (Intermediate, Verified 11/03/23 13:23) upset stomach Medication List - Last Reconciled 11/03/23 by Lino Brown MD amitriptyline 50 mg PO BEDTIME amitriptyline 25 mg PO DAILY amoxicillin 500 mg PO TID ascorbic acid (vitamin C) 1 g PO DAILY aspirin 81 mg PO DAILY blood sugar diagnostic test blood sugar 6 times a day and as needed blood-glucose meter test blood sugar 6 times a day as needed cholecalciferol (vitamin D3) 25 mcg PO DAILY docusate sodium (Colace) 100 mg PO DAILY PRN insulin aspart U-100 (Novolog U-100 Insulin aspart) Up to 100 units via insulin pump subcutaneously daily; metoprolol succinate ER 25 mg PO DAILY omeprazole 20 mg PO DAILY rosuvastatin 40 mg PO DAILY sertraline 100 mg PO BID sertraline 25 mg PO BID subcutaneous insulin pump 3ml:3ml tamsulosin 0.4 mg PO DAILY HPI HPI Comments History of Present Illness Details 78 YO M with is seen in consultation for T2DM at the request of PCP. Initially diagnosed with T2DM in when presented with 1998. Was initially started on treatment with metformin. If On Pump/Sensor: Tandem T-Slim X2 with control IQ Basal rate(s) (units/hour) : 12 AM? to 7:30 AM 0.7 units / hr 7:30 AM? to 16:30 PM 1.5 units? / hr 16:30 PM? to 10:30 PM? 1.4 units / hr 10:30 PM to 12 AM 0.7 units / hr Bolus setting Insulin Carbohydrate Ratio (s) 12 AM? to 12 AM? 1:10 Correction Factor / Sensitivity Factor 12 AM? to 12 AM? 1:33 Active Insulin Time:? 5 hours Target(s): 12 AM? to 12 AM? 110 mg/dL ???* total daily dose of insulin is 47.2. Basal 71%, boluses 29% and correction bolus % with control IQ bolus 23%. ??? Patient is starting to understand the basic concepts of pump therapy, how to give insulin for meals and snacks, how to troubleshoot for hyper and hypoglycemia after meeting with CDE and head start coordinator . Checks sugars times per day. Per the CGM Dexcom CGMS is active 96 % of time . data the patient's predicted A1C is 7.5% Avg glucose is 176 . Variability of 27.9. . Pattern shows post-breakfast and post-dinner rises Reports low sugars overnight . Treats lows with glucose tablets .Overshoots with hyperglycemia mid day Checks sugar after to ensure it is rising. Checks 45 min after Has eyes checked yearly, last eye exam 11/2022 next appt 11/2023 , no retinopathy. Has neuropathy, last foot exam , sees podiatry in [place] .Needs to see 1 here Has nephropathy, on VERONIKA/ARB. Has HLD, on statin. Has history of CAD. Hx of CABG Had diabetes education. Diet/Carb counting: No Denies prior episodes of DKA. Denies prior severe episodes of hypoglycemia requiring help or hospitalization. Labs: anti -JAYASHREE 65 antibodies are negative and C-peptide is sufficient [facility] Medical History (Updated 08/17/23 @ 10:47 by Kahlil Jessica MD) Dementia Obsessive compulsive disorder Hordeolum externum (stye) Type 2 diabetes mellitus with unspecified complications Essential hypertension Paroxysmal atrial fibrillation Rash Screening for hypothyroidism Surgical History History of esophagogastroduodenoscopy (EGD) Hx of colonoscopy History of hernia surgery History of cataract surgery History of radiofrequency ablation (RFA) procedure for cardiac arrhythmia History of heart bypass surgery Social History Household Members: None Housing: Condominium Are you a primary wound care nurse to a significant other at home: No Do you presently have visiting nurse or other home services: No 75 years or older and lives alone: Yes Alcohol intake: current Alcohol intake frequency: a few times a week Alcohol type: wine Patient Tobacco Use Status: Former Tobacco user Quit Date: 1975 Tobacco use type: Cigarette e-Cigarette/Vaping Use: Never Used Second Hand Smoke Exposure: No service: No Current occupational status: retired Cognitive needs: No Hearing needs: No Vision needs: Yes (glasses) Physical Exam Vital Signs: Last Vital Signs Pulse 76 11/03/23 13:18 BP 128/76 11/03/23 13:18 BMI result Body Mass Index 31.4 Absence of Cushingoid features. Absence of acromegalic features. Neck exam reveals nl size thyroid about 15 gms. No thyroid nodules palpable. No carotid bruits present. Lungs CTA. Heart S1 S2, Reg R/R. No M/R/ G. Skin exam reveals absence of vitiligo or acanthosis nigricans. Abdominal exam reveals Soft NT/ND with NA BS. No organomegaly present. Neck Other: . Extrem Other: Visual exam of foot performed. No ulcerations or open lesions. No onchomycosis, no callouses.Pulses 2 + distally Sensation decreased to monofilament exam. Vibratory sensation sensed is decreased with 128 Hz tuning fork Results AMB Hemoglobin A1c AMB Hemoglobin A1c 7.4 % Last Edit by WILLIS Us on 11/03/23 13:43 Results Reviewed Results Reviewed: Laboratory Last Values Glucose (Clinic) 179 mg/dL (60-115) H 11/03/23 13:25 Assessment & Plan Assessment & Plan (1) Diabetes mellitus, with long-term current use of insulin: Code(s): E11.9 - Type 2 diabetes mellitus without complications; Z79.4 - manager long term care (current) use of insulin Plan: This is a 78-year-old white male with a history of ?type 2 diabetes in the setting of CKD stage IIIB being managed with insulin pump with good glycemic control and glycemic variability. Glycemic control may be optimal considering patient's psychosocial issues Plan is have the patient lower the basal rate to 0.6 units per hour from 00:00 to 07:30A. This can be done at the diabetic Education appointment to be scheduled next week. He is also having difficulty finding places without lipohypertrophy to place the tandem pump and we talked about possibly using a tandem Movi which he will also discuss with the educator Orders: Orders AMB Hemoglobin A1c Today E11.8 - Type 2 diabetes mellitus with unspecified complications, Z13.9 - Encounter for screening, unspecified Coding Level of Care Code Est Pt Level 4 (66518) Diagnoses Diabetes mellitus, with long-term current use of insulin E11.9; Z79.4
[2023-11-03 13:30] LABS: Glucose, Whole Blood 179 mg/dL (60-115)
--- NOTE | 2023-11-03 13:41 | A.OFFVIS_ITS ---
Intake Vital Signs 11/03/23 13:18 Height 5 ft 11 in Weight 224 lb 13.944 oz BMI 31.4 BP 128/76 Blood Pressure Location Lt brachial Position Sitting Pulse 76 Pulse Source Pulse Oximeter Intake Visit Reasons: DM1-lvm Allergies codeine Allergy (Intermediate, Verified 11/03/23 13:23) upset stomach Medication List - Last Reconciled 11/03/23 by Lino Brown MD amitriptyline 50 mg PO BEDTIME amitriptyline 25 mg PO DAILY amoxicillin 500 mg PO TID ascorbic acid (vitamin C) 1 g PO DAILY aspirin 81 mg PO DAILY blood sugar diagnostic test blood sugar 6 times a day and as needed blood-glucose meter test blood sugar 6 times a day as needed cholecalciferol (vitamin D3) 25 mcg PO DAILY docusate sodium (Colace) 100 mg PO DAILY PRN insulin aspart U-100 (Novolog U-100 Insulin aspart) Up to 100 units via insulin pump subcutaneously daily; metoprolol succinate ER 25 mg PO DAILY omeprazole 20 mg PO DAILY rosuvastatin 40 mg PO DAILY sertraline 100 mg PO BID sertraline 25 mg PO BID subcutaneous insulin pump 3ml:3ml tamsulosin 0.4 mg PO DAILY [facility] Medical History (Updated 08/17/23 @ 10:47 by Kahlil Jessica MD) Dementia Obsessive compulsive disorder Hordeolum externum (stye) Type 2 diabetes mellitus with unspecified complications Essential hypertension Paroxysmal atrial fibrillation Rash Screening for hypothyroidism Surgical History History of esophagogastroduodenoscopy (EGD) Hx of colonoscopy History of hernia surgery History of cataract surgery History of radiofrequency ablation (RFA) procedure for cardiac arrhythmia History of heart bypass surgery Social History Household Members: None Housing: Condominium Are you a primary health care sanitary technician to a significant other at home: No Do you presently have visiting nurse or other home services: No 75 years or older and lives alone: Yes Alcohol intake: current Alcohol intake frequency: a few times a week Alcohol type: wine Patient Tobacco Use Status: Former Tobacco user Quit Date: 1975 Tobacco use type: Cigarette e-Cigarette/Vaping Use: Never Used Second Hand Smoke Exposure: No service: No Current occupational status: retired Cognitive needs: No Hearing needs: No Vision needs: Yes (glasses) Physical Exam Vital Signs: Last Vital Signs Pulse 76 11/03/23 13:18 BP 128/76 11/03/23 13:18 BMI result Body Mass Index 31.4 Results AMB Hemoglobin A1c AMB Hemoglobin A1c 7.4 % Last Edit by WILLIS Us on 11/03/23 13:43 Results Reviewed Results Reviewed: Laboratory Last Values Glucose (Clinic) 179 mg/dL (60-115) H 11/03/23 13:25 Hgb A1c (Clinic) 7.4 % (4.0-6.0) H 11/03/23 13:28 Assessment & Plan Assessment & Plan (1) Diabetes mellitus, with long-term current use of insulin: Code(s): E11.9 - Type 2 diabetes mellitus without complications; Z79.4 - retirement (current) use of insulin Orders: Orders AMB Hemoglobin A1c 11/03/23 E11.8 - Type 2 diabetes mellitus with unspecified complications, Z13.9 - Encounter for screening, unspecified Coding Level of Care Code Est Pt Level 4 (15947) Diagnoses Diabetes mellitus, with long-term current use of insulin E11.9; Z79.4
== END 2023-11-03 13:50 | disposition home or self-care (01) ==
PROVIDERS: PCP Nurse Practitioner Family; Visit Provider Internal Medicine Endocrinology, Diabetes & Metabolism
DX: Z13.9 Encounter for screening, unspecified (principal); E11.8 Type 2 diabetes mellitus with unspecified complications; E11.9 Type 2 diabetes mellitus without complications; Z79.4 Long term (current) use of insulin
CPT/HCPCS: 99214

== ENCOUNTER → 2023-11-03 13:14 | Outpatient (BNVA) | payer MEDICARE, SELFPAY | PROVIDERS: PCP Nurse Practitioner Family; Visit Provider Internal Medicine Endocrinology, Diabetes & Metabolism | DX: Z46.81 Encounter for fitting and adjustment of insulin pump (principal); E11.9 Type 2 diabetes mellitus without complications; Z79.4 Long term (current) use of insulin | CPT/HCPCS: 82947; 83036; 99212 ==

== ENCOUNTER 2023-11-11 13:12 | Outpatient (AMB) | payer MEDICARE, SELFPAY ==
--- NOTE | 2023-11-11 13:41 | A.OFFVIS_ITS ---
Intake Intake Visit Reasons: DM1/CONFIRMED Front End Application Developer Required: No Accompanied by: Sister Allergies codeine Allergy (Intermediate, Verified 11/03/23 13:23) upset stomach HPI Comprehensive Diabetes Asmnt Most Recent Diabetes Results: Microalb/Creat Ratio 17.3 ug/mg cr 02/13/23 Cholesterol 116 mg/dL (<200) 08/03/23 HDL Cholesterol 42 mg/dL (>40) 08/03/23 Triglycerides 150 mg/dL (<150) H 08/03/23 Creatinine 1.97 mg/dL (0.5-1.4) H 10/09/23 Blood Urea Nitrogen 18 mg/dL (9-16) H 10/09/23 Sodium 138 mmol/L (135-145) 10/09/23 Potassium 3.8 mmol/L (3.3-5.1) 10/09/23 Chloride 105 mmol/L (96-108) 10/09/23 Carbon Dioxide 24 mmol/L (22-29) 10/09/23 Calcium 9.0 mg/dL (8.4-10.2) 10/09/23 AST 31 U/L (5-37) 08/03/23 ALT 17 U/L (0-40) 08/03/23 Total Protein 7.7 g/dL (6.5-8.0) 08/03/23 Albumin 4.0 g/dL (3.5-5.0) 08/03/23 [facility] Medical History (Updated 08/17/23 @ 10:47 by Kahlil Jessica MD) Dementia Obsessive compulsive disorder Hordeolum externum (stye) Type 2 diabetes mellitus with unspecified complications Essential hypertension Paroxysmal atrial fibrillation Rash Screening for hypothyroidism Surgical History History of esophagogastroduodenoscopy (EGD) Hx of colonoscopy History of hernia surgery History of cataract surgery History of radiofrequency ablation (RFA) procedure for cardiac arrhythmia History of heart bypass surgery Social History Household Members: None Housing: Condominium Are you a primary care support representative to a significant other at home: No Do you presently have visiting nurse or other home services: No 75 years or older and lives alone: Yes Alcohol intake: current Alcohol intake frequency: a few times a week Alcohol type: wine Patient Tobacco Use Status: Former Tobacco user Quit Date: 1975 Tobacco use type: Cigarette e-Cigarette/Vaping Use: Never Used Second Hand Smoke Exposure: No service: No Current occupational status: retired Cognitive needs: No Hearing needs: No Vision needs: Yes (glasses) Assessment & Plan Assessment & Plan (1) Diabetes mellitus, with long-term current use of insulin: Code(s): E11.9 - Type 2 diabetes mellitus without complications; Z79.4 - terminal make up operator (current) use of insulin Plan: atient presents for pump training for? T slim with control IQ and Dexcom G6 ?The following topics were reviewed today: - How to change set - bolusing for hyperglycemia through insulin pump - Sensor setting (if applicable) ??? High Alert: 250 mg/dl Changed to 300 mg/dL ??? Low Alert:? 90 mg/dl Patient above target 41% Patient at target 59% Patient below target 0% For the last 14 days patient's average glucose has been 176 mg/dL Patient glucose control remains stable. Patient has no episodes of hypoglycemia in the past 14 days Patient now has live in [employer], who help him manage glucose levels Patient's A1c 7.4% in October 2023 down from 8.1% July 2023 Patient is concerned about falling glucose overnight, see changes to patient's pump settings below Patient and his sister instructed to contact clinical staff educator with questions or concerns regarding insulin pump Setting verified by CDCES Basal rate(s) (units/hour) : 12 AM? to 7:30 AM 0.7 units / hr New 12 AM? to 7:30 AM 0.6 units / hr 7:30 AM? to 16:30 PM 1.5 units? / hr 16:30 PM? to 10:30 PM? 1.4 units / hr 10:30 PM to 12 AM 0.7 units / hr Bolus setting Insulin Carbohydrate Ratio (s) 12 AM? to 12 AM? 1:10 Correction Factor / Sensitivity Factor 12 AM? to 12 AM? 1:33 Active Insulin Time:? 5 hours Patient Instructions: Patient will see Dr. Brwon in January 2024, at that time it will be decided if he follows up with Diabetes Education nurse Coding Level of Care Code Est Pt Level 1 (10332) Diagnoses Diabetes mellitus, with long-term current use of insulin E11.9; Z79.4
== END 2023-11-11 13:44 | disposition home or self-care (01) ==
PROVIDERS: PCP Nurse Practitioner Family; Visit Provider Registered Nurse Diabetes Educator
DX: E11.9 Type 2 diabetes mellitus without complications (principal); Z79.4 Long term (current) use of insulin

== ENCOUNTER → 2023-11-11 13:12 | Outpatient (BNVA) | payer MEDICARE, SELFPAY | PROVIDERS: PCP Nurse Practitioner Family; Visit Provider Registered Nurse Diabetes Educator | DX: Z46.81 Encounter for fitting and adjustment of insulin pump (principal); E11.9 Type 2 diabetes mellitus without complications; Z79.4 Long term (current) use of insulin | CPT/HCPCS: 99211 ==

== ENCOUNTER 2023-11-19 13:16 | Outpatient (AMB) | payer MEDICARE, SELFPAY ==
[2023-11-19 13:16] VITALS: BP 118/82; PULSE 70; O2SAT 95; BMI 30.7
--- NOTE | 2023-11-19 13:16 | A.OFFPC_ITS ---
Vital Signs 11/19/23 13:16 Height 5 ft 11 in Weight 220 lb BMI 30.7 BP 118/82 Blood Pressure Location Lt brachial Position Sitting Pulse 70 Pulse Source Pulse Oximeter Pulse Oximetry (%) 95 Oxygen Delivery Method Room Air Intake Visit Reasons: 3mth f/u Intake Note: Patient is here to follow up on 3 month Jackscrew Man Required: No Allergies codeine Allergy (Intermediate, Verified 11/19/23 13:37) upset stomach Medication List - Last Reconciled 11/19/23 by Lan Taveras MD amitriptyline 50 mg PO BEDTIME amitriptyline 25 mg PO DAILY amoxicillin 500 mg PO TID ascorbic acid (vitamin C) 1 g PO DAILY aspirin 81 mg PO DAILY blood sugar diagnostic test blood sugar 6 times a day and as needed blood-glucose meter test blood sugar 6 times a day as needed cholecalciferol (vitamin D3) 25 mcg PO DAILY docusate sodium (Colace) 100 mg PO DAILY PRN insulin aspart U-100 (Novolog U-100 Insulin aspart) Up to 100 units via insulin pump subcutaneously daily; metoprolol succinate ER 25 mg PO DAILY omeprazole 20 mg PO DAILY rosuvastatin 40 mg PO DAILY sertraline 100 mg PO BID subcutaneous insulin pump 3ml:3ml tamsulosin 0.4 mg PO DAILY Tobacco use date assessed: 11/19/23 Fall risk assessment: No Falls in past year Last assessed Fall Risk: 11/19/23 Dental Screening Dental Screen Date: 08/03/23 HPI 3mth f/u HPI Details 78-year-old male presents to the office to discuss his chronic medical conditions. He is accompanied by his sister who is the healthcare proxy. Patient's diabetes is doing well. He is on the insulin pump. Patient's cyst till lows the insulin pump every 3 days. He now has a 24 hour caregiver due to his advanced dementia. Patient does shower by himself but needs help with other activities of daily living. His dementia has gotten worse with worsening short- term memory loss. Patient's obsessive-compulsive disorder has been stable currently. His geriatric nurse practitioner has increased the dosage of amitriptyline and decreased the sertraline dosage. This has improved his night sleep. [facility] Medical History Dementia Obsessive compulsive disorder Hordeolum externum (stye) Type 2 diabetes mellitus with unspecified complications Essential hypertension Paroxysmal atrial fibrillation Rash Screening for hypothyroidism Surgical History History of esophagogastroduodenoscopy (EGD) Hx of colonoscopy History of hernia surgery History of cataract surgery History of radiofrequency ablation (RFA) procedure for cardiac arrhythmia History of heart bypass surgery Social History Household Members: None [facility] Are you a primary plant health care technician to a significant other at home: No Do you presently have visiting nurse or other home services: No 75 years or older and lives alone: Yes Alcohol intake: current Alcohol intake frequency: a few times a week Alcohol type: wine Patient Tobacco Use Status: Former Tobacco user Quit Date: 1975 Tobacco use type: Cigarette e-Cigarette/Vaping Use: Never Used Second Hand Smoke Exposure: No service: No Current occupational status: retired Cognitive needs: No Hearing needs: No Vision needs: Yes (glasses) Questionnaire Thrive Questionnaire Date Thrive assessed: 08/03/23 Currently or been in a relationship where the following occur: no concerns reported THRIVE Score: 0 AUDIT C Alcohol Use Questionnaire (AUDIT-C) 1. How often do you have a drink containing alcohol?: 2-4 times a month 2. How many drinks containing alcohol do you have on a typical day when you are drinking?: 1 or 2 3. How often do you have six or more drinks on one occasion?: Never Total Score: 2 Score Reviewed/Action Taken: No JAYASHREE-7 AMB Questionnaire JAYASHREE-7 Date JAYASHREE - 7 assessed: 08/03/23 Source: Developed by Drs. Lino Keene, Alee Hanley, Tin Marin and colleagues, with an educational kalee from [employer]. Physical exam (Primary Care) Vital Signs: Last Vital Signs Pulse 70 11/19/23 13:16 BP 118/82 11/19/23 13:16 Pulse Ox 95 11/19/23 13:16 Oxygen Delivery Method Room Air 11/19/23 13:16 Care Plan Goal for BP management: Blood pressure is in range. BMI result Body Mass Index 30.7 BMI Assessment/Plan discussion: High Tobacco/Smoking Status: Tobacco use Status Tobacco use date assessed 11/19/23 11/19/23 13:18 Patient Tobacco Use Status Former Tobacco user 11/19/23 13:18 Tobacco use type Cigarette 11/19/23 13:18 e-Cigarette/Vaping Use Never Used 11/19/23 13:18 Thrive Assessment: Date of Thrive Assessment Date Thrive assessed 08/03/23 11/19/23 13:18 Currently or been in a relationship where the following occur: no concerns reported Advance Care Planning discussion: Exists, not on file Date of discussion: 11/19/23 Who was present: Patient and his sister Forms completed: Health Care Proxy and MOLST Actual minutes spent: 5 Const General: cooperative and healthy appearing Nutritional Appearance: well nourished Orientation/consciousness: patient oriented x3 Limitations: no limitations HENMT Head: Yes normal to inspection Eyes General: appearance normal, both eyes and all related structures Neck Neck: Yes normal visual inspection Chest Chest palpation & inspection: normal palpation of entire chest wall Resp Effort & Inspection: normal respiratory effort Neuro General: patient oriented x3 Assessment and Plan Assessment & Plan (1) Dementia: Code(s): F03.90 - Unspecified dementia, unspecified severity, without behavioral disturbance, psychotic disturbance, mood disturbance, and anxiety Plan: Patient has 24 hour support. Adequate protection for falls. (2) Obsessive compulsive disorder: Code(s): F42.9 - Obsessive-compulsive disorder, unspecified Plan: Condition is stable on current dosages of sertraline and amitriptyline. (3) CKD (chronic kidney disease) stage 3, GFR 30-59 ml/min: Code(s): N18.30 - Chronic kidney disease, stage 3 unspecified Plan: Condition is stable. (4) Diabetes mellitus, with long-term current use of insulin: Code(s): E11.9 - Type 2 diabetes mellitus without complications; Z79.4 - MCC (current) use of insulin Plan: A1c is down to 7.4. Continue current medications at the same dose. (5) Hypertension: Code(s): I10 - Essential (primary) hypertension Plan: Blood pressure is in range. Continue medications at same dosage. Coding Level of Care Code Est Pt Level 4 (45270) Diagnoses Dementia F03.90 Obsessive compulsive disorder F42.9 CKD (chronic kidney disease) stage 3, GFR 30-59 ml/min N18.30 Diabetes mellitus, with long-term current use of insulin E11.9; Z79.4 Hypertension I10 Additional Codes Vital Signs *Quality* - Advance Care Planning discussion: Exists, not on file ([id number])
== END 2023-11-19 13:37 | disposition home or self-care (01) ==
PROVIDERS: PCP Internal Medicine; Visit Provider Internal Medicine
DX: E11.22 Type 2 diabetes mellitus with diabetic chronic kidney disease (principal); N18.30 Chronic kidney disease, stage 3 unspecified; Z79.4 Long term (current) use of insulin; F03.90 Unspecified dementia, unspecified severity, without behavioral disturbance, psychotic disturbance, mood disturbance, and anxiety; F42.9 Obsessive-compulsive disorder, unspecified
CPT/HCPCS: 1123F; 99214

== ENCOUNTER 2023-12-03 13:18 | Outpatient (AMB) | payer MEDICARE, SELFPAY ==
[2023-12-03 13:20] VITALS: BP 120/80; PULSE 83; TEMP 36.7; O2SAT 97
--- NOTE | 2023-12-03 13:20 | MHC.OFFWIV ---
Intake Vital Signs 12/03/23 13:20 Height 5 ft 11 in BP 120/80 Blood Pressure Location Rt brachial Position Sitting Pulse 83 Pulse Source Pulse Oximeter Temp 98.0 F Temp Source Temporal Artery Scan Pulse Oximetry (%) 97 Oxygen Delivery Method Room Air Intake Visit Reasons: EP ?Infection RT leg/?UTI Intake Note: pt is here for right leg infection and possible uti. patients sister is with him and sttaed he has been experiencing increase of delirum and forgetfulness Patient Tobacco Use Status: Former Tobacco user Quit Date: 1975 Allergies codeine Allergy (Intermediate, Verified 12/03/23 13:21) upset stomach Do you need a note to return to daycare/school/sports/work: No HPI HPI Comments History of Present Illness Details 78 y/o male patient who presents to walk in clinic with c/o Urinary symptoms. Pt is accompanied by sister who provides history. Pt has a small area of redness and itchy x 2 days. [facility] Medical History Dementia Obsessive compulsive disorder Hordeolum externum (stye) Type 2 diabetes mellitus with unspecified complications Essential hypertension Paroxysmal atrial fibrillation Rash Screening for hypothyroidism Surgical History History of esophagogastroduodenoscopy (EGD) Hx of colonoscopy History of hernia surgery History of cataract surgery History of radiofrequency ablation (RFA) procedure for cardiac arrhythmia History of heart bypass surgery Social History Household Members: None Housing: Condominium Are you a primary healthcare applications analyst to a significant other at home: No Do you presently have visiting nurse or other home services: No 75 years or older and lives alone: Yes Alcohol intake: current Alcohol intake frequency: a few times a week Alcohol type: wine Patient Tobacco Use Status: Former Tobacco user Quit Date: 1975 Tobacco use type: Cigarette e-Cigarette/Vaping Use: Never Used Second Hand Smoke Exposure: No service: No Current occupational status: retired Cognitive needs: No Hearing needs: No Vision needs: Yes (glasses) Review of Systems Const All systems reviewed & are unremarkable except as noted in HPI and below Physical Exam Vital Signs: Last Vital Signs Temp 98.0 F 12/03/23 13:20 Pulse 83 12/03/23 13:20 BP 120/80 12/03/23 13:20 Pulse Ox 97 12/03/23 13:20 Oxygen Delivery Method Room Air 12/03/23 13:20 Const General: comfortable and no acute distress Limitations: other limitations (Dementia) Skin Lesions: lesion noted (Small lesion, erythema with crusting center Rt leg) Neuro General: gait normal and moves all extremities Psych Speech and movement: Normal speech and movement present Assessment & Plan Assessment & Plan (1) Rash and nonspecific skin eruption: Code(s): R21 - Rash and other nonspecific skin eruption Plan: - Apply the cream as directed. (2) Urinary tract infection symptoms: Code(s): R39.9 - Unspecified symptoms and signs involving the genitourinary system Plan: - Pt unable to provide urine sample today, he will return tomorrow. - Hydrate with plenty of water. Orders: Orders UA CC w/rflx Micro + Cult Today R39.9 - Unspecified symptoms and signs involving the genitourinary system Medications: New clotrimazole-betamethasone 1-0.05 % 1 appl topical BID 15 grams 0RF R21 - Rash and other nonspecific skin eruption Coding Level of Care Code Est Pt Level 3 (82428) Diagnoses Rash and nonspecific skin eruption R21 Urinary tract infection symptoms R39.9 Time Spent (min) 15
== END 2023-12-03 13:57 | disposition home or self-care (01) ==
PROVIDERS: PCP Internal Medicine; Visit Provider Nurse Practitioner Family
DX: R21 Rash and other nonspecific skin eruption (principal); R39.9 Unspecified symptoms and signs involving the genitourinary system
CPT/HCPCS: 99213

== ENCOUNTER 2023-12-04 12:21 | Outpatient (REF) | payer MEDICARE, SELFPAY ==
[2023-12-04 12:37] LABS: MANUAL DIFF FLAG NO
[2023-12-04 13:43] LABS: Basophils Absolute Auto 0.1 X10*3/uL (0.0-0.2); Eosinophils Absolute Auto 0.6 X10*3/uL (0.0-0.4); Eosinophils Percent Auto 5.8 % (0-4); Hemoglobin 14.1 g/dl (14.0-18.0); Imm Gran Abs Auto 0.03 X10*3/uL (0.00-0.03); Imm Gran Pct Auto 0.3 % (0.0-0.4); Lymphocytes Absolute Auto 1.9 X10*3/uL (1.2-4.9); Lymphocytes Percent Auto 19.6 % (20-40); Mean Corpuscular HGB Conc 34.4 g/dl (31.0-36.0); Mean Corpuscular Hemoglobin 32.8 pg (27.0-33.0); Mean Corpuscular Volume 95.3 fL (80.0-98.0); Mean Platelet Volume 9.1 fL (9.4-12.4); Monocytes Absolute Auto 0.9 X10*3/uL (0.1-1.2); Monocytes Percent Auto 9.7 % (2-11); Neutrophils Percent Auto 63.6 % (45-73); Platelet Count 182 X10*3/uL (160-400); Red Cell Distribution Width 12.9 % (11.0-16.0); White Blood Count 9.4 X10*3/uL (4.8-10.8)
[2023-12-04 14:21] LABS: Alanine Aminotransferase 19 U/L (0-40); Albumin Level 3.8 g/dL (3.5-5.0); Alkaline Phosphatase 78 U/L (39-117); Anion Gap 15 (12-20); Aspartate Amino Transferase 24 U/L (5-37); Bilirubin Total 0.6 mg/dL (0.0-1.0); Blood Urea Nitrogen 19 mg/dL (9-16); Calcium 8.8 mg/dL (8.4-10.2); Carbon Dioxide 22 mmol/L (22-29); Chloride 105 mmol/L (96-108); Estimated Glomerular Filt Rate 35; Glucose Random 196 mg/dL (60-115); Potassium 3.8 mmol/L (3.3-5.1); Sodium 138 mmol/L (135-145); Total Protein 7.3 g/dL (6.5-8.0)
== END 2023-12-04 12:22 | disposition home or self-care (01) ==
LOC: HO.LAB 12:21
PROVIDERS: PCP Internal Medicine; Visit Provider Nurse Practitioner Psychiatric/Mental Health
DX: F03.918 Unspecified dementia, unspecified severity, with other behavioral disturbance (principal); F33.9 Major depressive disorder, recurrent, unspecified
CPT/HCPCS: 36415; 80053; 85025

== ENCOUNTER 2023-12-15 11:42 | Outpatient (REF) | payer MEDICARE, SELFPAY ==
[2023-12-15 12:47] LABS: Appearance Urine Clear; Color Urine Yellow; Glucose Urine UA Negative (Negative); Leukocyte Esterase Urine Negative (Negative); Nitrite Urine Negative (Negative); Specific Gravity - Urine 1.015 (1.005-1.025); Urine Blood Negative (Negative); Urine Ketones Negative (Negative); Urine Protein Negative (Neg-Trace)
== END 2023-12-15 11:43 | disposition home or self-care (01) ==
LOC: HO.LAB 11:42
PROVIDERS: Visit Provider Nurse Practitioner Psychiatric/Mental Health
DX: F03.918 Unspecified dementia, unspecified severity, with other behavioral disturbance (principal); F33.9 Major depressive disorder, recurrent, unspecified; R82.90 Unspecified abnormal findings in urine
CPT/HCPCS: 81003; 87086

== ENCOUNTER 2023-12-20 12:43 | Emergency (ER) | payer MEDICARE, SELFPAY ==
--- NOTE | ~2023-12-20 | XR_ITS ---
EXAMINATION: XR LUMBOSACRAL SPINE CLINICAL INFORMATION: Low back pain COMPARISON: None available. TECHNIQUE: Three views of the lumbosacral spine. FINDINGS: Bone alignment is normal. No fracture or dislocation. Multilevel degenerative spondylosis. Lower lumbar spine facet arthritis. Disc spaces are normal. Atherosclerotic disease. XR/XR lumbar spine 2-3V IMPRESSION: Degenerative changes.
[2023-12-20 13:27] VITALS: BP 125/89; PULSE 79; RESP 16; TEMP 36.4; O2SAT 94; BMI 31.7
--- NOTE | 2023-12-20 13:32 | ED.GENADULT ---
HPI - General Adult General Chief complaint: Back Pain/Injury Stated complaint: Back pain History of Present Illness HPI narrative: Patient left ED without completion of treatment by ED provider. Related Data Home Medications ?Medication ?Instructions ?Recorded ?Confirmed ascorbic acid (vitamin C) 1,000 mg 1 g PO DAILY 11/28/21 11/19/23 tablet blood sugar diagnostic 11/28/21 11/19/23 blood-glucose meter 11/28/21 11/19/23 cholecalciferol (vitamin D3) 25 25 mcg PO DAILY 11/28/21 11/19/23 mcg (1,000 unit) capsule omeprazole 20 mg capsule,delayed 20 mg PO DAILY 11/28/21 11/19/23 release subcutaneous insulin pump 11/28/21 11/19/23 aspirin 81 mg tablet,delayed 81 mg PO DAILY 07/25/22 11/19/23 release amitriptyline 50 mg tablet 50 mg PO BEDTIME 08/17/23 11/19/23 amitriptyline 25 mg tablet 25 mg PO DAILY 10/15/23 11/19/23 sertraline 100 mg tablet 100 mg PO BID 10/15/23 11/19/23 Previous Rx's ?Medication ?Instructions ?Recorded docusate sodium 100 mg capsule 100 mg PO DAILY PRN constipation 03/11/22 (Colace) #30 caps metoprolol succinate 25 mg 25 mg PO DAILY #90 tabs 08/03/23 tablet,extended release 24 hr insulin aspart U-100 100 unit/mL See Rx Instructions subcut DAILY 08/26/23 subcutaneous solution (Novolog #30 mL U-100 Insulin aspart) tamsulosin 0.4 mg capsule 0.4 mg PO DAILY #90 caps 10/21/23 clotrimazole-betamethasone 1 1 appl topical BID #15 grams 12/03/23 %-0.05 % topical cream rosuvastatin 40 mg tablet 40 mg PO DAILY #90 tabs 12/04/23 Allergies Allergy/AdvReac Type Severity Reaction Status Date / Time codeine Allergy Intermediate upset Verified 12/20/23 13:29 stomach PMFSH Past Medical History Medical History Dementia Obsessive compulsive disorder Hordeolum externum (stye) Type 2 diabetes mellitus with unspecified complications Essential hypertension Paroxysmal atrial fibrillation Rash Screening for hypothyroidism Surgical History History of esophagogastroduodenoscopy (EGD) Hx of colonoscopy History of hernia surgery History of cataract surgery History of radiofrequency ablation (RFA) procedure for cardiac arrhythmia History of heart bypass surgery Social History Social History Household Members: None Housing: Condominium Are you a primary childcare aide to a significant other at home: No Do you presently have visiting nurse or other home services: No Alcohol intake: current Alcohol intake frequency: a few times a week Alcohol type: wine Patient Tobacco Use Status: Former Tobacco user Tobacco use type: Cigarette e-Cigarette/Vaping Use: Never Used Second Hand Smoke Exposure: No Advance Directives: No Advance Directives Information Provided: No service: No Current occupational status: retired Cognitive needs: No Hearing needs: No Vision needs: Yes (glasses) Physical Exam ED Vital Signs: Vital Signs - 24 hr 12/20/23 13:27 Temperature 97.5 F Pulse Rate 79 Respiratory Rate 16 Blood Pressure 125/89 Pulse Oximetry 94 Oxygen Delivery Method Room Air BMI result Body Mass Index 31.7 Course Course Course Narrative: RME: RME done by FRANKLIN Vinson. 78-year-old male presents to ED for low back pain without any trauma. Back pain worse on movement. Patient denies any urinary/bowel incontinence. Patient denies any IV drug use. Positive for lumbar spine tenderness on palpation. UA x-ray ordered Medical Decision Making Lab Data Labs: Lab Results 12/20/23 Range/Units 13:56 Urine Color Yellow Urine Appearance Clear Urine pH 5.5 (5.0-9.0) Ur Specific [place] 1.025 (1.005-1.025) Urine Protein 30 (1+) H (Neg-Trace) mg/dL Urine Glucose (UA) Negative (Negative) mg/dL Urine Ketones Trace (Negative) mg/dL Urine Blood Negative (Negative) Urine Nitrite Negative (Negative) Ur Leukocyte Esterase Negative (Negative) Urine RBC 0-2 (0-2) /HPF Urine WBC 0-5 (0-5) /HPF Ur Squamous Epith Cells 0-2 (0-2) /HPF Urine Bacteria None Seen (None Seen) Hyaline Casts 0-2 (0-2) /LPF Discharge Plan Discharge Clinical Impression: Back pain Patient Disposition: Left W/O Completing Treatment Prescriptions: No Action docusate sodium [Colace] 100 mg capsule 100 mg PO DAILY PRN (Reason: constipation) Qty: 30 0RF metoprolol succinate 25 mg tablet extended release 24 hr 25 mg PO DAILY Qty: 90 1RF insulin aspart U-100 [Novolog U-100 Insulin aspart] 100 unit/mL solution See Rx Instructions subcut DAILY Qty: 30 5RF Rx Instructions: Up to 100 units via insulin pump subcutaneously daily; tamsulosin 0.4 mg capsule 0.4 mg PO DAILY Qty: 90 0RF rosuvastatin 40 mg tablet 40 mg PO DAILY Qty: 90 3RF (DME) subcutaneous insulin pump Misc See Rx Instructions .Route Rx Instructions: 3ml:3ml omeprazole 20 mg capsule,delayed release(DR/EC) 20 mg PO DAILY (DME) blood-glucose meter Kit See Rx Instructions .Route Rx Instructions: test blood sugar 6 times a day as needed cholecalciferol (vitamin D3) 25 mcg (1,000 unit) capsule 25 mcg PO DAILY ascorbic acid (vitamin C) 1,000 mg tablet 1 g PO DAILY (DME) blood sugar diagnostic Strip See Rx Instructions .Route Rx Instructions: test blood sugar 6 times a day and as needed aspirin 81 mg tablet,delayed release (DR/EC) 81 mg PO DAILY clotrimazole-betamethasone 1-0.05 % cream 1 appl topical BID Qty: 15 0RF amitriptyline 50 mg tablet 50 mg PO BEDTIME amitriptyline 25 mg tablet 25 mg PO DAILY sertraline 100 mg tablet 100 mg PO BID Discharge Date/Time: 12/20/23 15:50
[2023-12-20 14:11] LABS: Appearance Urine Clear; Color Urine Yellow; Glucose Urine UA Negative (Negative); Leukocyte Esterase Urine Negative (Negative); Nitrite Urine Negative (Negative); PH 5.5 (5.0-9.0); Specific Gravity - Urine 1.025 (1.005-1.025); UMIC TRIGGER UACC YES; Urine Blood Negative (Negative); Urine Ketones Trace mg/dL (Negative); Urine Protein 30 (1+) mg/dL (Neg-Trace)
[2023-12-20 14:13] LABS: Bacteria Urine None Seen (None Seen); Hyaline Casts Urine 0-2 /LPF (0-2); RBC Urine 0-2 /HPF (0-2); Squamous Epithelial Cell Urine 0-2 /HPF (0-2); WBC Urine 0-5 /HPF (0-5)
== END 2023-12-20 15:50 | disposition left against medical advice (07) ==
PROVIDERS: Physician Assistant; Emergency Provider Emergency Medicine; PCP Internal Medicine
DX: M54.50 Low back pain, unspecified (principal); I10 Essential (primary) hypertension; Z79.899 Other long term (current) drug therapy
CPT/HCPCS: 72100; 81001; 99282; 99283

== ENCOUNTER 2023-12-30 21:58 | Inpatient (IN) | payer MEDICARE, SELFPAY ==
--- NOTE | 2023-12-30 | ECG_ITS ---
Test Reason : AMS Blood Pressure : / mmHG Vent. Rate : 077 BPM Atrial Rate : 077 BPM P-R Int : 214 ms QRS Dur : 104 ms QT Int : 390 ms P-R-T Axes : 070 -30 -01 degrees QTc Int : 441 ms Atrial flutter Left axis deviation Inferior infarct (cited on or before 18-AUG-2022) Abnormal ECG When compared with ECG of 18-AUG-2022 09:22, Rhythm change Referred By: Generic ED Physician Electronically Signed By:NIA SANTOS
--- NOTE | ~2023-12-30 | XR_ITS ---
EXAMINATION: XR ABDOMEN KUB CLINICAL INDICATION: Constipation and abdominal pain COMPARISON: KUB 12/31/2023 TECHNIQUE: AP view of the abdomen. FINDINGS: Large stool about burden. The large bowel appears dilated suggestive of secondary obstruction/obstipation. This appears increased compared to recent KUB 12/31/2023 No dilated loops of small bowel seen. No free air. No suspicious calcifications. Degenerative changes of the spine. XR/XR KUB IMPRESSION: Increasing severe constipation. Dilated large bowel suggestive of secondary obstruction/obstipation.
--- NOTE | ~2023-12-30 | XR_ITS ---
EXAMINATION: XR ABDOMEN KUB CLINICAL INDICATION: Pain. COMPARISON: None available. TECHNIQUE: AP view of the abdomen. FINDINGS: The bone mineralization is within normal limits. The joint spaces are maintained for patient age. No fracture is seen. There is mild lower lumbar disc degenerative change. XR/XR KUB IMPRESSION: 1. No acute finding. 2. Mild lower lumbar disc degenerative change.
--- NOTE | ~2023-12-30 | XR_ITS ---
EXAMINATION: XR ABDOMEN KUB CLINICAL INDICATION: Constipation obstruction COMPARISON: KUB radiograph from 01/09/2024 TECHNIQUE: AP view of the abdomen. FINDINGS: Redemonstrated fecal loading throughout the colon, improved from prior imaging greatest in the distal transverse colon/proximal to mid descending colon. Colon remains mildly prominent greatest at the hepatic flexure. Degenerative changes of the thoracolumbar spine. Potential vein and pacer leads overlying the midline lower chest. Soft tissues are unremarkable. XR/XR KUB IMPRESSION: 1. Redemonstrated fecal loading throughout the colon, improved from prior imaging greatest in the distal transverse colon/proximal to mid descending colon. 2. Colon remains mildly prominent greatest at the hepatic flexure.
[2023-12-30 22:02] VITALS: BP 128/75; BP 133/68; PULSE 77; PULSE 91; RESP 19; TEMP 37.2; O2SAT 93; O2SAT 98; BMI 30.1
--- NOTE | 2023-12-30 22:18 | PC.NURSE ---
pt biba from home, a&ox4, respirations even and unlabored. per ems pt sister called due to increasing AMS of pt x2 weeks, sister reports pt has been increasingly forgetful. pt has had recent switch of medication from sertraline to risperadone. per sister pt has been agitated and un directable. upon arrival pt speaking in full clear sentences and reports coming to the ED for his heart murmer . per ems pt is possible flight risk. pt chnaged over into green gown and belongings placed in POD for safety. personal lines sales executive shannon perales.
[2023-12-30 22:50] LABS: MANUAL DIFF FLAG NO
[2023-12-30 22:51] LABS: Basophils Absolute Auto 0.1 X10*3/uL (0.0-0.2); Basophils Percent Auto 0.6 % (0-2); Eosinophils Absolute Auto 0.5 X10*3/uL (0.0-0.4); Eosinophils Percent Auto 5.8 % (0-4); Hematocrit 37.4 % (42.0-52.0); Imm Gran Abs Auto 0.03 X10*3/uL (0.00-0.03); Imm Gran Pct Auto 0.3 % (0.0-0.4); Lymphocytes Absolute Auto 1.9 X10*3/uL (1.2-4.9); Mean Corpuscular HGB Conc 34.8 g/dl (31.0-36.0); Mean Corpuscular Hemoglobin 33.2 pg (27.0-33.0); Mean Corpuscular Volume 95.4 fL (80.0-98.0); Mean Platelet Volume 8.8 fL (9.4-12.4); Monocytes Absolute Auto 1.2 X10*3/uL (0.1-1.2); Monocytes Percent Auto 13.2 % (2-11); Neutrophils Absolute Auto 5.5 x10*3/uL (2.0-8.3); Neutrophils Percent Auto 60.1 % (45-73); Platelet Count 162 X10*3/uL (160-400); Red Blood Count 3.92 X10*6/uL (4.60-5.80); Red Cell Distribution Width 13.2 % (11.0-16.0); White Blood Count 9.2 X10*3/uL (4.8-10.8)
[2023-12-30 22:58] LABS: Ammonia 31 umol/L (13-55)
[2023-12-30 23:01] LABS: Prothrombin Time 12.5 SEC (11.1-13.3)
--- NOTE | 2023-12-30 23:02 | MHC.CARE ---
CARE team received a call from [facility] Med Prescriber ,Sera Yeager canvas cutter hand ([phone]). She reports trying several different medications to address Pts agitation but they have all been unsuccessful.
[2023-12-30 23:04] LABS: Alanine Aminotransferase 20 U/L (0-40); Albumin Level 3.6 g/dL (3.5-5.0); Alkaline Phosphatase 77 U/L (39-117); Anion Gap 12 (12-20); Aspartate Amino Transferase 26 U/L (5-37); Bilirubin Total 0.4 mg/dL (0.0-1.0); Blood Urea Nitrogen 28 mg/dL (9-16); Calcium 9.3 mg/dL (8.4-10.2); Carbon Dioxide 26 mmol/L (22-29); Chloride 104 mmol/L (96-108); Creatinine Clr Calc Pharmacy 36.9; Estimated Glomerular Filt Rate 33; Glucose Random 137 mg/dL (60-115); Potassium 4.4 mmol/L (3.3-5.1); Sodium 138 mmol/L (135-145); Total Protein 6.8 g/dL (6.5-8.0)
[2023-12-30 23:10] LABS: Appearance Urine Clear; Color Urine Yellow; Glucose Urine UA Negative (Negative); Leukocyte Esterase Urine Negative (Negative); Nitrite Urine Negative (Negative); PH 6.5 (5.0-9.0); Specific Gravity - Urine 1.015 (1.005-1.025); Urine Blood Negative (Negative); Urine Ketones Negative (Negative); Urine Protein Trace mg/dL (Neg-Trace)
--- NOTE | 2023-12-30 23:11 | PC.NURSE ---
this rn straight cath pt at this time, pt tolerted well, pt voided 600ml of dark yellow urine at this time.
[2023-12-30 23:23] LABS: Amphetamine Screen Urine Not Detected (Not Detect); Barbiturates, Urine Not Detected (Not Detect); Benzodiazepines Screen Urine Not Detected (Not Detect); Buprenorphine Scr Not Detected (Not Detect); Cannabinoid Screen Urine Not Detected (Not Detect); Cocaine Screen Urine Not Detected (Not Detect); Fentanyl, urine Not Detected (Not Detect); Methadone Screen, Urine Not Detected (Not Detect); Opiate Screen Urine Not Detected (Not Detect); Oxycodone Screen Urine Not Detected (Not Detect); Phencyclidine Screen Urine Not Detected (Not Detect)
[2023-12-30 23:24] LABS: Bacteria Urine None Seen (None Seen); Hyaline Casts Urine 0-2 /LPF (0-2); RBC Urine 0-2 /HPF (0-2); Squamous Epithelial Cell Urine 0-2 /HPF (0-2); WBC Urine 0-5 /HPF (0-5)
--- NOTE | 2023-12-30 23:25 | MHC.CM.ED ---
CM met with patient and his sister, Megan Doherty ([phone]). She is his HCP and will bring a copy tomorrow. Patient has advancing dementia. Pt defers all questions to his sister. She feels her brother has has dementia for about 7 years. He moved from [place] 2 years ago. His 3 years ago. Megan tells CM that his dementia has progressed over the past year. Megan says her brother's behavior has worsened over the past several weeks. He has not been sleeping and has increasing aggression, especially towards her and one of his aides. He has live in [facility] through [employer] in [place]. She administers medications and manages his insulin pump. Patient sees Sera Yeager geriatric COMPOSITE LAMINATOR and his PCP is Dr. Taveras. Pt was just started on Risperidone 0.5 mg. Megan says he has hardly slept in 2 days. He also fell twice this week. Pt uses no DME. Megan tells CM that her gerontologist recommended he come to ED and possibly be admitted to [facility] for medication management. A psych consult and PT consult have been ordered. Pt is quiet and cooperative. Will await psych evaluation. CM will follow.
--- NOTE | 2023-12-30 23:57 | ED.AMS ---
HPI - Altered Mental Status General Chief Complaint: Altered Mental Status Stated Complaint: psych eval Time Seen by Provider: 12/30/23 22:29 Source: patient, family and EMS Mode of arrival: EMS History of Present Illness ED Provider: Dr Moe HPI narrative: 78-year-old male who is brought in by EMS from home after the sister called for concerns regarding his increasing altered mental status for the past 2 weeks, he has had a recent medication change, patient sister reports that he is increasingly forgetful, however for me he is oriented to person place and time and denies any current pain complaints/shortness of breath/issues with urination or defecation. Patient reports me that he is feeling nauseous but denies any abdominal pain. Related Data Home Medications ?Medication ?Instructions ?Recorded ?Confirmed ascorbic acid (vitamin C) 1,000 mg 1 g PO DAILY 11/28/21 12/31/23 tablet blood sugar diagnostic 11/28/21 11/19/23 blood-glucose meter 11/28/21 11/19/23 cholecalciferol (vitamin D3) 25 25 mcg PO DAILY 11/28/21 12/31/23 mcg (1,000 unit) capsule omeprazole 20 mg capsule,delayed 20 mg PO DAILY 11/28/21 12/31/23 release subcutaneous insulin pump 11/28/21 11/19/23 aspirin 81 mg tablet,delayed 81 mg PO DAILY 07/25/22 12/31/23 release amitriptyline 50 mg tablet 50 mg PO BEDTIME 08/17/23 12/31/23 amitriptyline 25 mg tablet 25 mg PO DAILY 10/15/23 11/19/23 sertraline 100 mg tablet 100 mg PO BID 10/15/23 11/19/23 risperidone 0.5 mg tablet 0.5 - 1 mg PO BEDTIME 12/31/23 12/31/23 Previous Rx's ?Medication ?Instructions ?Recorded docusate sodium 100 mg capsule 100 mg PO DAILY PRN constipation 03/11/22 (Colace) #30 caps metoprolol succinate 25 mg 25 mg PO DAILY #90 tabs 08/03/23 tablet,extended release 24 hr insulin aspart U-100 100 unit/mL See Rx Instructions subcut DAILY 08/26/23 subcutaneous solution (Novolog #30 mL U-100 Insulin aspart) tamsulosin 0.4 mg capsule 0.4 mg PO DAILY #90 caps 10/21/23 clotrimazole-betamethasone 1 1 appl topical BID #15 grams 12/03/23 %-0.05 % topical cream rosuvastatin 40 mg tablet 40 mg PO DAILY #90 tabs 12/04/23 Allergies Allergy/AdvReac Type Severity Reaction Status Date / Time codeine Allergy Intermediate upset Verified 12/30/23 22:10 stomach Review of Systems Review of Systems: Pertinent positives and negatives as stated in HPI [facility] Past Medical History Source: nursing notes reviewed Medical History Dementia Obsessive compulsive disorder Hordeolum externum (stye) Type 2 diabetes mellitus with unspecified complications Essential hypertension Paroxysmal atrial fibrillation Rash Screening for hypothyroidism Surgical History History of esophagogastroduodenoscopy (EGD) Hx of colonoscopy History of hernia surgery History of cataract surgery History of radiofrequency ablation (RFA) procedure for cardiac arrhythmia History of heart bypass surgery Social History Social History Household Members: None [facility] Are you a primary floor care technician to a significant other at home: No Do you presently have visiting nurse or other home services: No Alcohol intake: current Alcohol intake frequency: a few times a week Alcohol type: wine Patient Tobacco Use Status: Former Tobacco user Tobacco use type: Cigarette e-Cigarette/Vaping Use: Never Used Second Hand Smoke Exposure: No Advance Directives: No Advance Directives Information Provided: No Do you have a plan to hurt others: No Plan service: No Current occupational status: retired Cognitive needs: No Hearing needs: No Vision needs: Yes (glasses) Physical Exam ED Vital Signs: Vital Signs - 24 hr 12/30/23 22:02 Temperature 98.9 F Pulse Rate 77 Respiratory Rate 19 Blood Pressure 128/75 Pulse Oximetry 93 Oxygen Delivery Method Room Air BMI result Body Mass Index 30.1 VITAL SIGNS: Reviewed. GENERAL: Well developed, well nourished, in no acute distress. HEAD: Normocephalic/atraumatic EYES: PERRLA, EOMI EARS: Ext canals without abnormality NOSE: Nares patent bilateral OROPHARYNX: no oral lesions noted, posterior pharynx clear NECK: Supple, no adenopathy LUNGS: Normal breath sounds. No adventitious sounds or accessory muscle use. SpO2<93> CARDIOVASCULAR: Regular rate and rhythm without noted murmurs, no JVD or lower extremity edema. ABDOMEN: Soft, non-tender, non-distended with bowel sounds. MUSCULOSKELETAL: No tenderness, deformities, or effusions noted on gross inspection. EXTREMITIES: No cyanosis, clubbing or edema. SKIN: Inspection of the skin reveals no rashes NEUROLOGIC: Alert and oriented x 4. Strength and sensation to light touch were grossly intact x 4, cranial nerves 2-12 are grossly intact. Medications Administered Generic Name Dose Route Start Last Admin Trade Name Freq PRN Reason Stop Dose Admin Amitriptyline HCl 50 mg 12/31/23 00:45 12/31/23 00:44 Amitriptyline Hcl 50 Mg Tablet PO Not Given BEDTIME TEO Sodium Chloride 500 mls @ 500 mls/hr 12/31/23 00:15 12/31/23 00:07 Ns IV 12/31/23 01:14 500 mls/hr .Q1H TEO Administration Discontinued Medications Generic Name Dose Route Start Last Admin Trade Name Freq PRN Reason Stop Dose Admin Ondansetron HCl 4 mg 12/31/23 00:00 12/31/23 00:05 Ondansetron Hcl 4 Mg/2 Ml Vial IVPUSH 12/31/23 00:01 4 mg ONCE ONE Administration Medical Decision Making Medical Decision Making [facility] Narrative: 78-year-old male with history and clinical presentation, DDX: Progressive dementia, side effects from medication, infection/electrolyte, sbo I reviewed all investigations and hematologic indices negative for leukocytosis there is a noted stable normocytic anemia and no thrombocytopenia. Coagulation studies are within normal limits. Chemistry indices demonstrate stable CKD but otherwise no electrolyte or liver enzyme derangements. Urinalysis is negative for UTI or hematuria. Patient continues to be somewhat nauseous and will treat with 500 cc of normal saline/KUB/4 mg of IV Zofran. Patient received IV fluids, KUB does not demonstrate any acute findings to suggest constipation or obstruction, patient responded well to Zofran and is currently resting comfortably. Medication reconciliation has been completed. Patient is otherwise hemodynamically stable and medically cleared for further evaluation and assessment by Psychiatry for capacity and then case management and physical therapy for placement. Patient placed in physician observation because the patient needed more time for evaluation by Psychiatry/case management/physical therapy. At the time observation was started the patient's vital signs were stable, patient is alert and oriented, neuro: Nonfocal, CV RRR, lungs clear Differential Diagnosis Differential Diagnoses: The differential diagnosis associated with the presentation includes Please see the discussion above Admission/Observation Consideration of admission/observation: Escalation of care including admission/observation considered Please see the discussion above Consult Healthcare Provider Management of the patient was discussed with: Culturist Please see the discussion above Lab Data MDM Lab Attestation statement: I reviewed the patient's lab results. Please see the discussion above 12/30/23 22:44 12/30/23 22:44 Labs: Lab Results 12/30/23 12/30/23 12/31/23 Range/Units 22:44 23:01 00:56 WBC 9.2 (4.8-10.8) X10*3/uL RBC 3.92 L (4.60-5.80) X10*6/uL Hgb 13.0 L (14.0-18.0) g/dl Hct 37.4 L (42.0-52.0) % MCV 95.4 (80.0-98.0) fL MCH 33.2 H (27.0-33.0) pg MCHC 34.8 (31.0-36.0) g/dl RDW 13.2 (11.0-16.0) % Plt Count 162 (160-400) X10*3/uL MPV 8.8 L (9.4-12.4) fL Immature Gran % (Auto) 0.3 (0.0-0.4) % Neut % (Auto) 60.1 (45-73) % Lymph % (Auto) 20.0 (20-40) % [place] % (Auto) 13.2 H (2-11) % Eos % (Auto) 5.8 H (0-4) % Baso % (Auto) 0.6 (0-2) % Lymph # (Auto) 1.9 (1.2-4.9) X10*3/uL [place] # (Auto) 1.2 (0.1-1.2) X10*3/uL Eos # (Auto) 0.5 H (0.0-0.4) X10*3/uL Baso # (Auto) 0.1 (0.0-0.2) X10*3/uL Abs Immat Gran (auto) 0.03 (0.00-0.03) X10*3/uL Absolute Neuts (auto) 5.5 (2.0-8.3) x10*3/uL Absolute Nucleated RBC 0.000 (0.0-0.012) X10*3/uL Nucleated RBC % (auto) 0.0 (0.0-0.2) /100WBC PT 12.5 (11.1-13.3) SEC INR 1.0 (0.9-1.1) Sodium 138 (135-145) mmol/L Potassium 4.4 (3.3-5.1) mmol/L Chloride 104 (96-108) mmol/L Carbon Dioxide 26 (22-29) mmol/L Anion Gap 12 (12-20) BUN 28 H (9-16) mg/dL Creatinine 1.99 H (0.5-1.4) mg/dL Estim Creat Clear Calc 36.9 Estimated GFR 33 POC Glucose 82 (60-115) mg/dL Random Glucose 137 H (60-115) mg/dL Calcium 9.3 (8.4-10.2) mg/dL Total Bilirubin 0.4 (0.0-1.0) mg/dL AST 26 (5-37) U/L ALT 20 (0-40) U/L Alkaline Phosphatase 77 (39-117) U/L Ammonia 31 (13-55) umol/L Troponin I High Sens 5.0 (<3.5-35.0) ng/L Total Protein 6.8 (6.5-8.0) g/dL Albumin 3.6 (3.5-5.0) g/dL Urine Color Yellow Urine Appearance Clear Urine pH 6.5 (5.0-9.0) Ur Specific [place] 1.015 (1.005-1.025) Urine Protein Trace (Neg-Trace) mg/dL Urine Glucose (UA) Negative (Negative) mg/dL Urine Ketones Negative (Negative) mg/dL Urine Blood Negative (Negative) Urine Nitrite Negative (Negative) Ur Leukocyte Esterase Negative (Negative) Urine RBC 0-2 (0-2) /HPF Urine WBC 0-5 (0-5) /HPF Ur Squamous Epith Cells 0-2 (0-2) /HPF Urine Bacteria None Seen (None Seen) Hyaline Casts 0-2 (0-2) /LPF Urine Opiates Screen Not Detected (Not Detect) Ur Buprenorphine Scrn Not Detected (Not Detect) ng/mL Ur Oxycodone Screen Not Detected (Not Detect) ng/mL Urine Methadone Screen Not Detected (Not Detect) ng/mL Urine Fentanyl Screen Not Detected (Not Detect) Ur Barbiturates Screen Not Detected (Not Detect) Ur Phencyclidine Scrn Not Detected (Not Detect) Ur Amphetamines Screen Not Detected (Not Detect) U Benzodiazepines Scrn Not Detected (Not Detect) Urine Cocaine Screen Not Detected (Not Detect) U Marijuana (THC) Screen Not Detected (Not Detect) Independent Interpretation I performed an independent interpretation of an: EKG Interpretation: Sinus rhythm with first-degree AV block, HR-77, no STEMI, MS-to 14, QTC is within normal limits. On comparison with EKG from 08/08/2022 ST changes in the inferior leads are new. Radiology Impression Discussion of test interpretation with radiology: I have reviewed the radiologist's reading. Radiologist Impression: Please see the discussion above External Record Review External record reviewed: Outpatient record, Prior outpatient labs and Prior outpatient radiology Chronic Conditions Patient?s care impacted by: Diabetes, Hypertension and Other CKD Critical Care Time Critical Care Time Critical Care Time: Yes Total Critical Care Time: 45 Attestation: I personally attest to this time spent taking care of the patient. Discharge Plan Discharge Clinical Impression: Dementia, CKD (chronic kidney disease), Diabetes Patient Disposition: Still a Patient Prescriptions: No Action docusate sodium [Colace] 100 mg capsule 100 mg PO DAILY PRN (Reason: constipation) Qty: 30 0RF metoprolol succinate 25 mg tablet extended release 24 hr 25 mg PO DAILY Qty: 90 1RF insulin aspart U-100 [Novolog U-100 Insulin aspart] 100 unit/mL solution See Rx Instructions subcut DAILY Qty: 30 5RF Rx Instructions: Up to 100 units via insulin pump subcutaneously daily; tamsulosin 0.4 mg capsule 0.4 mg PO DAILY Qty: 90 0RF rosuvastatin 40 mg tablet 40 mg PO DAILY Qty: 90 3RF risperidone 0.5 mg tablet 0.5 - 1 mg PO BEDTIME (DME) subcutaneous insulin pump Misc See Rx Instructions .Route Rx Instructions: 3ml:3ml omeprazole 20 mg capsule,delayed release(DR/EC) 20 mg PO DAILY (DME) blood-glucose meter Kit See Rx Instructions .Route Rx Instructions: test blood sugar 6 times a day as needed cholecalciferol (vitamin D3) 25 mcg (1,000 unit) capsule 25 mcg PO DAILY ascorbic acid (vitamin C) 1,000 mg tablet 1 g PO DAILY (DME) blood sugar diagnostic Strip See Rx Instructions .Route Rx Instructions: test blood sugar 6 times a day and as needed aspirin 81 mg tablet,delayed release (DR/EC) 81 mg PO DAILY clotrimazole-betamethasone 1-0.05 % cream 1 appl topical BID Qty: 15 0RF amitriptyline 50 mg tablet 50 mg PO BEDTIME amitriptyline 25 mg tablet 25 mg PO DAILY sertraline 100 mg tablet 100 mg PO BID Print Language: Hungarian
[2023-12-31] VITALS (9 sets, daily range): BP systolic 126–138; BP diastolic 71–92; PULSE 60–86; RESP 14–18; TEMP 36.3–37.1; O2SAT 93–99
[2023-12-31] MEDS: ondansetron HCL 4 MG/2 ML VIAL IVPUSH (00:05)
[2023-12-31] MEDS: 0.9 % Sodium Chloride 500 ML IV (00:07)
--- NOTE | 2023-12-31 00:14 | PC.NURSE ---
pt noted to have intermittent dry heaves, aware, pt medicated per sep.
--- NOTE | 2023-12-31 00:27 | PC.NURSE ---
this RN contacted Megan; pt sister; to obtain medication list, pt sister able to verify medications over the phone.
[2023-12-31 01:01] LABS: Glucose, Whole Blood 82 mg/dL (60-115)
[2023-12-31] MEDS: risperiDONE 1 MG TABLET PO ×2 (01:44→22:28)
--- NOTE | 2023-12-31 01:45 | PC.NURSE ---
pt medicated per mar, tolerated well with water.
--- NOTE | 2023-12-31 03:29 | PC.NURSE ---
at this time pt attempting to exit bed, states i need to take a shower , pt redirected into bed at this time. pt placed in room 13 with camera for safety as pt is a fall risk.
[2023-12-31] MEDS: Ascorbic Acid 500 MG TABLET 1000 MG PO (09:07)
[2023-12-31] MEDS: Metoprolol Succinate ER 25 MG TAB.ER.24H PO (09:07)
[2023-12-31] MEDS: Aspirin Enteric Coated 81 MG TABLET.DR PO (09:08)
[2023-12-31] MEDS: Atorvastatin Calcium 80 MG TABLET PO (09:08)
[2023-12-31] MEDS: Cholecalciferol (Vitamin D3) 25 MCG TABLET PO (09:08)
[2023-12-31] MEDS: Tamsulosin HCL 0.4 MG CAPSULE PO (09:08)
[2023-12-31] MEDS: Omeprazole 20 MG CAPSULE.DR PO (09:09)
[2023-12-31 09:35] LABS: Glucose, Whole Blood 137 mg/dL (60-115)
--- NOTE | 2023-12-31 09:58 | PC.NURSE ---
RN concerned due to pts confusion and having own insulin pump. BGLs being checked manually by [facility] staff. Provider aware of situation, wants to keep pump going at basal rate and continue checking BGLs.
[2023-12-31 11:42] LABS: Glucose, Whole Blood 157 mg/dL (60-115)
--- NOTE | 2023-12-31 11:59 | PC.NURSE ---
Pt reports pressure in his bladder area, unable to urinate on his own. Bladder scanned and found to have >1000 of urine. Provider aware, pt straight cath and output of 1100mL straw yellow urine. Pt reports feeling better
--- NOTE | 2023-12-31 12:39 | PC.NURSE ---
psych consult at bedside
--- NOTE | 2023-12-31 13:20 | P.CNPS_ITS ---
History of Present Illness Date of Service: 12/31/2023 Chief Complaint: psych eval Discussed with referring provider: Yes Sources of Information: patient interviewed, chart reviewed and crisis/core team assessment reviewed HPI Narrative: Mr. Russell is a 78 year-old male with hx of dementia. He lives at home with 24/7 care. He was brought to ED due to increase aggression and agitation, especially at night. He is not sleeping and appears much more confused. In the ED, BUN elevated 28, Cr. 1.99 (he does have CKD stage 3 and it seems this is baseline). CBC without leukocytosis, normocytic anemia, MCV on high end of normal. Pt did seem to have urinary retention and has been strait cath twice, if unable to urinate may need whatley. Pt seen with sister at bedside who is his HCP. Sister reports in the past 2-3 weeks pt increasingly more agitated, not sleeping and combative with caregiver. He sees psychiatric provider Sera Maciel who reports pt has hx of OCD aside from dementia. He has been on amitriptyline and sertraline. Sera had taper him off sertraline and increase amitriptyline. He was also taken off aricept last year. He has been tried on seroquel and risperidone. Pt seen in the ED. He is calm and pleasant at time of assessment. He is not oriented to place, situation, month or year. He denies any physical concerns. 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 He was dx with dementia about 7 years ago. He has adult children but they are not close to him and have very little contact. His main support is sister. Past Psychiatric History: Inpt: none OP: Sera Maciel Past med trials: aricept, namenda, seroquel, risperidone [facility] Medical History Dementia Obsessive compulsive disorder Hordeolum externum (stye) Type 2 diabetes mellitus with unspecified complications Essential hypertension Paroxysmal atrial fibrillation Rash Screening for hypothyroidism Surgical History History of esophagogastroduodenoscopy (EGD) Hx of colonoscopy History of hernia surgery History of cataract surgery History of radiofrequency ablation (RFA) procedure for cardiac arrhythmia History of heart bypass surgery Diagnostics Vital Signs (24Hr): Vital Signs - 24 hr 12/30/23 22:02 12/31/23 04:47 12/31/23 06:18 Temperature 98.9 F 98.8 F 97.5 F Pulse Rate 77 78 86 Respiratory Rate 19 17 18 Blood Pressure 128/75 138/92 H 131/89 Pulse Oximetry 93 93 95 Oxygen Delivery Method Room Air Room Air Room Air 12/31/23 08:47 12/31/23 09:07 12/31/23 12:24 Temperature 97.5 F Pulse Rate 75 77 60 Respiratory Rate 14 17 Blood Pressure 135/86 127/75 126/82 Pulse Oximetry 96 96 Oxygen Delivery Method Room Air Room Air BMI result Body Mass Index 30.1 Labs 12/30/23 22:44 12/30/23 22:44 Labs: Laboratory Results - last 48 hr 12/30/23 12/30/23 12/31/23 22:44 23:01 00:56 WBC 9.2 RBC 3.92 L Hgb 13.0 L Hct 37.4 L MCV 95.4 MCH 33.2 H MCHC 34.8 RDW 13.2 Plt Count 162 MPV 8.8 L Immature Gran % (Auto) 0.3 Neut % (Auto) 60.1 Lymph % (Auto) 20.0 [place] % (Auto) 13.2 H Eos % (Auto) 5.8 H Baso % (Auto) 0.6 Lymph # (Auto) 1.9 [place] # (Auto) 1.2 Eos # (Auto) 0.5 H Baso # (Auto) 0.1 Abs Immat Gran (auto) 0.03 Absolute Neuts (auto) 5.5 Absolute Nucleated RBC 0.000 Nucleated RBC % (auto) 0.0 PT 12.5 INR 1.0 Sodium 138 Potassium 4.4 Chloride 104 Carbon Dioxide 26 Anion Gap 12 BUN 28 H Creatinine 1.99 H Estim Creat Clear Calc 36.9 Estimated GFR 33 POC Glucose 82 Random Glucose 137 H Calcium 9.3 Total Bilirubin 0.4 AST 26 ALT 20 Alkaline Phosphatase 77 Ammonia 31 Troponin I High Sens 5.0 Total Protein 6.8 Albumin 3.6 Urine Color Yellow Urine Appearance Clear Urine pH 6.5 Ur Specific [place] 1.015 Urine Protein Trace Urine Glucose (UA) Negative Urine Ketones Negative Urine Blood Negative Urine Nitrite Negative Ur Leukocyte Esterase Negative Urine RBC 0-2 Urine WBC 0-5 Ur Squamous Epith Cells 0-2 Urine Bacteria None Seen Hyaline Casts 0-2 Urine Opiates Screen Not Detected Ur Buprenorphine Scrn Not Detected Ur Oxycodone Screen Not Detected Urine Methadone Screen Not Detected Urine Fentanyl Screen Not Detected Ur Barbiturates Screen Not Detected Ur Phencyclidine Scrn Not Detected Ur Amphetamines Screen Not Detected U Benzodiazepines Scrn Not Detected Urine Cocaine Screen Not Detected U Marijuana (THC) Screen Not Detected 12/31/23 12/31/23 09:31 11:37 WBC RBC Hgb Hct MCV MCH MCHC RDW Plt Count MPV Immature Gran % (Auto) Neut % (Auto) Lymph % (Auto) [place] % (Auto) Eos % (Auto) Baso % (Auto) Lymph # (Auto) [place] # (Auto) Eos # (Auto) Baso # (Auto) Abs Immat Gran (auto) Absolute Neuts (auto) Absolute Nucleated RBC Nucleated RBC % (auto) PT INR Sodium Potassium Chloride Carbon Dioxide Anion Gap BUN Creatinine Estim Creat Clear Calc Estimated GFR POC Glucose 137 H 157 H Random Glucose Calcium Total Bilirubin AST ALT Alkaline Phosphatase Ammonia Troponin I High Sens Total Protein Albumin Urine Color Urine Appearance Urine pH Ur Specific [place] Urine Protein Urine Glucose (UA) Urine Ketones Urine Blood Urine Nitrite Ur Leukocyte Esterase Urine RBC Urine WBC Ur Squamous Epith Cells Urine Bacteria Hyaline Casts Urine Opiates Screen Ur Buprenorphine Scrn Ur Oxycodone Screen Urine Methadone Screen Urine Fentanyl Screen Ur Barbiturates Screen Ur Phencyclidine Scrn Ur Amphetamines Screen U Benzodiazepines Scrn Urine Cocaine Screen U Marijuana (THC) Screen Imaging Radiology Impressions: ITS Impressions KUB X-Ray 12/31/23 00:20 IMPRESSION: 1. No acute finding. 2. Mild lower lumbar disc degenerative change. Mental Status Exam Mental Status Exam Narrative: Appearance:wearing hospital gown, fair hygiene, in NAD Behavior: cooperative Psychomotor: no agitation or retardation noted Speech: mostly clear, some aphasia noted (both expressive and receptive) Mood: good' Affect: congruent, bright, non labile SI: none HI: none VH/AH: no overt signs Delusions: none, may have confabulations Insight/judgment: impaired x 2. Memory/cog:alert, not oriented to place, situation, month or year. Medications Medications Current Medications Ascorbic Acid (Ascorbic Acid 500 Mg Tablet) 1,000 mg PO DAILY [facility] Last Admin: 12/31/23 09:07 Dose: 1,000 mg Aspirin (Aspirin Enteric Coated 81 Mg Tablet.) 81 mg PO DAILY [facility] Last Admin: 12/31/23 09:08 Dose: 81 mg Atorvastatin Calcium (Atorvastatin Calcium 80 Mg Tablet) 80 mg PO DAILY [facility] Last Admin: 12/31/23 09:08 Dose: 80 mg Docusate Sodium (Docusate Sodium 100 Mg Capsule) 100 mg PO DAILY PRN PRN Reason: constipation Insulin Human Lispro (Insulin Lispro 100 Unit/Ml 3 Ml Vial) 0 unit SUBCUT DAILY [facility] Last Admin: 12/31/23 09:11 Dose: Not Given Metoprolol Succinate (Metoprolol Succinate Er 25 Mg Tab.Er.24h) 25 mg PO DAILY [facility]; Protocol Last Admin: 12/31/23 09:07 Dose: 25 mg Omeprazole (Omeprazole 20 Mg Capsule.) 20 mg PO DAILY [facility] Last Admin: 12/31/23 09:09 Dose: 20 mg Risperidone (Risperidone 1 Mg Tablet) 1 mg PO BEDTIME [facility] Last Admin: 12/31/23 01:44 Dose: 1 mg Tamsulosin HCl (Tamsulosin Hcl 0.4 Mg Capsule) 0.4 mg PO DAILY [facility] Last Admin: 12/31/23 09:08 Dose: 0.4 mg Vitamin D (Cholecalciferol (Vitamin D3) 25 Mcg Tablet) 25 mcg PO DAILY [facility] Last Admin: 12/31/23 09:08 Dose: 25 mcg Allergies Allergies Allergy/AdvReac Type Severity Reaction Status Date / Time codeine Allergy Intermediate upset Verified 12/30/23 22:10 stomach Assessment & Plan Assessment & Plan (1) Alzheimer's dementia with behavioral disturbance: Status: Acute Code(s): G30.9 - Alzheimer's disease, unspecified; F02.818 - Dementia in other diseases classified elsewhere, unspecified severity, with other behavioral disturbance Plan Mr. Russell is a 78 year-old male with hx of AD who was brought by sister due to increase combative behaviors, not sleeping at night and increased confusions. Medically stable- although he is retaining urine. He has hx of BPH which could be progressing and causing urinary retention, also note that recently amitriptyline increase which is highly anticholigernic. Although pt has hx of OCD, changes to his brain due to dementia, he may not tolerate this medication as well as he did before. PLAN 1. Recommend inpt radha psych for stabilization, medication management- close look at interaction between medications, as well as avoiding highly anticholigergic medications. 2. monitor voiding- urinary retention 3. amitriptyline has been held. Total time managing care of this patient today ____ minutes.
--- NOTE | 2023-12-31 13:59 | MHC.CM.ED ---
Patient remains in ER. Received notification from Patrick Max NP that patient will be admitted to [facility]. Case management consult deferred at this time.
[2023-12-31 14:09] LABS: Glucose, Whole Blood 119 mg/dL (60-115)
--- NOTE | 2023-12-31 15:36 | PC.NURSE ---
Hilton cath placed, 16G, pt tolerated procedure well. 1000 mL of urine output immediately, straw yellow.
[2023-12-31 18:17] LABS: Glucose, Whole Blood 177 mg/dL (60-115)
--- NOTE | 2023-12-31 18:37 | PC.NURSE ---
Plan for insulin pump per provider: provider asked that family brings in more supplies to replenish insulin pump so the insulin pump can continue to be used. Family said she will bring the supplies in the morning, pump shows it still has insulin and charge at this time. BGL continues to be checked before each meal with [facility] glucometer.
--- NOTE | 2023-12-31 20:00 | PC.NURSE ---
This junior underwriter assumed care of this Pt at 1999. Pt A&O to self, pt confused, does not answer questions appropriately, able to answer yes or no questions. Pt has 16F F/C in place, draining clear yellow urine. Pt has insulin pump. Bilateral knee abrasions noted, Pt does not recall how it happened. Pt attempting to get OOB, redirectable. Pt brought to BR with two staff assist. Pt very unsteady, camera in place for safety.
[2023-12-31 20:17] LABS: Glucose, Whole Blood 176 mg/dL (60-115)
--- NOTE | 2023-12-31 23:00 | PC.NURSE ---
Assumed care of patient at this time. Patient a/ox1, forgetful, impulsive, attempts to get out of bed multiple times, however redirectable. Patient is fast and unsteady on feet, high fall risk, bed alarm on, and video monitoring in place. Standby assist with cane OMEKA. Hilton in place.
[2024-01-01] MEDS: OLANZapine 10 MG TABLET PO (03:48)
[2024-01-01 05:40] VITALS: BP 153/90; PULSE 77; RESP 19; TEMP 37.1; O2SAT 96
--- NOTE | 2024-01-01 05:41 | PC.NURSE ---
Patient c/o nausea, actively dry heaving and spitting up into emesis bag at this time. Vitals are stable. POC 134. Exam benign, except for fine crackles heard in right lower lung base. Erica Yuan, provider aware at this time. One time dose of SL zofran given. Will continue to monitor.
[2024-01-01] MEDS: Ondansetron ODT 4 MG TAB.RAPDIS TRANSLINGU (06:17)
[2024-01-01 07:14] LABS: Glucose, Whole Blood 196 mg/dL (60-115)
[2024-01-01] MEDS: Cholecalciferol (Vitamin D3) 25 MCG TABLET PO (09:24)
[2024-01-01] MEDS: Ascorbic Acid 500 MG TABLET 1000 MG PO (09:24)
[2024-01-01] MEDS: Omeprazole 20 MG CAPSULE.DR PO (09:24)
[2024-01-01] MEDS: Aspirin Enteric Coated 81 MG TABLET.DR PO (09:24)
[2024-01-01] MEDS: Atorvastatin Calcium 80 MG TABLET PO (09:24)
[2024-01-01] MEDS: Tamsulosin HCL 0.4 MG CAPSULE PO (09:24)
[2024-01-01 09:25] VITALS: BP 153/90; PULSE 80
[2024-01-01] MEDS: Metoprolol Succinate ER 25 MG TAB.ER.24H PO (09:25)
[2024-01-01 11:33] LABS: Anion Gap 11 (12-20); Blood Urea Nitrogen 20 mg/dL (9-16); Calcium 9.3 mg/dL (8.4-10.2); Carbon Dioxide 29 mmol/L (22-29); Chloride 103 mmol/L (96-108); Creatinine Clr Calc Pharmacy 43.2; Estimated Glomerular Filt Rate 39; Glucose Random 157 mg/dL (60-115); Potassium 5.4 mmol/L (3.3-5.1); Sodium 138 mmol/L (135-145)
[2024-01-01 11:43] LABS: Glucose, Whole Blood 148 mg/dL (60-115)
--- NOTE | 2024-01-01 13:26 | PM.UROCN ---
History of Present Illness Consult details Consult date: 01/01/24 Narrative: CC: Urinary retention 78-year-old male. Admitted to hospital with increased altered mental status changes of prior 2 weeks. Recent medication change. Found to have creatinine 1.99 and a 1000 cc in his bladder. Straight catheterization required. Has been on Flomax at home for known BPH. Hilton catheter placed. Background significant for history of dementia, Alzheimer's, insulin dependent diabetes. Admitted for psycho geriatric evaluation. Given amount within catheter recommend 4 weeks and voiding trial. Review of Systems Constitutional: Constitutional: Reports as per HPI and Reports no additional constitutional complaints Cardiovascular: Cardiovascular: Reports as per HPI and Reports no additional cardiovascular complaints Respiratory: Respiratory: Reports as per HPI and Reports no additional respiratory complaints Gastrointestinal: Gastrointestinal: Reports as per HPI and Reports no additional gastrointestinal complaints Genitourinary: Genitourinary: Reports as per HPI Musculoskeletal: Musculoskeletal: Reports no additional musculoskeletal complaints and Reports as per HPI Neurologic: Reports system reviewed and no additional complaints, except as documented and Reports as per HPI PMFSH Past Medical History Medical History Dementia Obsessive compulsive disorder Hordeolum externum (stye) Type 2 diabetes mellitus with unspecified complications Essential hypertension Paroxysmal atrial fibrillation Rash Screening for hypothyroidism Surgical History Surgical History History of esophagogastroduodenoscopy (EGD) Hx of colonoscopy History of hernia surgery History of cataract surgery History of radiofrequency ablation (RFA) procedure for cardiac arrhythmia History of heart bypass surgery Social History Social History Household Members: Unknown / Unable to assess Housing: House Are you a primary school childcare attendant to a significant other at home: No Do you presently have visiting nurse or other home services: No (patient unable to respond) Alcohol intake: current Alcohol intake frequency: a few times a week Alcohol type: wine Comment: 1:1 monitoring. Patient Tobacco Use Status: Former Tobacco user Tobacco use type: Cigarette e-Cigarette/Vaping Use: Never Used Second Hand Smoke Exposure: No Use of substances other than those prescribed or required for medical reasons: No Currently Displaying Signs/Symptoms of Drug Intoxication Withdrawal: No Advance Directives: No Advance Directives Information Provided: No Do you have thoughts of harming others: None Do you have a plan to hurt others: No Plan Recently lost weight without trying: Unsure Nutrition Risks: No Nutritional Risk service: No Current occupational status: retired Sexual orientation: Straight/Heterosexual Cognitive needs: No Hearing needs: No Vision needs: Yes (glasses) Meds Allergies Allergy/AdvReac Type Severity Reaction Status Date / Time codeine Allergy Intermediate upset Verified 12/30/23 22:10 stomach Active Medications: Current Medications Ascorbic Acid (Ascorbic Acid 500 Mg Tablet) 1,000 mg PO DAILY [facility] Last Admin: 01/01/24 09:24 Dose: 1,000 mg Aspirin (Aspirin Enteric Coated 81 Mg Tablet.) 81 mg PO DAILY [facility] Last Admin: 01/01/24 09:24 Dose: 81 mg Atorvastatin Calcium (Atorvastatin Calcium 80 Mg Tablet) 80 mg PO DAILY [facility] Last Admin: 01/01/24 09:24 Dose: 80 mg Docusate Sodium (Docusate Sodium 100 Mg Capsule) 100 mg PO DAILY PRN PRN Reason: constipation Insulin Human Lispro (Insulin Lispro 100 Unit/Ml 3 Ml Vial) 0 unit SUBCUT DAILY [facility] Last Admin: 01/01/24 10:26 Dose: Not Given Metoprolol Succinate (Metoprolol Succinate Er 25 Mg Tab.Er.24h) 25 mg PO DAILY [facility]; Protocol Last Admin: 01/01/24 09:25 Dose: 25 mg Omeprazole (Omeprazole 20 Mg Capsule.) 20 mg PO DAILY [facility] Last Admin: 01/01/24 09:24 Dose: 20 mg Risperidone (Risperidone 1 Mg Tablet) 1 mg PO BEDTIME [facility] Last Admin: 12/31/23 22:28 Dose: 1 mg Tamsulosin HCl (Tamsulosin Hcl 0.4 Mg Capsule) 0.4 mg PO DAILY [facility] Last Admin: 01/01/24 09:24 Dose: 0.4 mg Vitamin D (Cholecalciferol (Vitamin D3) 25 Mcg Tablet) 25 mcg PO DAILY [facility] Last Admin: 01/01/24 09:24 Dose: 25 mcg Home Medications ?Medication ?Instructions ?Recorded ?Confirmed ?Last Taken ?Type ascorbic acid (vitamin C) 1,000 mg 1 g PO DAILY 11/28/21 12/31/23 Unknown History tablet cholecalciferol (vitamin D3) 25 25 mcg PO DAILY 11/28/21 12/31/23 Unknown History mcg (1,000 unit) capsule omeprazole 20 mg capsule,delayed 20 mg PO DAILY 11/28/21 12/31/23 Unknown History release aspirin 81 mg tablet,delayed 81 mg PO DAILY 07/25/22 12/31/23 Unknown History release amitriptyline 50 mg tablet 50 mg PO BEDTIME 08/17/23 12/31/23 Unknown History risperidone 0.5 mg tablet 0.5 - 1 mg PO BEDTIME 12/31/23 12/31/23 Unknown History Physical Exam Vital Signs: Vital Signs: Last Vital Signs Temp 98.8 F 01/01/24 05:40 Pulse 80 01/01/24 09:25 Resp 19 01/01/24 05:40 BP 153/90 H 01/01/24 09:25 Pulse Ox 96 01/01/24 05:40 O2 Del Method Room Air 01/01/24 05:40 BMI result Body Mass Index 30.1 Const: General: cooperative, healthy appearing, comfortable and no acute distress Orientation/consciousness: patient oriented x3 HEENT: Face and sinus: Yes normal facial exam Mouth: moist mucous membranes Neck: Neck: Yes normal visual inspection, Yes full ROM and Yes trachea midline Chest: Chest palpation & inspection: normal inspection of the chest Resp: Effort & Inspection: normal respiratory effort, able to speak in complete sentences and no respiratory distress GI: Inspection: Yes normal to inspection Back/Spine/Pelvis: Cervical Spine: normal cervical lordosis Thoracic/Lumbar Spine: thoracic and lumbar spine normal to inspection Skin: General skin exam: no rashes or lesions noted Neuro: General: patient oriented x3, tone normal and moves all extremities Extrem: General: Yes normal to inspection and Yes capillary refill normal Results Labs 01/12/24 09:01 01/12/24 09:01 Labs: Abnormal lab results 12/31/23 12/31/23 12/31/23 Range/Units 14:06 18:11 20:13 Potassium (3.3-5.1) mmol/L Anion Gap (12-20) BUN (9-16) mg/dL Creatinine (0.5-1.4) mg/dL POC Glucose 119 H 177 H 176 H (60-115) mg/dL Random Glucose (60-115) mg/dL 01/01/24 01/01/24 01/01/24 Range/Units 07:10 11:06 11:39 Potassium 5.4 H D (3.3-5.1) mmol/L Anion Gap 11 L (12-20) BUN 20 H (9-16) mg/dL Creatinine 1.70 H (0.5-1.4) mg/dL POC Glucose 196 H 148 H (60-115) mg/dL Random Glucose 157 H (60-115) mg/dL BMP 01/01/24 11:06 Sodium 138 Potassium 5.4 H D Chloride 103 Carbon Dioxide 29 BUN 20 H Creatinine 1.70 H Calcium 9.3 Urine 12/30/23 Range/Units 23:01 Urine Color Yellow Urine Appearance Clear Urine pH 6.5 (5.0-9.0) Ur Specific [place] 1.015 (1.005-1.025) Urine Protein Trace (Neg-Trace) mg/dL Urine Glucose (UA) Negative (Negative) mg/dL All other labs normal. Assessment and Plan (1) UTI (urinary tract infection): Status: Acute (2) Urinary retention with incomplete bladder emptying: Status: Acute Plan Four week follow-up outpatient cystoscopy with voiding trial Procedures Date of Service Date of Service: 01/19/24
[2024-01-01 14:00] VITALS: BP 134/83; PULSE 95; RESP 18; TEMP 36.6; O2SAT 96
[2024-01-01 16:01] LABS: Glucose, Whole Blood 211 mg/dL (60-115)
[2024-01-01] MEDS: Insulin Lispro 100 UNIT/ML 3 ML VIAL SUBCUT ×2 (16:40→20:07)
--- NOTE | 2024-01-01 17:01 | PC.NURSE ---
Per pts sister, patient needs help setting meal up including opening soda cans and cutting up food. Patient also does best with a straw for liquids.
--- NOTE | 2024-01-01 17:21 | PC.NURSE ---
Patient insulin pump sent home with sister Megan. Patient to be on ACHS sliding scale.
[2024-01-01 18:28] LABS: Anion Gap 11 (12-20); Blood Urea Nitrogen 22 mg/dL (9-16); Calcium 9.2 mg/dL (8.4-10.2); Carbon Dioxide 28 mmol/L (22-29); Chloride 102 mmol/L (96-108); Creatinine Clr Calc Pharmacy 42.7; Estimated Glomerular Filt Rate 39; Glucose Random 211 mg/dL (60-115); Potassium 4.2 mmol/L (3.3-5.1); Sodium 137 mmol/L (135-145)
[2024-01-01 20:07] LABS: Glucose, Whole Blood 175 mg/dL (60-115)
[2024-01-01] MEDS: risperiDONE 1 MG TABLET PO (20:07)
--- NOTE | 2024-01-01 22:40 | MHC.CARE ---
?Faxed assessment to [facility], no other beds available bed search is exhausted
--- NOTE | 2024-01-02 02:13 | PC.NURSE ---
Patient attempted to get OOB x2, but redirected back to bed. unsteady on his feet, pt is now resting comfortably, VMT in place for safety.
[2024-01-02 03:33] VITALS: BP 160/88; PULSE 82; RESP 18; TEMP 36.8; O2SAT 95
[2024-01-02 03:44] LABS: Glucose, Whole Blood 163 mg/dL (60-115)
[2024-01-02 07:44] LABS: Glucose, Whole Blood 197 mg/dL (60-115)
[2024-01-02 07:50] VITALS: BP 124/94; PULSE 92
[2024-01-02] MEDS: Atorvastatin Calcium 80 MG TABLET PO (07:50)
[2024-01-02] MEDS: Tamsulosin HCL 0.4 MG CAPSULE PO (07:50)
[2024-01-02] MEDS: Ascorbic Acid 500 MG TABLET 1000 MG PO (07:50)
[2024-01-02] MEDS: Metoprolol Succinate ER 25 MG TAB.ER.24H PO (07:50)
[2024-01-02] MEDS: Omeprazole 20 MG CAPSULE.DR PO (07:50)
[2024-01-02] MEDS: Aspirin Enteric Coated 81 MG TABLET.DR PO (07:51)
[2024-01-02] MEDS: Insulin Lispro 100 UNIT/ML 3 ML VIAL SUBCUT ×4 (07:51→21:21)
[2024-01-02] MEDS: Cholecalciferol (Vitamin D3) 25 MCG TABLET PO (07:51)
[2024-01-02 08:06] VITALS: BP 124/94; PULSE 92; RESP 16; TEMP 36.4; O2SAT 96
--- NOTE | 2024-01-02 10:19 | MHC.CARE ---
patient is an inpt radha psych bed search. He will be seen by CARE team for daily mental status updates until placed.
--- NOTE | 2024-01-02 10:36 | MHC.EDTECH ---
Patient trying to get out of bed to go home I explained the doctor needs to see him, resituated him, and gave him a diet gingerale. Patient is watching TV now.
[2024-01-02 12:04] LABS: Glucose, Whole Blood 166 mg/dL (60-115)
[2024-01-02 17:23] VITALS: BP 125/88; PULSE 88; RESP 18; TEMP 36.5; O2SAT 95
--- NOTE | 2024-01-02 17:34 | PC.NURSE ---
pt is alert but pleasantly confused, pt appears to resting comfortably denies pain, Hilton in place and draining dark hematuria about 400ml of urine in the Hilton at this time, abd soft and non-tender, family members at bedside James devi aware of the hematuria
[2024-01-02 18:44] LABS: Glucose, Whole Blood 186 mg/dL (60-115)
[2024-01-02 21:15] LABS: Glucose, Whole Blood 237 mg/dL (60-115)
[2024-01-02] MEDS: risperiDONE 1 MG TABLET PO (22:21)
[2024-01-02 22:23] VITALS: BP 131/90; PULSE 88; RESP 16; O2SAT 97
--- NOTE | 2024-01-02 22:46 | PC.NURSE ---
Emptied patient's F/C with 350 mL of dark brown urine noted. James, ED provider aware.
[2024-01-03 00:23] LABS: Appearance Urine Cloudy; Bacteria Urine None Seen (None Seen); Color Urine Orange; Glucose Urine UA Negative (Negative); Hyaline Casts Urine 0-2 /LPF (0-2); Leukocyte Esterase Urine Small (1+) (Negative); Nitrite Urine Negative (Negative); RBC Urine >20 /HPF (0-2); Squamous Epithelial Cell Urine 0-2 /HPF (0-2); UACC Culture Trigger YES; UMIC TRIGGER UACC YES; Urine Blood Large (3+) (Negative); Urine Ketones Negative (Negative); Urine Protein 100 (2+) mg/dL (Neg-Trace)
--- NOTE | 2024-01-03 02:06 | PC.NURSE ---
Patent attempting to get out of bed, patient redirected and given pricilla ron with chicken sandwich. Patient calm at present, resting in a hospital bed, bed alarm in on, camera in place for safety. Plan of care ongoing.
[2024-01-03 07:56] LABS: Glucose, Whole Blood 195 mg/dL (60-115)
[2024-01-03 08:07] VITALS: BP 120/80; PULSE 101
[2024-01-03] MEDS: Metoprolol Succinate ER 25 MG TAB.ER.24H PO (08:07)
[2024-01-03] MEDS: Tamsulosin HCL 0.4 MG CAPSULE PO (08:08)
[2024-01-03] MEDS: Aspirin Enteric Coated 81 MG TABLET.DR PO (08:08)
[2024-01-03] MEDS: Omeprazole 20 MG CAPSULE.DR PO (08:08)
[2024-01-03] MEDS: Cholecalciferol (Vitamin D3) 25 MCG TABLET PO (08:09)
[2024-01-03] MEDS: Ascorbic Acid 500 MG TABLET 1000 MG PO (08:09)
[2024-01-03] MEDS: Insulin Lispro 100 UNIT/ML 3 ML VIAL SUBCUT ×4 (08:11→21:02)
[2024-01-03] MEDS: Atorvastatin Calcium 80 MG TABLET PO (08:12)
--- NOTE | 2024-01-03 08:38 | PC.NURSE ---
Pt oriented but pleasantly confused. Vss and up to date lungs sounds cta bilaterally, S1 and S2 heard, abdomen soft and non-tender. Hilton cath draining dark brown urine. Pt resting in bed, able to change own position, camera in place for safety. Call montez within reach.
--- NOTE | 2024-01-03 08:50 | PC.NURSE ---
Pt out of bed to recliner, unsteady gait. 2 person assist to get pt oob. Resting quietly watching tv, call montez within reach.
--- NOTE | 2024-01-03 08:58 | PC.NURSE ---
This RN asked provider if we can repeat lab work as it as been a few days, and urine is still looking dark to assess DAVID status. Labs placed at this time
--- NOTE | 2024-01-03 09:15 | PC.NURSE ---
Pt gotten up and into recliner chair, 3 ast needed to get out of bed
[2024-01-03 09:24] LABS: Alanine Aminotransferase 19 U/L (0-40); Albumin Level 3.9 g/dL (3.5-5.0); Alkaline Phosphatase 100 U/L (39-117); Anion Gap 15 (12-20); Aspartate Amino Transferase 21 U/L (5-37); Bilirubin Total 0.8 mg/dL (0.0-1.0); Blood Urea Nitrogen 27 mg/dL (9-16); Calcium 9.6 mg/dL (8.4-10.2); Carbon Dioxide 23 mmol/L (22-29); Chloride 103 mmol/L (96-108); Creatinine Clr Calc Pharmacy 40.2; Estimated Glomerular Filt Rate 36; Glucose Random 202 mg/dL (60-115); Sodium 137 mmol/L (135-145); Total Protein 7.7 g/dL (6.5-8.0)
[2024-01-03 11:34] VITALS: BP 123/90; PULSE 107; RESP 16; TEMP 36.2; O2SAT 98
[2024-01-03 11:36] LABS: Glucose, Whole Blood 210 mg/dL (60-115)
--- NOTE | 2024-01-03 13:07 | MHC.CARE ---
CARE team completed ongoing assessment, pt continues to meet criteria for radha psych level of care and will remain in ER pending placement.
[2024-01-03 18:16] LABS: Glucose, Whole Blood 219 mg/dL (60-115)
[2024-01-03 18:17] VITALS: BP 119/79; PULSE 81; RESP 16; TEMP 36.4
--- NOTE | 2024-01-03 18:56 | PC.NURSE ---
Assumed care of pt. pt lying on stretcher no acute distress at this time. Pt eating dinner provided. Security camera in place for safety. Continuing plan of care for CM.
[2024-01-03 20:49] LABS: Glucose, Whole Blood 229 mg/dL (60-115)
[2024-01-03] MEDS: risperiDONE 1 MG TABLET PO (21:02)
[2024-01-03 22:00] VITALS: BP 122/82; PULSE 82; RESP 16; TEMP 36.4; O2SAT 98
[2024-01-04 05:46] VITALS: BP 119/71; PULSE 82; RESP 16; TEMP 36.7; O2SAT 99
[2024-01-04 06:57] VITALS: BP 114/70; PULSE 80; RESP 16; O2SAT 100
[2024-01-04 07:04] LABS: Glucose, Whole Blood 215 mg/dL (60-115)
[2024-01-04] MEDS: Insulin Lispro 100 UNIT/ML 3 ML VIAL SUBCUT ×4 (07:44→20:38)
[2024-01-04 10:12] VITALS: BP 107/73; PULSE 87; RESP 16; O2SAT 95
[2024-01-04] MEDS: Ascorbic Acid 500 MG TABLET 1000 MG PO (10:14)
[2024-01-04] MEDS: Tamsulosin HCL 0.4 MG CAPSULE PO (10:14)
[2024-01-04] MEDS: Aspirin Enteric Coated 81 MG TABLET.DR PO (10:14)
[2024-01-04] MEDS: Atorvastatin Calcium 80 MG TABLET PO (10:15)
[2024-01-04] MEDS: Metoprolol Succinate ER 25 MG TAB.ER.24H PO (10:15)
[2024-01-04] MEDS: Omeprazole 20 MG CAPSULE.DR PO (10:15)
[2024-01-04] MEDS: Cholecalciferol (Vitamin D3) 25 MCG TABLET PO (10:15)
[2024-01-04] MEDS: Insulin Glargine,Hum.rec.anlog 100 UNIT/ML 10 ML VIAL 10 UNIT SUBCUT (10:15)
--- NOTE | 2024-01-04 10:45 | PC.NURSE ---
pt irritable this morning, appears to be responding to internal stimuli as he has been self dialoguing during medication pass, pt reports that people are calling out his name and looking for him. pt otherwise calm and cooperative. reports that he is miserable today and wants to go home to get out of this dump . pt took AM meds without problem.
[2024-01-04 13:42] LABS: Glucose, Whole Blood 215 mg/dL (60-115)
--- NOTE | 2024-01-04 15:55 | HO.PSYADMNOT ---
[facility] Date of Service: 01/04/24 Chief Complaint: Combative Sources of Information: patient interviewed, chart reviewed and crisis/core team assessment reviewed Additional Sources of Information: Megan (sister/HCP) [phone] [facility] Subjective Notes: Section 12B Narrative: Mr. Russell is a 78 year-old male with hx of dementia. He lives at home with 24/7 care. He was brought to ED due to increase aggression and agitation, especially at night for the past 3 weeks. He is not sleeping and appears much more confused. In the ED, BUN elevated 28, Cr. 1.99 (he does have CKD stage 3 and it seems this is baseline). CBC without leukocytosis, normocytic anemia, MCV on high end of normal. In the ED, pt found to have urinary retention- failed 3 attempts to urinate on his own. He was seen by urology and whatley placed. Sister reports in the past 2-3 weeks pt increasingly more agitated, not sleeping and combative with caregiver. He sees psychiatric provider Sera Maciel who reports pt has hx of OCD aside from dementia. He has been on amitriptyline and sertraline. Sera had taper him off sertraline and increase amitriptyline. He was also taken off aricept last year. He has been tried on seroquel and risperidone. On the unit, pt presents as pleasant. He tells this remote mortgage underwriter that he is at [employer], where he completed his FANNY. He states year is 2013. He does not why he is here. He denies any physical concerns. No aggression or combative behaviors. He is able to tell this remote mortgage underwriter that his HCP is his sister Megan. He does not appear internally preoccupied. No overt delusional content noted but he is confabulating. 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 He was dx with dementia about 7 years ago. He has adult children but they are not close to him and have very little contact. His main support is sister. Past Psychiatric History: Inpt: none OP: Sera Maciel Past Psychiatric History: Inpt: none OP: Sera Maciel Past med trials: aricept, namenda, seroquel, risperidone Medical Evaluation Reviewed: Yes [facility] Medical History Dementia Obsessive compulsive disorder Hordeolum externum (stye) Type 2 diabetes mellitus with unspecified complications Essential hypertension Paroxysmal atrial fibrillation Rash Screening for hypothyroidism Surgical History History of esophagogastroduodenoscopy (EGD) Hx of colonoscopy History of hernia surgery History of cataract surgery History of radiofrequency ablation (RFA) procedure for cardiac arrhythmia History of heart bypass surgery Diagnostics Vital Signs (24Hr): Vital Signs - 24 hr 01/03/24 18:17 01/03/24 22:00 01/04/24 05:46 Temperature 97.5 F 97.5 F 98.1 F Pulse Rate 81 82 82 Respiratory Rate 16 16 16 Blood Pressure 119/79 122/82 119/71 Pulse Oximetry 98 99 Oxygen Delivery Method Room Air Room Air Room Air 01/04/24 06:57 01/04/24 10:12 Temperature Pulse Rate 80 87 Respiratory Rate 16 16 Blood Pressure 114/70 107/73 Pulse Oximetry 100 95 Oxygen Delivery Method Room Air Room Air BMI result Body Mass Index 30.1 Labs 12/30/23 22:44 01/05/24 09:45 Labs: Laboratory Results - last 48 hr 01/02/24 01/02/24 01/03/24 18:39 21:08 00:11 Sodium Potassium Chloride Carbon Dioxide Anion Gap BUN Creatinine Estim Creat Clear Calc Estimated GFR POC Glucose 186 H 237 H Random Glucose Calcium Total Bilirubin AST ALT Alkaline Phosphatase Total Protein Albumin Urine Color [place] A Urine Appearance Cloudy Urine pH 5.0 Ur Specific [place] 1.020 Urine Protein 100 (2+) H Urine Glucose (UA) Negative Urine Ketones Negative Urine Blood Large (3+) H Urine Nitrite Negative Ur Leukocyte Esterase Small (1+) H Urine RBC >20 H Urine WBC 6-10 H Ur Squamous Epith Cells 0-2 Urine Bacteria None Seen Hyaline Casts 0-2 01/03/24 01/03/24 01/03/24 07:50 09:05 11:28 Sodium 137 Potassium 4.0 Chloride 103 Carbon Dioxide 23 Anion Gap 15 BUN 27 H Creatinine 1.83 H Estim Creat Clear Calc 40.2 Estimated GFR 36 POC Glucose 195 H 210 H Random Glucose 202 H Calcium 9.6 Total Bilirubin 0.8 AST 21 ALT 19 Alkaline Phosphatase 100 Total Protein 7.7 Albumin 3.9 Urine Color Urine Appearance Urine pH Ur Specific [place] Urine Protein Urine Glucose (UA) Urine Ketones Urine Blood Urine Nitrite Ur Leukocyte Esterase Urine RBC Urine WBC Ur Squamous Epith Cells Urine Bacteria Hyaline Casts 01/03/24 01/03/24 01/04/24 18:09 20:45 07:00 Sodium Potassium Chloride Carbon Dioxide Anion Gap BUN Creatinine Estim Creat Clear Calc Estimated GFR POC Glucose 219 H 229 H 215 H Random Glucose Calcium Total Bilirubin AST ALT Alkaline Phosphatase Total Protein Albumin Urine Color Urine Appearance Urine pH Ur Specific [place] Urine Protein Urine Glucose (UA) Urine Ketones Urine Blood Urine Nitrite Ur Leukocyte Esterase Urine RBC Urine WBC Ur Squamous Epith Cells Urine Bacteria Hyaline Casts 01/04/24 13:37 Sodium Potassium Chloride Carbon Dioxide Anion Gap BUN Creatinine Estim Creat Clear Calc Estimated GFR POC Glucose 215 H Random Glucose Calcium Total Bilirubin AST ALT Alkaline Phosphatase Total Protein Albumin Urine Color Urine Appearance Urine pH Ur Specific [place] Urine Protein Urine Glucose (UA) Urine Ketones Urine Blood Urine Nitrite Ur Leukocyte Esterase Urine RBC Urine WBC Ur Squamous Epith Cells Urine Bacteria Hyaline Casts Imaging Radiology Impressions: ITS Impressions KUB X-Ray 12/31/23 00:20 IMPRESSION: 1. No acute finding. 2. Mild lower lumbar disc degenerative change. Meds/Allergies Meds Home Medications ?Medication ?Instructions ?Recorded ?Confirmed ?Type ascorbic acid (vitamin C) 1,000 mg 1 g PO DAILY 11/28/21 12/31/23 History tablet cholecalciferol (vitamin D3) 25 25 mcg PO DAILY 11/28/21 12/31/23 History mcg (1,000 unit) capsule omeprazole 20 mg capsule,delayed 20 mg PO DAILY 11/28/21 12/31/23 History release aspirin 81 mg tablet,delayed 81 mg PO DAILY 07/25/22 12/31/23 History release amitriptyline 50 mg tablet 50 mg PO BEDTIME 08/17/23 12/31/23 History risperidone 0.5 mg tablet 0.5 - 1 mg PO BEDTIME 12/31/23 12/31/23 History Allergies Allergies Allergy/AdvReac Type Severity Reaction Status Date / Time codeine Allergy Intermediate upset Verified 12/30/23 22:10 stomach Mental Status Exam Mental Status Exam Narrative: Appearance:wearing hospital gown, fair hygiene, in NAD Behavior: cooperative Psychomotor: no agitation or retardation noted Speech: mostly clear, some aphasia noted (both expressive and receptive) Mood: good' Affect: congruent, bright, non labile SI: none HI: none VH/AH: no overt signs Delusions: none, may have confabulations Insight/judgment: impaired x 2. Memory/cog:alert, not oriented to place, situation, month or year. Assessment & Plan Assessment & Plan (1) Alzheimer's dementia with behavioral disturbance: Status: Acute Code(s): G30.9 - Alzheimer's disease, unspecified; F02.818 - Dementia in other diseases classified elsewhere, unspecified severity, with other behavioral disturbance Plan Mr. Russell is a 78 year-old male with hx of AD who was brought by sister due to increase combative behaviors at night along with not sleeping most of the night. Sister reports more acute and rapid decline in past month or so. In the ED, amitriptyline was tapped off due to urinary retention, concern of increase confusion. No combative behaviors while in the ED. PLAN 1. Invoke HCP- given that pt does not have capacity to make medical decisions. 2. continue risperidone for now. 3. follow up with urology re: urinary retention 4. DM- pt on pump but it seems it was taken off. BS have increased. 5. coordination of care. Patient educated on: diagnosis (HCP) and medication risk/benefits Reason for continued inpatient stay Substantial Risk for: inability to function Statement Statement: I have reviewed the history and physical and performed a pertinent examination on my patient. No changes have occurred unless specified. If the History and Physical was not performed prior to admission, the Hospitalist's service will be consulted for completing the admission physical. Time Spent With Patient Time: Total time managing care of this patient today ____ minutes.
[2024-01-04 16:08] VITALS: BP 114/78; PULSE 87; RESP 18; TEMP 36.8; O2SAT 97; BMI 30.1
[2024-01-04 16:26] LABS: Glucose, Whole Blood 288 mg/dL (60-115)
--- NOTE | 2024-01-04 17:21 | PC.ADMIT ---
Hussain, who prefers to be called Vicente , was admitted to from [facility] ED on 01/04/24 at 14:58 on a 12a for the treatment of altered mental status. He was brought to the hospital by his family who noticed a change in his condition. Skin/contraband check was completed by staff. Vicente has an indwelling whatley catheter that was placed in [facility] ED d/t urinary retention. He also has an insulin pump in his R lower quadrant of his abdomen, per Natali Nair RN, the actual insulin pump has been removed and returned to home and only the monitor remains. 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 He was cheerful and cooperative with admission process. He was unable to answer most questions appropriately and often began speaking about topics that did not have to do with the question, and often responded by talking about the college he attended. UTOX was negative. He denies suicidal and homicidal thoughts and intent. He denies auditory and visual hallucinations. He was placed on 5 minute checks for safety.
[2024-01-04 19:42] LABS: Glucose, Whole Blood 225 mg/dL (60-115)
[2024-01-04 20:00] VITALS: BP 132/81; PULSE 92; RESP 16; TEMP 36.9; O2SAT 94
[2024-01-04] MEDS: risperiDONE 1 MG TABLET PO (20:37)
[2024-01-05] MEDS: traZODone HCL 50 MG TABLET PO ×3 (00:22→23:43)
[2024-01-05 06:32] LABS: Glucose, Whole Blood 252 mg/dL (60-115)
[2024-01-05 08:19] VITALS: BP 135/56; PULSE 109; RESP 16; TEMP 36.8; O2SAT 94
[2024-01-05 08:20] VITALS: BP 135/56; PULSE 109
[2024-01-05] MEDS: Metoprolol Succinate ER 25 MG TAB.ER.24H PO (08:20)
[2024-01-05] MEDS: Aspirin Enteric Coated 81 MG TABLET.DR PO (08:20)
[2024-01-05] MEDS: Omeprazole 20 MG CAPSULE.DR PO (08:21)
[2024-01-05] MEDS: Atorvastatin Calcium 80 MG TABLET PO (08:21)
[2024-01-05] MEDS: Ascorbic Acid 500 MG TABLET 1000 MG PO (08:21)
[2024-01-05] MEDS: Insulin Glargine,Hum.rec.anlog 100 UNIT/ML 10 ML VIAL 10 UNIT SUBCUT (08:21)
[2024-01-05] MEDS: Tamsulosin HCL 0.4 MG CAPSULE PO (08:21)
[2024-01-05] MEDS: Cholecalciferol (Vitamin D3) 25 MCG TABLET PO (08:21)
[2024-01-05] MEDS: Insulin Lispro 100 UNIT/ML 3 ML VIAL SUBCUT ×4 (08:22→21:09)
[2024-01-05 10:16] LABS: Alanine Aminotransferase 25 U/L (0-40); Albumin Level 3.8 g/dL (3.5-5.0); Alkaline Phosphatase 94 U/L (39-117); Anion Gap 16 (12-20); Aspartate Amino Transferase 46 U/L (5-37); Bilirubin Total 1.2 mg/dL (0.0-1.0); Blood Urea Nitrogen 32 mg/dL (9-16); Carbon Dioxide 22 mmol/L (22-29); Chloride 99 mmol/L (96-108); Cholesterol 117 mg/dL (<200); Creatinine Clr Calc Pharmacy 37.5; Estimated Glomerular Filt Rate 33; Glucose Fasting 312 mg/dL (60-99); HDL Cholesterol 40 mg/dL (>40); LDL Cholesterol Calculated 59 mg/dL (<100); Sodium 133 mmol/L (135-145); Total Protein 7.8 g/dL (6.5-8.0); Triglycerides 93 mg/dL (<150)
[2024-01-05 10:50] LABS: Estimated Average Glucose 171 mg/dL; Hemoglobin A1c % 7.6 % (<6.0)
[2024-01-05 11:32] LABS: Glucose, Whole Blood 339 mg/dL (60-115)
--- NOTE | 2024-01-05 11:57 | P.PNPSI_ITS ---
Subjective Subjective Date of Service: 01/05/24 Reason For Visit: Combative Subjective Notes: Conditional Voluntary Healthcare Proxy: Yes Interim History: Pt had difficulty sleeping, confused as to where he was but not combative. Pt in the morning pleasant, not oriented to place or situation. This financial underwriter spoke with sister, Megan who is HCP- Megan reports he was ambulating at home. Will have PT assess him. BS have been higher since pump removed- spoke with sister to bring it back. Labs this morning show hyponatremia, but after correcting for BS, Na is normal 136. Elevation of BUN, Cr. This financial underwriter communicated with Dr. Gardner from urology- he recommends voiding trial in 2 weeks and adding finesteride 5mg po daily in combination with tamsulosin 0.4mg po qhs. Mental Status Exam Mental Status Exam Narrative: Appearance:wearing hospital gown, fair hygiene, in NAD Behavior: cooperative Psychomotor: no agitation or retardation noted Speech: mostly clear, some aphasia noted (both expressive and receptive) Mood: good' Affect: congruent, bright, non labile SI: none HI: none VH/AH: no overt signs Delusions: none, may have confabulations Insight/judgment: impaired x 2. Memory/cog:alert, not oriented to place, situation, month or year. Diagnostics Vital Signs (24Hr): Vital Signs - 24 hr 01/04/24 16:08 01/04/24 20:00 01/05/24 08:19 Temperature 98.2 F 98.4 F 98.2 F Pulse Rate 87 92 109 H Respiratory Rate 18 16 16 Blood Pressure 114/78 132/81 135/56 L Pulse Oximetry 97 94 94 Oxygen Delivery Method Room Air Room Air Room Air 01/05/24 08:20 Temperature Pulse Rate 109 H Respiratory Rate Blood Pressure 135/56 L Pulse Oximetry Oxygen Delivery Method BMI result Body Mass Index 30.1 Labs 12/30/23 22:44 01/05/24 09:45 Labs: Laboratory Results - last 48 hr 01/03/24 01/03/24 01/04/24 18:09 20:45 07:00 Sodium Potassium Chloride Carbon Dioxide Anion Gap BUN Creatinine Estim Creat Clear Calc Estimated GFR POC Glucose 219 H 229 H 215 H Fasting Glucose Estimat Average Glucose Hemoglobin A1c % Calcium Total Bilirubin AST ALT Alkaline Phosphatase Total Protein Albumin Triglycerides Cholesterol LDL Cholesterol, Calc HDL Cholesterol 01/04/24 01/04/2401/03/24 13:37 16:23 19:34 Sodium Potassium Chloride Carbon Dioxide Anion Gap BUN Creatinine Estim Creat Clear Calc Estimated GFR POC Glucose 215 H 288 H 225 H Fasting Glucose Estimat Average Glucose Hemoglobin A1c % Calcium Total Bilirubin AST ALT Alkaline Phosphatase Total Protein Albumin Triglycerides Cholesterol LDL Cholesterol, Calc HDL Cholesterol 01/05/24 01/05/24 01/05/24 06:29 09:45 11:25 Sodium 133 L Potassium 4.0 Chloride 99 Carbon Dioxide 22 Anion Gap 16 BUN 32 H Creatinine 1.96 H Estim Creat Clear Calc 37.5 Estimated GFR 33 POC Glucose 252 H 339 H Fasting Glucose 312 H Estimat Average Glucose 171 Hemoglobin A1c % 7.6 H Calcium 9.0 D Total Bilirubin 1.2 H AST 46 H ALT 25 Alkaline Phosphatase 94 Total Protein 7.8 Albumin 3.8 Triglycerides 93 Cholesterol 117 LDL Cholesterol, Calc 59 HDL Cholesterol 40 L Imaging Radiology Impressions: ITS Impressions [facility] X-Ray 12/31/23 00:20 IMPRESSION: 1. No acute finding. 2. Mild lower lumbar disc degenerative change. Medications Medications Current Medications Acetaminophen (Acetaminophen 325 Mg Tablet) 650 mg PO Q6H PRN PRN Reason: Headache/Pain Mild Scale (1-3) Al Hydroxide/Mg Hydroxide (Magnesium Hydrox/Alum Hydrox 30 Ml Oral.Susp) 30 ml PO Q6H PRN PRN Reason: Heartburn/Nausea Ascorbic Acid (Ascorbic Acid 500 Mg Tablet) 1,000 mg PO DAILY [facility] Last Admin: 01/05/24 08:21 Dose: 1,000 mg Aspirin (Aspirin Enteric Coated 81 Mg Tablet.Dr) 81 mg PO DAILY [facility] Last Admin: 01/05/24 08:20 Dose: 81 mg Atorvastatin Calcium (Atorvastatin Calcium 80 Mg Tablet) 80 mg PO DAILY [facility] Last Admin: 01/05/24 08:21 Dose: 80 mg Insulin Glargine (Insulin Glargine,Hum.Rec.Anlog 100 Unit/Ml 10 Ml Vial) 10 unit SUBCUT DAILY [facility] Last Admin: 01/05/24 08:21 Dose: 10 unit Insulin Human Lispro (Insulin Lispro 100 Unit/Ml 3 Ml Vial) 0 unit SUBCUT QIDACHS [facility]; Protocol Last Admin: 01/05/24 11:42 Dose: 8 unit Magnesium Hydroxide (Milk Of Magnesia 30 Ml Oral.Susp) 30 ml PO DAILY PRN PRN Reason: Constipation Metoprolol Succinate (Metoprolol Succinate Er 25 Mg Tab.Er.24h) 25 mg PO DAILY [facility]; Protocol Last Admin: 01/05/24 08:20 Dose: 25 mg Omeprazole (Omeprazole 20 Mg Capsule.Dr) 20 mg PO DAILY [facility] Last Admin: 01/05/24 08:21 Dose: 20 mg Risperidone (Risperidone 1 Mg Tablet) 1 mg PO BEDTIME [facility] Last Admin: 01/04/24 20:37 Dose: 1 mg Tamsulosin HCl (Tamsulosin Hcl 0.4 Mg Capsule) 0.4 mg PO DAILY [facility] Last Admin: 01/05/24 08:21 Dose: 0.4 mg Trazodone HCl (Trazodone Hcl 50 Mg Tablet) 50 mg PO BEDTIME PRN PRN Reason: Insomnia Last Admin: 01/05/24 00:22 Dose: 50 mg Vitamin D (Cholecalciferol (Vitamin D3) 25 Mcg Tablet) 25 mcg PO DAILY [facility] Last Admin: 01/05/24 08:21 Dose: 25 mcg Allergies Allergies Allergy/AdvReac Type Severity Reaction Status Date / Time codeine Allergy Intermediate upset Verified 12/30/23 22:10 stomach Assessment & Plan Assessment & Plan (1) Alzheimer's dementia with behavioral disturbance: Status: Acute Code(s): G30.9 - Alzheimer's disease, unspecified; F02.818 - Dementia in other diseases classified elsewhere, unspecified severity, with other behavioral disturbance Plan Mr. Russell is a 78 year-old male with hx of AD who was brought by sister due to increase combative behaviors at night along with not sleeping most of the night. Sister reports more acute and rapid decline in past month or so. In the ED, amitriptyline was tapped off due to urinary retention, concern of increase confusion. No combative behaviors while in the ED. PLAN 1. BS control with pump as BS increasing. Will have sister bring it. 2. will hold starting any new med today. 3. start finesteride 5mg po daily per Urology. Remove whatley in 2 weeks- 01/15/2024 for voiding trial Reason for continued inpatient stay Substantial Risk for: inability to function Time Spent With Patient Time: Total time managing care of this patient today ____ minutes.
[2024-01-05 13:52] VITALS: BP 135/56; PULSE 109
[2024-01-05] MEDS: Finasteride 5 MG TABLET PO (16:57)
[2024-01-05] MEDS: risperiDONE 1 MG TABLET PO (20:04)
[2024-01-05 20:17] LABS: Glucose, Whole Blood 269 mg/dL (60-115)
[2024-01-05 20:45] VITALS: BP 129/80; PULSE 83; RESP 18; TEMP 36.1; O2SAT 97
[2024-01-05 21:09] LABS: Glucose, Whole Blood 245 mg/dL (60-115)
[2024-01-05] MEDS: Acetaminophen 325 MG TABLET 650 MG PO (21:10)
[2024-01-06 06:25] LABS: Glucose, Whole Blood 168 mg/dL (60-115)
[2024-01-06 08:34] VITALS: BP 113/66; PULSE 100; RESP 16; TEMP 36.6; O2SAT 100
[2024-01-06] MEDS: Insulin Lispro 100 UNIT/ML 3 ML VIAL SUBCUT ×2 (08:35→11:54)
[2024-01-06] MEDS: Finasteride 5 MG TABLET PO (08:35)
[2024-01-06] MEDS: Insulin Glargine,Hum.rec.anlog 100 UNIT/ML 10 ML VIAL 10 UNIT SUBCUT (08:35)
[2024-01-06] MEDS: Ascorbic Acid 500 MG TABLET 1000 MG PO (08:35)
[2024-01-06 08:36] VITALS: BP 113/66; PULSE 100
[2024-01-06] MEDS: Metoprolol Succinate ER 25 MG TAB.ER.24H PO (08:36)
[2024-01-06] MEDS: Aspirin Enteric Coated 81 MG TABLET.DR PO (08:36)
[2024-01-06] MEDS: Atorvastatin Calcium 80 MG TABLET PO (08:36)
[2024-01-06] MEDS: Omeprazole 20 MG CAPSULE.DR PO (08:36)
[2024-01-06] MEDS: Cholecalciferol (Vitamin D3) 25 MCG TABLET PO (08:36)
[2024-01-06] MEDS: Tamsulosin HCL 0.4 MG CAPSULE PO (08:36)
[2024-01-06 09:53] VITALS: BP 113/66; PULSE 100
[2024-01-06 11:25] LABS: Glucose, Whole Blood 266 mg/dL (60-115)
[2024-01-06 16:47] LABS: Glucose, Whole Blood 273 mg/dL (60-115)
--- NOTE | 2024-01-06 16:51 | PC.NURSE ---
Addendum entered by Lee Ann Garcia RN 01/06/24 16:55: Pt not given lispro at this time, currently d/c. Original Note: This remote mortgage underwriter told by Winter Haque NP, to give fast acting insulin at dinner time with regular sliding scale despite insulin pump being reconnected to pt around 1630.
[2024-01-06 20:00] VITALS: BP 123/86; PULSE 84; RESP 20; TEMP 36.2; O2SAT 94
[2024-01-06] MEDS: risperiDONE 1 MG TABLET PO (20:35)
[2024-01-06] MEDS: Melatonin 3 MG TABLET 6 MG PO (20:35)
[2024-01-06] MEDS: traZODone HCL 50 MG TABLET PO (20:35)
[2024-01-06] MEDS: Donepezil HCl 5 MG TABLET PO (20:35)
[2024-01-06 21:15] LABS: Glucose, Whole Blood 266 mg/dL (60-115)
[2024-01-06] MEDS: Subcutaneous Insulin Pump 1 EACH SUBCUT (21:44)
[2024-01-07 06:35] LABS: Glucose, Whole Blood 106 mg/dL (60-115)
[2024-01-07] MEDS: Subcutaneous Insulin Pump 1 EACH SUBCUT ×4 (07:50→21:26)
[2024-01-07 08:00] VITALS: BP 112/94; PULSE 83; RESP 18; TEMP 36.6; O2SAT 96
[2024-01-07] MEDS: Ascorbic Acid 500 MG TABLET 1000 MG PO (08:53)
[2024-01-07] MEDS: Cholecalciferol (Vitamin D3) 25 MCG TABLET PO (08:54)
[2024-01-07] MEDS: Omeprazole 20 MG CAPSULE.DR PO (08:54)
[2024-01-07] MEDS: Aspirin Enteric Coated 81 MG TABLET.DR PO (08:54)
[2024-01-07 08:55] VITALS: BP 112/94; PULSE 83
[2024-01-07] MEDS: Atorvastatin Calcium 80 MG TABLET PO (08:55)
[2024-01-07] MEDS: Metoprolol Succinate ER 25 MG TAB.ER.24H PO (08:55)
[2024-01-07] MEDS: Tamsulosin HCL 0.4 MG CAPSULE PO (08:55)
[2024-01-07] MEDS: Finasteride 5 MG TABLET PO (08:57)
--- NOTE | 2024-01-07 09:11 | P.PNPSI_ITS ---
Subjective Subjective Date of Service: 01/06/24 Reason For Visit: Combative Subjective Notes: Conditional Voluntary Healthcare Proxy: Yes Interim History: Pt again had difficulty sleeping. Pt was calm, trying to ambulate no his own but unsteady on his feet. Sister showed staff how to manage insulin pump- which was restarted. Pt confused as to where he is. No overt combative or aggressive behaviors. He takes medications as prescribed. BS elevated, hoping they will stabilized once restarted insulin pump. Medication Compliance: Yes Review of Systems Review of Systems Pertinent positives and negatives as stated in HPI Mental Status Exam Mental Status Exam Narrative: Appearance:wearing hospital gown, fair hygiene, in NAD Behavior: cooperative Psychomotor: no agitation or retardation noted Speech: mostly clear, some aphasia noted (both expressive and receptive) Mood: good' Affect: congruent, bright, non labile SI: none HI: none VH/AH: no overt signs Delusions: none, may have confabulations Insight/judgment: impaired x 2. Memory/cog:alert, not oriented to place, situation, month or year. Diagnostics Vital Signs (24Hr): Vital Signs - 24 hr 01/06/24 09:53 01/06/24 20:00 01/07/24 08:55 Temperature 97.1 F Pulse Rate 100 84 83 Respiratory Rate 20 Blood Pressure 113/66 123/86 112/94 H Pulse Oximetry 94 Oxygen Delivery Method Room Air BMI result Body Mass Index 30.1 Labs 12/30/23 22:44 01/05/24 09:45 Labs: Laboratory Results - last 48 hr 01/05/24 01/05/24 01/05/24 09:45 11:25 16:32 Sodium 133 L Potassium 4.0 Chloride 99 Carbon Dioxide 22 Anion Gap 16 BUN 32 H Creatinine 1.96 H Estim Creat Clear Calc 37.5 Estimated GFR 33 POC Glucose 339 H 269 H Fasting Glucose 312 H Estimat Average Glucose 171 Hemoglobin A1c % 7.6 H Calcium 9.0 D Total Bilirubin 1.2 H AST 46 H ALT 25 Alkaline Phosphatase 94 Total Protein 7.8 Albumin 3.8 Triglycerides 93 Cholesterol 117 LDL Cholesterol, Calc 59 HDL Cholesterol 40 L 01/05/24 01/06/24 01/06/24 21:05 06:20 11:22 Sodium Potassium Chloride Carbon Dioxide Anion Gap BUN Creatinine Estim Creat Clear Calc Estimated GFR POC Glucose 245 H 168 H 266 H Fasting Glucose Estimat Average Glucose Hemoglobin A1c % Calcium Total Bilirubin AST ALT Alkaline Phosphatase Total Protein Albumin Triglycerides Cholesterol LDL Cholesterol, Calc HDL Cholesterol 01/06/24 01/06/24 01/07/24 16:38 20:19 06:29 Sodium Potassium Chloride Carbon Dioxide Anion Gap BUN Creatinine Estim Creat Clear Calc Estimated GFR POC Glucose 273 H 266 H 106 Fasting Glucose Estimat Average Glucose Hemoglobin A1c % Calcium Total Bilirubin AST ALT Alkaline Phosphatase Total Protein Albumin Triglycerides Cholesterol LDL Cholesterol, Calc HDL Cholesterol Imaging Radiology Impressions: ITS Impressions [facility] X-Ray 12/31/23 00:20 IMPRESSION: 1. No acute finding. 2. Mild lower lumbar disc degenerative change. Medications Medications Current Medications Acetaminophen (Acetaminophen 325 Mg Tablet) 650 mg PO Q6H PRN PRN Reason: Headache/Pain Mild Scale (1-3) Last Admin: 01/05/24 21:10 Dose: 650 mg Al Hydroxide/Mg Hydroxide (Magnesium Hydrox/Alum Hydrox 30 Ml Oral.Susp) 30 ml PO Q6H PRN PRN Reason: Heartburn/Nausea Ascorbic Acid (Ascorbic Acid 500 Mg Tablet) 1,000 mg PO DAILY [facility] Last Admin: 01/07/24 08:53 Dose: 1,000 mg Aspirin (Aspirin Enteric Coated 81 Mg Tablet.Dr) 81 mg PO DAILY [facility] Last Admin: 01/07/24 08:54 Dose: 81 mg Atorvastatin Calcium (Atorvastatin Calcium 80 Mg Tablet) 80 mg PO DAILY [facility] Last Admin: 01/07/24 08:55 Dose: 80 mg Donepezil HCl (Donepezil Hcl 5 Mg Tablet) 5 mg PO BEDTIME [facility] Last Admin: 01/06/24 20:35 Dose: 5 mg Finasteride (Finasteride 5 Mg Tablet) 5 mg PO DAILY [facility] Last Admin: 01/07/24 08:57 Dose: 5 mg Insulin Pump (Subcutaneous Insulin Pump) 1 each SUBCUT QIDACHS [facility] Last Admin: 01/07/24 07:50 Dose: 1 each Magnesium Hydroxide (Milk Of Magnesia 30 Ml Oral.Susp) 30 ml PO DAILY PRN PRN Reason: Constipation Melatonin (Melatonin 3 Mg Tablet) 6 mg PO BEDTIME [facility] Last Admin: 01/06/24 20:35 Dose: 6 mg Metoprolol Succinate (Metoprolol Succinate Er 25 Mg Tab.Er.24h) 25 mg PO DAILY [facility]; Protocol Last Admin: 01/07/24 08:55 Dose: 25 mg Pt Own (Novolog For (Insulin Pump)) 300 unit SUBCUT DAILY PRN PRN Reason: TO REFILL INSULIN PUMP Omeprazole (Omeprazole 20 Mg Capsule.) 20 mg PO DAILY [facility] Last Admin: 01/07/24 08:54 Dose: 20 mg Risperidone (Risperidone 1 Mg Tablet) 1 mg PO BEDTIME [facility] Last Admin: 01/06/24 20:35 Dose: 1 mg Tamsulosin HCl (Tamsulosin Hcl 0.4 Mg Capsule) 0.4 mg PO DAILY [facility] Last Admin: 01/07/24 08:55 Dose: 0.4 mg Trazodone HCl (Trazodone Hcl 50 Mg Tablet) 50 mg PO BEDTIME PRN PRN Reason: Insomnia Last Admin: 01/05/24 23:43 Dose: 50 mg Trazodone HCl (Trazodone Hcl 50 Mg Tablet) 50 mg PO BEDTIME [facility] Last Admin: 01/06/24 20:35 Dose: 50 mg Vitamin D (Cholecalciferol (Vitamin D3) 25 Mcg Tablet) 25 mcg PO DAILY [facility] Last Admin: 01/07/24 08:54 Dose: 25 mcg Allergies Allergies Allergy/AdvReac Type Severity Reaction Status Date / Time codeine Allergy Intermediate upset Verified 12/30/23 22:10 stomach Assessment & Plan Assessment & Plan (1) Alzheimer's dementia with behavioral disturbance: Status: Acute Code(s): G30.9 - Alzheimer's disease, unspecified; F02.818 - Dementia in other diseases classified elsewhere, unspecified severity, with other behavioral disturbance Plan Mr. Russell is a 78 year-old male with hx of AD who was brought by sister due to increase combative behaviors at night along with not sleeping most of the night. Sister reports more acute and rapid decline in past month or so. In the ED, amitriptyline was tapped off due to urinary retention, concern of increase confusion. No combative behaviors while in the ED. PLAN 01/05- scheduled trazodone at bedtime 50mg po qhs with melatonin 6mg po qhs. discuss with sister restarting aricept 5mg po qhs. Reason for continued inpatient stay Substantial Risk for: inability to function Time Spent With Patient Time: Total time managing care of this patient today ____ minutes.
--- NOTE | 2024-01-07 09:15 | P.PNPSI_ITS ---
Subjective Subjective Date of Service: 01/07/24 Reason For Visit: Combative Subjective Notes: Conditional Voluntary Healthcare Proxy: Yes Interim History: Pt slept through the night. Pt presents as pleasant, confused. BS much better controlled this morning. repeat bmp. He is pleasant on approach. confused, not delirious. No signs of psychosis or delusions. confabulations present. BUN is trending up, he is drinking fluids. No significant change in creatinine levels. Review of Systems Review of Systems Pertinent positives and negatives as stated in HPI Mental Status Exam Mental Status Exam Narrative: Appearance:wearing hospital gown, fair hygiene, in NAD Behavior: cooperative Psychomotor: no agitation or retardation noted Speech: mostly clear, some aphasia noted (both expressive and receptive) Mood: good' Affect: congruent, bright, non labile SI: none HI: none VH/AH: no overt signs Delusions: none, may have confabulations Insight/judgment: impaired x 2. Memory/cog:alert, not oriented to place, situation, month or year. Diagnostics Vital Signs (24Hr): Vital Signs - 24 hr 01/06/24 09:53 01/06/24 20:00 01/07/24 08:55 Temperature 97.1 F Pulse Rate 100 84 83 Respiratory Rate 20 Blood Pressure 113/66 123/86 112/94 H Pulse Oximetry 94 Oxygen Delivery Method Room Air BMI result Body Mass Index 30.1 Labs 12/30/23 22:44 01/07/24 16:14 Labs: Laboratory Results - last 48 hr 01/05/24 01/05/24 01/05/24 09:45 11:25 16:32 Sodium 133 L Potassium 4.0 Chloride 99 Carbon Dioxide 22 Anion Gap 16 BUN 32 H Creatinine 1.96 H Estim Creat Clear Calc 37.5 Estimated GFR 33 POC Glucose 339 H 269 H Fasting Glucose 312 H Estimat Average Glucose 171 Hemoglobin A1c % 7.6 H Calcium 9.0 D Total Bilirubin 1.2 H AST 46 H ALT 25 Alkaline Phosphatase 94 Total Protein 7.8 Albumin 3.8 Triglycerides 93 Cholesterol 117 LDL Cholesterol, Calc 59 HDL Cholesterol 40 L 01/05/24 01/06/24 01/06/24 21:05 06:20 11:22 Sodium Potassium Chloride Carbon Dioxide Anion Gap BUN Creatinine Estim Creat Clear Calc Estimated GFR POC Glucose 245 H 168 H 266 H Fasting Glucose Estimat Average Glucose Hemoglobin A1c % Calcium Total Bilirubin AST ALT Alkaline Phosphatase Total Protein Albumin Triglycerides Cholesterol LDL Cholesterol, Calc HDL Cholesterol 01/06/24 01/06/24 01/07/24 16:38 20:19 06:29 Sodium Potassium Chloride Carbon Dioxide Anion Gap BUN Creatinine Estim Creat Clear Calc Estimated GFR POC Glucose 273 H 266 H 106 Fasting Glucose Estimat Average Glucose Hemoglobin A1c % Calcium Total Bilirubin AST ALT Alkaline Phosphatase Total Protein Albumin Triglycerides Cholesterol LDL Cholesterol, Calc HDL Cholesterol Imaging Radiology Impressions: ITS Impressions [facility] X-Ray 12/31/23 00:20 IMPRESSION: 1. No acute finding. 2. Mild lower lumbar disc degenerative change. Medications Medications Current Medications Acetaminophen (Acetaminophen 325 Mg Tablet) 650 mg PO Q6H PRN PRN Reason: Headache/Pain Mild Scale (1-3) Last Admin: 01/05/24 21:10 Dose: 650 mg Al Hydroxide/Mg Hydroxide (Magnesium Hydrox/Alum Hydrox 30 Ml Oral.Susp) 30 ml PO Q6H PRN PRN Reason: Heartburn/Nausea Ascorbic Acid (Ascorbic Acid 500 Mg Tablet) 1,000 mg PO DAILY [facility] Last Admin: 01/07/24 08:53 Dose: 1,000 mg Aspirin (Aspirin Enteric Coated 81 Mg Tablet.Dr) 81 mg PO DAILY [facility] Last Admin: 01/07/24 08:54 Dose: 81 mg Atorvastatin Calcium (Atorvastatin Calcium 80 Mg Tablet) 80 mg PO DAILY [facility] Last Admin: 01/07/24 08:55 Dose: 80 mg Donepezil HCl (Donepezil Hcl 5 Mg Tablet) 5 mg PO BEDTIME [facility] Last Admin: 01/06/24 20:35 Dose: 5 mg Finasteride (Finasteride 5 Mg Tablet) 5 mg PO DAILY [facility] Last Admin: 01/07/24 08:57 Dose: 5 mg Insulin Pump (Subcutaneous Insulin Pump) 1 each SUBCUT QIDACHS [facility] Last Admin: 01/07/24 07:50 Dose: 1 each Magnesium Hydroxide (Milk Of Magnesia 30 Ml Oral.Susp) 30 ml PO DAILY PRN PRN Reason: Constipation Melatonin (Melatonin 3 Mg Tablet) 6 mg PO BEDTIME [facility] Last Admin: 01/06/24 20:35 Dose: 6 mg Metoprolol Succinate (Metoprolol Succinate Er 25 Mg Tab.Er.24h) 25 mg PO DAILY [facility]; Protocol Last Admin: 01/07/24 08:55 Dose: 25 mg Pt Own (Novolog For (Insulin Pump)) 300 unit SUBCUT DAILY PRN PRN Reason: TO REFILL INSULIN PUMP Omeprazole (Omeprazole 20 Mg Capsule.) 20 mg PO DAILY [facility] Last Admin: 01/07/24 08:54 Dose: 20 mg Risperidone (Risperidone 1 Mg Tablet) 1 mg PO BEDTIME [facility] Last Admin: 01/06/24 20:35 Dose: 1 mg Tamsulosin HCl (Tamsulosin Hcl 0.4 Mg Capsule) 0.4 mg PO DAILY [facility] Last Admin: 01/07/24 08:55 Dose: 0.4 mg Trazodone HCl (Trazodone Hcl 50 Mg Tablet) 50 mg PO BEDTIME PRN PRN Reason: Insomnia Last Admin: 01/05/24 23:43 Dose: 50 mg Trazodone HCl (Trazodone Hcl 50 Mg Tablet) 50 mg PO BEDTIME [facility] Last Admin: 01/06/24 20:35 Dose: 50 mg Vitamin D (Cholecalciferol (Vitamin D3) 25 Mcg Tablet) 25 mcg PO DAILY [facility] Last Admin: 01/07/24 08:54 Dose: 25 mcg Allergies Allergies Allergy/AdvReac Type Severity Reaction Status Date / Time codeine Allergy Intermediate upset Verified 12/30/23 22:10 stomach Assessment & Plan Assessment & Plan (1) Alzheimer's dementia with behavioral disturbance: Status: Acute Code(s): G30.9 - Alzheimer's disease, unspecified; F02.818 - Dementia in other diseases classified elsewhere, unspecified severity, with other behavioral disturbance Plan Mr. Russell is a 78 year-old male with hx of AD who was brought by sister due to increase combative behaviors at night along with not sleeping most of the night. Sister reports more acute and rapid decline in past month or so. In the ED, amitriptyline was tapped off due to urinary retention, concern of increase confusion. No combative behaviors while in the ED. PLAN 01/05- scheduled trazodone at bedtime 50mg po qhs with melatonin 6mg po qhs. discuss with sister restarting aricept 5mg po qhs. 01/06 continue tx. Reason for continued inpatient stay Substantial Risk for: inability to function Time Spent With Patient Time: Total time managing care of this patient today ____ minutes.
[2024-01-07 11:45] LABS: Glucose, Whole Blood 128 mg/dL (60-115)
[2024-01-07 16:51] LABS: Anion Gap 15 (12-20); Blood Urea Nitrogen 35 mg/dL (9-16); Calcium 9.7 mg/dL (8.4-10.2); Carbon Dioxide 26 mmol/L (22-29); Chloride 97 mmol/L (96-108); Creatinine Clr Calc Pharmacy 37.5; Estimated Glomerular Filt Rate 33; Glucose Random 231 mg/dL (60-115); Sodium 134 mmol/L (135-145)
[2024-01-07 16:56] LABS: Glucose, Whole Blood 232 mg/dL (60-115)
[2024-01-07 17:46] VITALS: BMI 28.7
[2024-01-07 19:56] VITALS: BP 120/68; PULSE 99; RESP 18; TEMP 36.2; O2SAT 96
[2024-01-07] MEDS: Melatonin 3 MG TABLET 6 MG PO (20:32)
[2024-01-07] MEDS: risperiDONE 1 MG TABLET PO (20:32)
[2024-01-07] MEDS: traZODone HCL 50 MG TABLET PO (20:32)
[2024-01-07] MEDS: Donepezil HCl 5 MG TABLET PO (20:32)
[2024-01-07 20:41] LABS: Glucose, Whole Blood 228 mg/dL (60-115)
[2024-01-08 06:37] LABS: Glucose, Whole Blood 200 mg/dL (60-115)
[2024-01-08 07:55] VITALS: BP 126/78; PULSE 92; RESP 18; TEMP 36.4; O2SAT 92
[2024-01-08 08:13] VITALS: BP 126/78; PULSE 92
[2024-01-08] MEDS: Atorvastatin Calcium 80 MG TABLET PO (08:13)
[2024-01-08] MEDS: Metoprolol Succinate ER 25 MG TAB.ER.24H PO (08:13)
[2024-01-08] MEDS: Finasteride 5 MG TABLET PO (08:13)
[2024-01-08] MEDS: Tamsulosin HCL 0.4 MG CAPSULE PO (08:13)
[2024-01-08] MEDS: Cholecalciferol (Vitamin D3) 25 MCG TABLET PO (08:13)
[2024-01-08] MEDS: Omeprazole 20 MG CAPSULE.DR PO (08:13)
[2024-01-08] MEDS: Aspirin Enteric Coated 81 MG TABLET.DR PO (08:13)
[2024-01-08] MEDS: Ascorbic Acid 500 MG TABLET 1000 MG PO (08:14)
--- NOTE | 2024-01-08 09:38 | HO.PSYCHPN ---
Subjective Subjective Date of Service: 01/08/24 Reason For Visit: Combative Subjective Notes: Conditional Voluntary Interim History: Pt slept through the night. Pt ambulating with walker. He is taking medications as prescribed. pump had sensor deactivated- BS high again. Decided to remove insulin pump while inpt and do lispro/lantus combination. We had family meeting today- discussed improvement in sleep and no combative behaviors. Although he has 24 hr/7 care in the home, his dementia has advanced and needs may be better taken care of in memory unit. We discussed referral to memory unit but also if long wait list may need to return home with additional nursing help in the home until they can secure placement. Review of Systems Review of Systems Pertinent positives and negatives as stated in HPI Mental Status Exam Mental Status Exam Narrative: Appearance:wearing hospital gown, fair hygiene, in NAD Behavior: cooperative Psychomotor: no agitation or retardation noted Speech: mostly clear, some aphasia noted (both expressive and receptive) Mood: good' Affect: congruent, bright, non labile SI: none HI: none VH/AH: no overt signs Delusions: none, may have confabulations Insight/judgment: impaired x 2. Memory/cog:alert, not oriented to place, situation, month or year. Diagnostics Vital Signs (24Hr): Vital Signs - 24 hr 01/07/24 19:56 01/08/24 08:13 Temperature 97.1 F Pulse Rate 99 92 Respiratory Rate 18 Blood Pressure 120/68 126/78 Pulse Oximetry 96 Oxygen Delivery Method Room Air BMI result Body Mass Index 28.7 Labs 12/30/23 22:44 01/07/24 16:14 Labs: Laboratory Results - last 48 hr 01/06/24 01/06/24 01/06/24 11:22 16:38 20:19 Sodium Potassium Chloride Carbon Dioxide Anion Gap BUN Creatinine Estim Creat Clear Calc Estimated GFR POC Glucose 266 H 273 H 266 H Random Glucose Calcium 01/07/24 01/07/24 01/07/24 06:29 11:36 16:14 Sodium 134 L Potassium 4.0 Chloride 97 Carbon Dioxide 26 Anion Gap 15 BUN 35 H Creatinine 1.96 H Estim Creat Clear Calc 37.5 Estimated GFR 33 POC Glucose 106 128 H Random Glucose 231 H Calcium 9.7 D 01/07/24 01/07/24 01/08/24 16:51 20:36 06:33 Sodium Potassium Chloride Carbon Dioxide Anion Gap BUN Creatinine Estim Creat Clear Calc Estimated GFR POC Glucose 232 H 228 H 200 H Random Glucose Calcium Imaging Radiology Impressions: ITS Impressions KUB X-Ray 12/31/23 00:20 IMPRESSION: 1. No acute finding. 2. Mild lower lumbar disc degenerative change. Medications Medications Current Medications Acetaminophen (Acetaminophen 325 Mg Tablet) 650 mg PO Q6H PRN PRN Reason: Headache/Pain Mild Scale (1-3) Last Admin: 01/05/24 21:10 Dose: 650 mg Al Hydroxide/Mg Hydroxide (Magnesium Hydrox/Alum Hydrox 30 Ml Oral.Susp) 30 ml PO Q6H PRN PRN Reason: Heartburn/Nausea Ascorbic Acid (Ascorbic Acid 500 Mg Tablet) 1,000 mg PO DAILY [facility] Last Admin: 01/08/24 08:14 Dose: 1,000 mg Aspirin (Aspirin Enteric Coated 81 Mg Tablet.) 81 mg PO DAILY [facility] Last Admin: 01/08/24 08:13 Dose: 81 mg Atorvastatin Calcium (Atorvastatin Calcium 80 Mg Tablet) 80 mg PO DAILY [facility] Last Admin: 01/08/24 08:13 Dose: 80 mg Donepezil HCl (Donepezil Hcl 5 Mg Tablet) 5 mg PO BEDTIME [facility] Last Admin: 01/07/24 20:32 Dose: 5 mg Finasteride (Finasteride 5 Mg Tablet) 5 mg PO DAILY [facility] Last Admin: 01/08/24 08:13 Dose: 5 mg Insulin Pump (Subcutaneous Insulin Pump) 1 each SUBCUT QIDACHS [facility] Last Admin: 01/07/24 21:26 Dose: 1 each Magnesium Hydroxide (Milk Of Magnesia 30 Ml Oral.Susp) 30 ml PO DAILY PRN PRN Reason: Constipation Melatonin (Melatonin 3 Mg Tablet) 6 mg PO BEDTIME [facility] Last Admin: 01/07/24 20:32 Dose: 6 mg Metoprolol Succinate (Metoprolol Succinate Er 25 Mg Tab.Er.24h) 25 mg PO DAILY [facility]; Protocol Last Admin: 01/08/24 08:13 Dose: 25 mg Pt Own (Novolog For (Insulin Pump)) 300 unit SUBCUT DAILY PRN PRN Reason: TO REFILL INSULIN PUMP Omeprazole (Omeprazole 20 Mg Capsule.) 20 mg PO DAILY [facility] Last Admin: 01/08/24 08:13 Dose: 20 mg Risperidone (Risperidone 1 Mg Tablet) 1 mg PO BEDTIME [facility] Last Admin: 01/07/24 20:32 Dose: 1 mg Tamsulosin HCl (Tamsulosin Hcl 0.4 Mg Capsule) 0.4 mg PO DAILY [facility] Last Admin: 01/08/24 08:13 Dose: 0.4 mg Trazodone HCl (Trazodone Hcl 50 Mg Tablet) 50 mg PO BEDTIME PRN PRN Reason: Insomnia Last Admin: 01/05/24 23:43 Dose: 50 mg Trazodone HCl (Trazodone Hcl 50 Mg Tablet) 50 mg PO BEDTIME [facility] Last Admin: 01/07/24 20:32 Dose: 50 mg Vitamin D (Cholecalciferol (Vitamin D3) 25 Mcg Tablet) 25 mcg PO DAILY [facility] Last Admin: 01/08/24 08:13 Dose: 25 mcg Allergies Allergies Allergy/AdvReac Type Severity Reaction Status Date / Time codeine Allergy Intermediate upset Verified 12/30/23 22:10 stomach Assessment & Plan Assessment & Plan (1) Alzheimer's dementia with behavioral disturbance: Status: Acute Code(s): G30.9 - Alzheimer's disease, unspecified; F02.818 - Dementia in other diseases classified elsewhere, unspecified severity, with other behavioral disturbance Plan Mr. Russell is a 78 year-old male with hx of AD who was brought by sister due to increase combative behaviors at night along with not sleeping most of the night. Sister reports more acute and rapid decline in past month or so. In the ED, amitriptyline was tapped off due to urinary retention, concern of increase confusion. No combative behaviors while in the ED. PLAN 01/05- scheduled trazodone at bedtime 50mg po qhs with melatonin 6mg po qhs. discuss with sister restarting aricept 5mg po qhs. 01/06 continue tx. 01/07 continue tx. removed insulin pump as not safe to manage in the hospital especially as pt unknowingly may stop it. Reason for continued inpatient stay Substantial Risk for: inability to function Time Spent With Patient Time: Total time managing care of this patient today ____ minutes.
[2024-01-08] MEDS: Subcutaneous Insulin Pump 1 EACH SUBCUT ×2 (09:52→11:55)
[2024-01-08 11:47] LABS: Glucose, Whole Blood 299 mg/dL (60-115)
[2024-01-08 14:28] LABS: Glucose, Whole Blood 296 mg/dL (60-115)
--- NOTE | 2024-01-08 14:57 | PC.NURSE ---
Per orders from Winter Haque, pulled Insulin pump at 1500, pt tolerated procedure will continue with sliding scale.
[2024-01-08 16:10] LABS: Glucose, Whole Blood 243 mg/dL (60-115)
[2024-01-08] MEDS: Insulin Lispro 100 UNIT/ML 3 ML VIAL SUBCUT ×2 (16:23→20:21)
[2024-01-08 20:00] VITALS: BP 111/69; PULSE 98; TEMP 36.3; O2SAT 99
[2024-01-08 20:16] LABS: Glucose, Whole Blood 181 mg/dL (60-115)
[2024-01-08] MEDS: Donepezil HCl 5 MG TABLET PO (20:21)
[2024-01-08] MEDS: Melatonin 3 MG TABLET 6 MG PO (20:21)
[2024-01-08] MEDS: traZODone HCL 50 MG TABLET PO ×2 (20:21→22:47)
[2024-01-08] MEDS: risperiDONE 1 MG TABLET PO (20:21)
[2024-01-08] MEDS: Acetaminophen 325 MG TABLET 650 MG PO (22:46)
[2024-01-09 06:47] LABS: Glucose, Whole Blood 247 mg/dL (60-115)
[2024-01-09 08:00] VITALS: BP 114/83; PULSE 84; RESP 18; TEMP 36.3; O2SAT 94
[2024-01-09] MEDS: Insulin Lispro 100 UNIT/ML 3 ML VIAL SUBCUT ×4 (08:39→20:50)
[2024-01-09] MEDS: Insulin Glargine,Hum.rec.anlog 100 UNIT/ML 10 ML VIAL 25 UNIT SUBCUT (08:40)
[2024-01-09] MEDS: Metoprolol Succinate ER 25 MG TAB.ER.24H PO (08:41)
[2024-01-09] MEDS: Cholecalciferol (Vitamin D3) 25 MCG TABLET PO (08:41)
[2024-01-09] MEDS: Aspirin Enteric Coated 81 MG TABLET.DR PO (08:41)
[2024-01-09] MEDS: Omeprazole 20 MG CAPSULE.DR PO (08:41)
[2024-01-09] MEDS: Finasteride 5 MG TABLET PO (08:41)
[2024-01-09] MEDS: Tamsulosin HCL 0.4 MG CAPSULE PO (08:41)
[2024-01-09] MEDS: Ascorbic Acid 500 MG TABLET 1000 MG PO (08:41)
[2024-01-09] MEDS: Atorvastatin Calcium 80 MG TABLET PO (08:41)
[2024-01-09 11:15] LABS: Glucose, Whole Blood 205 mg/dL (60-115)
[2024-01-09] MEDS: Docusate Sodium 100 MG CAPSULE PO ×2 (11:23→20:35)
[2024-01-09] MEDS: polyethylene glycoL 3350 17 GM POWD.PACK PO (11:23)
--- NOTE | 2024-01-09 11:48 | PM.EVENT ---
Event Note Date of Service: 01/09/24 Event Note: Consult placed for severe constipation . Discussed with nursing and attempted to obtain history from pt who is a poor historian. It is unclear when the patient last moved his bowels. There are no documented BM's. Abd is soft, nontender. There has been no nausea or vomiting. At this point would recommend monitoring I&O closely, document BM's. Will start on docusate and colace but would recommend dc'ing colace if bms become soft or watery. Signing off at this time. Time Spent With Patient Time: Total time managing care of this patient today ____ minutes.
--- NOTE | 2024-01-09 13:17 | PC.NURSE ---
Patient on the toilet after liunch trying to have a bowl movement. He said that he is in a lot of pain and needs an enema. No visible stool in rectum. Chetna REID updated. New order for STAT KUB, patient updated.
[2024-01-09] MEDS: Acetaminophen 325 MG TABLET 650 MG PO (14:16)
--- NOTE | 2024-01-09 14:33 | PC.NURSE ---
Patient complaining about 10/10 rectal pain. KUB reading still pending. Seen by Judith Haddad. Chetna REID updated regarding rectal pain, will only give Tylenol for now. She will see patient again. Patient is very confused. He has positive bowel sound all 4 quadrants, abdomen is soft, non distended and non tender. Old bruising both posterior lower legs, left > right seen while toileting patient from a previous fall at home.
--- NOTE | 2024-01-09 15:12 | PC.NURSE ---
Addendum entered by Sera Avelar RN 01/09/24 15:18: Patient's sister also given the hot metal charger for the pump and extra supplies that were in the nurses station today. Original Note: Sister Megan visited today. Patient's insulin pump taken home by his sister Megan. Sister also updated regarding constipation and said he had a history of it and was on stool softeners until he started having diarrhea.
[2024-01-09] MEDS: Sodium Phosphate,Mono-Dibasic 133 ML ENEMA PR (16:05)
[2024-01-09 16:29] LABS: Glucose, Whole Blood 215 mg/dL (60-115)
--- NOTE | 2024-01-09 16:42 | PC.NURSE ---
First fleet enema given without results. Daren REID and Judith Ceja [employer] updated. Will give lactulose 20 and a soap suds enema.
[2024-01-09] MEDS: Lactulose 20 GM/30 ML SOLUTION PO (16:52)
--- NOTE | 2024-01-09 17:42 | PC.NURSE ---
Lactulose 20gm PO and 100oml soapsuds enema given as ordered at 171, no results as of 1742. Chetna Weaver updated.
--- NOTE | 2024-01-09 17:51 | PC.NURSE ---
Patient with dark brown fluid in toilet and on bed after soapsuds enema. No visible stool. Patient now vomiting clear light orange liquid substance at the bedside.He stated that the pain is unbearable. Chetna REID and Judith Haddad NP updated, Chetna to ask surgery to see him. Hilton Catheter output 500 ml clear dark yellow urine.
--- NOTE | 2024-01-09 18:31 | PC.NURSE ---
Patient seen by Dr. Mai and was unable to tolerate procedure to dis impact patient. Chetna REID updated and we will just continue PO medication for now. He will remain on a clear liquid diet.
--- NOTE | 2024-01-09 18:35 | HO.PSYCHPN ---
Subjective Subjective Date of Service: 01/09/24 Reason For Visit: Combative Interim History: Pt reporting significant pain when trying to have bowel movement; pt seen by hospitalist; He is anxious about constiption; started on PO meds ; KUB showed constipation; Blood sugars running high managed with sliding scale. slept through the night. Pt not ambulating due to pain. he has 24 hr/7 care in the home, his dementia has advanced and needs may be better taken care of in memory unit. discharg plan includes referral to memory unit but also if long wait list may need to return home with additional nursing help in the home until they can secure placement. Medication Compliance: Yes Side effects from medications: No Attending Groups: No Review of Systems Acute medical concerns: No constipation Medical Review of Systems: unchanged Review of Systems Review of Systems Pertinent positives and negatives as stated in HPI Mental Status Exam Mental Status Exam Narrative: Appearance:dressed casually, fair hygiene Behavior: cooperative Psychomotor: anxious, agitation Speech: mostly clear, some aphasia noted (both expressive and receptive) yelling at times Mood: irritable Affect: congruent, labile SI: none HI: none VH/AH: no overt signs Delusions: none, may have confabulations Insight/judgment: impaired x 2. Memory/cog:alert, not oriented to place, situation, month or year. Diagnostics Vital Signs (24Hr): Vital Signs - 24 hr 01/08/24 20:00 01/09/24 08:00 Temperature 97.3 F 97.3 F Pulse Rate 98 84 Respiratory Rate 18 Blood Pressure 111/69 114/83 Pulse Oximetry 99 94 Oxygen Delivery Method Room Air Room Air BMI result Body Mass Index 28.7 Labs 12/30/23 22:44 01/07/24 16:14 Labs: Laboratory Results - last 48 hr 01/07/24 01/08/24 01/08/24 20:36 06:33 11:44 POC Glucose 228 H 200 H 299 H 01/08/24 01/08/24 01/08/24 14:24 16:07 19:59 POC Glucose 296 H 243 H 181 H 01/09/24 01/09/24 01/09/24 06:40 11:11 16:24 POC Glucose 247 H 205 H 215 H Imaging Radiology Impressions: ITS Impressions KUB X-Ray 12/31/23 00:20 IMPRESSION: 1. No acute finding. 2. Mild lower lumbar disc degenerative change. KUB X-Ray 01/09/24 13:37 IMPRESSION: Increasing severe constipation. Dilated large bowel suggestive of secondary obstruction/obstipation. Medications Medications Current Medications Acetaminophen (Acetaminophen 325 Mg Tablet) 650 mg PO Q6H PRN PRN Reason: Headache/Pain Mild Scale (1-3) Last Admin: 01/09/24 14:16 Dose: 650 mg Al Hydroxide/Mg Hydroxide (Magnesium Hydrox/Alum Hydrox 30 Ml Oral.Susp) 30 ml PO Q6H PRN PRN Reason: Heartburn/Nausea Ascorbic Acid (Ascorbic Acid 500 Mg Tablet) 1,000 mg PO DAILY [facility] Last Admin: 01/09/24 08:41 Dose: 1,000 mg Aspirin (Aspirin Enteric Coated 81 Mg Tablet.) 81 mg PO DAILY [facility] Last Admin: 01/09/24 08:41 Dose: 81 mg Atorvastatin Calcium (Atorvastatin Calcium 80 Mg Tablet) 80 mg PO DAILY [facility] Last Admin: 01/09/24 08:41 Dose: 80 mg Docusate Sodium (Docusate Sodium 100 Mg Capsule) 100 mg PO BID [facility] Last Admin: 01/09/24 11:23 Dose: 100 mg Donepezil HCl (Donepezil Hcl 5 Mg Tablet) 5 mg PO BEDTIME [facility] Last Admin: 01/08/24 20:21 Dose: 5 mg Finasteride (Finasteride 5 Mg Tablet) 5 mg PO DAILY [facility] Last Admin: 01/09/24 08:41 Dose: 5 mg Insulin Glargine (Insulin Glargine,Hum.Rec.Anlog 100 Unit/Ml 10 Ml Vial) 25 unit SUBCUT DAILY [facility] Last Admin: 01/09/24 08:40 Dose: 25 unit Insulin Human Lispro (Insulin Lispro 100 Unit/Ml 3 Ml Vial) 0 unit SUBCUT QIDACHS [facility]; Protocol Last Admin: 01/09/24 16:33 Dose: 4 unit Magnesium Hydroxide (Milk Of Magnesia 30 Ml Oral.Susp) 30 ml PO DAILY PRN PRN Reason: Constipation Melatonin (Melatonin 3 Mg Tablet) 6 mg PO BEDTIME [facility] Last Admin: 01/08/24 20:21 Dose: 6 mg Metoprolol Succinate (Metoprolol Succinate Er 25 Mg Tab.Er.24h) 25 mg PO DAILY [facility]; Protocol Last Admin: 01/09/24 08:41 Dose: 25 mg Omeprazole (Omeprazole 20 Mg Capsule.) 20 mg PO DAILY [facility] Last Admin: 01/09/24 08:41 Dose: 20 mg Polyethylene Glycol (Polyethylene Glycol 3350 17 Gm Powd.Pack) 17 gm PO DAILY [facility] Last Admin: 01/09/24 11:23 Dose: 17 gm Risperidone (Risperidone 1 Mg Tablet) 1 mg PO BEDTIME [facility] Last Admin: 01/08/24 20:21 Dose: 1 mg Tamsulosin HCl (Tamsulosin Hcl 0.4 Mg Capsule) 0.4 mg PO DAILY [facility] Last Admin: 01/09/24 08:41 Dose: 0.4 mg Trazodone HCl (Trazodone Hcl 50 Mg Tablet) 50 mg PO BEDTIME PRN PRN Reason: Insomnia Last Admin: 01/08/24 22:47 Dose: 50 mg Trazodone HCl (Trazodone Hcl 50 Mg Tablet) 50 mg PO BEDTIME [facility] Last Admin: 01/08/24 20:21 Dose: 50 mg Vitamin D (Cholecalciferol (Vitamin D3) 25 Mcg Tablet) 25 mcg PO DAILY [facility] Last Admin: 01/09/24 08:41 Dose: 25 mcg Allergies Allergies Allergy/AdvReac Type Severity Reaction Status Date / Time codeine Allergy Intermediate upset Verified 12/30/23 22:10 stomach Assessment & Plan Assessment & Plan (1) Alzheimer's dementia with behavioral disturbance: Status: Acute Code(s): G30.9 - Alzheimer's disease, unspecified; F02.818 - Dementia in other diseases classified elsewhere, unspecified severity, with other behavioral disturbance Plan Mr. Russell is a 78 year-old male with hx of AD who was brought by sister due to increase combative behaviors at night along with not sleeping most of the night. Sister reports more acute and rapid decline in past month or so. In the ED, amitriptyline was tapped off due to urinary retention, concern of increase confusion. No combative behaviors while in the ED. PLAN 01/05- scheduled trazodone at bedtime 50mg po qhs with melatonin 6mg po qhs. discuss with sister restarting aricept 5mg po qhs. 01/06 continue tx. 01/07 continue tx. removed insulin pump as not safe to manage in the hospital especially as pt unknowingly may stop it. 01/09/24 continue tx plan; consult with hospitlaist re: management of severe constipation Patient educated on: diagnosis and therapeutic strategies Informed Consent: understands and further education needed Reason for continued inpatient stay Substantial Risk for: inability to function, rapid decompensation and med/psych decompensation Time Spent With Patient Time: Total time managing care of this patient today ____ minutes.
[2024-01-09 20:00] VITALS: BP 158/92; PULSE 100; RESP 18; TEMP 36.2; O2SAT 97
[2024-01-09] MEDS: Melatonin 3 MG TABLET 6 MG PO (20:35)
[2024-01-09] MEDS: risperiDONE 1 MG TABLET PO (20:35)
[2024-01-09] MEDS: Donepezil HCl 5 MG TABLET PO (20:35)
[2024-01-09] MEDS: traZODone HCL 50 MG TABLET PO (20:36)
[2024-01-09 21:04] LABS: Glucose, Whole Blood 202 mg/dL (60-115)
[2024-01-10] MEDS: Acetaminophen 325 MG TABLET 650 MG PO ×2 (02:02→09:13)
[2024-01-10] MEDS: traZODone HCL 50 MG TABLET PO ×2 (02:02→20:51)
[2024-01-10 06:17] LABS: Glucose, Whole Blood 216 mg/dL (60-115)
[2024-01-10 07:51] VITALS: BP 129/79; PULSE 98; RESP 18; TEMP 36.2; O2SAT 96
[2024-01-10] MEDS: Insulin Lispro 100 UNIT/ML 3 ML VIAL SUBCUT ×4 (08:24→20:52)
[2024-01-10] MEDS: Insulin Glargine,Hum.rec.anlog 100 UNIT/ML 10 ML VIAL 25 UNIT SUBCUT (08:27)
[2024-01-10] MEDS: Omeprazole 20 MG CAPSULE.DR PO (08:28)
[2024-01-10] MEDS: Atorvastatin Calcium 80 MG TABLET PO (08:28)
[2024-01-10] MEDS: Docusate Sodium 100 MG CAPSULE PO (08:28)
[2024-01-10] MEDS: Metoprolol Succinate ER 25 MG TAB.ER.24H PO (08:28)
[2024-01-10] MEDS: polyethylene glycoL 3350 17 GM POWD.PACK PO (08:28)
[2024-01-10] MEDS: Finasteride 5 MG TABLET PO (08:28)
[2024-01-10] MEDS: Cholecalciferol (Vitamin D3) 25 MCG TABLET PO (08:28)
[2024-01-10] MEDS: Ascorbic Acid 500 MG TABLET 1000 MG PO (08:28)
[2024-01-10] MEDS: Tamsulosin HCL 0.4 MG CAPSULE PO (08:29)
[2024-01-10] MEDS: Aspirin Enteric Coated 81 MG TABLET.DR PO (08:29)
--- NOTE | 2024-01-10 10:02 | PM.EVENT ---
Event Note Date of Service: 01/10/24 Event Note: Pt with soft stool overnight. Abd soft, nontender. NO ongoing nausea or vomiting. KUB yesterday negative for SBO, reviewed by general surgery. Received fleet enema, SSE. Continue lactulose 20g BID and miralax. Goal 2-3 loose stools. Will check in tomorrow. If any thing changes with clinical presentation including severe pain on abd exam, nausea, vomiting, diarrhea , please do not hesitate to reach out. Would continue clear liquid diet until tomorrow Time Spent With Patient Time: Total time managing care of this patient today ____ minutes.
[2024-01-10] MEDS: Lactulose 20 GM/30 ML SOLUTION PO ×2 (10:35→20:52)
--- NOTE | 2024-01-10 10:40 | PC.NURSE ---
Patient complaining of 10/10 rectal pain. Tylenol given secondary to constipation, stronger medication is not available. Patient has allergy to codeine. He had had loose stools all night and reported having a small formed bowel movement earlier today. Chetna REID called and updated and [place] text about rectal pain/bowel status. No nausea or vomiting this morning. Hilton catheter is patent draining clear dark yellow urine. Patient is resting in bed. 1:1 at bedside.
[2024-01-10 11:21] LABS: Glucose, Whole Blood 234 mg/dL (60-115)
[2024-01-10] MEDS: Ibuprofen 600 MG TABLET PO ×2 (11:47→17:48)
--- NOTE | 2024-01-10 11:51 | PC.NURSE ---
Per Chetna Weaver, Motrin 600mg PO every 6 hours ordered for pain since Tylenol is not working and patient is still somewhat constipated. Lactulose 20 gm PO BID also ordered and given. Motrin 600mg administered at 1148, effect pending.
--- NOTE | 2024-01-10 14:46 | PC.NURSE ---
After the first soap suds enema the patient went back to the bathroom and had a moderate amount of hard stool evacuated from his rectum. An order was obtained to repeat the soap suds enema. Another enema was given after lunch with dark brown liquid return and a small amount of putty like stool . The patient went to the toilet and another large hard ball of stool was evacuated. The patient is having trouble bearing down. Patient's sister Megan called and updated. The patient is back in bed resting. Clear liquids encouraged.
[2024-01-10 16:18] LABS: Glucose, Whole Blood 157 mg/dL (60-115)
--- NOTE | 2024-01-10 16:50 | HO.PSYCHPN ---
Subjective Subjective Date of Service: 01/10/24 Reason For Visit: Combative Interim History: Pt still reporting significant pain when trying to have bowel movement;he is having some relief from enemas; pt seen by hospitalist;Blood sugars running high managed with sliding scale. slept through the night. Pt not ambulating due to pain. he has 24 hr/7 care in the home, his dementia has advanced and needs may be better taken care of in memory unit. discharge plan includes referral to memory unit Medication Compliance: Yes Side effects from medications: No Attending Groups: Intermittent Review of Systems Medical Review of Systems: unchanged Review of Systems Review of Systems Pertinent positives and negatives as stated in HPI Mental Status Exam Mental Status Exam Narrative: Appearance:dressed casually, fair hygiene Behavior: cooperative Psychomotor: anxious, agitation Speech: mostly clear, some aphasia noted (both expressive and receptive) yelling at times Mood: irritable Affect: congruent, labile SI: none HI: none VH/AH: no overt signs Delusions: none, may have confabulations Insight/judgment: impaired x 2. Memory/cog:alert, not oriented to place, situation, month or year. Diagnostics Vital Signs (24Hr): Vital Signs - 24 hr 01/09/24 20:00 01/10/24 07:51 Temperature 97.2 F 97.1 F Pulse Rate 100 98 Respiratory Rate 18 18 Blood Pressure 158/92 H 129/79 Pulse Oximetry 97 96 Oxygen Delivery Method Room Air Room Air BMI result Body Mass Index 28.7 Labs 12/30/23 22:44 01/07/24 16:14 Labs: Laboratory Results - last 48 hr 01/08/24 01/09/24 01/09/24 19:59 06:40 11:11 POC Glucose 181 H 247 H 205 H 01/09/24 01/09/24 01/10/24 16:24 20:34 06:11 POC Glucose 215 H 202 H 216 H 01/10/24 01/10/24 11:17 16:13 POC Glucose 234 H 157 H Imaging Radiology Impressions: ITS Impressions KUB X-Ray 12/31/23 00:20 IMPRESSION: 1. No acute finding. 2. Mild lower lumbar disc degenerative change. KUB X-Ray 01/09/24 13:37 IMPRESSION: Increasing severe constipation. Dilated large bowel suggestive of secondary obstruction/obstipation. Medications Medications Current Medications Acetaminophen (Acetaminophen 325 Mg Tablet) 650 mg PO Q6H PRN PRN Reason: Headache/Pain Mild Scale (1-3) Last Admin: 01/10/24 09:13 Dose: 650 mg Al Hydroxide/Mg Hydroxide (Magnesium Hydrox/Alum Hydrox 30 Ml Oral.Susp) 30 ml PO Q6H PRN PRN Reason: Heartburn/Nausea Ascorbic Acid (Ascorbic Acid 500 Mg Tablet) 1,000 mg PO DAILY [facility] Last Admin: 01/10/24 08:28 Dose: 1,000 mg Aspirin (Aspirin Enteric Coated 81 Mg Tablet.) 81 mg PO DAILY [facility] Last Admin: 01/10/24 08:29 Dose: 81 mg Atorvastatin Calcium (Atorvastatin Calcium 80 Mg Tablet) 80 mg PO DAILY [facility] Last Admin: 01/10/24 08:28 Dose: 80 mg Donepezil HCl (Donepezil Hcl 5 Mg Tablet) 5 mg PO BEDTIME [facility] Last Admin: 01/09/24 20:35 Dose: 5 mg Finasteride (Finasteride 5 Mg Tablet) 5 mg PO DAILY [facility] Last Admin: 01/10/24 08:28 Dose: 5 mg Ibuprofen (Ibuprofen 600 Mg Tablet) 600 mg PO Q6H PRN PRN Reason: Pain, Mild (Pain Scale 1-3) Last Admin: 01/10/24 11:47 Dose: 600 mg Insulin Glargine (Insulin Glargine,Hum.Rec.Anlog 100 Unit/Ml 10 Ml Vial) 25 unit SUBCUT DAILY [facility] Last Admin: 01/10/24 08:27 Dose: 25 unit Insulin Human Lispro (Insulin Lispro 100 Unit/Ml 3 Ml Vial) 0 unit SUBCUT QIDACHS [facility]; Protocol Last Admin: 01/10/24 16:23 Dose: 2 unit Lactulose (Lactulose 20 Gm/30 Ml Solution) 20 gm PO BID [facility] Last Admin: 01/10/24 10:35 Dose: 20 gm Magnesium Hydroxide (Milk Of Magnesia 30 Ml Oral.Susp) 30 ml PO DAILY PRN PRN Reason: Constipation Melatonin (Melatonin 3 Mg Tablet) 6 mg PO BEDTIME [facility] Last Admin: 01/09/24 20:35 Dose: 6 mg Metoprolol Succinate (Metoprolol Succinate Er 25 Mg Tab.Er.24h) 25 mg PO DAILY [facility]; Protocol Last Admin: 01/10/24 08:28 Dose: 25 mg Omeprazole (Omeprazole 20 Mg Capsule.) 20 mg PO DAILY [facility] Last Admin: 01/10/24 08:28 Dose: 20 mg Polyethylene Glycol (Polyethylene Glycol 3350 17 Gm Powd.Pack) 17 gm PO DAILY [facility] Last Admin: 01/10/24 08:28 Dose: 17 gm Risperidone (Risperidone 1 Mg Tablet) 1 mg PO BEDTIME [facility] Last Admin: 01/09/24 20:35 Dose: 1 mg Tamsulosin HCl (Tamsulosin Hcl 0.4 Mg Capsule) 0.4 mg PO DAILY [facility] Last Admin: 01/10/24 08:29 Dose: 0.4 mg Trazodone HCl (Trazodone Hcl 50 Mg Tablet) 50 mg PO BEDTIME PRN PRN Reason: Insomnia Last Admin: 01/10/24 02:02 Dose: 50 mg Trazodone HCl (Trazodone Hcl 50 Mg Tablet) 50 mg PO BEDTIME [facility] Last Admin: 01/09/24 20:36 Dose: 50 mg Vitamin D (Cholecalciferol (Vitamin D3) 25 Mcg Tablet) 25 mcg PO DAILY [facility] Last Admin: 01/10/24 08:28 Dose: 25 mcg Allergies Allergies Allergy/AdvReac Type Severity Reaction Status Date / Time codeine Allergy Intermediate upset Verified 12/30/23 22:10 stomach Assessment & Plan Assessment & Plan (1) Alzheimer's dementia with behavioral disturbance: Status: Acute Code(s): G30.9 - Alzheimer's disease, unspecified; F02.818 - Dementia in other diseases classified elsewhere, unspecified severity, with other behavioral disturbance Plan Mr. Russell is a 78 year-old male with hx of AD who was brought by sister due to increase combative behaviors at night along with not sleeping most of the night. Sister reports more acute and rapid decline in past month or so. In the ED, amitriptyline was tapped off due to urinary retention, concern of increase confusion. No combative behaviors while in the ED. PLAN 01/05- scheduled trazodone at bedtime 50mg po qhs with melatonin 6mg po qhs. discuss with sister restarting aricept 5mg po qhs. 01/06 continue tx. 01/07 continue tx. removed insulin pump as not safe to manage in the hospital especially as pt unknowingly may stop it. 01/09/24 continue tx plan; consult with hospitlaist re: management of severe constipation 01/09 continue current tx plan Reason for continued inpatient stay Substantial Risk for: inability to function and rapid decompensation Time Spent With Patient Time: Total time managing care of this patient today ____ minutes.
--- NOTE | 2024-01-10 17:55 | PC.NURSE ---
Patient up on the toilet trying to move his bowel again. Complaining of pain 10/10, Motrin 600mg given PO at 1748.
--- NOTE | 2024-01-10 18:59 | PC.NURSE ---
12 hour Hilton Catheter output 300cc clear tea urine. Patient ripped Hilton catheter securement device off, catheter secured with tape.
[2024-01-10 20:00] VITALS: BP 134/83; PULSE 93; RESP 18; TEMP 36.3; O2SAT 99
[2024-01-10 20:19] LABS: Glucose, Whole Blood 158 mg/dL (60-115)
[2024-01-10] MEDS: Donepezil HCl 5 MG TABLET PO (20:51)
[2024-01-10] MEDS: risperiDONE 1 MG TABLET PO (20:51)
[2024-01-10] MEDS: Melatonin 3 MG TABLET 6 MG PO (20:51)
[2024-01-11 06:39] LABS: Glucose, Whole Blood 131 mg/dL (60-115)
--- NOTE | 2024-01-11 07:06 | PC.NURSE ---
Patient had two bowel movements during shift, reported feeling much better afterwards, no c/o pain through shift, slept the whole night. F/C output 850 ml of clear yellow urine.
[2024-01-11 07:57] VITALS: BP 106/71; PULSE 99; RESP 18; TEMP 35.7; O2SAT 97
[2024-01-11 09:22] VITALS: BP 106/71; PULSE 99
[2024-01-11] MEDS: Lactulose 20 GM/30 ML SOLUTION PO ×2 (09:22→20:51)
[2024-01-11] MEDS: Ascorbic Acid 500 MG TABLET 1000 MG PO (09:22)
[2024-01-11] MEDS: Metoprolol Succinate ER 25 MG TAB.ER.24H PO (09:22)
[2024-01-11] MEDS: polyethylene glycoL 3350 17 GM POWD.PACK PO (09:22)
[2024-01-11] MEDS: Omeprazole 20 MG CAPSULE.DR PO (09:23)
[2024-01-11] MEDS: Cholecalciferol (Vitamin D3) 25 MCG TABLET PO (09:23)
[2024-01-11] MEDS: Tamsulosin HCL 0.4 MG CAPSULE PO (09:23)
[2024-01-11] MEDS: Aspirin Enteric Coated 81 MG TABLET.DR PO (09:23)
[2024-01-11] MEDS: Insulin Glargine,Hum.rec.anlog 100 UNIT/ML 10 ML VIAL 25 UNIT SUBCUT (09:23)
[2024-01-11] MEDS: Atorvastatin Calcium 80 MG TABLET PO (09:23)
[2024-01-11] MEDS: Finasteride 5 MG TABLET PO (09:23)
--- NOTE | 2024-01-11 09:28 | PM.EVENT ---
Event Note Date of Service: 01/11/24 Event Note: Pt moving his bowels. Symptoms improved. Continue with current bowel regimen. Limit the use of anticholinergic medication if possible Thank you for allowing me to participate in this consult. Signing off at this time. Please do not hesitate to call for further questions or for any acute medical issues. Time Spent With Patient Time: Total time managing care of this patient today ____ minutes.
[2024-01-11 11:11] LABS: Glucose, Whole Blood 149 mg/dL (60-115)
--- NOTE | 2024-01-11 14:54 | HO.PSYCHPN ---
Subjective Subjective Date of Service: 01/11/24 Reason For Visit: Combative Subjective Notes: Conditional Voluntary Healthcare Proxy: Yes Interim History: Pt slept through the night. He has had more regular BM. During the day, he was mostly in bed, decline to stay out or participate in any other activity. Somewhat irritable when encouraged to stay up. Will continue to monitor constipation, labs, oral intake. VS stable. Diagnostics Vital Signs (24Hr): Vital Signs - 24 hr 01/10/24 20:00 01/11/24 07:57 01/11/24 09:22 Temperature 97.4 F 96.3 F L Pulse Rate 93 99 99 Respiratory Rate 18 18 Blood Pressure 134/83 106/71 106/71 Pulse Oximetry 99 97 Oxygen Delivery Method Room Air Room Air BMI result Body Mass Index 28.7 Labs 12/30/23 22:44 01/07/24 16:14 Labs: Laboratory Results - last 48 hr 01/09/24 01/09/24 01/10/24 16:24 20:34 06:11 POC Glucose 215 H 202 H 216 H 01/10/24 01/10/24 01/10/24 11:17 16:13 20:08 POC Glucose 234 H 157 H 158 H 01/11/24 01/11/24 06:33 11:06 POC Glucose 131 H 149 H Imaging Radiology Impressions: ITS Impressions KUB X-Ray 12/31/23 00:20 IMPRESSION: 1. No acute finding. 2. Mild lower lumbar disc degenerative change. KUB X-Ray 01/09/24 13:37 IMPRESSION: Increasing severe constipation. Dilated large bowel suggestive of secondary obstruction/obstipation. Medications Medications Current Medications Acetaminophen (Acetaminophen 325 Mg Tablet) 650 mg PO Q6H PRN PRN Reason: Headache/Pain Mild Scale (1-3) Last Admin: 01/10/24 09:13 Dose: 650 mg Al Hydroxide/Mg Hydroxide (Magnesium Hydrox/Alum Hydrox 30 Ml Oral.Susp) 30 ml PO Q6H PRN PRN Reason: Heartburn/Nausea Ascorbic Acid (Ascorbic Acid 500 Mg Tablet) 1,000 mg PO DAILY [facility] Last Admin: 01/11/24 09:22 Dose: 1,000 mg Aspirin (Aspirin Enteric Coated 81 Mg Tablet.Dr) 81 mg PO DAILY [facility] Last Admin: 01/11/24 09:23 Dose: 81 mg Atorvastatin Calcium (Atorvastatin Calcium 80 Mg Tablet) 80 mg PO DAILY [facility] Last Admin: 01/11/24 09:23 Dose: 80 mg Donepezil HCl (Donepezil Hcl 5 Mg Tablet) 5 mg PO BEDTIME [facility] Last Admin: 01/10/24 20:51 Dose: 5 mg Finasteride (Finasteride 5 Mg Tablet) 5 mg PO DAILY [facility] Last Admin: 01/11/24 09:23 Dose: 5 mg Ibuprofen (Ibuprofen 600 Mg Tablet) 600 mg PO Q6H PRN PRN Reason: Pain, Mild (Pain Scale 1-3) Last Admin: 01/10/24 17:48 Dose: 600 mg Insulin Glargine (Insulin Glargine,Hum.Rec.Anlog 100 Unit/Ml 10 Ml Vial) 25 unit SUBCUT DAILY [facility] Last Admin: 01/11/24 09:23 Dose: 25 unit Insulin Human Lispro (Insulin Lispro 100 Unit/Ml 3 Ml Vial) 0 unit SUBCUT QIDACHS [facility]; Protocol Last Admin: 01/11/24 11:09 Dose: Not Given Lactulose (Lactulose 20 Gm/30 Ml Solution) 20 gm PO BID [facility] Last Admin: 01/11/24 09:22 Dose: 20 gm Magnesium Hydroxide (Milk Of Magnesia 30 Ml Oral.Susp) 30 ml PO DAILY PRN PRN Reason: Constipation Melatonin (Melatonin 3 Mg Tablet) 6 mg PO BEDTIME [facility] Last Admin: 01/10/24 20:51 Dose: 6 mg Metoprolol Succinate (Metoprolol Succinate Er 25 Mg Tab.Er.24h) 25 mg PO DAILY [facility]; Protocol Last Admin: 01/11/24 09:22 Dose: 25 mg Omeprazole (Omeprazole 20 Mg Capsule.Dr) 20 mg PO DAILY [facility] Last Admin: 01/11/24 09:23 Dose: 20 mg Polyethylene Glycol (Polyethylene Glycol 3350 17 Gm Powd.Pack) 17 gm PO DAILY [facility] Last Admin: 01/11/24 09:22 Dose: 17 gm Risperidone (Risperidone 1 Mg Tablet) 1 mg PO BEDTIME [facility] Last Admin: 01/10/24 20:51 Dose: 1 mg Tamsulosin HCl (Tamsulosin Hcl 0.4 Mg Capsule) 0.4 mg PO DAILY [facility] Last Admin: 01/11/24 09:23 Dose: 0.4 mg Trazodone HCl (Trazodone Hcl 50 Mg Tablet) 50 mg PO BEDTIME PRN PRN Reason: Insomnia Last Admin: 01/10/24 02:02 Dose: 50 mg Trazodone HCl (Trazodone Hcl 50 Mg Tablet) 50 mg PO BEDTIME [facility] Last Admin: 01/10/24 20:51 Dose: 50 mg Vitamin D (Cholecalciferol (Vitamin D3) 25 Mcg Tablet) 25 mcg PO DAILY [facility] Last Admin: 01/11/24 09:23 Dose: 25 mcg Allergies Allergies Allergy/AdvReac Type Severity Reaction Status Date / Time codeine Allergy Intermediate upset Verified 12/30/23 22:10 stomach Assessment & Plan Assessment & Plan (1) Alzheimer's dementia with behavioral disturbance: Status: Acute Code(s): G30.9 - Alzheimer's disease, unspecified; F02.818 - Dementia in other diseases classified elsewhere, unspecified severity, with other behavioral disturbance Plan Mr. Russell is a 78 year-old male with hx of AD who was brought by sister due to increase combative behaviors at night along with not sleeping most of the night. Sister reports more acute and rapid decline in past month or so. In the ED, amitriptyline was tapped off due to urinary retention, concern of increase confusion. No combative behaviors while in the ED. PLAN 01/05- scheduled trazodone at bedtime 50mg po qhs with melatonin 6mg po qhs. discuss with sister restarting aricept 5mg po qhs. 01/06 continue tx. 01/07 continue tx. removed insulin pump as not safe to manage in the hospital especially as pt unknowingly may stop it. 01/09/24 continue tx plan; consult with hospitlaist re: management of severe constipation 01/10 continue tx. Pt with more regular BM, continue to monitor constipation, s/s of obstruction, VS, labs as needed. Reason for continued inpatient stay Substantial Risk for: inability to function Time Spent With Patient Time: Total time managing care of this patient today ____ minutes.
[2024-01-11 16:21] LABS: Glucose, Whole Blood 239 mg/dL (60-115)
[2024-01-11 20:00] VITALS: BP 108/70; PULSE 88; RESP 18; TEMP 36; O2SAT 98
[2024-01-11] MEDS: Melatonin 3 MG TABLET 6 MG PO (20:50)
[2024-01-11] MEDS: risperiDONE 1 MG TABLET PO (20:51)
[2024-01-11] MEDS: Donepezil HCl 5 MG TABLET PO (20:51)
[2024-01-11] MEDS: traZODone HCL 50 MG TABLET PO ×2 (20:51→22:17)
[2024-01-11] MEDS: Insulin Lispro 100 UNIT/ML 3 ML VIAL SUBCUT (21:03)
[2024-01-11 21:04] LABS: Glucose, Whole Blood 215 mg/dL (60-115)
[2024-01-11] MEDS: Ibuprofen 600 MG TABLET PO (22:16)
--- NOTE | 2024-01-12 06:41 | PC.NURSE ---
Patient vomited x1 of small amount during shift, gingerale offered aftwerards and well tolerated, no further complaints.
[2024-01-12 06:45] LABS: Glucose, Whole Blood 125 mg/dL (60-115)
[2024-01-12 08:00] VITALS: BP 131/69; PULSE 82; RESP 18; TEMP 36.6; O2SAT 97
[2024-01-12] MEDS: Insulin Glargine,Hum.rec.anlog 100 UNIT/ML 10 ML VIAL 25 UNIT SUBCUT (08:22)
[2024-01-12 08:23] VITALS: BP 131/69; PULSE 82
[2024-01-12] MEDS: Metoprolol Succinate ER 25 MG TAB.ER.24H PO (08:23)
[2024-01-12] MEDS: Atorvastatin Calcium 80 MG TABLET PO (08:23)
[2024-01-12] MEDS: Tamsulosin HCL 0.4 MG CAPSULE PO (08:23)
[2024-01-12] MEDS: Omeprazole 20 MG CAPSULE.DR PO (08:23)
[2024-01-12] MEDS: Aspirin Enteric Coated 81 MG TABLET.DR PO (08:23)
[2024-01-12] MEDS: Finasteride 5 MG TABLET PO (08:23)
[2024-01-12] MEDS: polyethylene glycoL 3350 17 GM POWD.PACK PO (08:23)
[2024-01-12] MEDS: Cholecalciferol (Vitamin D3) 25 MCG TABLET PO (08:23)
[2024-01-12] MEDS: Ascorbic Acid 500 MG TABLET 1000 MG PO (08:24)
[2024-01-12] MEDS: Lactulose 20 GM/30 ML SOLUTION PO (08:24)
--- NOTE | 2024-01-12 09:04 | P.PNPSI_ITS ---
Subjective Subjective Date of Service: 01/12/24 Reason For Visit: Combative Subjective Notes: Conditional Voluntary Healthcare Proxy: Yes Interim History: Pt had some difficulty sleeping through the night. He was mostly in bed, mildly irritable but not combative nor going after staff. He is not oriented to place or situation and this has been the case since he came to the hospital. 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 Will continue to monitor constipation, labs, oral intake. VS stable. Review of Systems Review of Systems Pertinent positives and negatives as stated in HPI Mental Status Exam Mental Status Exam Narrative: Appearance:dressed casually, fair hygiene Behavior: cooperative Psychomotor: anxious, agitation Speech: mostly clear, some aphasia noted (both expressive and receptive) yelling at times Mood: irritable Affect: congruent, labile SI: none HI: none VH/AH: no overt signs Delusions: none, may have confabulations Insight/judgment: impaired x 2. Memory/cog:alert, not oriented to place, situation, month or year. Diagnostics Vital Signs (24Hr): Vital Signs - 24 hr 01/11/24 09:22 01/11/24 20:00 01/12/24 08:23 Temperature 96.8 F Pulse Rate 99 88 82 Respiratory Rate 18 Blood Pressure 106/71 108/70 131/69 Pulse Oximetry 98 Oxygen Delivery Method Room Air BMI result Body Mass Index 28.7 Labs 01/12/24 09:01 01/12/24 09:01 Labs: Laboratory Results - last 48 hr 01/10/24 01/10/24 01/10/24 11:17 16:13 20:08 POC Glucose 234 H 157 H 158 H 01/11/24 01/11/24 01/11/24 06:33 11:06 16:15 POC Glucose 131 H 149 H 239 H 01/11/24 01/12/24 20:55 06:25 POC Glucose 215 H 125 H Imaging Radiology Impressions: ITS Impressions KUB X-Ray 12/31/23 00:20 IMPRESSION: 1. No acute finding. 2. Mild lower lumbar disc degenerative change. KUB X-Ray 01/09/24 13:37 IMPRESSION: Increasing severe constipation. Dilated large bowel suggestive of secondary obstruction/obstipation. Medications Medications Current Medications Acetaminophen (Acetaminophen 325 Mg Tablet) 650 mg PO Q6H PRN PRN Reason: Headache/Pain Mild Scale (1-3) Last Admin: 01/10/24 09:13 Dose: 650 mg Al Hydroxide/Mg Hydroxide (Magnesium Hydrox/Alum Hydrox 30 Ml Oral.Susp) 30 ml PO Q6H PRN PRN Reason: Heartburn/Nausea Ascorbic Acid (Ascorbic Acid 500 Mg Tablet) 1,000 mg PO DAILY [facility] Last Admin: 01/12/24 08:24 Dose: 1,000 mg Aspirin (Aspirin Enteric Coated 81 Mg Tablet.) 81 mg PO DAILY [facility] Last Admin: 01/12/24 08:23 Dose: 81 mg Atorvastatin Calcium (Atorvastatin Calcium 80 Mg Tablet) 80 mg PO DAILY [facility] Last Admin: 01/12/24 08:23 Dose: 80 mg Donepezil HCl (Donepezil Hcl 5 Mg Tablet) 5 mg PO BEDTIME [facility] Last Admin: 01/11/24 20:51 Dose: 5 mg Finasteride (Finasteride 5 Mg Tablet) 5 mg PO DAILY [facility] Last Admin: 01/12/24 08:23 Dose: 5 mg Ibuprofen (Ibuprofen 600 Mg Tablet) 600 mg PO Q6H PRN PRN Reason: Pain, Mild (Pain Scale 1-3) Last Admin: 01/11/24 22:16 Dose: 600 mg Insulin Glargine (Insulin Glargine,Hum.Rec.Anlog 100 Unit/Ml 10 Ml Vial) 25 unit SUBCUT DAILY [facility] Last Admin: 01/12/24 08:22 Dose: 25 unit Insulin Human Lispro (Insulin Lispro 100 Unit/Ml 3 Ml Vial) 0 unit SUBCUT QIDACHS [facility]; Protocol Last Admin: 01/12/24 08:31 Dose: Not Given Lactulose (Lactulose 20 Gm/30 Ml Solution) 20 gm PO BID [facility] Last Admin: 01/12/24 08:24 Dose: 20 gm Magnesium Hydroxide (Milk Of Magnesia 30 Ml Oral.Susp) 30 ml PO DAILY PRN PRN Reason: Constipation Melatonin (Melatonin 3 Mg Tablet) 6 mg PO BEDTIME [facility] Last Admin: 01/11/24 20:50 Dose: 6 mg Metoprolol Succinate (Metoprolol Succinate Er 25 Mg Tab.Er.24h) 25 mg PO DAILY [facility]; Protocol Last Admin: 01/12/24 08:23 Dose: 25 mg Omeprazole (Omeprazole 20 Mg Capsule.) 20 mg PO DAILY [facility] Last Admin: 01/12/24 08:23 Dose: 20 mg Polyethylene Glycol (Polyethylene Glycol 3350 17 Gm Powd.Pack) 17 gm PO DAILY [facility] Last Admin: 01/12/24 08:23 Dose: 17 gm Risperidone (Risperidone 1 Mg Tablet) 1 mg PO BEDTIME [facility] Last Admin: 01/11/24 20:51 Dose: 1 mg Risperidone (Risperidone 1 Mg Tablet) 1 mg PO BID PRN PRN Reason: agitation Tamsulosin HCl (Tamsulosin Hcl 0.4 Mg Capsule) 0.4 mg PO DAILY [facility] Last Admin: 01/12/24 08:23 Dose: 0.4 mg Trazodone HCl (Trazodone Hcl 50 Mg Tablet) 50 mg PO BEDTIME PRN PRN Reason: Insomnia Last Admin: 01/11/24 22:17 Dose: 50 mg Trazodone HCl (Trazodone Hcl 50 Mg Tablet) 50 mg PO BEDTIME [facility] Last Admin: 01/11/24 20:51 Dose: 50 mg Vitamin D (Cholecalciferol (Vitamin D3) 25 Mcg Tablet) 25 mcg PO DAILY [facility] Last Admin: 01/12/24 08:23 Dose: 25 mcg Allergies Allergies Allergy/AdvReac Type Severity Reaction Status Date / Time codeine Allergy Intermediate upset Verified 12/30/23 22:10 stomach Assessment & Plan Assessment & Plan (1) Alzheimer's dementia with behavioral disturbance: Status: Acute Code(s): G30.9 - Alzheimer's disease, unspecified; F02.818 - Dementia in other diseases classified elsewhere, unspecified severity, with other behavioral disturbance Plan Mr. Russell is a 78 year-old male with hx of AD who was brought by sister due to increase combative behaviors at night along with not sleeping most of the night. Sister reports more acute and rapid decline in past month or so. In the ED, amitriptyline was tapped off due to urinary retention, concern of increase confusion. No combative behaviors while in the ED. PLAN 01/05- scheduled trazodone at bedtime 50mg po qhs with melatonin 6mg po qhs. discuss with sister restarting aricept 5mg po qhs. 01/06 continue tx. 01/07 continue tx. removed insulin pump as not safe to manage in the hospital especially as pt unknowingly may stop it. 01/09/24 continue tx plan; consult with hospitlaist re: management of severe constipation 01/10 continue tx. Pt with more regular BM, continue to monitor constipation, s/s of obstruction, VS, labs as needed. 01/11 continue tx.repeat KUB shows decreased constipation, no s/s of obstruction. Reason for continued inpatient stay Substantial Risk for: inability to function Time Spent With Patient Time: Total time managing care of this patient today ____ minutes.
[2024-01-12 09:09] LABS: MANUAL DIFF FLAG NO
[2024-01-12 09:13] LABS: Basophils Absolute Auto 0.1 X10*3/uL (0.0-0.2); Basophils Percent Auto 0.6 % (0-2); Eosinophils Absolute Auto 0.7 X10*3/uL (0.0-0.4); Eosinophils Percent Auto 5.7 % (0-4); Hematocrit 37.1 % (42.0-52.0); Hemoglobin 13.2 g/dl (14.0-18.0); Imm Gran Abs Auto 0.07 X10*3/uL (0.00-0.03); Imm Gran Pct Auto 0.6 % (0.0-0.4); Lymphocytes Percent Auto 17.3 % (20-40); Mean Corpuscular HGB Conc 35.6 g/dl (31.0-36.0); Mean Corpuscular Hemoglobin 32.9 pg (27.0-33.0); Mean Corpuscular Volume 92.5 fL (80.0-98.0); Mean Platelet Volume 8.8 fL (9.4-12.4); Monocytes Absolute Auto 1.1 X10*3/uL (0.1-1.2); Monocytes Percent Auto 9.7 % (2-11); Neutrophils Absolute Auto 7.6 x10*3/uL (2.0-8.3); Neutrophils Percent Auto 66.1 % (45-73); Platelet Count 286 X10*3/uL (160-400); Red Blood Count 4.01 X10*6/uL (4.60-5.80); Red Cell Distribution Width 12.8 % (11.0-16.0); White Blood Count 11.5 X10*3/uL (4.8-10.8)
[2024-01-12 09:26] LABS: Alanine Aminotransferase 25 U/L (0-40); Albumin Level 3.2 g/dL (3.5-5.0); Alkaline Phosphatase 90 U/L (39-117); Anion Gap 16 (12-20); Aspartate Amino Transferase 33 U/L (5-37); Bilirubin Total 0.9 mg/dL (0.0-1.0); Blood Urea Nitrogen 22 mg/dL (9-16); Calcium 8.8 mg/dL (8.4-10.2); Carbon Dioxide 21 mmol/L (22-29); Chloride 103 mmol/L (96-108); Creatinine Clr Calc Pharmacy 43.1; Estimated Glomerular Filt Rate 40; Glucose Random 186 mg/dL (60-115); Potassium 3.6 mmol/L (3.3-5.1); Sodium 136 mmol/L (135-145); Total Protein 6.9 g/dL (6.5-8.0)
[2024-01-12 11:35] LABS: Glucose, Whole Blood 183 mg/dL (60-115)
[2024-01-12] MEDS: Insulin Lispro 100 UNIT/ML 3 ML VIAL SUBCUT ×3 (11:37→20:40)
[2024-01-12 16:14] LABS: Glucose, Whole Blood 173 mg/dL (60-115)
[2024-01-12 20:00] VITALS: BP 116/75; PULSE 94; TEMP 36.6; O2SAT 97
[2024-01-12 20:01] LABS: Glucose, Whole Blood 244 mg/dL (60-115)
[2024-01-12] MEDS: traZODone HCL 50 MG TABLET PO (20:39)
[2024-01-12] MEDS: Donepezil HCl 5 MG TABLET PO (20:39)
[2024-01-12] MEDS: Melatonin 3 MG TABLET 6 MG PO (20:39)
[2024-01-12] MEDS: risperiDONE 1 MG TABLET PO (20:39)
[2024-01-13 06:45] LABS: Glucose, Whole Blood 117 mg/dL (60-115)
[2024-01-13 07:55] VITALS: BP 114/75; PULSE 88; RESP 18; TEMP 36.6; O2SAT 97
[2024-01-13] MEDS: polyethylene glycoL 3350 17 GM POWD.PACK PO (08:15)
[2024-01-13] MEDS: Insulin Glargine,Hum.rec.anlog 100 UNIT/ML 10 ML VIAL 25 UNIT SUBCUT (08:15)
[2024-01-13 08:16] VITALS: BP 114/75; PULSE 88
[2024-01-13] MEDS: Aspirin Enteric Coated 81 MG TABLET.DR PO (08:16)
[2024-01-13] MEDS: Ascorbic Acid 500 MG TABLET 1000 MG PO (08:16)
[2024-01-13] MEDS: Metoprolol Succinate ER 25 MG TAB.ER.24H PO (08:16)
[2024-01-13] MEDS: Tamsulosin HCL 0.4 MG CAPSULE PO (08:16)
[2024-01-13] MEDS: Omeprazole 20 MG CAPSULE.DR PO (08:16)
[2024-01-13] MEDS: Finasteride 5 MG TABLET PO (08:16)
[2024-01-13] MEDS: Atorvastatin Calcium 80 MG TABLET PO (08:17)
[2024-01-13] MEDS: Cholecalciferol (Vitamin D3) 25 MCG TABLET PO (08:17)
[2024-01-13 11:29] LABS: Glucose, Whole Blood 150 mg/dL (60-115)
[2024-01-13] MEDS: Insulin Lispro 100 UNIT/ML 3 ML VIAL SUBCUT ×2 (11:31→19:39)
[2024-01-13 16:23] LABS: Glucose, Whole Blood 127 mg/dL (60-115)
--- NOTE | 2024-01-13 16:54 | HO.PSYCHPN ---
Subjective Subjective Date of Service: 01/13/24 Reason For Visit: Combative Subjective Notes: Conditional Voluntary Interim History: Pt slept all night. He was more alert, and visible on the unit. 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 He had episode of reporting leg pain, then chest pain which has since resolved but will order EKG. No behavioral concerns. Review of Systems Review of Systems Pertinent positives and negatives as stated in HPI Mental Status Exam Mental Status Exam Narrative: Appearance:dressed casually, fair hygiene Behavior: cooperative Psychomotor: anxious, agitation Speech: mostly clear, some aphasia noted (both expressive and receptive) yelling at times Mood: irritable Affect: congruent, labile SI: none HI: none VH/AH: no overt signs Delusions: none, may have confabulations Insight/judgment: impaired x 2. Memory/cog:alert, not oriented to place, situation, month or year. Diagnostics Vital Signs (24Hr): Vital Signs - 24 hr 01/12/24 20:00 01/13/24 07:55 01/13/24 08:16 Temperature 97.8 F 97.8 F Pulse Rate 94 88 88 Respiratory Rate 18 Blood Pressure 116/75 114/75 114/75 Pulse Oximetry 97 97 Oxygen Delivery Method Room Air Room Air BMI result Body Mass Index 28.7 Labs 01/12/24 09:01 01/12/24 09:01 Labs: Laboratory Results - last 48 hr 01/11/24 01/12/24 01/12/24 20:55 06:25 09:01 WBC 11.5 H RBC 4.01 L Hgb 13.2 L Hct 37.1 L MCV 92.5 MCH 32.9 MCHC 35.6 RDW 12.8 Plt Count 286 D MPV 8.8 L Immature Gran % (Auto) 0.6 H Neut % (Auto) 66.1 Lymph % (Auto) 17.3 L [place] % (Auto) 9.7 Eos % (Auto) 5.7 H Baso % (Auto) 0.6 Lymph # (Auto) 2.0 [place] # (Auto) 1.1 Eos # (Auto) 0.7 H Baso # (Auto) 0.1 Abs Immat Gran (auto) 0.07 H Absolute Neuts (auto) 7.6 Absolute Nucleated RBC 0.000 Nucleated RBC % (auto) 0.0 Sodium 136 Potassium 3.6 Chloride 103 Carbon Dioxide 21 L Anion Gap 16 BUN 22 H Creatinine 1.67 H Estim Creat Clear Calc 43.1 Estimated GFR 40 POC Glucose 215 H 125 H Random Glucose 186 H Calcium 8.8 D Total Bilirubin 0.9 AST 33 ALT 25 Alkaline Phosphatase 90 Total Protein 6.9 Albumin 3.2 L 01/12/24 01/12/24 01/12/24 11:29 16:06 19:50 WBC RBC Hgb Hct MCV MCH MCHC RDW Plt Count MPV Immature Gran % (Auto) Neut % (Auto) Lymph % (Auto) [place] % (Auto) Eos % (Auto) Baso % (Auto) Lymph # (Auto) [place] # (Auto) Eos # (Auto) Baso # (Auto) Abs Immat Gran (auto) Absolute Neuts (auto) Absolute Nucleated RBC Nucleated RBC % (auto) Sodium Potassium Chloride Carbon Dioxide Anion Gap BUN Creatinine Estim Creat Clear Calc Estimated GFR POC Glucose 183 H 173 H 244 H Random Glucose Calcium Total Bilirubin AST ALT Alkaline Phosphatase Total Protein Albumin 01/13/24 01/13/24 01/13/24 06:31 11:25 16:19 WBC RBC Hgb Hct MCV MCH MCHC RDW Plt Count MPV Immature Gran % (Auto) Neut % (Auto) Lymph % (Auto) [place] % (Auto) Eos % (Auto) Baso % (Auto) Lymph # (Auto) [place] # (Auto) Eos # (Auto) Baso # (Auto) Abs Immat Gran (auto) Absolute Neuts (auto) Absolute Nucleated RBC Nucleated RBC % (auto) Sodium Potassium Chloride Carbon Dioxide Anion Gap BUN Creatinine Estim Creat Clear Calc Estimated GFR POC Glucose 117 H 150 H 127 H Random Glucose Calcium Total Bilirubin AST ALT Alkaline Phosphatase Total Protein Albumin Imaging Radiology Impressions: ITS Impressions KUB X-Ray 12/31/23 00:20 IMPRESSION: 1. No acute finding. 2. Mild lower lumbar disc degenerative change. KUB X-Ray 01/09/24 13:37 IMPRESSION: Increasing severe constipation. Dilated large bowel suggestive of secondary obstruction/obstipation. KUB X-Ray 01/12/24 09:30 IMPRESSION: 1. Redemonstrated fecal loading throughout the colon, improved from prior imaging greatest in the distal transverse colon/proximal to mid descending colon. 2. Colon remains mildly prominent greatest at the hepatic flexure. Medications Medications Current Medications Acetaminophen (Acetaminophen 325 Mg Tablet) 650 mg PO Q6H PRN PRN Reason: Headache/Pain Mild Scale (1-3) Last Admin: 01/10/24 09:13 Dose: 650 mg Al Hydroxide/Mg Hydroxide (Magnesium Hydrox/Alum Hydrox 30 Ml Oral.Susp) 30 ml PO Q6H PRN PRN Reason: Heartburn/Nausea Ascorbic Acid (Ascorbic Acid 500 Mg Tablet) 1,000 mg PO DAILY [facility] Last Admin: 01/13/24 08:16 Dose: 1,000 mg Aspirin (Aspirin Enteric Coated 81 Mg Tablet.Dr) 81 mg PO DAILY [facility] Last Admin: 01/13/24 08:16 Dose: 81 mg Atorvastatin Calcium (Atorvastatin Calcium 80 Mg Tablet) 80 mg PO DAILY [facility] Last Admin: 01/13/24 08:17 Dose: 80 mg Donepezil HCl (Donepezil Hcl 5 Mg Tablet) 5 mg PO BEDTIME [facility] Last Admin: 01/12/24 20:39 Dose: 5 mg Finasteride (Finasteride 5 Mg Tablet) 5 mg PO DAILY [facility] Last Admin: 01/13/24 08:16 Dose: 5 mg Ibuprofen (Ibuprofen 600 Mg Tablet) 600 mg PO Q6H PRN PRN Reason: Pain, Mild (Pain Scale 1-3) Last Admin: 01/11/24 22:16 Dose: 600 mg Insulin Glargine (Insulin Glargine,Hum.Rec.Anlog 100 Unit/Ml 10 Ml Vial) 25 unit SUBCUT DAILY [facility] Last Admin: 01/13/24 08:15 Dose: 25 unit Insulin Human Lispro (Insulin Lispro 100 Unit/Ml 3 Ml Vial) 0 unit SUBCUT QIDACHS [facility]; Protocol Last Admin: 01/13/24 16:32 Dose: Not Given Lactulose (Lactulose 20 Gm/30 Ml Solution) 20 gm PO BID [facility] Last Admin: 01/12/24 08:24 Dose: 20 gm Magnesium Hydroxide (Milk Of Magnesia 30 Ml Oral.Susp) 30 ml PO DAILY PRN PRN Reason: Constipation Melatonin (Melatonin 3 Mg Tablet) 6 mg PO BEDTIME [facility] Last Admin: 01/12/24 20:39 Dose: 6 mg Metoprolol Succinate (Metoprolol Succinate Er 25 Mg Tab.Er.24h) 25 mg PO DAILY [facility]; Protocol Last Admin: 01/13/24 08:16 Dose: 25 mg Omeprazole (Omeprazole 20 Mg Capsule.Dr) 20 mg PO DAILY [facility] Last Admin: 01/13/24 08:16 Dose: 20 mg Polyethylene Glycol (Polyethylene Glycol 3350 17 Gm Powd.Pack) 17 gm PO DAILY [facility] Last Admin: 01/13/24 08:15 Dose: 17 gm Risperidone (Risperidone 1 Mg Tablet) 1 mg PO BEDTIME [facility] Last Admin: 01/12/24 20:39 Dose: 1 mg Risperidone (Risperidone 1 Mg Tablet) 1 mg PO BID PRN PRN Reason: agitation Tamsulosin HCl (Tamsulosin Hcl 0.4 Mg Capsule) 0.4 mg PO DAILY [facility] Last Admin: 01/13/24 08:16 Dose: 0.4 mg Trazodone HCl (Trazodone Hcl 50 Mg Tablet) 50 mg PO BEDTIME PRN PRN Reason: Insomnia Last Admin: 01/11/24 22:17 Dose: 50 mg Trazodone HCl (Trazodone Hcl 50 Mg Tablet) 50 mg PO BEDTIME [facility] Last Admin: 01/12/24 20:39 Dose: 50 mg Vitamin D (Cholecalciferol (Vitamin D3) 25 Mcg Tablet) 25 mcg PO DAILY [facility] Last Admin: 01/13/24 08:17 Dose: 25 mcg Allergies Allergies Allergy/AdvReac Type Severity Reaction Status Date / Time codeine Allergy Intermediate upset Verified 12/30/23 22:10 stomach Assessment & Plan Assessment & Plan (1) Alzheimer's dementia with behavioral disturbance: Status: Acute Code(s): G30.9 - Alzheimer's disease, unspecified; F02.818 - Dementia in other diseases classified elsewhere, unspecified severity, with other behavioral disturbance Plan Mr. Russell is a 78 year-old male with hx of AD who was brought by sister due to increase combative behaviors at night along with not sleeping most of the night. Sister reports more acute and rapid decline in past month or so. In the ED, amitriptyline was tapped off due to urinary retention, concern of increase confusion. No combative behaviors while in the ED. PLAN 01/05- scheduled trazodone at bedtime 50mg po qhs with melatonin 6mg po qhs. discuss with sister restarting aricept 5mg po qhs. 01/06 continue tx. 01/07 continue tx. removed insulin pump as not safe to manage in the hospital especially as pt unknowingly may stop it. 01/09/24 continue tx plan; consult with hospitlaist re: management of severe constipation 01/10 continue tx. Pt with more regular BM, continue to monitor constipation, s/s of obstruction, VS, labs as needed. 01/11 KUB shows improvement of constipation, cmp with some improvement in renal function. 01/12 will order EKG for chest pain. Reason for continued inpatient stay Substantial Risk for: inability to function Time Spent With Patient Time: Total time managing care of this patient today ____ minutes.
[2024-01-13 19:33] LABS: Glucose, Whole Blood 203 mg/dL (60-115)
[2024-01-13] MEDS: Melatonin 3 MG TABLET 6 MG PO (19:38)
[2024-01-13] MEDS: risperiDONE 1 MG TABLET PO (19:38)
[2024-01-13] MEDS: Donepezil HCl 5 MG TABLET PO (19:38)
[2024-01-13] MEDS: traZODone HCL 50 MG TABLET PO (19:38)
[2024-01-13 20:00] VITALS: BP 131/74; PULSE 76; RESP 19; TEMP 36.3; O2SAT 97
[2024-01-14 07:00] VITALS: BMI 27.7
[2024-01-14 08:00] VITALS: BP 119/67; PULSE 78; RESP 18; TEMP 36.3; O2SAT 95
[2024-01-14] MEDS: Atorvastatin Calcium 80 MG TABLET PO (08:17)
[2024-01-14] MEDS: Tamsulosin HCL 0.4 MG CAPSULE PO (08:17)
[2024-01-14] MEDS: polyethylene glycoL 3350 17 GM POWD.PACK PO (08:17)
[2024-01-14] MEDS: Finasteride 5 MG TABLET PO (08:17)
[2024-01-14] MEDS: Cholecalciferol (Vitamin D3) 25 MCG TABLET PO (08:17)
[2024-01-14] MEDS: Ascorbic Acid 500 MG TABLET 1000 MG PO (08:17)
[2024-01-14] MEDS: Metoprolol Succinate ER 25 MG TAB.ER.24H PO (08:17)
[2024-01-14] MEDS: Aspirin Enteric Coated 81 MG TABLET.DR PO (08:17)
[2024-01-14] MEDS: Omeprazole 20 MG CAPSULE.DR PO (08:17)
[2024-01-14] MEDS: Insulin Glargine,Hum.rec.anlog 100 UNIT/ML 10 ML VIAL 25 UNIT SUBCUT (08:18)
[2024-01-14] MEDS: Insulin Lispro 100 UNIT/ML 3 ML VIAL SUBCUT ×3 (08:18→20:18)
[2024-01-14 08:56] LABS: Glucose, Whole Blood 162 mg/dL (60-115)
--- NOTE | 2024-01-14 11:33 | HO.PSYCHPN ---
Subjective Subjective Date of Service: 01/14/24 Reason For Visit: Combative Subjective Notes: Conditional Voluntary Healthcare Proxy: Yes Interim History: Pt slept through the night. He was up most of the night. He is pleasant but not oriented to situation, month and year. No behavioral concerns. he takes medications as prescribed. No signs of psychosis or delusions. but he does confabulate. Diagnostics Vital Signs (24Hr): Vital Signs - 24 hr 01/13/24 20:00 01/14/24 08:00 Temperature 97.4 F 97.4 F Pulse Rate 76 78 Respiratory Rate 19 18 Blood Pressure 131/74 119/67 Pulse Oximetry 97 95 Oxygen Delivery Method Room Air Room Air BMI result Body Mass Index 28.7 Labs 01/12/24 09:01 01/12/24 09:01 Labs: Laboratory Results - last 48 hr 01/12/24 01/12/24 01/12/24 11:29 16:06 19:50 POC Glucose 183 H 173 H 244 H 01/13/24 01/13/24 01/13/24 06:31 11:25 16:19 POC Glucose 117 H 150 H 127 H 01/13/24 01/14/24 19:29 07:42 POC Glucose 203 H 162 H Imaging Radiology Impressions: ITS Impressions KUB X-Ray 12/31/23 00:20 IMPRESSION: 1. No acute finding. 2. Mild lower lumbar disc degenerative change. KUB X-Ray 01/09/24 13:37 IMPRESSION: Increasing severe constipation. Dilated large bowel suggestive of secondary obstruction/obstipation. KUB X-Ray 01/12/24 09:30 IMPRESSION: 1. Redemonstrated fecal loading throughout the colon, improved from prior imaging greatest in the distal transverse colon/proximal to mid descending colon. 2. Colon remains mildly prominent greatest at the hepatic flexure. Medications Medications Current Medications Acetaminophen (Acetaminophen 325 Mg Tablet) 650 mg PO Q6H PRN PRN Reason: Headache/Pain Mild Scale (1-3) Last Admin: 01/10/24 09:13 Dose: 650 mg Al Hydroxide/Mg Hydroxide (Magnesium Hydrox/Alum Hydrox 30 Ml Oral.Susp) 30 ml PO Q6H PRN PRN Reason: Heartburn/Nausea Ascorbic Acid (Ascorbic Acid 500 Mg Tablet) 1,000 mg PO DAILY [facility] Last Admin: 01/14/24 08:17 Dose: 1,000 mg Aspirin (Aspirin Enteric Coated 81 Mg Tablet.) 81 mg PO DAILY [facility] Last Admin: 01/14/24 08:17 Dose: 81 mg Atorvastatin Calcium (Atorvastatin Calcium 80 Mg Tablet) 80 mg PO DAILY [facility] Last Admin: 01/14/24 08:17 Dose: 80 mg Donepezil HCl (Donepezil Hcl 5 Mg Tablet) 5 mg PO BEDTIME [facility] Last Admin: 01/13/24 19:38 Dose: 5 mg Finasteride (Finasteride 5 Mg Tablet) 5 mg PO DAILY [facility] Last Admin: 01/14/24 08:17 Dose: 5 mg Ibuprofen (Ibuprofen 600 Mg Tablet) 600 mg PO Q6H PRN PRN Reason: Pain, Mild (Pain Scale 1-3) Last Admin: 01/11/24 22:16 Dose: 600 mg Insulin Glargine (Insulin Glargine,Hum.Rec.Anlog 100 Unit/Ml 10 Ml Vial) 25 unit SUBCUT DAILY [facility] Last Admin: 01/14/24 08:18 Dose: 25 unit Insulin Human Lispro (Insulin Lispro 100 Unit/Ml 3 Ml Vial) 0 unit SUBCUT QIDACHS [facility]; Protocol Last Admin: 01/14/24 08:18 Dose: 2 unit Lactulose (Lactulose 20 Gm/30 Ml Solution) 20 gm PO BID [facility] Last Admin: 01/12/24 08:24 Dose: 20 gm Magnesium Hydroxide (Milk Of Magnesia 30 Ml Oral.Susp) 30 ml PO DAILY PRN PRN Reason: Constipation Melatonin (Melatonin 3 Mg Tablet) 6 mg PO BEDTIME [facility] Last Admin: 01/13/24 19:38 Dose: 6 mg Metoprolol Succinate (Metoprolol Succinate Er 25 Mg Tab.Er.24h) 25 mg PO DAILY [facility]; Protocol Last Admin: 01/14/24 08:17 Dose: 25 mg Omeprazole (Omeprazole 20 Mg Capsule.) 20 mg PO DAILY [facility] Last Admin: 01/14/24 08:17 Dose: 20 mg Polyethylene Glycol (Polyethylene Glycol 3350 17 Gm Powd.Pack) 17 gm PO DAILY [facility] Last Admin: 01/14/24 08:17 Dose: 17 gm Risperidone (Risperidone 1 Mg Tablet) 1 mg PO BEDTIME [facility] Last Admin: 01/13/24 19:38 Dose: 1 mg Risperidone (Risperidone 1 Mg Tablet) 1 mg PO BID PRN PRN Reason: agitation Tamsulosin HCl (Tamsulosin Hcl 0.4 Mg Capsule) 0.4 mg PO DAILY [facility] Last Admin: 01/14/24 08:17 Dose: 0.4 mg Trazodone HCl (Trazodone Hcl 50 Mg Tablet) 50 mg PO BEDTIME PRN PRN Reason: Insomnia Last Admin: 01/11/24 22:17 Dose: 50 mg Trazodone HCl (Trazodone Hcl 50 Mg Tablet) 50 mg PO BEDTIME [facility] Last Admin: 01/13/24 19:38 Dose: 50 mg Vitamin D (Cholecalciferol (Vitamin D3) 25 Mcg Tablet) 25 mcg PO DAILY [facility] Last Admin: 01/14/24 08:17 Dose: 25 mcg Allergies Allergies Allergy/AdvReac Type Severity Reaction Status Date / Time codeine Allergy Intermediate upset Verified 12/30/23 22:10 stomach Assessment & Plan Assessment & Plan (1) Alzheimer's dementia with behavioral disturbance: Status: Acute Code(s): G30.9 - Alzheimer's disease, unspecified; F02.818 - Dementia in other diseases classified elsewhere, unspecified severity, with other behavioral disturbance Plan Mr. Russell is a 78 year-old male with hx of AD who was brought by sister due to increase combative behaviors at night along with not sleeping most of the night. Sister reports more acute and rapid decline in past month or so. In the ED, amitriptyline was tapped off due to urinary retention, concern of increase confusion. No combative behaviors while in the ED. PLAN 01/05- scheduled trazodone at bedtime 50mg po qhs with melatonin 6mg po qhs. discuss with sister restarting aricept 5mg po qhs. 01/06 continue tx. 01/07 continue tx. removed insulin pump as not safe to manage in the hospital especially as pt unknowingly may stop it. 01/09/24 continue tx plan; consult with hospitlaist re: management of severe constipation 01/10 continue tx. Pt with more regular BM, continue to monitor constipation, s/s of obstruction, VS, labs as needed. 01/11 KUB shows improvement of constipation, cmp with some improvement in renal function. 01/12 will order EKG for chest pain. 01/13 continue tx. Reason for continued inpatient stay Substantial Risk for: inability to function Time Spent With Patient Time: Total time managing care of this patient today ____ minutes.
[2024-01-14 11:38] LABS: Glucose, Whole Blood 219 mg/dL (60-115)
[2024-01-14 16:41] LABS: Glucose, Whole Blood 194 mg/dL (60-115)
[2024-01-14 19:40] LABS: Glucose, Whole Blood 217 mg/dL (60-115)
[2024-01-14 20:00] VITALS: BP 115/61; PULSE 83; RESP 16; TEMP 36.4; O2SAT 97
[2024-01-14] MEDS: Donepezil HCl 5 MG TABLET PO (20:18)
[2024-01-14] MEDS: risperiDONE 1 MG TABLET PO (20:18)
[2024-01-14] MEDS: Melatonin 3 MG TABLET 6 MG PO (20:18)
[2024-01-14] MEDS: traZODone HCL 50 MG TABLET PO (20:19)
[2024-01-15 06:43] LABS: Glucose, Whole Blood 148 mg/dL (60-115)
[2024-01-15 08:00] VITALS: BP 110/73; PULSE 94; RESP 18; TEMP 36.1; O2SAT 95
[2024-01-15] MEDS: Aspirin Enteric Coated 81 MG TABLET.DR PO (08:16)
[2024-01-15] MEDS: Ascorbic Acid 500 MG TABLET 1000 MG PO (08:16)
[2024-01-15] MEDS: Atorvastatin Calcium 80 MG TABLET PO (08:16)
[2024-01-15] MEDS: Cholecalciferol (Vitamin D3) 25 MCG TABLET PO (08:16)
[2024-01-15] MEDS: Finasteride 5 MG TABLET PO (08:16)
[2024-01-15] MEDS: Omeprazole 20 MG CAPSULE.DR PO (08:16)
[2024-01-15] MEDS: Tamsulosin HCL 0.4 MG CAPSULE PO (08:16)
[2024-01-15] MEDS: polyethylene glycoL 3350 17 GM POWD.PACK PO (08:18)
[2024-01-15] MEDS: Insulin Glargine,Hum.rec.anlog 100 UNIT/ML 10 ML VIAL 25 UNIT SUBCUT (08:20)
[2024-01-15] MEDS: Metoprolol Succinate ER 25 MG TAB.ER.24H PO (08:35)
--- NOTE | 2024-01-15 11:00 | P.PNPSI_ITS ---
Subjective Subjective Date of Service: 01/15/24 Reason For Visit: Combative Subjective Notes: Conditional Voluntary Healthcare Proxy: Yes Interim History: Pt slept through the night. He is pleasant on approach. He tells this medical technical writer that he was discharged from the hospital and going for dinner with family. He reports they are going to his favorite seafood restaurant. No SI/HI. no behavioral concerns. whatley removed. voiding trial starting today. Review of Systems Review of Systems Pertinent positives and negatives as stated in HPI Mental Status Exam Mental Status Exam Narrative: Appearance:dressed casually, fair hygiene Behavior: cooperative Psychomotor: anxious, agitation Speech: mostly clear, some aphasia noted (both expressive and receptive) yelling at times Mood: irritable Affect: congruent, labile SI: none HI: none VH/AH: no overt signs Delusions: none, may have confabulations Insight/judgment: impaired x 2. Memory/cog:alert, not oriented to place, situation, month or year. Diagnostics Vital Signs (24Hr): Vital Signs - 24 hr 01/14/24 20:00 01/15/24 08:00 Temperature 97.6 F 96.9 F Pulse Rate 83 94 Respiratory Rate 16 18 Blood Pressure 115/61 110/73 Pulse Oximetry 97 95 Oxygen Delivery Method Room Air Room Air BMI result Body Mass Index 27.7 Labs 01/12/24 09:01 01/12/24 09:01 Labs: Laboratory Results - last 48 hr 01/13/24 01/13/24 01/13/24 11:25 16:19 19:29 POC Glucose 150 H 127 H 203 H 01/14/24 01/14/24 01/14/24 07:42 11:29 16:34 POC Glucose 162 H 219 H 194 H 01/14/24 01/15/24 19:36 06:38 POC Glucose 217 H 148 H Imaging Radiology Impressions: ITS Impressions KUB X-Ray 12/31/23 00:20 IMPRESSION: 1. No acute finding. 2. Mild lower lumbar disc degenerative change. KUB X-Ray 01/09/24 13:37 IMPRESSION: Increasing severe constipation. Dilated large bowel suggestive of secondary obstruction/obstipation. KUB X-Ray 01/12/24 09:30 IMPRESSION: 1. Redemonstrated fecal loading throughout the colon, improved from prior imaging greatest in the distal transverse colon/proximal to mid descending colon. 2. Colon remains mildly prominent greatest at the hepatic flexure. Medications Medications Current Medications Acetaminophen (Acetaminophen 325 Mg Tablet) 650 mg PO Q6H PRN PRN Reason: Headache/Pain Mild Scale (1-3) Last Admin: 01/10/24 09:13 Dose: 650 mg Al Hydroxide/Mg Hydroxide (Magnesium Hydrox/Alum Hydrox 30 Ml Oral.Susp) 30 ml PO Q6H PRN PRN Reason: Heartburn/Nausea Ascorbic Acid (Ascorbic Acid 500 Mg Tablet) 1,000 mg PO DAILY [facility] Last Admin: 01/15/24 08:16 Dose: 1,000 mg Aspirin (Aspirin Enteric Coated 81 Mg Tablet.Dr) 81 mg PO DAILY [facility] Last Admin: 01/15/24 08:16 Dose: 81 mg Atorvastatin Calcium (Atorvastatin Calcium 80 Mg Tablet) 80 mg PO DAILY [facility] Last Admin: 01/15/24 08:16 Dose: 80 mg Donepezil HCl (Donepezil Hcl 5 Mg Tablet) 5 mg PO BEDTIME [facility] Last Admin: 01/14/24 20:18 Dose: 5 mg Finasteride (Finasteride 5 Mg Tablet) 5 mg PO DAILY [facility] Last Admin: 01/15/24 08:16 Dose: 5 mg Ibuprofen (Ibuprofen 600 Mg Tablet) 600 mg PO Q6H PRN PRN Reason: Pain, Mild (Pain Scale 1-3) Last Admin: 01/11/24 22:16 Dose: 600 mg Insulin Glargine (Insulin Glargine,Hum.Rec.Anlog 100 Unit/Ml 10 Ml Vial) 25 unit SUBCUT DAILY [facility] Last Admin: 01/15/24 08:20 Dose: 25 unit Insulin Human Lispro (Insulin Lispro 100 Unit/Ml 3 Ml Vial) 0 unit SUBCUT QIDACHS [facility]; Protocol Last Admin: 01/15/24 07:37 Dose: Not Given Lactulose (Lactulose 20 Gm/30 Ml Solution) 20 gm PO BID [facility] Last Admin: 01/12/24 08:24 Dose: 20 gm Magnesium Hydroxide (Milk Of Magnesia 30 Ml Oral.Susp) 30 ml PO DAILY PRN PRN Reason: Constipation Melatonin (Melatonin 3 Mg Tablet) 6 mg PO BEDTIME [facility] Last Admin: 01/14/24 20:18 Dose: 6 mg Metoprolol Succinate (Metoprolol Succinate Er 25 Mg Tab.Er.24h) 25 mg PO DAILY [facility]; Protocol Last Admin: 01/15/24 08:35 Dose: 25 mg Omeprazole (Omeprazole 20 Mg Capsule.) 20 mg PO DAILY [facility] Last Admin: 01/15/24 08:16 Dose: 20 mg Polyethylene Glycol (Polyethylene Glycol 3350 17 Gm Powd.Pack) 17 gm PO DAILY [facility] Last Admin: 01/15/24 08:18 Dose: 17 gm Risperidone (Risperidone 1 Mg Tablet) 1 mg PO BEDTIME [facility] Last Admin: 01/14/24 20:18 Dose: 1 mg Risperidone (Risperidone 1 Mg Tablet) 1 mg PO BID PRN PRN Reason: agitation Tamsulosin HCl (Tamsulosin Hcl 0.4 Mg Capsule) 0.4 mg PO DAILY [facility] Last Admin: 01/15/24 08:16 Dose: 0.4 mg Trazodone HCl (Trazodone Hcl 50 Mg Tablet) 50 mg PO BEDTIME PRN PRN Reason: Insomnia Last Admin: 01/11/24 22:17 Dose: 50 mg Trazodone HCl (Trazodone Hcl 50 Mg Tablet) 50 mg PO BEDTIME [facility] Last Admin: 01/14/24 20:19 Dose: 50 mg Vitamin D (Cholecalciferol (Vitamin D3) 25 Mcg Tablet) 25 mcg PO DAILY [facility] Last Admin: 01/15/24 08:16 Dose: 25 mcg Allergies Allergies Allergy/AdvReac Type Severity Reaction Status Date / Time codeine Allergy Intermediate upset Verified 12/30/23 22:10 stomach Assessment & Plan Assessment & Plan (1) Alzheimer's dementia with behavioral disturbance: Status: Acute Code(s): G30.9 - Alzheimer's disease, unspecified; F02.818 - Dementia in other diseases classified elsewhere, unspecified severity, with other behavioral disturbance Plan Mr. Russell is a 78 year-old male with hx of AD who was brought by sister due to increase combative behaviors at night along with not sleeping most of the night. Sister reports more acute and rapid decline in past month or so. In the ED, amitriptyline was tapped off due to urinary retention, concern of increase confusion. No combative behaviors while in the ED. PLAN 01/05- scheduled trazodone at bedtime 50mg po qhs with melatonin 6mg po qhs. discuss with sister restarting aricept 5mg po qhs. 01/06 continue tx. 01/07 continue tx. removed insulin pump as not safe to manage in the hospital especially as pt unknowingly may stop it. 01/09/24 continue tx plan; consult with hospitlaist re: management of severe constipation 01/10 continue tx. Pt with more regular BM, continue to monitor constipation, s/s of obstruction, VS, labs as needed. 01/11 KUB shows improvement of constipation, cmp with some improvement in renal function. 01/12 will order EKG for chest pain. 01/13 continue tx. 01/14 whatley removed per urology- voiding trial for next 24 hrs. Reason for continued inpatient stay Substantial Risk for: inability to function Time Spent With Patient Time: Total time managing care of this patient today ____ minutes.
[2024-01-15 11:12] LABS: Glucose, Whole Blood 192 mg/dL (60-115)
[2024-01-15] MEDS: Insulin Lispro 100 UNIT/ML 3 ML VIAL SUBCUT ×3 (11:37→20:01)
--- NOTE | 2024-01-15 14:07 | MHC.CLN ---
Addendum entered by Noa Horan, NELLIE 01/15/24 14:23: ADDING ENSURE BID. PROVIDES 700 KCALS, 40 G PROTEIN. HIGHER KCAL SUPPLEMENT RECOMMENDED DUE TO VARIABLE INTAKE AND SUSPECTED WEIGHT LOSS. NURSING TO MONITOR POC BLOOD GLUCOSE. Original Note: NUTRITION SHOWS 8% WEIGHT LOSS SINCE ADMISSION. REWEIGH REQUESTED. REVIEW OF INTAKE SHOWS MOST MEALS 50%. FOLLOW WEEKLY FOR WEIGHT AND INTAKE.
[2024-01-15 14:36] VITALS: BMI 23.2
[2024-01-15 16:24] LABS: Glucose, Whole Blood 192 mg/dL (60-115)
--- NOTE | 2024-01-15 19:27 | PC.NURSE ---
Patient's whatley was pulled this afternoon around 12:45, provider Winter Haque notified via tiger text and patient has been on a voiding trial, with fluids encouraged. Patient voided a small amount this afternoon around 1500 only
[2024-01-15 19:54] LABS: Glucose, Whole Blood 177 mg/dL (60-115)
[2024-01-15] MEDS: risperiDONE 1 MG TABLET PO (20:00)
[2024-01-15] MEDS: Melatonin 3 MG TABLET 6 MG PO (20:00)
[2024-01-15] MEDS: traZODone HCL 50 MG TABLET PO (20:01)
[2024-01-15] MEDS: Donepezil HCl 5 MG TABLET PO (20:01)
[2024-01-15 20:18] VITALS: BP 102/84; PULSE 88; RESP 17; TEMP 35.7; O2SAT 95
[2024-01-16] MEDS: risperiDONE 1 MG TABLET PO ×2 (00:43→20:12)
[2024-01-16] MEDS: traZODone HCL 50 MG TABLET PO ×2 (00:43→20:12)
--- NOTE | 2024-01-16 00:53 | PC.NURSE ---
Patient voided times 3 with total output of 1200 ml. No pain and discomfort reported while voiding. Afebrile, VSS, behavior upset and frustrated being being here in the hospital, meds and meals compliant, PRN trazodone and resperidone administered with pending effect at this time, will continue to monitor on 1:1 for safety.
[2024-01-16] MEDS: Magnesium Hydrox/Alum Hydrox 30 ML ORAL.SUSP PO (02:18)
[2024-01-16 06:37] LABS: Glucose, Whole Blood 243 mg/dL (60-115)
[2024-01-16] MEDS: Insulin Lispro 100 UNIT/ML 3 ML VIAL SUBCUT ×4 (07:49→20:16)
[2024-01-16 08:45] VITALS: BP 122/81; PULSE 95; RESP 18; TEMP 36.1; O2SAT 100
[2024-01-16] MEDS: polyethylene glycoL 3350 17 GM POWD.PACK PO (08:49)
[2024-01-16] MEDS: Atorvastatin Calcium 80 MG TABLET PO (08:49)
[2024-01-16] MEDS: Metoprolol Succinate ER 25 MG TAB.ER.24H PO (08:50)
[2024-01-16] MEDS: Tamsulosin HCL 0.4 MG CAPSULE PO (08:50)
[2024-01-16] MEDS: Ascorbic Acid 500 MG TABLET 1000 MG PO (08:50)
[2024-01-16] MEDS: Finasteride 5 MG TABLET PO (08:50)
[2024-01-16] MEDS: Cholecalciferol (Vitamin D3) 25 MCG TABLET PO (08:50)
[2024-01-16] MEDS: Aspirin Enteric Coated 81 MG TABLET.DR PO (08:50)
[2024-01-16] MEDS: Omeprazole 20 MG CAPSULE.DR PO (08:50)
[2024-01-16] MEDS: Insulin Glargine,Hum.rec.anlog 100 UNIT/ML 10 ML VIAL 25 UNIT SUBCUT (08:51)
--- NOTE | 2024-01-16 11:08 | HO.PSYCHPN ---
Subjective Subjective Date of Service: 01/16/24 Reason For Visit: Combative Subjective Notes: Conditional Voluntary Interim History: The nursing staff reported that his gait has been okay so we are lowering his observation from one-to-one to constant observation. Yesterday his Whatley was removed and apparently last night he voided 3 times. He had slept poorly due to the urinary symptoms. On interview the patient remains very confused but easily redirectable. Mental Status Exam Mental Status Exam Patient Appearance: Appropriate Patient Orientation: Person and Situation Level of Consciousness: Awake Patient Behavior: Guarded and Passive Mood Description: Withdrawn Affect Description: Constricted Patient Cognition Impaired: Yes Ability to Follow Directions: Good Speech Pattern: Clear Hallucinations: None Delusions: Ideas of Reference Thought Process: Distracted and Slowed Thinking Thought Content: positive for [place] and positive for Poverty of Content Judgement: Poor Diagnostics Vital Signs (24Hr): Vital Signs - 24 hr 01/15/24 20:18 01/16/24 08:45 Temperature 96.3 F L 96.9 F Pulse Rate 88 95 Respiratory Rate 17 18 Blood Pressure 102/84 122/81 Pulse Oximetry 95 100 Oxygen Delivery Method Room Air Room Air BMI result Body Mass Index 23.2 Labs 01/12/24 09:01 01/12/24 09:01 Labs: Laboratory Results - last 48 hr 01/14/24 01/14/24 01/14/24 11:29 16:34 19:36 POC Glucose 219 H 194 H 217 H 01/15/24 01/15/24 01/15/24 06:38 11:08 16:17 POC Glucose 148 H 192 H 192 H 01/15/24 01/16/24 19:48 06:33 POC Glucose 177 H 243 H Imaging Radiology Impressions: ITS Impressions KUB X-Ray 12/31/23 00:20 IMPRESSION: 1. No acute finding. 2. Mild lower lumbar disc degenerative change. KUB X-Ray 01/09/24 13:37 IMPRESSION: Increasing severe constipation. Dilated large bowel suggestive of secondary obstruction/obstipation. KUB X-Ray 01/12/24 09:30 IMPRESSION: 1. Redemonstrated fecal loading throughout the colon, improved from prior imaging greatest in the distal transverse colon/proximal to mid descending colon. 2. Colon remains mildly prominent greatest at the hepatic flexure. Medications Medications Current Medications Acetaminophen (Acetaminophen 325 Mg Tablet) 650 mg PO Q6H PRN PRN Reason: Headache/Pain Mild Scale (1-3) Last Admin: 01/10/24 09:13 Dose: 650 mg Al Hydroxide/Mg Hydroxide (Magnesium Hydrox/Alum Hydrox 30 Ml Oral.Susp) 30 ml PO Q6H PRN PRN Reason: Heartburn/Nausea Last Admin: 01/16/24 02:18 Dose: 30 ml Ascorbic Acid (Ascorbic Acid 500 Mg Tablet) 1,000 mg PO DAILY [facility] Last Admin: 01/16/24 08:50 Dose: 1,000 mg Aspirin (Aspirin Enteric Coated 81 Mg Tablet.Dr) 81 mg PO DAILY [facility] Last Admin: 01/16/24 08:50 Dose: 81 mg Atorvastatin Calcium (Atorvastatin Calcium 80 Mg Tablet) 80 mg PO DAILY [facility] Last Admin: 01/16/24 08:49 Dose: 80 mg Donepezil HCl (Donepezil Hcl 5 Mg Tablet) 5 mg PO BEDTIME [facility] Last Admin: 01/15/24 20:01 Dose: 5 mg Finasteride (Finasteride 5 Mg Tablet) 5 mg PO DAILY [facility] Last Admin: 01/16/24 08:50 Dose: 5 mg Ibuprofen (Ibuprofen 600 Mg Tablet) 600 mg PO Q6H PRN PRN Reason: Pain, Mild (Pain Scale 1-3) Last Admin: 01/11/24 22:16 Dose: 600 mg Insulin Glargine (Insulin Glargine,Hum.Rec.Anlog 100 Unit/Ml 10 Ml Vial) 25 unit SUBCUT DAILY [facility] Last Admin: 01/16/24 08:51 Dose: 25 unit Insulin Human Lispro (Insulin Lispro 100 Unit/Ml 3 Ml Vial) 0 unit SUBCUT QIDACHS [facility]; Protocol Last Admin: 01/16/24 07:49 Dose: 4 unit Lactulose (Lactulose 20 Gm/30 Ml Solution) 20 gm PO BID [facility] Last Admin: 01/12/24 08:24 Dose: 20 gm Magnesium Hydroxide (Milk Of Magnesia 30 Ml Oral.Susp) 30 ml PO DAILY PRN PRN Reason: Constipation Melatonin (Melatonin 3 Mg Tablet) 6 mg PO BEDTIME [facility] Last Admin: 01/15/24 20:00 Dose: 6 mg Metoprolol Succinate (Metoprolol Succinate Er 25 Mg Tab.Er.24h) 25 mg PO DAILY [facility]; Protocol Last Admin: 01/16/24 08:50 Dose: 25 mg Omeprazole (Omeprazole 20 Mg Capsule.) 20 mg PO DAILY [facility] Last Admin: 01/16/24 08:50 Dose: 20 mg Polyethylene Glycol (Polyethylene Glycol 3350 17 Gm Powd.Pack) 17 gm PO DAILY [facility] Last Admin: 01/16/24 08:49 Dose: 17 gm Risperidone (Risperidone 1 Mg Tablet) 1 mg PO BEDTIME [facility] Last Admin: 01/15/24 20:00 Dose: 1 mg Risperidone (Risperidone 1 Mg Tablet) 1 mg PO BID PRN PRN Reason: agitation Last Admin: 01/16/24 00:43 Dose: 1 mg Tamsulosin HCl (Tamsulosin Hcl 0.4 Mg Capsule) 0.4 mg PO DAILY [facility] Last Admin: 01/16/24 08:50 Dose: 0.4 mg Trazodone HCl (Trazodone Hcl 50 Mg Tablet) 50 mg PO BEDTIME PRN PRN Reason: Insomnia Last Admin: 01/16/24 00:43 Dose: 50 mg Trazodone HCl (Trazodone Hcl 50 Mg Tablet) 50 mg PO BEDTIME [facility] Last Admin: 01/15/24 20:01 Dose: 50 mg Vitamin D (Cholecalciferol (Vitamin D3) 25 Mcg Tablet) 25 mcg PO DAILY [facility] Last Admin: 01/16/24 08:50 Dose: 25 mcg Allergies Allergies Allergy/AdvReac Type Severity Reaction Status Date / Time codeine Allergy Intermediate upset Verified 12/30/23 22:10 stomach Assessment & Plan Assessment & Plan (1) Alzheimer's dementia with behavioral disturbance: Status: Acute Code(s): G30.9 - Alzheimer's disease, unspecified; F02.818 - Dementia in other diseases classified elsewhere, unspecified severity, with other behavioral disturbance Plan Mr. Russell is a 78 year-old male with hx of AD who was brought by sister due to increase combative behaviors at night along with not sleeping most of the night. Sister reports more acute and rapid decline in past month or so. In the ED, amitriptyline was tapped off due to urinary retention, concern of increase confusion. No combative behaviors while in the ED. PLAN 01/05- scheduled trazodone at bedtime 50mg po qhs with melatonin 6mg po qhs. discuss with sister restarting aricept 5mg po qhs. 01/06 continue tx. 01/07 continue tx. removed insulin pump as not safe to manage in the hospital especially as pt unknowingly may stop it. 01/09/24 continue tx plan; consult with hospitlaist re: management of severe constipation 01/10 continue tx. Pt with more regular BM, continue to monitor constipation, s/s of obstruction, VS, labs as needed. 01/11 KUB shows improvement of constipation, cmp with some improvement in renal function. 01/12 will order EKG for chest pain. 01/13 continue tx. 01/14 whatley removed per urology- voiding trial for next 24 hrs. 01/15 so far the patient is able to void without major problems we are continue to monitor. Reason for continued inpatient stay Substantial Risk for: inability to function, rapid decompensation and med/psych decompensation Time Spent With Patient Time: Total time managing care of this patient today __20__ minutes.
[2024-01-16 11:24] LABS: Glucose, Whole Blood 197 mg/dL (60-115)
[2024-01-16 16:25] LABS: Glucose, Whole Blood 211 mg/dL (60-115)
--- NOTE | 2024-01-16 17:13 | PC.NURSE ---
Voiding freely. Output > 1,ooo ml this shift.
[2024-01-16 20:00] VITALS: BP 150/93; PULSE 87; RESP 16; TEMP 36.4; O2SAT 97
[2024-01-16 20:09] LABS: Glucose, Whole Blood 287 mg/dL (60-115)
[2024-01-16] MEDS: Donepezil HCl 5 MG TABLET PO (20:12)
[2024-01-16] MEDS: Melatonin 3 MG TABLET 6 MG PO (20:12)
[2024-01-17 06:46] LABS: Glucose, Whole Blood 149 mg/dL (60-115)
[2024-01-17 08:00] VITALS: BP 109/60; PULSE 61; RESP 18; TEMP 36.2; O2SAT 95
[2024-01-17] MEDS: polyethylene glycoL 3350 17 GM POWD.PACK PO (08:32)
[2024-01-17] MEDS: Insulin Glargine,Hum.rec.anlog 100 UNIT/ML 10 ML VIAL 25 UNIT SUBCUT (08:32)
[2024-01-17 08:34] VITALS: BP 109/60; PULSE 61
[2024-01-17] MEDS: Atorvastatin Calcium 80 MG TABLET PO (08:34)
[2024-01-17] MEDS: Cholecalciferol (Vitamin D3) 25 MCG TABLET PO (08:34)
[2024-01-17] MEDS: Metoprolol Succinate ER 25 MG TAB.ER.24H PO (08:34)
[2024-01-17] MEDS: Aspirin Enteric Coated 81 MG TABLET.DR PO (08:35)
[2024-01-17] MEDS: Tamsulosin HCL 0.4 MG CAPSULE PO (08:35)
[2024-01-17] MEDS: Finasteride 5 MG TABLET PO (08:35)
[2024-01-17] MEDS: Ascorbic Acid 500 MG TABLET 1000 MG PO (08:35)
--- NOTE | 2024-01-17 10:25 | P.PNPSI_ITS ---
Subjective Subjective Date of Service: 01/17/24 Reason For Visit: Combative Subjective Notes: Conditional Voluntary Interim History: The nursing staff reported the patient had been visible in the unit, social calm appropriate sometimes he forgets to use his walker. He had been fully compliant with treatment. He is able to urinate by himself he was been incontinent of urine only wants. On interview the patient is pleasantly confused easily redirectable. Mental Status Exam Mental Status Exam Patient Appearance: Appropriate Patient Orientation: Person and Situation Level of Consciousness: Awake and Appropriate Patient Behavior: Guarded and Passive Mood Description: Calm Affect Description: Constricted Patient Cognition Impaired: Yes Ability to Follow Directions: Good Speech Pattern: Clear Hallucinations: None Delusions: Not Present Thought Process: Distracted and Slowed Thinking Thought Content: positive for [place] and positive for Poverty of Content Judgement: Fair Diagnostics Vital Signs (24Hr): Vital Signs - 24 hr 01/16/24 20:00 01/17/24 08:00 01/17/24 08:34 Temperature 97.6 F 97.1 F Pulse Rate 87 61 61 Respiratory Rate 16 18 Blood Pressure 150/93 H 109/60 109/60 Pulse Oximetry 97 95 Oxygen Delivery Method Room Air Room Air BMI result Body Mass Index 23.2 Labs 01/12/24 09:01 01/12/24 09:01 Labs: Laboratory Results - last 48 hr 01/15/24 01/15/24 01/15/24 11:08 16:17 19:48 POC Glucose 192 H 192 H 177 H 01/16/24 01/16/24 01/16/24 06:33 11:17 16:22 POC Glucose 243 H 197 H 211 H 01/16/24 01/17/24 20:05 06:36 POC Glucose 287 H 149 H Imaging Radiology Impressions: ITS Impressions KUB X-Ray 12/31/23 00:20 IMPRESSION: 1. No acute finding. 2. Mild lower lumbar disc degenerative change. KUB X-Ray 01/09/24 13:37 IMPRESSION: Increasing severe constipation. Dilated large bowel suggestive of secondary obstruction/obstipation. KUB X-Ray 01/12/24 09:30 IMPRESSION: 1. Redemonstrated fecal loading throughout the colon, improved from prior imaging greatest in the distal transverse colon/proximal to mid descending colon. 2. Colon remains mildly prominent greatest at the hepatic flexure. Medications Medications Current Medications Acetaminophen (Acetaminophen 325 Mg Tablet) 650 mg PO Q6H PRN PRN Reason: Headache/Pain Mild Scale (1-3) Last Admin: 01/10/24 09:13 Dose: 650 mg Al Hydroxide/Mg Hydroxide (Magnesium Hydrox/Alum Hydrox 30 Ml Oral.Susp) 30 ml PO Q6H PRN PRN Reason: Heartburn/Nausea Last Admin: 01/16/24 02:18 Dose: 30 ml Ascorbic Acid (Ascorbic Acid 500 Mg Tablet) 1,000 mg PO DAILY [facility] Last Admin: 01/17/24 08:35 Dose: 1,000 mg Aspirin (Aspirin Enteric Coated 81 Mg Tablet.Dr) 81 mg PO DAILY [facility] Last Admin: 01/17/24 08:35 Dose: 81 mg Atorvastatin Calcium (Atorvastatin Calcium 80 Mg Tablet) 80 mg PO DAILY [facility] Last Admin: 01/17/24 08:34 Dose: 80 mg Donepezil HCl (Donepezil Hcl 5 Mg Tablet) 5 mg PO BEDTIME [facility] Last Admin: 01/16/24 20:12 Dose: 5 mg Finasteride (Finasteride 5 Mg Tablet) 5 mg PO DAILY [facility] Last Admin: 01/17/24 08:35 Dose: 5 mg Ibuprofen (Ibuprofen 600 Mg Tablet) 600 mg PO Q6H PRN PRN Reason: Pain, Mild (Pain Scale 1-3) Last Admin: 01/11/24 22:16 Dose: 600 mg Insulin Glargine (Insulin Glargine,Hum.Rec.Anlog 100 Unit/Ml 10 Ml Vial) 25 unit SUBCUT DAILY [facility] Last Admin: 01/17/24 08:32 Dose: 25 unit Insulin Human Lispro (Insulin Lispro 100 Unit/Ml 3 Ml Vial) 0 unit SUBCUT QIDACHS [facility]; Protocol Last Admin: 01/17/24 08:35 Dose: Not Given Lactulose (Lactulose 20 Gm/30 Ml Solution) 20 gm PO BID [facility] Last Admin: 01/12/24 08:24 Dose: 20 gm Magnesium Hydroxide (Milk Of Magnesia 30 Ml Oral.Susp) 30 ml PO DAILY PRN PRN Reason: Constipation Melatonin (Melatonin 3 Mg Tablet) 6 mg PO BEDTIME [facility] Last Admin: 01/16/24 20:12 Dose: 6 mg Metoprolol Succinate (Metoprolol Succinate Er 25 Mg Tab.Er.24h) 25 mg PO DAILY [facility]; Protocol Last Admin: 01/17/24 08:34 Dose: 25 mg Omeprazole (Omeprazole 20 Mg Capsule.) 20 mg PO DAILY [facility] Last Admin: 01/16/24 08:50 Dose: 20 mg Polyethylene Glycol (Polyethylene Glycol 3350 17 Gm Powd.Pack) 17 gm PO DAILY [facility] Last Admin: 01/17/24 08:32 Dose: 17 gm Risperidone (Risperidone 1 Mg Tablet) 1 mg PO BEDTIME [facility] Last Admin: 01/16/24 20:12 Dose: 1 mg Risperidone (Risperidone 1 Mg Tablet) 1 mg PO BID PRN PRN Reason: agitation Last Admin: 01/16/24 00:43 Dose: 1 mg Tamsulosin HCl (Tamsulosin Hcl 0.4 Mg Capsule) 0.4 mg PO DAILY [facility] Last Admin: 01/17/24 08:35 Dose: 0.4 mg Trazodone HCl (Trazodone Hcl 50 Mg Tablet) 50 mg PO BEDTIME PRN PRN Reason: Insomnia Last Admin: 01/16/24 00:43 Dose: 50 mg Trazodone HCl (Trazodone Hcl 50 Mg Tablet) 50 mg PO BEDTIME [facility] Last Admin: 01/16/24 20:12 Dose: 50 mg Vitamin D (Cholecalciferol (Vitamin D3) 25 Mcg Tablet) 25 mcg PO DAILY [facility] Last Admin: 01/17/24 08:34 Dose: 25 mcg Allergies Allergies Allergy/AdvReac Type Severity Reaction Status Date / Time codeine Allergy Intermediate upset Verified 12/30/23 22:10 stomach Assessment & Plan Assessment & Plan (1) Alzheimer's dementia with behavioral disturbance: Status: Acute Code(s): G30.9 - Alzheimer's disease, unspecified; F02.818 - Dementia in other diseases classified elsewhere, unspecified severity, with other behavioral disturbance Plan Mr. Russell is a 78 year-old male with hx of AD who was brought by sister due to increase combative behaviors at night along with not sleeping most of the night. Sister reports more acute and rapid decline in past month or so. In the ED, amitriptyline was tapped off due to urinary retention, concern of increase confusion. No combative behaviors while in the ED. PLAN 01/05- scheduled trazodone at bedtime 50mg po qhs with melatonin 6mg po qhs. discuss with sister restarting aricept 5mg po qhs. 01/06 continue tx. 01/07 continue tx. removed insulin pump as not safe to manage in the hospital especially as pt unknowingly may stop it. 01/09/24 continue tx plan; consult with hospitlaist re: management of severe constipation 01/10 continue tx. Pt with more regular BM, continue to monitor constipation, s/s of obstruction, VS, labs as needed. 01/11 KUB shows improvement of constipation, cmp with some improvement in renal function. 01/12 will order EKG for chest pain. 01/13 continue tx. 01/14 whatley removed per urology- voiding trial for next 24 hrs. 01/15 so far the patient is able to void without major problems we are continue to monitor. 01/16 the patient has been successful to wean off Whatley. Still confused but easily redirectable Reason for continued inpatient stay Substantial Risk for: inability to function, rapid decompensation and med/psych decompensation Time Spent With Patient Time: Total time managing care of this patient today __20__ minutes.
[2024-01-17 11:22] LABS: Glucose, Whole Blood 318 mg/dL (60-115)
[2024-01-17] MEDS: Insulin Lispro 100 UNIT/ML 3 ML VIAL SUBCUT (11:30)
[2024-01-17] MEDS: Omeprazole 20 MG CAPSULE.DR PO (11:32)
--- NOTE | 2024-01-17 15:42 | PC.NURSE ---
Patient encouraged to take fluids. States he has been urinating. Will continue to monitor.
[2024-01-17 16:22] LABS: Glucose, Whole Blood 136 mg/dL (60-115)
[2024-01-17 19:37] LABS: Glucose, Whole Blood 108 mg/dL (60-115)
[2024-01-17 20:03] VITALS: BP 154/92; PULSE 83; RESP 16; TEMP 35.9; O2SAT 98
[2024-01-17] MEDS: Melatonin 3 MG TABLET 6 MG PO (20:05)
[2024-01-17] MEDS: Donepezil HCl 5 MG TABLET PO (20:06)
[2024-01-17] MEDS: risperiDONE 1 MG TABLET PO (20:06)
[2024-01-17] MEDS: traZODone HCL 50 MG TABLET PO (20:06)
[2024-01-18 06:39] LABS: Glucose, Whole Blood 182 mg/dL (60-115)
[2024-01-18 08:00] VITALS: BP 112/74; PULSE 96; RESP 18; TEMP 36.2; O2SAT 98
[2024-01-18] MEDS: Insulin Lispro 100 UNIT/ML 3 ML VIAL SUBCUT ×3 (09:04→19:53)
[2024-01-18] MEDS: Ascorbic Acid 500 MG TABLET 1000 MG PO (09:05)
[2024-01-18] MEDS: Atorvastatin Calcium 80 MG TABLET PO (09:05)
[2024-01-18] MEDS: Cholecalciferol (Vitamin D3) 25 MCG TABLET PO (09:05)
[2024-01-18] MEDS: Omeprazole 20 MG CAPSULE.DR PO (09:05)
[2024-01-18] MEDS: Tamsulosin HCL 0.4 MG CAPSULE PO (09:05)
[2024-01-18 09:06] VITALS: BP 112/74; PULSE 96
[2024-01-18] MEDS: Metoprolol Succinate ER 25 MG TAB.ER.24H PO (09:06)
[2024-01-18] MEDS: Aspirin Enteric Coated 81 MG TABLET.DR PO (09:06)
[2024-01-18] MEDS: Insulin Glargine,Hum.rec.anlog 100 UNIT/ML 10 ML VIAL 25 UNIT SUBCUT (09:08)
--- NOTE | 2024-01-18 10:28 | P.PNPSI_ITS ---
Subjective Subjective Date of Service: 01/18/24 Reason For Visit: Combative Subjective Notes: Conditional Voluntary Healthcare Proxy: Yes Interim History: Pt slept all night. He is confused as to why he is here. He tells this signwriter he is leaving today and his sister is coming to pick him up. He does know this is a hospital but can't tell how long he has been here, or why he is here. not oriented to month, year or date. He continues to urinate on his own. Will order PRV scan bladder. No aggression, ambulating on his own with walker. Review of Systems Review of Systems Pertinent positives and negatives as stated in HPI Mental Status Exam Mental Status Exam Narrative: Appearance:dressed casually, fair hygiene Behavior: cooperative Psychomotor: anxious, agitation Speech: mostly clear, some aphasia noted (both expressive and receptive) yelling at times Mood: irritable Affect: congruent, labile SI: none HI: none VH/AH: no overt signs Delusions: none, may have confabulations Insight/judgment: impaired x 2. Memory/cog:alert, not oriented to place, situation, month or year. Diagnostics Vital Signs (24Hr): Vital Signs - 24 hr 01/17/24 20:03 01/18/24 08:00 01/18/24 09:06 Temperature 96.6 F L 97.2 F Pulse Rate 83 96 96 Respiratory Rate 16 18 Blood Pressure 154/92 H 112/74 112/74 Pulse Oximetry 98 98 Oxygen Delivery Method Room Air Room Air BMI result Body Mass Index 23.2 Labs 01/12/24 09:01 01/12/24 09:01 Labs: Laboratory Results - last 48 hr 01/16/24 01/16/24 01/16/24 11:17 16:22 20:05 POC Glucose 197 H 211 H 287 H 01/17/24 01/17/24 01/17/24 06:36 11:15 16:17 POC Glucose 149 H 318 H 136 H 01/17/24 01/18/24 19:32 06:30 POC Glucose 108 182 H Imaging Radiology Impressions: ITS Impressions KUB X-Ray 12/31/23 00:20 IMPRESSION: 1. No acute finding. 2. Mild lower lumbar disc degenerative change. KUB X-Ray 01/09/24 13:37 IMPRESSION: Increasing severe constipation. Dilated large bowel suggestive of secondary obstruction/obstipation. KUB X-Ray 01/12/24 09:30 IMPRESSION: 1. Redemonstrated fecal loading throughout the colon, improved from prior imaging greatest in the distal transverse colon/proximal to mid descending colon. 2. Colon remains mildly prominent greatest at the hepatic flexure. Medications Medications Current Medications Acetaminophen (Acetaminophen 325 Mg Tablet) 650 mg PO Q6H PRN PRN Reason: Headache/Pain Mild Scale (1-3) Last Admin: 01/10/24 09:13 Dose: 650 mg Al Hydroxide/Mg Hydroxide (Magnesium Hydrox/Alum Hydrox 30 Ml Oral.Susp) 30 ml PO Q6H PRN PRN Reason: Heartburn/Nausea Last Admin: 01/16/24 02:18 Dose: 30 ml Ascorbic Acid (Ascorbic Acid 500 Mg Tablet) 1,000 mg PO DAILY [facility] Last Admin: 01/18/24 09:05 Dose: 1,000 mg Aspirin (Aspirin Enteric Coated 81 Mg Tablet.Dr) 81 mg PO DAILY [facility] Last Admin: 01/18/24 09:06 Dose: 81 mg Atorvastatin Calcium (Atorvastatin Calcium 80 Mg Tablet) 80 mg PO DAILY [facility] Last Admin: 01/18/24 09:05 Dose: 80 mg Donepezil HCl (Donepezil Hcl 5 Mg Tablet) 5 mg PO BEDTIME [facility] Last Admin: 01/17/24 20:06 Dose: 5 mg Finasteride (Finasteride 5 Mg Tablet) 5 mg PO DAILY [facility] Last Admin: 01/18/24 09:30 Dose: Not Given Ibuprofen (Ibuprofen 600 Mg Tablet) 600 mg PO Q6H PRN PRN Reason: Pain, Mild (Pain Scale 1-3) Last Admin: 01/11/24 22:16 Dose: 600 mg Insulin Glargine (Insulin Glargine,Hum.Rec.Anlog 100 Unit/Ml 10 Ml Vial) 25 unit SUBCUT DAILY [facility] Last Admin: 01/18/24 09:08 Dose: 25 unit Insulin Human Lispro (Insulin Lispro 100 Unit/Ml 3 Ml Vial) 0 unit SUBCUT QIDACHS [facility]; Protocol Last Admin: 01/18/24 09:04 Dose: 2 unit Lactulose (Lactulose 20 Gm/30 Ml Solution) 20 gm PO BID [facility] Last Admin: 01/12/24 08:24 Dose: 20 gm Magnesium Hydroxide (Milk Of Magnesia 30 Ml Oral.Susp) 30 ml PO DAILY PRN PRN Reason: Constipation Melatonin (Melatonin 3 Mg Tablet) 6 mg PO BEDTIME [facility] Last Admin: 01/17/24 20:05 Dose: 6 mg Metoprolol Succinate (Metoprolol Succinate Er 25 Mg Tab.Er.24h) 25 mg PO DAILY [facility]; Protocol Last Admin: 01/18/24 09:06 Dose: 25 mg Omeprazole (Omeprazole 20 Mg Capsule.Dr) 20 mg PO DAILY [facility] Last Admin: 01/18/24 09:05 Dose: 20 mg Polyethylene Glycol (Polyethylene Glycol 3350 17 Gm Powd.Pack) 17 gm PO DAILY [facility] Last Admin: 01/18/24 09:31 Dose: Not Given Risperidone (Risperidone 1 Mg Tablet) 1 mg PO BEDTIME [facility] Last Admin: 01/17/24 20:06 Dose: 1 mg Risperidone (Risperidone 1 Mg Tablet) 1 mg PO BID PRN PRN Reason: agitation Last Admin: 01/16/24 00:43 Dose: 1 mg Tamsulosin HCl (Tamsulosin Hcl 0.4 Mg Capsule) 0.4 mg PO DAILY [facility] Last Admin: 01/18/24 09:05 Dose: 0.4 mg Trazodone HCl (Trazodone Hcl 50 Mg Tablet) 50 mg PO BEDTIME PRN PRN Reason: Insomnia Last Admin: 01/16/24 00:43 Dose: 50 mg Trazodone HCl (Trazodone Hcl 50 Mg Tablet) 50 mg PO BEDTIME [facility] Last Admin: 01/17/24 20:06 Dose: 50 mg Vitamin D (Cholecalciferol (Vitamin D3) 25 Mcg Tablet) 25 mcg PO DAILY [facility] Last Admin: 01/18/24 09:05 Dose: 25 mcg Allergies Allergies Allergy/AdvReac Type Severity Reaction Status Date / Time codeine Allergy Intermediate upset Verified 12/30/23 22:10 stomach Assessment & Plan Assessment & Plan (1) Alzheimer's dementia with behavioral disturbance: Status: Acute Code(s): G30.9 - Alzheimer's disease, unspecified; F02.818 - Dementia in other diseases classified elsewhere, unspecified severity, with other behavioral disturbance Plan Mr. Russell is a 78 year-old male with hx of AD who was brought by sister due to increase combative behaviors at night along with not sleeping most of the night. Sister reports more acute and rapid decline in past month or so. In the ED, amitriptyline was tapped off due to urinary retention, concern of increase confusion. No combative behaviors while in the ED. PLAN 01/05- scheduled trazodone at bedtime 50mg po qhs with melatonin 6mg po qhs. discuss with sister restarting aricept 5mg po qhs. 01/06 continue tx. 01/07 continue tx. removed insulin pump as not safe to manage in the hospital especially as pt unknowingly may stop it. 01/09/24 continue tx plan; consult with hospitlaist re: management of severe constipation 01/10 continue tx. Pt with more regular BM, continue to monitor constipation, s/s of obstruction, VS, labs as needed. 01/11 KUB shows improvement of constipation, cmp with some improvement in renal function. 01/12 will order EKG for chest pain. 01/13 continue tx. 01/14 whatley removed per urology- voiding trial for next 24 hrs. 01/15 so far the patient is able to void without major problems we are continue to monitor. 01/16 the patient has been successful to wean off What[place]. Still confused but easily redirectable 01/17 continue tx. ordered PVR bladder scan. Reason for continued inpatient stay Substantial Risk for: inability to function Time Spent With Patient Time: Total time managing care of this patient today ____ minutes.
[2024-01-18] MEDS: Magnesium Hydrox/Alum Hydrox 30 ML ORAL.SUSP PO (11:28)
[2024-01-18 11:34] LABS: Glucose, Whole Blood 199 mg/dL (60-115)
[2024-01-18 16:26] LABS: Glucose, Whole Blood 80 mg/dL (60-115)
[2024-01-18 19:42] LABS: Glucose, Whole Blood 189 mg/dL (60-115)
[2024-01-18 19:50] VITALS: BP 133/88; PULSE 91; RESP 16; TEMP 36; O2SAT 95
[2024-01-18] MEDS: Melatonin 3 MG TABLET 6 MG PO (19:54)
[2024-01-18] MEDS: traZODone HCL 50 MG TABLET PO (19:54)
[2024-01-18] MEDS: Donepezil HCl 5 MG TABLET PO (19:54)
[2024-01-18] MEDS: risperiDONE 1 MG TABLET PO (19:55)
[2024-01-19 06:35] LABS: Glucose, Whole Blood 194 mg/dL (60-115)
[2024-01-19 08:00] VITALS: BP 110/71; PULSE 96; RESP 16; TEMP 36.2; O2SAT 97
[2024-01-19] MEDS: Insulin Glargine,Hum.rec.anlog 100 UNIT/ML 10 ML VIAL 25 UNIT SUBCUT (08:53)
[2024-01-19] MEDS: Insulin Lispro 100 UNIT/ML 3 ML VIAL SUBCUT ×4 (08:53→20:41)
[2024-01-19] MEDS: Aspirin Enteric Coated 81 MG TABLET.DR PO (08:54)
[2024-01-19] MEDS: Finasteride 5 MG TABLET PO (08:54)
[2024-01-19] MEDS: Tamsulosin HCL 0.4 MG CAPSULE PO (08:54)
[2024-01-19] MEDS: Metoprolol Succinate ER 25 MG TAB.ER.24H PO (08:54)
[2024-01-19] MEDS: Omeprazole 20 MG CAPSULE.DR PO (08:54)
[2024-01-19] MEDS: Cholecalciferol (Vitamin D3) 25 MCG TABLET PO (08:54)
[2024-01-19] MEDS: Ascorbic Acid 500 MG TABLET 1000 MG PO (08:54)
[2024-01-19] MEDS: polyethylene glycoL 3350 17 GM POWD.PACK PO (08:55)
[2024-01-19] MEDS: Atorvastatin Calcium 80 MG TABLET PO (08:55)
--- NOTE | 2024-01-19 10:56 | P.PNPSI_ITS ---
Subjective Subjective Date of Service: 01/19/24 Reason For Visit: Combative Subjective Notes: Conditional Voluntary Healthcare Proxy: Yes Interim History: Pt slept through the night. He has been visible on the unit, taking medications as prescribed. He tells this residential mortgage underwriter that he is leaving and his sister is coming to pick him up. He is eating well. No SI/HI. No psychosis or delusions, but confabulation. Not oriented to situation, month or year. He is able to tell at times that he is in the hospital. continues to urinate without a problem. Consulted with Dr. Brown (pt's wrapper opener) who recommends Lantus 30units SQ daily and Humalog 5units before meals- based on his pump insulin requirements. Diagnostics Vital Signs (24Hr): Vital Signs - 24 hr 01/18/24 19:50 01/19/24 08:00 Temperature 96.8 F 97.1 F Pulse Rate 91 96 Respiratory Rate 16 16 Blood Pressure 133/88 110/71 Pulse Oximetry 95 97 Oxygen Delivery Method Room Air Room Air BMI result Body Mass Index 23.2 Labs 01/12/24 09:01 01/12/24 09:01 Labs: Laboratory Results - last 48 hr 01/17/24 01/17/24 01/17/24 11:15 16:17 19:32 POC Glucose 318 H 136 H 108 01/18/24 01/18/24 01/18/24 06:30 11:28 16:21 POC Glucose 182 H 199 H 80 01/18/24 01/19/24 19:38 06:30 POC Glucose 189 H 194 H Imaging Radiology Impressions: ITS Impressions KUB X-Ray 12/31/23 00:20 IMPRESSION: 1. No acute finding. 2. Mild lower lumbar disc degenerative change. KUB X-Ray 01/09/24 13:37 IMPRESSION: Increasing severe constipation. Dilated large bowel suggestive of secondary obstruction/obstipation. KUB X-Ray 01/12/24 09:30 IMPRESSION: 1. Redemonstrated fecal loading throughout the colon, improved from prior imaging greatest in the distal transverse colon/proximal to mid descending colon. 2. Colon remains mildly prominent greatest at the hepatic flexure. Medications Medications Current Medications Acetaminophen (Acetaminophen 325 Mg Tablet) 650 mg PO Q6H PRN PRN Reason: Headache/Pain Mild Scale (1-3) Last Admin: 01/10/24 09:13 Dose: 650 mg Al Hydroxide/Mg Hydroxide (Magnesium Hydrox/Alum Hydrox 30 Ml Oral.Susp) 30 ml PO Q6H PRN PRN Reason: Heartburn/Nausea Last Admin: 01/18/24 11:28 Dose: 30 ml Ascorbic Acid (Ascorbic Acid 500 Mg Tablet) 1,000 mg PO DAILY [facility] Last Admin: 01/19/24 08:54 Dose: 1,000 mg Aspirin (Aspirin Enteric Coated 81 Mg Tablet.) 81 mg PO DAILY [facility] Last Admin: 01/19/24 08:54 Dose: 81 mg Atorvastatin Calcium (Atorvastatin Calcium 80 Mg Tablet) 80 mg PO DAILY [facility] Last Admin: 01/19/24 08:55 Dose: 80 mg Donepezil HCl (Donepezil Hcl 5 Mg Tablet) 5 mg PO BEDTIME [facility] Last Admin: 01/18/24 19:54 Dose: 5 mg Finasteride (Finasteride 5 Mg Tablet) 5 mg PO DAILY [facility] Last Admin: 01/19/24 08:54 Dose: 5 mg Ibuprofen (Ibuprofen 600 Mg Tablet) 600 mg PO Q6H PRN PRN Reason: Pain, Mild (Pain Scale 1-3) Last Admin: 01/11/24 22:16 Dose: 600 mg Insulin Glargine (Insulin Glargine,Hum.Rec.Anlog 100 Unit/Ml 10 Ml Vial) 25 unit SUBCUT DAILY [facility] Last Admin: 01/19/24 08:53 Dose: 25 unit Insulin Human Lispro (Insulin Lispro 100 Unit/Ml 3 Ml Vial) 0 unit SUBCUT QIDACHS [facility]; Protocol Last Admin: 01/19/24 08:53 Dose: 2 unit Lactulose (Lactulose 20 Gm/30 Ml Solution) 20 gm PO BID [facility] Last Admin: 01/12/24 08:24 Dose: 20 gm Magnesium Hydroxide (Milk Of Magnesia 30 Ml Oral.Susp) 30 ml PO DAILY PRN PRN Reason: Constipation Melatonin (Melatonin 3 Mg Tablet) 6 mg PO BEDTIME [facility] Last Admin: 01/18/24 19:54 Dose: 6 mg Metoprolol Succinate (Metoprolol Succinate Er 25 Mg Tab.Er.24h) 25 mg PO DAILY [facility]; Protocol Last Admin: 01/19/24 08:54 Dose: 25 mg Omeprazole (Omeprazole 20 Mg Capsule.) 20 mg PO DAILY [facility] Last Admin: 01/19/24 08:54 Dose: 20 mg Polyethylene Glycol (Polyethylene Glycol 3350 17 Gm Powd.Pack) 17 gm PO DAILY [facility] Last Admin: 01/19/24 08:55 Dose: 17 gm Risperidone (Risperidone 1 Mg Tablet) 1 mg PO BEDTIME [facility] Last Admin: 01/18/24 19:55 Dose: 1 mg Risperidone (Risperidone 1 Mg Tablet) 1 mg PO BID PRN PRN Reason: agitation Last Admin: 01/16/24 00:43 Dose: 1 mg Tamsulosin HCl (Tamsulosin Hcl 0.4 Mg Capsule) 0.4 mg PO DAILY [facility] Last Admin: 01/19/24 08:54 Dose: 0.4 mg Trazodone HCl (Trazodone Hcl 50 Mg Tablet) 50 mg PO BEDTIME PRN PRN Reason: Insomnia Last Admin: 01/16/24 00:43 Dose: 50 mg Trazodone HCl (Trazodone Hcl 50 Mg Tablet) 50 mg PO BEDTIME [facility] Last Admin: 01/18/24 19:54 Dose: 50 mg Vitamin D (Cholecalciferol (Vitamin D3) 25 Mcg Tablet) 25 mcg PO DAILY [facility] Last Admin: 01/19/24 08:54 Dose: 25 mcg Allergies Allergies Allergy/AdvReac Type Severity Reaction Status Date / Time codeine Allergy Intermediate upset Verified 12/30/23 22:10 stomach Assessment & Plan Assessment & Plan (1) Alzheimer's dementia with behavioral disturbance: Status: Acute Code(s): G30.9 - Alzheimer's disease, unspecified; F02.818 - Dementia in other diseases classified elsewhere, unspecified severity, with other behavioral disturbance Plan Mr. Russell is a 78 year-old male with hx of AD who was brought by sister due to increase combative behaviors at night along with not sleeping most of the night. Sister reports more acute and rapid decline in past month or so. In the ED, amitriptyline was tapped off due to urinary retention, concern of increase confusion. No combative behaviors while in the ED. PLAN 01/05- scheduled trazodone at bedtime 50mg po qhs with melatonin 6mg po qhs. discuss with sister restarting aricept 5mg po qhs. 01/06 continue tx. 01/07 continue tx. removed insulin pump as not safe to manage in the hospital especially as pt unknowingly may stop it. 01/09/24 continue tx plan; consult with hospitlaist re: management of severe constipation 01/10 continue tx. Pt with more regular BM, continue to monitor constipation, s/s of obstruction, VS, labs as needed. 01/11 KUB shows improvement of constipation, cmp with some improvement in renal function. 01/12 will order EKG for chest pain. 01/13 continue tx. 01/14 whatley removed per urology- voiding trial for next 24 hrs. 01/15 so far the patient is able to void without major problems we are continue to monitor. 01/16 the patient has been successful to wean off Whatley. Still confused but easily redirectable 01/17 continue tx. ordered PVR bladder scan. 01/18 continue tx. LONGTERM needs scheduled doses of insulin. Consulted with Dr. Brown (pt's wrapper opener) who recommends Lantus 30units SQ daily and Humalog 5units before meals- based on his pump insulin requirements. Reason for continued inpatient stay Substantial Risk for: inability to function Time Spent With Patient Time: Total time managing care of this patient today ____ minutes.
[2024-01-19 11:21] LABS: Glucose, Whole Blood 178 mg/dL (60-115)
[2024-01-19 16:37] LABS: Glucose, Whole Blood 208 mg/dL (60-115)
[2024-01-19 20:00] VITALS: BP 151/92; PULSE 90; RESP 18; TEMP 35.9; O2SAT 99
[2024-01-19 20:11] LABS: Glucose, Whole Blood 191 mg/dL (60-115)
[2024-01-19] MEDS: Melatonin 3 MG TABLET 6 MG PO (20:42)
[2024-01-19] MEDS: Donepezil HCl 5 MG TABLET PO (20:42)
[2024-01-19] MEDS: risperiDONE 1 MG TABLET PO (20:42)
[2024-01-19] MEDS: traZODone HCL 50 MG TABLET PO (20:42)
[2024-01-20] MEDS: Acetaminophen 325 MG TABLET 650 MG PO (04:09)
[2024-01-20 06:47] LABS: Glucose, Whole Blood 152 mg/dL (60-115)
[2024-01-20 07:55] VITALS: BP 126/74; PULSE 98; RESP 18; TEMP 36.8; O2SAT 96
[2024-01-20 08:23] VITALS: BP 126/74; PULSE 98
[2024-01-20] MEDS: Aspirin Enteric Coated 81 MG TABLET.DR PO (08:23)
[2024-01-20] MEDS: Metoprolol Succinate ER 25 MG TAB.ER.24H PO (08:23)
[2024-01-20] MEDS: Omeprazole 20 MG CAPSULE.DR PO (08:23)
[2024-01-20] MEDS: Atorvastatin Calcium 80 MG TABLET PO (08:23)
[2024-01-20] MEDS: Ascorbic Acid 500 MG TABLET 1000 MG PO (08:23)
[2024-01-20] MEDS: Tamsulosin HCL 0.4 MG CAPSULE PO (08:23)
[2024-01-20] MEDS: Insulin Glargine,Hum.rec.anlog 100 UNIT/ML 10 ML VIAL 25 UNIT SUBCUT (08:24)
[2024-01-20] MEDS: Cholecalciferol (Vitamin D3) 25 MCG TABLET PO (08:24)
[2024-01-20] MEDS: Finasteride 5 MG TABLET PO (08:24)
[2024-01-20] MEDS: Insulin Lispro 100 UNIT/ML 3 ML VIAL SUBCUT ×2 (08:24→16:27)
[2024-01-20] MEDS: polyethylene glycoL 3350 17 GM POWD.PACK PO (08:25)
--- NOTE | 2024-01-20 10:57 | P.PNPSI_ITS ---
Subjective Subjective Date of Service: 01/20/24 Reason For Visit: Combative Subjective Notes: Conditional Voluntary Interim History: Pt slept most of the night. He is more suspicious towards his sister, states she is stealing from him and he is calling his chair spring assembler. He continues to stay that he is leaving today and going for dinner with his siblings. He denies SI/HI. no aggression towards self or others. He is able to tell this a hospital, but does not know where or how long he has been here, nor the year or month. Will increase risperidone add 0.5mg po BID at 800am and 2pm. Diagnostics Vital Signs (24Hr): Vital Signs - 24 hr 01/19/24 20:00 01/20/24 07:55 01/20/24 08:23 Temperature 96.6 F L 98.2 F Pulse Rate 90 98 98 Respiratory Rate 18 18 Blood Pressure 151/92 H 126/74 126/74 Pulse Oximetry 99 96 Oxygen Delivery Method Room Air Room Air BMI result Body Mass Index 23.2 Labs 01/12/24 09:01 01/12/24 09:01 Labs: Laboratory Results - last 48 hr 01/18/24 01/18/24 01/18/24 11:28 16:21 19:38 POC Glucose 199 H 80 189 H 01/19/24 01/19/24 01/19/24 06:30 11:17 16:30 POC Glucose 194 H 178 H 208 H 01/19/24 01/20/24 19:47 06:36 POC Glucose 191 H 152 H Imaging Radiology Impressions: ITS Impressions KUB X-Ray 12/31/23 00:20 IMPRESSION: 1. No acute finding. 2. Mild lower lumbar disc degenerative change. KUB X-Ray 01/09/24 13:37 IMPRESSION: Increasing severe constipation. Dilated large bowel suggestive of secondary obstruction/obstipation. KUB X-Ray 01/12/24 09:30 IMPRESSION: 1. Redemonstrated fecal loading throughout the colon, improved from prior imaging greatest in the distal transverse colon/proximal to mid descending colon. 2. Colon remains mildly prominent greatest at the hepatic flexure. Medications Medications Current Medications Acetaminophen (Acetaminophen 325 Mg Tablet) 650 mg PO Q6H PRN PRN Reason: Headache/Pain Mild Scale (1-3) Last Admin: 01/20/24 04:09 Dose: 650 mg Al Hydroxide/Mg Hydroxide (Magnesium Hydrox/Alum Hydrox 30 Ml Oral.Susp) 30 ml PO Q6H PRN PRN Reason: Heartburn/Nausea Last Admin: 01/18/24 11:28 Dose: 30 ml Ascorbic Acid (Ascorbic Acid 500 Mg Tablet) 1,000 mg PO DAILY [facility] Last Admin: 01/20/24 08:23 Dose: 1,000 mg Aspirin (Aspirin Enteric Coated 81 Mg Tablet.) 81 mg PO DAILY [facility] Last Admin: 01/20/24 08:23 Dose: 81 mg Atorvastatin Calcium (Atorvastatin Calcium 80 Mg Tablet) 80 mg PO DAILY [facility] Last Admin: 01/20/24 08:23 Dose: 80 mg Donepezil HCl (Donepezil Hcl 5 Mg Tablet) 5 mg PO BEDTIME [facility] Last Admin: 01/19/24 20:42 Dose: 5 mg Finasteride (Finasteride 5 Mg Tablet) 5 mg PO DAILY [facility] Last Admin: 01/20/24 08:24 Dose: 5 mg Ibuprofen (Ibuprofen 600 Mg Tablet) 600 mg PO Q6H PRN PRN Reason: Pain, Mild (Pain Scale 1-3) Last Admin: 01/11/24 22:16 Dose: 600 mg Insulin Glargine (Insulin Glargine,Hum.Rec.Anlog 100 Unit/Ml 10 Ml Vial) 25 unit SUBCUT DAILY [facility] Last Admin: 01/20/24 08:24 Dose: 25 unit Insulin Human Lispro (Insulin Lispro 100 Unit/Ml 3 Ml Vial) 5 unit SUBCUT QIDACHS [facility] Lactulose (Lactulose 20 Gm/30 Ml Solution) 20 gm PO BID [facility] Last Admin: 01/12/24 08:24 Dose: 20 gm Magnesium Hydroxide (Milk Of Magnesia 30 Ml Oral.Susp) 30 ml PO DAILY PRN PRN Reason: Constipation Melatonin (Melatonin 3 Mg Tablet) 6 mg PO BEDTIME [facility] Last Admin: 01/19/24 20:42 Dose: 6 mg Metoprolol Succinate (Metoprolol Succinate Er 25 Mg Tab.Er.24h) 25 mg PO DAILY [facility]; Protocol Last Admin: 01/20/24 08:23 Dose: 25 mg Omeprazole (Omeprazole 20 Mg Capsule.) 20 mg PO DAILY [facility] Last Admin: 01/20/24 08:23 Dose: 20 mg Polyethylene Glycol (Polyethylene Glycol 3350 17 Gm Powd.Pack) 17 gm PO DAILY [facility] Last Admin: 01/20/24 08:25 Dose: 17 gm Risperidone (Risperidone 1 Mg Tablet) 1 mg PO BEDTIME [facility] Last Admin: 01/19/24 20:42 Dose: 1 mg Risperidone (Risperidone 1 Mg Tablet) 1 mg PO BID PRN PRN Reason: agitation Last Admin: 01/16/24 00:43 Dose: 1 mg Tamsulosin HCl (Tamsulosin Hcl 0.4 Mg Capsule) 0.4 mg PO DAILY [facility] Last Admin: 01/20/24 08:23 Dose: 0.4 mg Trazodone HCl (Trazodone Hcl 50 Mg Tablet) 50 mg PO BEDTIME PRN PRN Reason: Insomnia Last Admin: 01/16/24 00:43 Dose: 50 mg Trazodone HCl (Trazodone Hcl 50 Mg Tablet) 50 mg PO BEDTIME [facility] Last Admin: 01/19/24 20:42 Dose: 50 mg Vitamin D (Cholecalciferol (Vitamin D3) 25 Mcg Tablet) 25 mcg PO DAILY [facility] Last Admin: 01/20/24 08:24 Dose: 25 mcg Allergies Allergies Allergy/AdvReac Type Severity Reaction Status Date / Time codeine Allergy Intermediate upset Verified 12/30/23 22:10 stomach Assessment & Plan Assessment & Plan (1) Alzheimer's dementia with behavioral disturbance: Status: Acute Code(s): G30.9 - Alzheimer's disease, unspecified; F02.818 - Dementia in other diseases classified elsewhere, unspecified severity, with other behavioral disturbance Plan Mr. Russell is a 78 year-old male with hx of AD who was brought by sister due to increase combative behaviors at night along with not sleeping most of the night. Sister reports more acute and rapid decline in past month or so. In the ED, amitriptyline was tapped off due to urinary retention, concern of increase confusion. No combative behaviors while in the ED. PLAN 01/05- scheduled trazodone at bedtime 50mg po qhs with melatonin 6mg po qhs. discuss with sister restarting aricept 5mg po qhs. 01/06 continue tx. 01/07 continue tx. removed insulin pump as not safe to manage in the hospital especially as pt unknowingly may stop it. 01/09/24 continue tx plan; consult with hospitlaist re: management of severe constipation 01/10 continue tx. Pt with more regular BM, continue to monitor constipation, s/s of obstruction, VS, labs as needed. 01/11 KUB shows improvement of constipation, cmp with some improvement in renal function. 01/12 will order EKG for chest pain. 01/13 continue tx. 01/14 whatley removed per urology- voiding trial for next 24 hrs. 01/15 so far the patient is able to void without major problems we are continue to monitor. 01/16 the patient has been successful to wean off Whatley. Still confused but easily redirectable 01/17 continue tx. ordered PVR bladder scan. 01/18 continue tx. [facility] needs scheduled doses of insulin. Consulted with Dr. Brown (pt's batch heat treat operator) who recommends Lantus 30units SQ daily and Humalog 5units before meals- based on his pump insulin requirements. 01/19 increase risperidone 0.5mg BID and 1mg po qhs. continue aricept. Reason for continued inpatient stay Substantial Risk for: inability to function Time Spent With Patient Time: Total time managing care of this patient today ____ minutes.
[2024-01-20 11:20] LABS: Glucose, Whole Blood 176 mg/dL (60-115)
--- NOTE | 2024-01-20 12:01 | MHC.CLN ---
F/U WEIGHT DISCREPANCY NOTED. INTAKE VARIABLE, REFUSE TO 100%. DIET=DIABETIC 2000 KCALS AND ENSURE BID (700 KCALS, 40 G PROTEIN). CONTINUE CURRENT DIET/SUPPLEMENT AND MONITOR WEEKLY WEIGHT.
[2024-01-20 16:11] LABS: Glucose, Whole Blood 204 mg/dL (60-115)
[2024-01-20] MEDS: risperiDONE 1 MG TABLET PO (20:20)
[2024-01-20] MEDS: Melatonin 3 MG TABLET 6 MG PO (20:20)
[2024-01-20] MEDS: traZODone HCL 50 MG TABLET PO (20:20)
[2024-01-20] MEDS: Donepezil HCl 5 MG TABLET PO (20:20)
[2024-01-20 20:41] LABS: Glucose, Whole Blood 192 mg/dL (60-115)
[2024-01-20] MEDS: Artificial Tears 15 ML DROPS 2 DROP EYE-BOTH (22:26)
[2024-01-21 06:45] LABS: Glucose, Whole Blood 173 mg/dL (60-115)
[2024-01-21 07:00] VITALS: BMI 26.7
[2024-01-21 08:03] VITALS: BP 119/76; PULSE 93; RESP 18; TEMP 36.1; O2SAT 98
[2024-01-21] MEDS: Tamsulosin HCL 0.4 MG CAPSULE PO (08:37)
[2024-01-21] MEDS: Aspirin Enteric Coated 81 MG TABLET.DR PO (08:37)
[2024-01-21] MEDS: Metoprolol Succinate ER 25 MG TAB.ER.24H PO (08:37)
[2024-01-21] MEDS: polyethylene glycoL 3350 17 GM POWD.PACK PO (08:37)
[2024-01-21] MEDS: Omeprazole 20 MG CAPSULE.DR PO (08:37)
[2024-01-21] MEDS: Atorvastatin Calcium 80 MG TABLET PO (08:38)
[2024-01-21] MEDS: Finasteride 5 MG TABLET PO (08:38)
[2024-01-21] MEDS: risperiDONE 0.5 MG TABLET PO ×2 (08:38→14:02)
[2024-01-21] MEDS: Cholecalciferol (Vitamin D3) 25 MCG TABLET PO (08:38)
[2024-01-21] MEDS: Ascorbic Acid 500 MG TABLET 1000 MG PO (08:38)
[2024-01-21] MEDS: Insulin Glargine,Hum.rec.anlog 100 UNIT/ML 10 ML VIAL 30 UNIT SUBCUT (08:38)
[2024-01-21 11:35] LABS: Glucose, Whole Blood 259 mg/dL (60-115)
--- NOTE | 2024-01-21 11:41 | HO.PSYCHPN ---
Subjective Subjective Date of Service: 01/21/24 Reason For Visit: Combative Interim History: Pt slept through the night. He is visible on the unit, taking medications as prescribed. He is eating well. No SI/HI. No psychosis or delusions, but confabulation. Not oriented to situation, month or year. He is able to tell at times that he is in the hospital. continues to urinate without a problem after whatley cath removed. less agitation. Review of Systems Review of Systems Pertinent positives and negatives as stated in HPI Constitutional: Reports as per HPI and Reports no additional constitutional complaints Cardiovascular: Reports as per HPI and Reports no additional cardiovascular complaints Respiratory: Reports as per HPI and Reports no additional respiratory complaints Gastrointestinal: Reports as per HPI and Reports no additional gastrointestinal complaints Genitourinary: Reports as per HPI Musculoskeletal: Reports no additional musculoskeletal complaints and Reports as per HPI Reports system reviewed and no additional complaints, except as documented and Reports as per HPI Mental Status Exam Mental Status Exam Narrative: Appearance:dressed casually, fair hygiene Behavior: cooperative Psychomotor: anxious, agitation Speech: mostly clear, some aphasia noted (both expressive and receptive) yelling at times Mood: irritable Affect: congruent, labile SI: none HI: none VH/AH: no overt signs Delusions: none, may have confabulations Insight/judgment: impaired x 2. Memory/cog:alert, not oriented to place, situation, month or year. Patient Appearance: Appropriate Patient Orientation: Person and Situation Level of Consciousness: Awake and Appropriate Patient Behavior: Guarded and Passive Mood Description: Calm Affect Description: Constricted Patient Cognition Impaired: Yes Ability to Follow Directions: Good Speech Pattern: Clear Diagnostics Vital Signs (24Hr): Vital Signs - 24 hr 01/21/24 08:03 Temperature 97.0 F Pulse Rate 93 Respiratory Rate 18 Blood Pressure 119/76 Pulse Oximetry 98 Oxygen Delivery Method Room Air BMI result Body Mass Index 23.2 Labs 01/12/24 09:01 01/12/24 09:01 Labs: Laboratory Results - last 48 hr 01/19/24 01/19/24 01/20/24 16:30 19:47 06:36 POC Glucose 208 H 191 H 152 H 01/20/24 01/20/24 01/20/24 11:15 16:07 20:35 POC Glucose 176 H 204 H 192 H 01/21/24 01/21/24 06:34 11:31 POC Glucose 173 H 259 H Imaging Radiology Impressions: ITS Impressions KUB X-Ray 12/31/23 00:20 IMPRESSION: 1. No acute finding. 2. Mild lower lumbar disc degenerative change. KUB X-Ray 01/09/24 13:37 IMPRESSION: Increasing severe constipation. Dilated large bowel suggestive of secondary obstruction/obstipation. KUB X-Ray 01/12/24 09:30 IMPRESSION: 1. Redemonstrated fecal loading throughout the colon, improved from prior imaging greatest in the distal transverse colon/proximal to mid descending colon. 2. Colon remains mildly prominent greatest at the hepatic flexure. Medications Medications Current Medications Acetaminophen (Acetaminophen 325 Mg Tablet) 650 mg PO Q6H PRN PRN Reason: Headache/Pain Mild Scale (1-3) Last Admin: 01/20/24 04:09 Dose: 650 mg Al Hydroxide/Mg Hydroxide (Magnesium Hydrox/Alum Hydrox 30 Ml Oral.Susp) 30 ml PO Q6H PRN PRN Reason: Heartburn/Nausea Last Admin: 01/18/24 11:28 Dose: 30 ml Artificial Tears (Artificial Tears 15 Ml Drops) 2 drop EYE-BOTH Q4H PRN PRN Reason: Dry Eyes Last Admin: 01/20/24 22:26 Dose: 2 drop Ascorbic Acid (Ascorbic Acid 500 Mg Tablet) 1,000 mg PO DAILY [facility] Last Admin: 01/21/24 08:38 Dose: 1,000 mg Aspirin (Aspirin Enteric Coated 81 Mg Tablet.) 81 mg PO DAILY [facility] Last Admin: 01/21/24 08:37 Dose: 81 mg Atorvastatin Calcium (Atorvastatin Calcium 80 Mg Tablet) 80 mg PO DAILY [facility] Last Admin: 01/21/24 08:38 Dose: 80 mg Donepezil HCl (Donepezil Hcl 5 Mg Tablet) 5 mg PO BEDTIME [facility] Last Admin: 01/20/24 20:20 Dose: 5 mg Finasteride (Finasteride 5 Mg Tablet) 5 mg PO DAILY [facility] Last Admin: 01/21/24 08:38 Dose: 5 mg Ibuprofen (Ibuprofen 600 Mg Tablet) 600 mg PO Q6H PRN PRN Reason: Pain, Mild (Pain Scale 1-3) Last Admin: 01/11/24 22:16 Dose: 600 mg Insulin Glargine (Insulin Glargine,Hum.Rec.Anlog 100 Unit/Ml 10 Ml Vial) 30 unit SUBCUT DAILY [facility] Last Admin: 01/21/24 08:38 Dose: 30 unit Insulin Human Lispro (Insulin Lispro 100 Unit/Ml 3 Ml Vial) 5 unit SUBCUT QIDACHS [facility] Last Admin: 01/21/24 07:43 Dose: Not Given Lactulose (Lactulose 20 Gm/30 Ml Solution) 20 gm PO BID [facility] Last Admin: 01/12/24 08:24 Dose: 20 gm Magnesium Hydroxide (Milk Of Magnesia 30 Ml Oral.Susp) 30 ml PO DAILY PRN PRN Reason: Constipation Melatonin (Melatonin 3 Mg Tablet) 6 mg PO BEDTIME [facility] Last Admin: 01/20/24 20:20 Dose: 6 mg Metoprolol Succinate (Metoprolol Succinate Er 25 Mg Tab.Er.24h) 25 mg PO DAILY [facility]; Protocol Last Admin: 01/21/24 08:37 Dose: 25 mg Omeprazole (Omeprazole 20 Mg Capsule.Dr) 20 mg PO DAILY [facility] Last Admin: 01/21/24 08:37 Dose: 20 mg Polyethylene Glycol (Polyethylene Glycol 3350 17 Gm Powd.Pack) 17 gm PO DAILY [facility] Last Admin: 01/21/24 08:37 Dose: 17 gm Risperidone (Risperidone 1 Mg Tablet) 1 mg PO BEDTIME [facility] Last Admin: 01/20/24 20:20 Dose: 1 mg Risperidone (Risperidone 1 Mg Tablet) 1 mg PO BID PRN PRN Reason: agitation Last Admin: 01/16/24 00:43 Dose: 1 mg Risperidone (Risperidone 0.5 Mg Tablet) 0.5 mg PO BID@0800,1400 [facility] Last Admin: 01/21/24 08:38 Dose: 0.5 mg Tamsulosin HCl (Tamsulosin Hcl 0.4 Mg Capsule) 0.4 mg PO DAILY [facility] Last Admin: 01/21/24 08:37 Dose: 0.4 mg Trazodone HCl (Trazodone Hcl 50 Mg Tablet) 50 mg PO BEDTIME PRN PRN Reason: Insomnia Last Admin: 01/16/24 00:43 Dose: 50 mg Trazodone HCl (Trazodone Hcl 50 Mg Tablet) 50 mg PO BEDTIME [facility] Last Admin: 01/20/24 20:20 Dose: 50 mg Vitamin D (Cholecalciferol (Vitamin D3) 25 Mcg Tablet) 25 mcg PO DAILY [facility] Last Admin: 01/21/24 08:38 Dose: 25 mcg Allergies Allergies Allergy/AdvReac Type Severity Reaction Status Date / Time codeine Allergy Intermediate upset Verified 12/30/23 22:10 stomach Assessment & Plan Assessment & Plan (1) Alzheimer's dementia with behavioral disturbance: Status: Acute Code(s): G30.9 - Alzheimer's disease, unspecified; F02.818 - Dementia in other diseases classified elsewhere, unspecified severity, with other behavioral disturbance Plan Mr. Russell is a 78 year-old male with hx of AD who was brought by sister due to increase combative behaviors at night along with not sleeping most of the night. Sister reports more acute and rapid decline in past month or so. In the ED, amitriptyline was tapped off due to urinary retention, concern of increase confusion. No combative behaviors while in the ED. PLAN 01/05- scheduled trazodone at bedtime 50mg po qhs with melatonin 6mg po qhs. discuss with sister restarting aricept 5mg po qhs. 01/06 continue tx. 01/07 continue tx. removed insulin pump as not safe to manage in the hospital especially as pt unknowingly may stop it. 01/09/24 continue tx plan; consult with hospitlaist re: management of severe constipation 01/10 continue tx. Pt with more regular BM, continue to monitor constipation, s/s of obstruction, VS, labs as needed. 01/11 KUB shows improvement of constipation, cmp with some improvement in renal function. 01/12 will order EKG for chest pain. 01/13 continue tx. 01/14 whatley removed per urology- voiding trial for next 24 hrs. 01/15 so far the patient is able to void without major problems we are continue to monitor. 01/16 the patient has been successful to wean off Whatley. Still confused but easily redirectable 01/17 continue tx. ordered PVR bladder scan. 01/18 continue tx. [facility] needs scheduled doses of insulin. Consulted with Dr. Brown (pt's disability examiner) who recommends Lantus 30units SQ daily and Humalog 5units before meals- based on his pump insulin requirements. Reason for continued inpatient stay Substantial Risk for: harm to self and inability to function Time Spent With Patient Time: Total time managing care of this patient today ____ minutes.
[2024-01-21] MEDS: Insulin Lispro 100 UNIT/ML 3 ML VIAL SUBCUT ×2 (12:05→20:56)
[2024-01-21 16:39] LABS: Glucose, Whole Blood 193 mg/dL (60-115)
[2024-01-21 20:00] VITALS: BP 126/91; PULSE 83; RESP 18; TEMP 36.5; O2SAT 98
[2024-01-21 20:06] LABS: Glucose, Whole Blood 288 mg/dL (60-115)
[2024-01-21] MEDS: Donepezil HCl 5 MG TABLET PO (20:56)
[2024-01-21] MEDS: Melatonin 3 MG TABLET 6 MG PO (20:56)
[2024-01-21] MEDS: risperiDONE 1 MG TABLET PO (20:56)
[2024-01-21] MEDS: traZODone HCL 50 MG TABLET PO (20:56)
[2024-01-21 21:20] LABS: Glucose, Whole Blood 349 mg/dL (60-115)
[2024-01-22 07:00] LABS: Glucose, Whole Blood 145 mg/dL (60-115)
[2024-01-22 08:42] VITALS: BP 121/77; PULSE 94; RESP 16; TEMP 36.4; O2SAT 96
[2024-01-22] MEDS: Finasteride 5 MG TABLET PO ×2 (08:45→11:22)
--- NOTE | 2024-01-22 09:59 | HO.PSYCHPN ---
Subjective Subjective Date of Service: 01/22/24 Reason For Visit: Combative Subjective Notes: Conditional Voluntary Interim History: Pt slept through the night. Pt declined medications this morning stating these were not his medications. When this report writer met with him, pt reassured and reminded he is no longer on insulin pump and this are the medications his providers want him to take, he then agreed to take them. He is not oriented to situation, month, year, although some idea this is the hospital. No behavioral concerns. Diagnostics Vital Signs (24Hr): Vital Signs - 24 hr 01/21/24 20:00 01/22/24 08:42 Temperature 97.7 F 97.6 F Pulse Rate 83 94 Respiratory Rate 18 16 Blood Pressure 126/91 H 121/77 Pulse Oximetry 98 96 Oxygen Delivery Method Room Air Room Air BMI result Body Mass Index 26.7 Labs 01/12/24 09:01 01/12/24 09:01 Labs: Laboratory Results - last 48 hr 01/20/24 01/20/24 01/20/24 11:15 16:07 20:35 POC Glucose 176 H 204 H 192 H 01/21/24 01/21/24 01/21/24 06:34 11:31 16:34 POC Glucose 173 H 259 H 193 H 01/21/24 01/21/24 01/22/24 20:02 21:05 06:44 POC Glucose 288 H 349 H 145 H Imaging Radiology Impressions: ITS Impressions KUB X-Ray 12/31/23 00:20 IMPRESSION: 1. No acute finding. 2. Mild lower lumbar disc degenerative change. KUB X-Ray 01/09/24 13:37 IMPRESSION: Increasing severe constipation. Dilated large bowel suggestive of secondary obstruction/obstipation. KUB X-Ray 01/12/24 09:30 IMPRESSION: 1. Redemonstrated fecal loading throughout the colon, improved from prior imaging greatest in the distal transverse colon/proximal to mid descending colon. 2. Colon remains mildly prominent greatest at the hepatic flexure. Medications Medications Current Medications Acetaminophen (Acetaminophen 325 Mg Tablet) 650 mg PO Q6H PRN PRN Reason: Headache/Pain (1-10) Al Hydroxide/Mg Hydroxide (Magnesium Hydrox/Alum Hydrox 30 Ml Oral.Susp) 30 ml PO Q6H PRN PRN Reason: Heartburn/Nausea Last Admin: 01/18/24 11:28 Dose: 30 ml Artificial Tears (Artificial Tears 15 Ml Drops) 2 drop EYE-BOTH Q4H PRN PRN Reason: Dry Eyes Last Admin: 01/20/24 22:26 Dose: 2 drop Ascorbic Acid (Ascorbic Acid 500 Mg Tablet) 1,000 mg PO DAILY [facility] BEDS AT [facility] Last Admin: 01/22/24 09:33 Dose: Not Given Aspirin (Aspirin Enteric Coated 81 Mg Tablet.) 81 mg PO DAILY [facility] 234 BEDS AT [facility] Last Admin: 01/21/24 08:37 Dose: 81 mg Atorvastatin Calcium (Atorvastatin Calcium 80 Mg Tablet) 80 mg PO DAILY [facility] 234 BEDS AT [facility] Last Admin: 01/21/24 08:38 Dose: 80 mg Donepezil HCl (Donepezil Hcl 5 Mg Tablet) 5 mg PO BEDTIME [facility] 234 BEDS AT [facility] Last Admin: 01/21/24 20:56 Dose: 5 mg Finasteride (Finasteride 5 Mg Tablet) 5 mg PO DAILY [facility] 234 BEDS [facility] Last Admin: 01/22/24 08:45 Dose: 5 mg Ibuprofen (Ibuprofen 600 Mg Tablet) 600 mg PO Q6H PRN PRN Reason: Pain, Mild (Pain Scale 1-3) Last Admin: 01/11/24 22:16 Dose: 600 mg Insulin Glargine (Insulin Glargine,Hum.Rec.Anlog 100 Unit/Ml 10 Ml Vial) 30 unit SUBCUT DAILY [facility] 234 BEDS [facility] Last Admin: 01/21/24 08:38 Dose: 30 unit Insulin Human Lispro (Insulin Lispro 100 Unit/Ml 3 Ml Vial) 5 unit SUBCUT QIDACHS COUNTS [facility]CLUDE 234 BEDS AT [facility] Last Admin: 01/22/24 08:43 Dose: Not Given Lactulose (Lactulose 20 Gm/30 Ml Solution) 20 gm PO BID [facility] 234 BEDS AT [facility] Last Admin: 01/12/24 08:24 Dose: 20 gm Magnesium Hydroxide (Milk Of Magnesia 30 Ml Oral.Susp) 30 ml PO DAILY PRN PRN Reason: Constipation Melatonin (Melatonin 3 Mg Tablet) 6 mg PO BEDTIME [facility] 234 BEDS AT [facility] Last Admin: 01/21/24 20:56 Dose: 6 mg Metoprolol Succinate (Metoprolol Succinate Er 25 Mg Tab.Er.24h) 25 mg PO DAILY [facility] 234 BEDS [facility]; Protocol Last Admin: 01/21/24 08:37 Dose: 25 mg Omeprazole (Omeprazole 20 Mg Capsule.) 20 mg PO DAILY [facility] 234 BEDS AT [facility] Last Admin: 01/21/24 08:37 Dose: 20 mg Polyethylene Glycol (Polyethylene Glycol 3350 17 Gm Powd.Pack) 17 gm PO DAILY [facility] 234 BEDS AT [facility] Last Admin: 01/21/24 08:37 Dose: 17 gm Risperidone (Risperidone 1 Mg Tablet) 1 mg PO BEDTIME [facility] Last Admin: 01/21/24 20:56 Dose: 1 mg Risperidone (Risperidone 1 Mg Tablet) 1 mg PO BID PRN PRN Reason: agitation Last Admin: 01/16/24 00:43 Dose: 1 mg Risperidone (Risperidone 0.5 Mg Tablet) 0.5 mg PO BID@0800,1400 [facility]S [facility]CLUDE 234 BEDS AT [facility] Last Admin: 01/21/24 14:02 Dose: 0.5 mg Tamsulosin HCl (Tamsulosin Hcl 0.4 Mg Capsule) 0.4 mg PO DAILY [facility] 234 BEDS AT [facility] Last Admin: 01/21/24 08:37 Dose: 0.4 mg Trazodone HCl (Trazodone Hcl 50 Mg Tablet) 50 mg PO BEDTIME PRN PRN Reason: Insomnia Last Admin: 01/16/24 00:43 Dose: 50 mg Trazodone HCl (Trazodone Hcl 50 Mg Tablet) 50 mg PO BEDTIME [facility] 234 BEDS AT [facility] Last Admin: 01/21/24 20:56 Dose: 50 mg Vitamin D (Cholecalciferol (Vitamin D3) 25 Mcg Tablet) 25 mcg PO DAILY [facility] 234 BEDS AT [facility] Last Admin: 01/21/24 08:38 Dose: 25 mcg Allergies Allergies Allergy/AdvReac Type Severity Reaction Status Date / Time codeine Allergy Intermediate upset Verified 12/30/23 22:10 stomach Assessment & Plan Assessment & Plan (1) Alzheimer's dementia with behavioral disturbance: Status: Acute Code(s): G30.9 - Alzheimer's disease, unspecified; F02.818 - Dementia in other diseases classified elsewhere, unspecified severity, with other behavioral disturbance Plan Mr. Russell is a 78 year-old male with hx of AD who was brought by sister due to increase combative behaviors at night along with not sleeping most of the night. Sister reports more acute and rapid decline in past month or so. In the ED, amitriptyline was tapped off due to urinary retention, concern of increase confusion. No combative behaviors while in the ED. PLAN 01/05- scheduled trazodone at bedtime 50mg po qhs with melatonin 6mg po qhs. discuss with sister restarting aricept 5mg po qhs. 01/06 continue tx. 01/07 continue tx. removed insulin pump as not safe to manage in the hospital especially as pt unknowingly may stop it. 01/09/24 continue tx plan; consult with hospitlaist re: management of severe constipation 01/10 continue tx. Pt with more regular BM, continue to monitor constipation, s/s of obstruction, VS, labs as needed. 01/11 KUB shows improvement of constipation, cmp with some improvement in renal function. 01/12 will order EKG for chest pain. 01/13 continue tx. 01/14 whatley removed per urology- voiding trial for next 24 hrs. 01/15 so far the patient is able to void without major problems we are continue to monitor. 01/16 the patient has been successful to wean off Whatley. Still confused but easily redirectable 01/17 continue tx. ordered PVR bladder scan. 01/18 continue tx. [facility] needs scheduled doses of insulin. Consulted with Dr. Brown (pt's operations research manager) who recommends Lantus 30units SQ daily and Humalog 5units before meals- based on his pump insulin requirements. 01/19 increase risperidone 0.5mg BID and 1mg po qhs. continue aricept. 01/21 continue tx. Reason for continued inpatient stay Substantial Risk for: inability to function Time Spent With Patient Time: Total time managing care of this patient today ____ minutes.
[2024-01-22] MEDS: Insulin Lispro 100 UNIT/ML 3 ML VIAL SUBCUT ×2 (11:14→16:50)
[2024-01-22] MEDS: Insulin Glargine,Hum.rec.anlog 100 UNIT/ML 10 ML VIAL 30 UNIT SUBCUT (11:16)
[2024-01-22] MEDS: Ascorbic Acid 500 MG TABLET 1000 MG PO (11:20)
[2024-01-22] MEDS: Aspirin Enteric Coated 81 MG TABLET.DR PO (11:20)
[2024-01-22] MEDS: Atorvastatin Calcium 80 MG TABLET PO (11:21)
[2024-01-22] MEDS: Cholecalciferol (Vitamin D3) 25 MCG TABLET PO (11:21)
[2024-01-22 11:23] VITALS: BP 132/80; PULSE 88
[2024-01-22] MEDS: Metoprolol Succinate ER 25 MG TAB.ER.24H PO (11:23)
[2024-01-22] MEDS: Omeprazole 20 MG CAPSULE.DR PO (11:25)
[2024-01-22] MEDS: Tamsulosin HCL 0.4 MG CAPSULE PO (11:26)
[2024-01-22] MEDS: polyethylene glycoL 3350 17 GM POWD.PACK PO (11:27)
[2024-01-22 11:34] LABS: Glucose, Whole Blood 235 mg/dL (60-115)
[2024-01-22] MEDS: risperiDONE 0.5 MG TABLET PO (14:30)
[2024-01-22 16:15] LABS: Glucose, Whole Blood 163 mg/dL (60-115)
[2024-01-22 20:00] VITALS: RESP 18
[2024-01-23 07:37] LABS: Glucose, Whole Blood 95 mg/dL (60-115)
--- NOTE | 2024-01-23 07:59 | P.PNPSI_ITS ---
Subjective Subjective Date of Service: 01/23/24 Reason For Visit: Combative Interim History: Met with patient. Discussed with nursing. Overall has been intermittently declining blood sugar point of cares as well as Lantus. Intermittently confused. Today with service writer was clearly frustrated. Eager for discharge. Reported wanting to get home to stay with his children, brothers and sisters and add an uncle. Denied depression. Denied feeling unsafe. Denied there being any reason for him being in the hospital Medication Compliance: No Side effects from medications: No Attending Groups: No Review of Systems Acute medical concerns: No Review of Systems Review of Systems monitoring blood sugars as patient allows Mental Status Exam Mental Status Exam Narrative: Appearance:dressed casually, fair hygiene Behavior: cooperative Psychomotor: anxious, agitation Speech: mostly clear, some aphasia noted (both expressive and receptive) yelling at times Mood: irritable Affect: congruent, labile SI: none HI: none VH/AH: no overt signs Delusions: none, may have confabulations Insight/judgment: impaired x 2. Memory/cog:alert, not oriented to place, situation, month or year. Patient Appearance: Appropriate Patient Orientation: Person and Situation Level of Consciousness: Awake and Appropriate Patient Behavior: Guarded and Passive Mood Description: Calm Affect Description: Constricted Patient Cognition Impaired: Yes Ability to Follow Directions: Good Speech Pattern: Clear Diagnostics Vital Signs (24Hr): Vital Signs - 24 hr 01/22/24 08:42 01/22/24 11:23 01/22/24 20:00 Temperature 97.6 F Pulse Rate 94 88 Respiratory Rate 16 18 Blood Pressure 121/77 132/80 Pulse Oximetry 96 Oxygen Delivery Method Room Air BMI result Body Mass Index 26.7 Labs 01/12/24 09:01 01/12/24 09:01 Labs: Laboratory Results - last 48 hr 01/21/24 01/21/24 01/21/24 11:31 16:34 20:02 POC Glucose 259 H 193 H 288 H 01/21/24 01/22/24 01/22/24 21:05 06:44 11:08 POC Glucose 349 H 145 H 235 H 01/22/24 01/23/24 16:07 07:33 POC Glucose 163 H 95 Imaging Radiology Impressions: ITS Impressions KUB X-Ray 12/31/23 00:20 IMPRESSION: 1. No acute finding. 2. Mild lower lumbar disc degenerative change. KUB X-Ray 01/09/24 13:37 IMPRESSION: Increasing severe constipation. Dilated large bowel suggestive of secondary obstruction/obstipation. KUB X-Ray 01/12/24 09:30 IMPRESSION: 1. Redemonstrated fecal loading throughout the colon, improved from prior imaging greatest in the distal transverse colon/proximal to mid descending colon. 2. Colon remains mildly prominent greatest at the hepatic flexure. Medications Medications Current Medications Acetaminophen (Acetaminophen 325 Mg Tablet) 650 mg PO Q6H PRN PRN Reason: Headache/Pain (1-10) Al Hydroxide/Mg Hydroxide (Magnesium Hydrox/Alum Hydrox 30 Ml Oral.Susp) 30 ml PO Q6H PRN PRN Reason: Heartburn/Nausea Last Admin: 01/18/24 11:28 Dose: 30 ml Artificial Tears (Artificial Tears 15 Ml Drops) 2 drop EYE-BOTH Q4H PRN PRN Reason: Dry Eyes Last Admin: 01/20/24 22:26 Dose: 2 drop Ascorbic Acid (Ascorbic Acid 500 Mg Tablet) 1,000 mg PO DAILY [facility] Last Admin: 01/22/24 11:20 Dose: 1,000 mg Aspirin (Aspirin Enteric Coated 81 Mg Tablet.Dr) 81 mg PO DAILY [facility] Last Admin: 01/22/24 11:20 Dose: 81 mg Atorvastatin Calcium (Atorvastatin Calcium 80 Mg Tablet) 80 mg PO DAILY [facility] Last Admin: 01/22/24 11:21 Dose: 80 mg Donepezil HCl (Donepezil Hcl 5 Mg Tablet) 5 mg PO BEDTIME [facility] Last Admin: 01/22/24 22:03 Dose: Not Given Finasteride (Finasteride 5 Mg Tablet) 5 mg PO DAILY [facility] Last Admin: 01/22/24 11:22 Dose: 5 mg Insulin Glargine (Insulin Glargine,Hum.Rec.Anlog 100 Unit/Ml 10 Ml Vial) 30 unit SUBCUT DAILY [facility] Last Admin: 01/22/24 11:16 Dose: 30 unit Insulin Human Lispro (Insulin Lispro 100 Unit/Ml 3 Ml Vial) 5 unit SUBCUT QIDACHS [facility] Last Admin: 01/22/24 22:03 Dose: Not Given Lactulose (Lactulose 20 Gm/30 Ml Solution) 20 gm PO BID [facility] Last Admin: 01/12/24 08:24 Dose: 20 gm Magnesium Hydroxide (Milk Of Magnesia 30 Ml Oral.Susp) 30 ml PO DAILY PRN PRN Reason: Constipation Melatonin (Melatonin 3 Mg Tablet) 6 mg PO BEDTIME [facility] Last Admin: 01/22/24 22:03 Dose: Not Given Metoprolol Succinate (Metoprolol Succinate Er 25 Mg Tab.Er.24h) 25 mg PO DAILY [facility]; Protocol Last Admin: 01/22/24 11:23 Dose: 25 mg Omeprazole (Omeprazole 20 Mg Capsule.Dr) 20 mg PO DAILY [facility] Last Admin: 01/22/24 11:25 Dose: 20 mg Polyethylene Glycol (Polyethylene Glycol 3350 17 Gm Powd.Pack) 17 gm PO DAILY [facility] Last Admin: 01/22/24 11:27 Dose: 17 gm Risperidone (Risperidone 1 Mg Tablet) 1 mg PO BEDTIME [facility] Last Admin: 01/22/24 22:04 Dose: Not Given Risperidone (Risperidone 1 Mg Tablet) 1 mg PO BID PRN PRN Reason: agitation Last Admin: 01/16/24 00:43 Dose: 1 mg Risperidone (Risperidone 0.5 Mg Tablet) 0.5 mg PO BID@0800,1400 [facility] Last Admin: 01/22/24 14:30 Dose: 0.5 mg Tamsulosin HCl (Tamsulosin Hcl 0.4 Mg Capsule) 0.4 mg PO DAILY [facility] Last Admin: 01/22/24 11:26 Dose: 0.4 mg Trazodone HCl (Trazodone Hcl 50 Mg Tablet) 50 mg PO BEDTIME PRN PRN Reason: Insomnia Last Admin: 01/16/24 00:43 Dose: 50 mg Trazodone HCl (Trazodone Hcl 50 Mg Tablet) 50 mg PO BEDTIME [facility] Last Admin: 01/22/24 22:04 Dose: Not Given Vitamin D (Cholecalciferol (Vitamin D3) 25 Mcg Tablet) 25 mcg PO DAILY [facility] Last Admin: 01/22/24 11:21 Dose: 25 mcg Allergies Allergies Allergy/AdvReac Type Severity Reaction Status Date / Time codeine Allergy Intermediate upset Verified 12/30/23 22:10 stomach Assessment & Plan Assessment & Plan (1) Alzheimer's dementia with behavioral disturbance: Status: Acute Code(s): G30.9 - Alzheimer's disease, unspecified; F02.818 - Dementia in other diseases classified elsewhere, unspecified severity, with other behavioral disturbance Plan Mr. Russell is a 78 year-old male with hx of AD who was brought by sister due to increase combative behaviors at night along with not sleeping most of the night. Sister reports more acute and rapid decline in past month or so. In the ED, amitriptyline was tapped off due to urinary retention, concern of increase confusion. No combative behaviors while in the ED. PLAN 01/05- scheduled trazodone at bedtime 50mg po qhs with melatonin 6mg po qhs. discuss with sister restarting aricept 5mg po qhs. 01/06 continue tx. 01/07 continue tx. removed insulin pump as not safe to manage in the hospital especially as pt unknowingly may stop it. 01/09/24 continue tx plan; consult with hospitlaist re: management of severe constipation 01/10 continue tx. Pt with more regular BM, continue to monitor constipation, s/s of obstruction, VS, labs as needed. 01/11 KUB shows improvement of constipation, cmp with some improvement in renal function. 01/12 will order EKG for chest pain. 01/13 continue tx. 01/14 whatley removed per urology- voiding trial for next 24 hrs. 01/15 so far the patient is able to void without major problems we are continue to monitor. 01/16 the patient has been successful to wean off Whatley. Still confused but easily redirectable 01/17 continue tx. ordered PVR bladder scan. 01/18 continue tx. [facility] needs scheduled doses of insulin. Consulted with Dr. Brown (pt's baggage inspector) who recommends Lantus 30units SQ daily and Humalog 5units before meals- based on his pump insulin requirements. 01/19 increase risperidone 0.5mg BID and 1mg po qhs. continue aricept. 01/21 continue tx. 01/23/2024: No changes. Encourage adherence Reason for continued inpatient stay Substantial Risk for: inability to function Time Spent With Patient Time: Total time managing care of this patient today ____ minutes.
[2024-01-23 08:11] VITALS: BP 120/80; PULSE 85; RESP 18; TEMP 36.2; O2SAT 99
[2024-01-23] MEDS: Artificial Tears 15 ML DROPS 2 DROP EYE-BOTH ×2 (11:14→21:07)
[2024-01-23] MEDS: Finasteride 5 MG TABLET PO (11:20)
[2024-01-23] MEDS: polyethylene glycoL 3350 17 GM POWD.PACK PO (11:20)
[2024-01-23] MEDS: Ascorbic Acid 500 MG TABLET 1000 MG PO (11:20)
[2024-01-23] MEDS: Tamsulosin HCL 0.4 MG CAPSULE PO (11:22)
[2024-01-23] MEDS: Omeprazole 20 MG CAPSULE.DR PO (11:22)
[2024-01-23] MEDS: risperiDONE 0.5 MG TABLET PO ×2 (11:23→13:49)
[2024-01-23] MEDS: Atorvastatin Calcium 80 MG TABLET PO (11:23)
[2024-01-23] MEDS: Aspirin Enteric Coated 81 MG TABLET.DR PO (11:24)
[2024-01-23 11:25] LABS: Glucose, Whole Blood 135 mg/dL (60-115)
[2024-01-23 11:47] VITALS: BP 123/82; PULSE 89
[2024-01-23] MEDS: Metoprolol Succinate ER 25 MG TAB.ER.24H PO (11:56)
[2024-01-23] MEDS: Insulin Glargine,Hum.rec.anlog 100 UNIT/ML 10 ML VIAL 30 UNIT SUBCUT (12:14)
[2024-01-23 16:13] LABS: Glucose, Whole Blood 213 mg/dL (60-115)
[2024-01-23] MEDS: Insulin Lispro 100 UNIT/ML 3 ML VIAL SUBCUT (16:32)
[2024-01-23 20:00] VITALS: BP 126/65; PULSE 97; RESP 16; TEMP 36.1; O2SAT 97
[2024-01-23 20:16] LABS: Glucose, Whole Blood 184 mg/dL (60-115)
[2024-01-23] MEDS: traZODone HCL 50 MG TABLET PO (21:04)
[2024-01-23] MEDS: Melatonin 3 MG TABLET 6 MG PO (21:04)
[2024-01-23] MEDS: Donepezil HCl 5 MG TABLET PO (21:04)
[2024-01-23] MEDS: risperiDONE 1 MG TABLET PO (21:04)
[2024-01-24] MEDS: Ondansetron ODT 8 MG TAB.RAPDIS TRANSLINGU (00:38)
[2024-01-24 06:43] LABS: Glucose, Whole Blood 151 mg/dL (60-115)
[2024-01-24 08:01] VITALS: BP 112/66; PULSE 90; RESP 16; TEMP 36.2; O2SAT 97
[2024-01-24] MEDS: Insulin Glargine,Hum.rec.anlog 100 UNIT/ML 10 ML VIAL 30 UNIT SUBCUT (08:23)
[2024-01-24] MEDS: Ascorbic Acid 500 MG TABLET 1000 MG PO (08:23)
[2024-01-24] MEDS: Omeprazole 20 MG CAPSULE.DR PO (08:23)
[2024-01-24] MEDS: Finasteride 5 MG TABLET PO (08:23)
[2024-01-24] MEDS: risperiDONE 0.5 MG TABLET PO ×2 (08:24→14:00)
[2024-01-24] MEDS: Metoprolol Succinate ER 25 MG TAB.ER.24H PO (08:24)
[2024-01-24] MEDS: Atorvastatin Calcium 80 MG TABLET PO (08:24)
[2024-01-24] MEDS: Aspirin Enteric Coated 81 MG TABLET.DR PO (08:24)
[2024-01-24] MEDS: Tamsulosin HCL 0.4 MG CAPSULE PO (08:25)
[2024-01-24] MEDS: polyethylene glycoL 3350 17 GM POWD.PACK PO (08:25)
[2024-01-24] MEDS: Cholecalciferol (Vitamin D3) 25 MCG TABLET PO (08:27)
--- NOTE | 2024-01-24 10:52 | P.PNPSI_ITS ---
Subjective Subjective Date of Service: 01/24/24 Reason For Visit: Combative Interim History: remains frustrated. Eager for discharge. Denies it being any issues or concerns. Nausea last night helped by Eladio. Blood sugar levels unremarkable. Denies depression, SI HI psychosis etc. Medication Compliance: Yes Side effects from medications: No Attending Groups: No Review of Systems Acute medical concerns: No Review of Systems Review of Systems Nausea last night Mental Status Exam Mental Status Exam Narrative: Appearance:dressed casually, fair hygiene Behavior: cooperative Psychomotor: anxious Speech: mostly clear Mood: irritable Affect: congruent, labile SI: none HI: none VH/AH: no overt signs Delusions: none, may have confabulations Insight/judgment: impaired x 2. Memory/cog:alert, not oriented to place, situation, month or year. Diagnostics Vital Signs (24Hr): Vital Signs - 24 hr 01/23/24 11:47 01/23/24 20:00 01/24/24 08:01 Temperature 97 F 97.1 F Pulse Rate 89 97 90 Respiratory Rate 16 16 Blood Pressure 123/82 126/65 112/66 Pulse Oximetry 97 97 Oxygen Delivery Method Room Air Room Air BMI result Body Mass Index 26.7 Labs 01/12/24 09:01 01/12/24 09:01 Labs: Laboratory Results - last 48 hr 01/22/24 01/22/24 01/23/24 11:08 16:07 07:33 POC Glucose 235 H 163 H 95 01/23/24 01/23/24 01/23/24 11:17 16:05 20:11 POC Glucose 135 H 213 H 184 H 01/24/24 06:32 POC Glucose 151 H Imaging Radiology Impressions: ITS Impressions KUB X-Ray 12/31/23 00:20 IMPRESSION: 1. No acute finding. 2. Mild lower lumbar disc degenerative change. KUB X-Ray 01/09/24 13:37 IMPRESSION: Increasing severe constipation. Dilated large bowel suggestive of secondary obstruction/obstipation. KUB X-Ray 01/12/24 09:30 IMPRESSION: 1. Redemonstrated fecal loading throughout the colon, improved from prior imaging greatest in the distal transverse colon/proximal to mid descending colon. 2. Colon remains mildly prominent greatest at the hepatic flexure. Medications Medications Current Medications Acetaminophen (Acetaminophen 325 Mg Tablet) 650 mg PO Q6H PRN PRN Reason: Headache/Pain (1-10) Al Hydroxide/Mg Hydroxide (Magnesium Hydrox/Alum Hydrox 30 Ml Oral.Susp) 30 ml PO Q6H PRN PRN Reason: Heartburn/Nausea Last Admin: 01/18/24 11:28 Dose: 30 ml Artificial Tears (Artificial Tears 15 Ml Drops) 2 drop EYE-BOTH Q4H PRN PRN Reason: Dry Eyes Last Admin: 01/23/24 21:07 Dose: 2 drop Ascorbic Acid (Ascorbic Acid 500 Mg Tablet) 1,000 mg PO DAILY [facility] Last Admin: 01/24/24 08:23 Dose: 1,000 mg Aspirin (Aspirin Enteric Coated 81 Mg Tablet.) 81 mg PO DAILY [facility] Last Admin: 01/24/24 08:24 Dose: 81 mg Atorvastatin Calcium (Atorvastatin Calcium 80 Mg Tablet) 80 mg PO DAILY [facility] Last Admin: 01/24/24 08:24 Dose: 80 mg Donepezil HCl (Donepezil Hcl 5 Mg Tablet) 5 mg PO BEDTIME [facility] Last Admin: 01/23/24 21:04 Dose: 5 mg Finasteride (Finasteride 5 Mg Tablet) 5 mg PO DAILY [facility] Last Admin: 01/24/24 08:23 Dose: 5 mg Insulin Glargine (Insulin Glargine,Hum.Rec.Anlog 100 Unit/Ml 10 Ml Vial) 30 unit SUBCUT DAILY [facility] Last Admin: 01/24/24 08:23 Dose: 30 unit Insulin Human Lispro (Insulin Lispro 100 Unit/Ml 3 Ml Vial) 5 unit SUBCUT QIDACHS [facility] Last Admin: 01/24/24 08:25 Dose: Not Given Lactulose (Lactulose 20 Gm/30 Ml Solution) 20 gm PO BID [facility] Last Admin: 01/12/24 08:24 Dose: 20 gm Magnesium Hydroxide (Milk Of Magnesia 30 Ml Oral.Susp) 30 ml PO DAILY PRN PRN Reason: Constipation Melatonin (Melatonin 3 Mg Tablet) 6 mg PO BEDTIME [facility] Last Admin: 01/23/24 21:04 Dose: 6 mg Metoprolol Succinate (Metoprolol Succinate Er 25 Mg Tab.Er.24h) 25 mg PO DAILY [facility]; Protocol Last Admin: 01/24/24 08:24 Dose: 25 mg Omeprazole (Omeprazole 20 Mg Capsule.) 20 mg PO DAILY [facility] Last Admin: 01/24/24 08:23 Dose: 20 mg Polyethylene Glycol (Polyethylene Glycol 3350 17 Gm Powd.Pack) 17 gm PO DAILY [facility] Last Admin: 01/24/24 08:25 Dose: 17 gm Risperidone (Risperidone 1 Mg Tablet) 1 mg PO BEDTIME [facility] Last Admin: 01/23/24 21:04 Dose: 1 mg Risperidone (Risperidone 1 Mg Tablet) 1 mg PO BID PRN PRN Reason: agitation Last Admin: 01/16/24 00:43 Dose: 1 mg Risperidone (Risperidone 0.5 Mg Tablet) 0.5 mg PO BID@0800,1400 [facility] Last Admin: 01/24/24 08:24 Dose: 0.5 mg Tamsulosin HCl (Tamsulosin Hcl 0.4 Mg Capsule) 0.4 mg PO DAILY [facility] Last Admin: 01/24/24 08:25 Dose: 0.4 mg Trazodone HCl (Trazodone Hcl 50 Mg Tablet) 50 mg PO BEDTIME PRN PRN Reason: Insomnia Last Admin: 01/16/24 00:43 Dose: 50 mg Trazodone HCl (Trazodone Hcl 50 Mg Tablet) 50 mg PO BEDTIME [facility] Last Admin: 01/23/24 21:04 Dose: 50 mg Vitamin D (Cholecalciferol (Vitamin D3) 25 Mcg Tablet) 25 mcg PO DAILY [facility] Last Admin: 01/24/24 08:27 Dose: 25 mcg Allergies Allergies Allergy/AdvReac Type Severity Reaction Status Date / Time codeine Allergy Intermediate upset Verified 12/30/23 22:10 stomach Assessment & Plan Assessment & Plan (1) Alzheimer's dementia with behavioral disturbance: Status: Acute Code(s): G30.9 - Alzheimer's disease, unspecified; F02.818 - Dementia in other diseases classified elsewhere, unspecified severity, with other behavioral disturbance Plan Mr. Russell is a 78 year-old male with hx of AD who was brought by sister due to increase combative behaviors at night along with not sleeping most of the night. Sister reports more acute and rapid decline in past month or so. In the ED, amitriptyline was tapped off due to urinary retention, concern of increase confusion. No combative behaviors while in the ED. PLAN 01/05- scheduled trazodone at bedtime 50mg po qhs with melatonin 6mg po qhs. discuss with sister restarting aricept 5mg po qhs. 01/06 continue tx. 6/21 continue tx. removed insulin pump as not safe to manage in the hospital especially as pt unknowingly may stop it. 01/09/24 continue tx plan; consult with hospitlaist re: management of severe constipation 01/10 continue tx. Pt with more regular BM, continue to monitor constipation, s/s of obstruction, VS, labs as needed. 01/11 KUB shows improvement of constipation, cmp with some improvement in renal function. 01/12 will order EKG for chest pain. 01/13 continue tx. 01/14 whatley removed per urology- voiding trial for next 24 hrs. 01/15 so far the patient is able to void without major problems we are continue to monitor. 01/16 the patient has been successful to wean off Whatley. Still confused but easily redirectable 01/17 continue tx. ordered PVR bladder scan. 01/18 continue tx. [facility] needs scheduled doses of insulin. Consulted with Dr. rBown (pt's pharmacy technician instructor) who recommends Lantus 30units SQ daily and Humalog 5units before meals- based on his pump insulin requirements. 01/19 increase risperidone 0.5mg BID and 1mg po qhs. continue aricept. 01/21 continue tx. 01/24/2024: No changes. Encourage adherence Reason for continued inpatient stay Substantial Risk for: inability to function and rapid decompensation Time Spent With Patient Time: Total time managing care of this patient today ____ minutes.
[2024-01-24 11:16] LABS: Glucose, Whole Blood 213 mg/dL (60-115)
[2024-01-24] MEDS: Insulin Lispro 100 UNIT/ML 3 ML VIAL SUBCUT ×2 (11:53→19:53)
[2024-01-24 16:23] LABS: Glucose, Whole Blood 199 mg/dL (60-115)
[2024-01-24 19:34] LABS: Glucose, Whole Blood 269 mg/dL (60-115)
[2024-01-24 19:51] VITALS: BP 99/72; PULSE 84; RESP 17; TEMP 36.2; O2SAT 98
[2024-01-24] MEDS: Melatonin 3 MG TABLET 6 MG PO (19:52)
[2024-01-24] MEDS: Donepezil HCl 5 MG TABLET PO (19:53)
[2024-01-24] MEDS: risperiDONE 1 MG TABLET PO (19:53)
[2024-01-24] MEDS: traZODone HCL 50 MG TABLET PO (19:53)
[2024-01-24] MEDS: Artificial Tears 15 ML DROPS 2 DROP EYE-BOTH (20:26)
[2024-01-25 06:40] LABS: Glucose, Whole Blood 113 mg/dL (60-115)
[2024-01-25 08:00] VITALS: BP 101/63; PULSE 94; RESP 16; TEMP 36.6; O2SAT 98
[2024-01-25] MEDS: Tamsulosin HCL 0.4 MG CAPSULE PO (08:56)
[2024-01-25] MEDS: Omeprazole 20 MG CAPSULE.DR PO (08:56)
[2024-01-25] MEDS: risperiDONE 0.5 MG TABLET PO ×2 (08:56→14:28)
[2024-01-25] MEDS: Finasteride 5 MG TABLET PO (08:56)
[2024-01-25] MEDS: Cholecalciferol (Vitamin D3) 25 MCG TABLET PO (08:56)
[2024-01-25] MEDS: Atorvastatin Calcium 80 MG TABLET PO (08:56)
[2024-01-25] MEDS: Metoprolol Succinate ER 25 MG TAB.ER.24H PO (08:56)
[2024-01-25] MEDS: Insulin Glargine,Hum.rec.anlog 100 UNIT/ML 10 ML VIAL 30 UNIT SUBCUT (08:57)
[2024-01-25] MEDS: Aspirin Enteric Coated 81 MG TABLET.DR PO (08:57)
[2024-01-25] MEDS: polyethylene glycoL 3350 17 GM POWD.PACK PO (08:57)
[2024-01-25] MEDS: Ascorbic Acid 500 MG TABLET 1000 MG PO (09:00)
[2024-01-25 11:30] LABS: Glucose, Whole Blood 168 mg/dL (60-115)
--- NOTE | 2024-01-25 11:55 | P.PNPSI_ITS ---
Subjective Subjective Date of Service: 01/25/24 Reason For Visit: Combative Subjective Notes: Conditional Voluntary Interim History: remains frustrated. Eager for discharge. Denies it being any issues or concerns. Nausea last night helped by Zofran. Blood sugar levels unremarkable. Denies depression, SI HI psychosis etc. Review of Systems Review of Systems Nausea last night Constitutional: Reports as per HPI and Reports no additional constitutional complaints Cardiovascular: Reports as per HPI and Reports no additional cardiovascular complaints Respiratory: Reports as per HPI and Reports no additional respiratory complaints Gastrointestinal: Reports as per HPI and Reports no additional gastrointestinal complaints Genitourinary: Reports as per HPI Musculoskeletal: Reports no additional musculoskeletal complaints and Reports as per HPI Reports system reviewed and no additional complaints, except as documented and Reports as per HPI Mental Status Exam Mental Status Exam Narrative: Appearance:dressed casually, fair hygiene Behavior: cooperative Psychomotor: anxious Speech: mostly clear Mood: good Affect: congruent, pleasant SI: none HI: none VH/AH: no overt signs Delusions: none, may have confabulations Insight/judgment: impaired x 2. Memory/cog:alert, oriented to place in the sense that he knows is a hospital, but not to situation, month or year. Diagnostics Vital Signs (24Hr): Vital Signs - 24 hr 01/24/24 19:51 01/25/24 08:00 Temperature 97.2 F 97.9 F Pulse Rate 84 94 Respiratory Rate 17 16 Blood Pressure 99/72 101/63 Pulse Oximetry 98 98 Oxygen Delivery Method Room Air Room Air BMI result Body Mass Index 26.7 Labs 01/12/24 09:01 01/12/24 09:01 Labs: Laboratory Results - last 48 hr 01/23/24 01/23/24 01/24/24 16:05 20:11 06:32 POC Glucose 213 H 184 H 151 H 01/24/24 01/24/24 01/24/24 11:11 16:20 19:27 POC Glucose 213 H 199 H 269 H 01/25/24 01/25/24 06:35 11:25 POC Glucose 113 168 H Imaging Radiology Impressions: ITS Impressions KUB X-Ray 12/31/23 00:20 IMPRESSION: 1. No acute finding. 2. Mild lower lumbar disc degenerative change. KUB X-Ray 01/09/24 13:37 IMPRESSION: Increasing severe constipation. Dilated large bowel suggestive of secondary obstruction/obstipation. KUB X-Ray 01/12/24 09:30 IMPRESSION: 1. Redemonstrated fecal loading throughout the colon, improved from prior imaging greatest in the distal transverse colon/proximal to mid descending colon. 2. Colon remains mildly prominent greatest at the hepatic flexure. Medications Medications Current Medications Acetaminophen (Acetaminophen 325 Mg Tablet) 650 mg PO Q6H PRN PRN Reason: Headache/Pain (1-10) Al Hydroxide/Mg Hydroxide (Magnesium Hydrox/Alum Hydrox 30 Ml Oral.Susp) 30 ml PO Q6H PRN PRN Reason: Heartburn/Nausea Last Admin: 01/18/24 11:28 Dose: 30 ml Artificial Tears (Artificial Tears 15 Ml Drops) 2 drop EYE-BOTH Q4H PRN PRN Reason: Dry Eyes Last Admin: 01/24/24 20:26 Dose: 2 drop Ascorbic Acid (Ascorbic Acid 500 Mg Tablet) 1,000 mg PO DAILY [facility] Last Admin: 01/25/24 09:00 Dose: 1,000 mg Aspirin (Aspirin Enteric Coated 81 Mg Tablet.Dr) 81 mg PO DAILY [facility] Last Admin: 01/25/24 08:57 Dose: 81 mg Atorvastatin Calcium (Atorvastatin Calcium 80 Mg Tablet) 80 mg PO DAILY [facility] Last Admin: 01/25/24 08:56 Dose: 80 mg Donepezil HCl (Donepezil Hcl 5 Mg Tablet) 5 mg PO BEDTIME [facility] Last Admin: 01/24/24 19:53 Dose: 5 mg Finasteride (Finasteride 5 Mg Tablet) 5 mg PO DAILY [facility] Last Admin: 01/25/24 08:56 Dose: 5 mg Insulin Glargine (Insulin Glargine,Hum.Rec.Anlog 100 Unit/Ml 10 Ml Vial) 30 unit SUBCUT DAILY [facility] Last Admin: 01/25/24 08:57 Dose: 30 unit Insulin Human Lispro (Insulin Lispro 100 Unit/Ml 3 Ml Vial) 5 unit SUBCUT QIDACHS [facility] Last Admin: 01/25/24 11:29 Dose: Not Given Lactulose (Lactulose 20 Gm/30 Ml Solution) 20 gm PO BID [facility] Last Admin: 01/12/24 08:24 Dose: 20 gm Magnesium Hydroxide (Milk Of Magnesia 30 Ml Oral.Susp) 30 ml PO DAILY PRN PRN Reason: Constipation Melatonin (Melatonin 3 Mg Tablet) 6 mg PO BEDTIME [facility] Last Admin: 01/24/24 19:52 Dose: 6 mg Metoprolol Succinate (Metoprolol Succinate Er 25 Mg Tab.Er.24h) 25 mg PO DAILY [facility]; Protocol Last Admin: 01/25/24 08:56 Dose: 25 mg Omeprazole (Omeprazole 20 Mg Capsule.Dr) 20 mg PO DAILY [facility] Last Admin: 01/25/24 08:56 Dose: 20 mg Polyethylene Glycol (Polyethylene Glycol 3350 17 Gm Powd.Pack) 17 gm PO DAILY [facility] Last Admin: 01/25/24 08:57 Dose: 17 gm Risperidone (Risperidone 1 Mg Tablet) 1 mg PO BEDTIME [facility] Last Admin: 01/24/24 19:53 Dose: 1 mg Risperidone (Risperidone 1 Mg Tablet) 1 mg PO BID PRN PRN Reason: agitation Last Admin: 01/16/24 00:43 Dose: 1 mg Risperidone (Risperidone 0.5 Mg Tablet) 0.5 mg PO BID@0800,1400 [facility] Last Admin: 01/25/24 08:56 Dose: 0.5 mg Tamsulosin HCl (Tamsulosin Hcl 0.4 Mg Capsule) 0.4 mg PO DAILY [facility] Last Admin: 01/25/24 08:56 Dose: 0.4 mg Trazodone HCl (Trazodone Hcl 50 Mg Tablet) 50 mg PO BEDTIME PRN PRN Reason: Insomnia Last Admin: 01/16/24 00:43 Dose: 50 mg Trazodone HCl (Trazodone Hcl 50 Mg Tablet) 50 mg PO BEDTIME [facility] Last Admin: 01/24/24 19:53 Dose: 50 mg Vitamin D (Cholecalciferol (Vitamin D3) 25 Mcg Tablet) 25 mcg PO DAILY [facility] Last Admin: 01/25/24 08:56 Dose: 25 mcg Allergies Allergies Allergy/AdvReac Type Severity Reaction Status Date / Time codeine Allergy Intermediate upset Verified 12/30/23 22:10 stomach Assessment & Plan Assessment & Plan (1) Alzheimer's dementia with behavioral disturbance: Status: Acute Code(s): G30.9 - Alzheimer's disease, unspecified; F02.818 - Dementia in other diseases classified elsewhere, unspecified severity, with other behavioral disturbance Plan Mr. Russell is a 78 year-old male with hx of AD who was brought by sister due to increase combative behaviors at night along with not sleeping most of the night. Sister reports more acute and rapid decline in past month or so. In the ED, amitriptyline was tapped off due to urinary retention, concern of increase confusion. No combative behaviors while in the ED. PLAN 01/05- scheduled trazodone at bedtime 50mg po qhs with melatonin 6mg po qhs. discuss with sister restarting aricept 5mg po qhs. 01/06 continue tx. 01/07 continue tx. removed insulin pump as not safe to manage in the hospital especially as pt unknowingly may stop it. 01/09/24 continue tx plan; consult with hospitlaist re: management of severe constipation 01/10 continue tx. Pt with more regular BM, continue to monitor constipation, s/s of obstruction, VS, labs as needed. 01/11 KUB shows improvement of constipation, cmp with some improvement in renal function. 01/12 will order EKG for chest pain. 01/13 continue tx. 01/14 whatley removed per urology- voiding trial for next 24 hrs. 01/15 so far the patient is able to void without major problems we are continue to monitor. 01/16 the patient has been successful to wean off Whatley. Still confused but easily redirectable 01/17 continue tx. ordered PVR bladder scan. 01/18 continue tx. [facility]ISTED needs scheduled doses of insulin. Consulted with Dr. Brown (pt's financial service professional) who recommends Lantus 30units SQ daily and Humalog 5units before meals- based on his pump insulin requirements. 01/19 increase risperidone 0.5mg BID and 1mg po qhs. continue aricept. 01/21 continue tx. 01/24/2024: No changes. Encourage adherence 01/24 continue tx. Reason for continued inpatient stay Substantial Risk for: inability to function Time Spent With Patient Time: Total time managing care of this patient today ____ minutes.
[2024-01-25 16:04] LABS: Glucose, Whole Blood 296 mg/dL (60-115)
[2024-01-25] MEDS: Insulin Lispro 100 UNIT/ML 3 ML VIAL SUBCUT (16:30)
[2024-01-25 20:00] VITALS: BP 108/76; PULSE 81; RESP 16; TEMP 36.7; O2SAT 99
[2024-01-25 20:20] LABS: Glucose, Whole Blood 174 mg/dL (60-115)
[2024-01-26 06:48] LABS: Glucose, Whole Blood 121 mg/dL (60-115)
--- NOTE | 2024-01-26 09:46 | PM.PSYDC ---
DS: Providers Provider Date of Service: 01/26/24 Date of admission: 01/04/24 13:16 Primary care physician: Unknown Physician Consults: 12/31/23 18:34 Consult to Urology Routine Consulting Provider: Jesus Gardner Reason for consultation: Urinary retention Has provider been notified: Yes 01/08/24 09:17 Consult to Nephrology Routine Consulting Provider: Stevie Pearce Reason for consultation: worsening of CKD? Has provider been notified: Yes 01/09/24 06:27 Consult to Hospitalist Routine Comment: Consulting Provider: Hospitalist Reason For Exam: severe constipation DS: Diagnosis Discharge Diagnosis (1) Alzheimer's dementia with behavioral disturbance: Status: Acute DS: Medications Discharge Medications Home Medications: Previous Rx's ?Medication ?Instructions ?Recorded rosuvastatin 40 mg tablet 40 mg PO DAILY #90 tabs 12/04/23 alcohol swabs (Alcohol Pads) 1 pad topical DAILY #100 ea 01/25/24 ascorbic acid (vitamin C) 500 mg 1,000 mg (2 x 500 mg) PO DAILY #60 01/25/24 tablet (Vitamin C) tabs aspirin 81 mg tablet,delayed 81 mg PO DAILY #30 tabs 01/25/24 release cholecalciferol (vitamin D3) 25 25 mcg PO DAILY #30 tabs 01/25/24 mcg (1,000 unit) tablet donepezil 5 mg tablet 5 mg PO BEDTIME #30 tabs 01/25/24 finasteride 5 mg tablet 5 mg PO DAILY #30 tabs 01/25/24 insulin glargine 100 unit/mL 30 unit (0.3 mL) subcut DAILY #10 01/25/24 subcutaneous solution (Lantus mL U-100 Insulin) insulin syringe-needle U-100 0.3 #100 ea 01/25/24 mL 29 gauge x 1/2 (BD Insulin Syringe) melatonin 3 mg tablet 6 mg (2 x 3 mg) PO BEDTIME #60 tabs 01/25/24 metoprolol succinate 25 mg 25 mg PO DAILY #30 tabs 01/25/24 tablet,extended release 24 hr omeprazole 20 mg capsule,delayed 20 mg PO DAILY #30 caps 01/25/24 release peg [id number] 1 2 drp ophthalmic (eye) Q4H PRN Dry 01/25/24 %-0.2 %-0.2 % eye drops Eyes #15 mL polyethylene glycol 3350 17 gram 17 g PO DAILY #30 ea 01/25/24 oral powder packet risperidone 0.5 mg tablet 0.5 mg PO BID@0800,1400 #60 tabs 01/25/24 risperidone 1 mg tablet 1 mg PO BEDTIME #30 tabs 01/25/24 tamsulosin 0.4 mg capsule 0.4 mg PO DAILY #30 caps 01/25/24 trazodone 50 mg tablet 50 mg PO BEDTIME #30 tabs 01/25/24 Mental Status Exam Mental Status Exam Narrative: Appearance:dressed casually, fair hygiene Behavior: cooperative Psychomotor: anxious Speech: mostly clear Mood: good Affect: congruent, pleasant SI: none HI: none VH/AH: no overt signs Delusions: none, may have confabulations Insight/judgment: impaired x 2. Memory/cog:alert, oriented to place in the sense that he knows is a hospital, but not to situation, month or year. Data Data Completed and Pending Completed studies during hospitalization [Text1]: 01/19/24 01/19/24 01/19/24 11:17 16:30 19:47 POC Glucose 178 H 208 H 191 H 01/20/24 01/20/24 01/20/24 06:36 11:15 16:07 POC Glucose 152 H 176 H 204 H 01/20/24 01/21/24 01/21/24 20:35 06:34 11:31 POC Glucose 192 H 173 H 259 H 01/21/24 01/21/24 01/21/24 16:34 20:02 21:05 POC Glucose 193 H 288 H 349 H 01/22/24 01/22/24 01/22/24 06:44 11:08 16:07 POC Glucose 145 H 235 H 163 H 01/23/24 01/23/24 01/23/24 07:33 11:17 16:05 POC Glucose 95 135 H 213 H 01/23/24 01/24/24 01/24/24 20:11 06:32 11:11 POC Glucose 184 H 151 H 213 H 01/24/24 01/24/24 01/25/24 16:20 19:27 06:35 POC Glucose 199 H 269 H 113 01/25/24 01/25/24 01/25/24 11:25 15:59 19:59 POC Glucose 168 H 296 H 174 H 01/26/24 06:37 POC Glucose 121 H 01/03/24 Unknown Urine Catheterized - Whatley Catheter Urine Culture - Final No growth. Imaging Diagnostic Imaging Impressions KUB X-Ray 12/31/23 00:20 IMPRESSION: 1. No acute finding. 2. Mild lower lumbar disc degenerative change. KUB X-Ray 01/09/24 13:37 IMPRESSION: Increasing severe constipation. Dilated large bowel suggestive of secondary obstruction/obstipation. KUB X-Ray 01/12/24 09:30 IMPRESSION: 1. Redemonstrated fecal loading throughout the colon, improved from prior imaging greatest in the distal transverse colon/proximal to mid descending colon. 2. Colon remains mildly prominent greatest at the hepatic flexure. DS: Summary Hospital Course Hospital Course: Mr. Russell is a 78 year-old male with hx of dementia. He lives at home with 24/7 care. He was brought to ED due to increase aggression and agitation, especially at night for the past 3 weeks. He is not sleeping and appears much more confused. In the ED, BUN elevated 28, Cr. 1.99 (he does have CKD stage 3 and it seems this is baseline). CBC without leukocytosis, normocytic anemia, MCV on high end of normal. In the ED, pt found to have urinary retention- failed 3 attempts to urinate on his own. He was seen by urology and whatley placed. Sister reports in the past 2-3 weeks pt increasingly more agitated, not sleeping and combative with caregiver. He sees psychiatric provider Sera Maciel who reports pt has hx of OCD aside from dementia. He has been on amitriptyline and sertraline. Sera had taper him off sertraline and increase amitriptyline. He was also taken off aricept last year. He has been tried on seroquel and risperidone. On the unit, pt presents as pleasant. He tells this sports book writer that he is at [place], where he completed his FAN[facility]. He states year is 2013. He does not why he is here. He denies any physical concerns. No aggression or combative behaviors. He is able to tell this sports book writer that his HCP is his sister Megan. He does not appear internally preoccupied. No overt delusional content noted but he is confabulating. 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 He was dx with dementia about 7 years ago. He has adult children but they are not close to him and have very little contact. His main support is sister. Past Psychiatric History: Inpt: none OP: Seraliban Maciel Past Psychiatric History: Inpt: none OP: Sera Maciel HOSPITAL COURSE On the unit, pt presented as pleasant but not oriented to place, situation, month or date. He had in the ED urinary retention and was placed on whatley. After discussing risks, benefits and alternative treatment options, pt's sister, Megan who is HCP, agreed to start trazodone for sleep. He was continued on risperidone 1mg po qhs. He was also restarted on aricept. His sleep regulated and he slept most of the nights. He was taken off amitriptyline given highly anticholigergic properties and risk of urinary retention, increased confusions. He was maintain on regimen of Lantus 30 units SQ daily and scheduled lispro 5unit before meals. He was started on finasteride in combination with tamsulosin for BPH and urinary retention. Whatley was taken off on 01/14 and pt was able to void on its own without signs of PVR>300cc. Blood pressured was stable- monitor hypotension as it may worsen underlying CKD. Risperidone was increased to 0.5mg po BID and 1mg po qhs due to pt having some paranoid ideas of sister stealing from him as well as staff on the unit. Throughout this admission, pt did not show any signs of aggression towards self or others. He was visible on the unit ambulating with a walker. His orientation improved slightly in the sense that he was able to tell that he was in the hospital, but he could not tell how long he had been there or why he was in the hospital. He did not know the year or the month. Status at Discharge Cognitive/behavioral status at discharge: Pt with pleasant affect. no SI/HI. No overt VH/AH. Sleeping and eating well. He is looking forward to go home, however, no insight into extend of cognitive impairment and need for 24/7 care. No aggression towards self or others. Functional status at discharge: uses cane/walker Overall status at discharge: patient is back to baseline Time Spent with Patient Time attestation: Total time managing care of this patient today ____ minutes. Discharge Plan Discharge Anticipated Discharge Date/Time: 01/26/24 08:00 Patient Disposition: Home, Self-Care Discharge Diagnosis: AD Referrals: [facility] [Other] - 01/26/24 11:00 am (Transfer to [facility] on 01/26/24 at 1100. Will be connected with their primary care doctor. ) Sera Yeager NP [Other] - 01/28/24 12:00 pm (Your next psychiatry appointment is scheduled for 01/28/24 at 12PM.) Discharge Medications: New trazodone 50 mg Tablet 50 mg PO BEDTIME Qty: 30 0RF polyethylene glycol 3350 17 gram Powder In Packet 17 g PO DAILY Qty: 30 0RF aspirin 81 mg Tablet,Delayed Release (Dr/Ec) 81 mg PO DAILY Qty: 30 0RF tamsulosin 0.4 mg Capsule 0.4 mg PO DAILY Qty: 30 0RF omeprazole 20 mg Capsule,Delayed Release(Dr/Ec) 20 mg PO DAILY Qty: 30 0RF metoprolol succinate 25 mg Tablet Extended Release 24 Hr 25 mg PO DAILY Qty: 30 0RF Protocol: Hold for SBP/HR < HOLD for SBP < : 90 HOLD for HR < : 60 risperidone 1 mg Tablet 1 mg PO BEDTIME Qty: 30 0RF risperidone 0.5 mg Tablet 0.5 mg PO BID@0800,1400 Qty: 60 0RF peg [id number] 1-0.2-0.2 % Drops 2 drp ophthalmic (eye) Q4H PRN (Reason: Dry Eyes) Qty: 15 0RF insulin glargine [Lantus U-100 Insulin] 100 unit/mL Solution 30 unit subcut DAILY Qty: 10 0RF melatonin 3 mg Tablet 6 mg PO BEDTIME Qty: 60 0RF ascorbic acid (vitamin C) [Vitamin C] 500 mg Tablet 1,000 mg PO DAILY Qty: 60 0RF finasteride 5 mg Tablet 5 mg PO DAILY Qty: 30 0RF cholecalciferol (vitamin D3) 25 mcg (1,000 unit) Tablet 25 mcg PO DAILY Qty: 30 0RF donepezil 5 mg Tablet 5 mg PO BEDTIME Qty: 30 0RF (DME) insulin syringe-needle U-100 [BD Insulin Syringe] 0.3 mL 29 gauge x 1/2 syringe See Rx Instructions .Route Qty: 100 0RF Rx Instructions: As directed alcohol swabs [Alcohol Pads] Pads, Medicated 1 pad topical DAILY Qty: 100 0RF Continued rosuvastatin 40 mg tablet 40 mg PO DAILY Qty: 90 3RF Discontinued docusate sodium [Colace] 100 mg capsule 100 mg PO DAILY PRN (Reason: constipation) Qty: 30 0RF metoprolol succinate 25 mg tablet extended release 24 hr 25 mg PO DAILY Qty: 90 1RF insulin aspart U-100 [Novolog U-100 Insulin aspart] 100 unit/mL solution See Rx Instructions subcut DAILY Qty: 30 5RF Rx Instructions: Up to 100 units via insulin pump subcutaneously daily; tamsulosin 0.4 mg capsule 0.4 mg PO DAILY Qty: 90 0RF risperidone 0.5 mg tablet 0.5 - 1 mg PO BEDTIME omeprazole 20 mg capsule,delayed release(DR/EC) 20 mg PO DAILY cholecalciferol (vitamin D3) 25 mcg (1,000 unit) capsule 25 mcg PO DAILY ascorbic acid (vitamin C) 1,000 mg tablet 1 g PO DAILY aspirin 81 mg tablet,delayed release (DR/EC) 81 mg PO DAILY amitriptyline 50 mg tablet 50 mg PO BEDTIME Discharge Orders: Discharge Order (Routine); Ordered 01/26/24 Ordered By: Winter Haque Diet: Diabetic diet Activity on Discharge: Use cane or walker Stand Alone Forms: Patient Portal Discharge page Print Language: Setswana Care Plan Goals: maintain mood no SI/HI No aggression towards self or others Health Concerns: Follow up with PCP for routine care Plan of Treatment: take medications as prescribed go to nearest ED or call 911 in event of emergency Assessment: Pt pleasant on approach. No aggression towards self or others. Sleeping and eating well. impaired memory/cognition.
[2024-01-26 09:50] VITALS: BP 123/73; PULSE 81; RESP 16; TEMP 36.3; O2SAT 93
[2024-01-26] MEDS: Insulin Glargine,Hum.rec.anlog 100 UNIT/ML 10 ML VIAL 30 UNIT SUBCUT (09:54)
[2024-01-26] MEDS: polyethylene glycoL 3350 17 GM POWD.PACK PO (09:55)
[2024-01-26] MEDS: Atorvastatin Calcium 80 MG TABLET PO (09:55)
[2024-01-26] MEDS: Cholecalciferol (Vitamin D3) 25 MCG TABLET PO (09:55)
[2024-01-26] MEDS: risperiDONE 0.5 MG TABLET PO (09:55)
[2024-01-26] MEDS: Metoprolol Succinate ER 25 MG TAB.ER.24H PO (09:55)
[2024-01-26] MEDS: Finasteride 5 MG TABLET PO (09:55)
[2024-01-26] MEDS: Ascorbic Acid 500 MG TABLET 1000 MG PO (09:55)
[2024-01-26] MEDS: Omeprazole 20 MG CAPSULE.DR PO (09:56)
[2024-01-26] MEDS: Tamsulosin HCL 0.4 MG CAPSULE PO (09:56)
[2024-01-26] MEDS: LORazepam 1 MG TABLET PO (09:56)
[2024-01-26] MEDS: Aspirin Enteric Coated 81 MG TABLET.DR PO (09:59)
--- NOTE | 2024-01-26 11:43 | PC.NURSE ---
Pt. A & O X 1-2. Aware of discharge and reports readiness, but does not accept that he is discharging to a [facility], insisting that he is going home. He declined breakfast, declined shower and shave, Ill do that when I get to the house. Denies depression, anxiety, SI, HI, and perceptual disturbances. Pt. departed unit at 11:35 via stretcher accompanied by 2 outer diameter grinder tool. Pt. had received one time dose of lorazepam prior to discharge and was cooperative with discharge process. Discharge paperwork handed off to outer diameter grinder tool to hand off to ROSIE.
== END 2024-01-26 11:35 | disposition home or self-care (01) | DRG 57 ==
LOC: HO.ED 01-02 13:48 → HO.PGERI 01-04 14:22
PROVIDERS: Physician Assistant; Physician Assistant Medical; Admitting Provider Social Worker; Emergency Provider Student in an Organized Health Care Education/Training Program; Visit Provider Social Worker
DX: G30.9 Alzheimer's disease, unspecified (principal); F02.818 Dementia in other diseases classified elsewhere, unspecified severity, with other behavioral disturbance; F42.9 Obsessive-compulsive disorder, unspecified; N18.30 Chronic kidney disease, stage 3 unspecified; K59.00 Constipation, unspecified; E11.22 Type 2 diabetes mellitus with diabetic chronic kidney disease; D63.1 Anemia in chronic kidney disease; Z87.891 Personal history of nicotine dependence; Z79.4 Long term (current) use of insulin; Z79.82 Long term (current) use of aspirin; Z79.899 Other long term (current) drug therapy
CPT/HCPCS: 36415; 74018; 80048; 80053; 80061; 80307; 81001; 82140; 82947; 83036; 84484; 85025; 85610; 87086; 93005; 97116; 97162; 99285; C1758; J2405; S9485

== ENCOUNTER → 2023-12-30 22:20 | Outpatient (BNV) | payer MEDICARE, SELFPAY | PROVIDERS: Emergency Provider Student in an Organized Health Care Education/Training Program; Visit Provider Internal Medicine | DX: R94.31 Abnormal electrocardiogram [ECG] [EKG] (principal) | CPT/HCPCS: 93010 ==

== ENCOUNTER → 2023-12-30 22:30 | Outpatient (BNV) | payer MEDICARE, SELFPAY | PROVIDERS: Emergency Provider Student in an Organized Health Care Education/Training Program; Visit Provider Social Worker | DX: G30.9 Alzheimer's disease, unspecified (principal); F02.818 Dementia in other diseases classified elsewhere, unspecified severity, with other behavioral disturbance | CPT/HCPCS: 90792; 99231; 99232; 99238; 99285 ==